=== PATIENT | male | born 1960 | race Caucasian/White ===

== ENCOUNTER 2019-07-25 09:55 | Emergency (ER) | payer MEDICAID, SELFPAY ==
--- NOTE | 2019-07-25 10:02 | ED_ITS ---
HPI - Abdominal Pain General: Chief Complaint: Abdominal Pain Stated Complaint: ABD PAIN Time Seen by Provider: 07/25/19 10:02 Source: patient Mode of arrival: ambulatory Limitations: no limitations History of Present Illness: HPI narrative: Patient comes in with epigastric discomfort for 1 week. Patient reports pain was worse this morning and nothing he does at home seems to help. Patient reports pain becomes worse when he lays down and tries to go to sleep at night. Patient appears well. Patient appears in moderate pain. Patient denies any previous episodes of similar problems. Patient takes lisinopril routinely for hypertension. Patient has a history of cardiomyopathy and atrial flutter also. Associated Symptoms: Reports nausea Review of Systems General: Reports: 10 or more systems reviewed and unremarkable except in HPI and below GI: Reports: abdominal pain and nausea PFSH ED PFSH: Social History Smoking and tobacco status: current every day smoker Physical Exam Const: COMMON NORMALS: no apparent distress and oriented x3 GENERAL APPEARANCE: cooperative HENMT: COMMON NORMALS: normocephalic, TM's normal bilaterally and external nose normal HEAD & SCALP: normal to inspection and normocephalic NOSE: external nose normal TYMPANIC MEMBRANE: TM's normal bilaterally MOUTH: oral and palatal mucosa normal THROAT: posterior oropharynx normal Eye: GENERAL EYE: normal appearance of both eyes Neck/C-Spine: COMMON NORMALS: full ROM Lymph: LYMPHATIC: no lymphadenopathy noted Chest: COMMONS NORMALS: inspection of chest normal Resp: COMMON NORMALS: normal respiratory effort EFFORT & INSPECTION: Yes able to speak in complete sentences Cardio: COMMON NORMALS: regular rate and regular rhythm RATE: regular rate RHYTHM: regular rhythm GI: PALPATION: Yes tender (epigastric) : COMMON NORMALS: Yes no CVA tenderness BLADDER/KIDNEY EXAM: Yes no CVA tenderness Back/Pelvis: COMMON NORMALS: no CVA tenderness and thoracic and lumbar spine normal to inspection Extremity: COMMON NORMALS: normal to inspection Neuro: COMMON NORMALS: oriented x3 and moves all extremities Psych: COMMON NORMALS: mental status grossly normal and cooperative Skin: COMMON NORMALS: no rashes or lesions noted GENERAL SKIN EXAM: no rashes or lesions noted Course ED course: 1130, patient reports improvement in symptoms after dosing with GI cocktail. Awaiting second troponin level for evaluation to rule out cardiac syndrome. wjw Vital Signs: Vital signs: Vital Signs Temperature 98.6 F 07/25/19 10:05 Pulse Rate 60 07/25/19 10:05 Respiratory Rate 20 H 07/25/19 10:05 Blood Pressure 193/87 07/25/19 10:05 Pulse Oximetry 98 07/25/19 10:05 MDM - Abdominal Pain MDM Narrative: Medical decision making narrative: Patient comes in today for complaints of epigastric pain for the last 1 to 2 weeks. Patient reports that the pain became unbearable this morning and he was unable to tolerate pain anymore. Patient did report one episode of vomiting. Vital signs are normal except for some mild elevation in blood pressure with a systolic of 190. Differential diagnosis includes gastroesophageal reflux disorder, gastritis, peptic ulcer disease, pancreatitis, ACS. Chest x-ray was normal. Laboratory values noted a mild elevation leukocytosis of 11, sodium potassium was 141 and 3 .9, lipase was normal. EKG was sinus bradycardia with some mild left ventricular hypertrophy. Troponin was slightly elevated at 60 at 1 hour but was declined at the 2-hour with a negative curve. Patient had improvement of pain after a GI cocktail. Patient was then dosed with Protonix and will be continued on medication for the next 2 to 4 weeks. Recommended patient follow-up with primary care for further evaluation and consideration of treatment/evaluation with endoscopy. Patient reports understanding agreed to plan. Lab Data: Labs: Lab Results 07/25/19 07/25/19 07/25/19 Range/Units 10:30 10:30 10:30 WBC 11.0 H (4.0-10.0) 10^3/ uL RBC 4.61 (4.1-5.3) 10^6/u L Hgb 13.9 (11.7-16.6) g/dL Hct 43.3 (42.0-52.0) % MCV 93.9 (80-94) fL MCH 30.2 (28.0-34.0) pg MCHC 32.1 (30.0-36.0) g/dL RDW 13.5 (12.1-15.1) % Plt Count 368 (130-400) 10^3/c mm MPV 9.7 (7.4-10.4) fL Neut % (Auto) 73.7 % Lymph % (Auto) 17.0 % [place] % (Auto) 8.0 % Eos % (Auto) 0.6 % Baso % (Auto) 0.3 % Neut # (Auto) 8.1 H (1.8-7.7) 10^3/u L Lymph # (Auto) 1.9 (0.8-4.8) 10^3/u L [place] # (Auto) 0.9 (0.2-0.9) 10^3/u L Eos # (Auto) 0.1 (0.0-0.8) 10^3/u L Baso # (Auto) 0.0 (0.0-0.1) 10^3/u L Nucleated RBC % (a uto) 0 % Nucleated RBCs # 0.0 /100WBC Sodium 141 (136-145) mmol/L Potassium 3.9 (3.5-5.1) mmol/L Chloride 100 (98-107) mmol/L Carbon Dioxide 28 (22-29) mmol/L Anion Gap 16.9 (5-19) BUN 9 (8-23) mg/dL Creatinine 1.1 (0.7-1.2) mg/dL GFR Calculation 68.3 L (90-130) mL/min Glucose 124 H (65-115) mg/dL Calculated Osmolal ity 289 (285-295) mOsm/k g Calcium 9.5 (8.5-10.5) mg/dL Total Bilirubin 0.3 (0.15-1.2) mg/dL AST 16 (0-40) U/L ALT 8 (0-41) U/L Alkaline Phosphata se 82 (40-130) IU/L Troponin T Baselin e 60 H (0-15) ng/mL Troponin T 120 Min [place] (0-15) ng/mL Delta Troponin T (0-10) ABS# Total Protein 8.0 (6.6-8.7) g/dL Albumin 4.2 (3.5-5.2) g/dL Globulin 3.8 (1.3-4.6) g/dL Lipase 39 (13-60) U/L /06/10 Range/Units 11:43 WBC (4.0-10.0) 10^3/ uL RBC (4.1-5.3) 10^6/u L Hgb (11.7-16.6) g/dL Hct (42.0-52.0) % MCV (80-94) fL MCH (28.0-34.0) pg MCHC (30.0-36.0) g/dL RDW (12.1-15.1) % Plt Count (130-400) 10^3/c mm MPV (7.4-10.4) fL Neut % (Auto) % Lymph % (Auto) % [place] % (Auto) % Eos % (Auto) % Baso % (Auto) % Neut # (Auto) (1.8-7.7) 10^3/u L Lymph # (Auto) (0.8-4.8) 10^3/u L [place] # (Auto) (0.2-0.9) 10^3/u L Eos # (Auto) (0.0-0.8) 10^3/u L Baso # (Auto) (0.0-0.1) 10^3/u L Nucleated RBC % (a uto) % Nucleated RBCs # /100WBC Sodium (136-145) mmol/L Potassium (3.5-5.1) mmol/L Chloride (98-107) mmol/L Carbon Dioxide (22-29) mmol/L Anion Gap (5-19) BUN (8-23) mg/dL Creatinine (0.7-1.2) mg/dL GFR Calculation (90-130) mL/min Glucose (65-115) mg/dL Calculated Osmolal ity (285-295) mOsm/k g Calcium (8.5-10.5) mg/dL Total Bilirubin (0.15-1.2) mg/dL AST (0-40) U/L ALT (0-41) U/L Alkaline Phosphata se (40-130) IU/L Troponin T Baselin e (0-15) ng/mL Troponin T 120 Min [place] 22.42 H (0-15) ng/mL Delta Troponin T -37.58 L (0-10) ABS# Total Protein (6.6-8.7) g/dL Albumin (3.5-5.2) g/dL Globulin (1.3-4.6) g/dL Lipase (13-60) U/L EKG Data ^: EKG 1: Attestation: I personally reviewed and interpreted this EKG as follows: (1117, sinus bridget, rate 43 bpm and regular, no ST elevation, no ectopy, LVH identified ) Discharge Plan Discharge Patient Disposition: Home, Self-Care Clinical Impression: Gastritis Qualifiers: Gastritis type: unspecified gastritis Chronicity: acute Gastritis bleeding: without bleeding Qualified Code(s): K29.00 - Acute gastritis without bleeding Condition: Stable Prescriptions: New pantoprazole 40 mg tablet,delayed release (DR/EC) 40 mg PO DAILY 28 Days Qty: 28 RF: 0 No Action lisinopril 20 mg tablet 20 mg PO DAILY 90 Days Qty: 90 RF: 3 Lasix 40 mg Tablet 40 mg PO DAILY RF: 0 aspirin 81 mg Tablet,Chewable 325 mg PO EVERY OTHER DAY RF: 0 potassium chloride 20 mEq Tablet Extended Release 20 meq PO DAILY RF: 0 Discharge Orders: Discharge Order (Routine); Ordered 07/25/19 Ordered By: Bin Paredes Referrals: Joss Shah MD [Family Provider] - Discharge Diet: Usual diet Discharge Activity: Increase activity as tolerated Patient Instructions: Gastroesophageal Reflux Disease (ED) Activity Restrictions/Additional Instructions: Eat a light diet. Drink plenty of water. Take pantoprazole 30 minutes before your first meal of the day. Follow-up with primary care in 1 week for recheck and consideration of further evaluation with endoscopy to evaluate the stomach and esophagus. Return to the emergency room for worsening symptoms, blood in vomit or stool. Coding Level of Care Code ED Director Of [employer] for [facility] Exam Comprehensive
[2019-07-25 10:03] VITALS: BMI 23.7
[2019-07-25 10:05] VITALS: BP 193/87; PULSE 60; RESP 20; TEMP 37; O2SAT 98
--- NOTE | 2019-07-25 10:08 | XRR_ITS ---
PROCEDURE INFORMATION: Exam: XR Chest, 1 View Exam date and time: 07/25/2019 10:40 AM Age: 59 years old Clinical indication: Other: Epigastric pain; Additional info: Abdominal pain TECHNIQUE: Imaging protocol: XR of the chest Views: Frontal portable upright view of the chest. COMPARISON: CR Chest 1 [place] [id number] 07/05/2014 7:23 PM FINDINGS: Lungs: The lungs are clear bilaterally. The pulmonary vasculature is normal. Pleural space: No pleural effusion. No pneumothorax. Heart/Mediastinum: The heart is normal in size and contour. Mediastinum: Stable. Bones/joints: Stable. XR/XR chest 1V portable [id number] IMPRESSION: No acute cardiopulmonary abnormality identified.
--- NOTE | 2019-07-25 10:08 | ECG_ITS ---
Measurements Intervals [place] Rate: 43 P: -21 IN: 161 QRS: -9 QRSD: 104 T: 259 QT: 546 QTc: 466 SINUS BRADYCARDIA LEFT VENTRICULAR HYPERTROPHY AND ST-T CHANGE [VOLTAGE CRITERIA PLUS ST/T AB ABNORMALITY] Compared to ECG 07/08/2014 08:37:30 Left ventricular hypertrophy now present ST (T wave) deviation now present Sinus tachycardia no longer present Atrial abnormality no longer present Left bundle-branch block no longer present Electronically Signed On 07-25-2019 17:06:22 CDT by Carlita Gomes M.D. [id number]
[2019-07-25 10:49] LABS: Basophils % 0.3 %; Eosinophils # 0.1 10^3/uL (0.0-0.8); Eosinophils % 0.6 %; Hematocrit 43.3 % (42.0-52.0); Hemoglobin 13.9 g/dL (11.7-16.6); Lymphocytes # 1.9 10^3/uL (0.8-4.8); Mean Corpuscular HGB Conc 32.1 g/dL (30.0-36.0); Mean Corpuscular Hemoglobin 30.2 pg (28.0-34.0); Mean Corpuscular Volume 93.9 fL (80-94); Mean Platelet Volume 9.7 fL (7.4-10.4); Monocytes # 0.9 10^3/uL (0.2-0.9); Neutrophils # 8.1 10^3/uL (1.8-7.7); Neutrophils % 73.7 %; Nucleated Red Blood Cells % 0 %; Platelet Count 368 10^3/cmm (130-400); Red Blood Count 4.61 10^6/uL (4.1-5.3); Red Cell Distribution Width 13.5 % (12.1-15.1)
[2019-07-25] MEDS: sodium chloride 0.9% 500 ML 999 ML IV (10:56)
[2019-07-25] MEDS: ondansetron 2 mg/ML SDV 2 mL 4 MG IVP (10:57)
[2019-07-25] MEDS: lidocaine 2% viscous 15 ML, aluminum-mag hydrox-simethicon 30 ML, sucralfate oral liq 1 GM PO (10:58)
[2019-07-25 11:04] LABS: Alanine Aminotransferase 8 U/L (0-41); Albumin Level 4.2 g/dL (3.5-5.2); Alkaline Phosphatase 82 IU/L (40-130); Anion Gap 16.9 (5-19); Aspartate Amino Transferase 16 U/L (0-40); Blood Urea Nitrogen 9 mg/dL (8-23); Calcium 9.5 mg/dL (8.5-10.5); Carbon Dioxide 28 mmol/L (22-29); Chloride 100 mmol/L (98-107); Globulin 3.8 g/dL (1.3-4.6); Glomerular Filtration Rate 68.3 mL/min (90-130); Glucose 124 mg/dL (65-115); Lipase 39 U/L (13-60); Osmolality Calculated 289 mOsm/kg (285-295); Potassium 3.9 mmol/L (3.5-5.1); Sodium 141 mmol/L (136-145); Total Bilirubin 0.3 mg/dL (0.15-1.2)
--- NOTE | 2019-07-25 11:06 | CTR_ITS ---
PROCEDURE INFORMATION: Exam: CT Abdomen And Pelvis With Contrast Exam date and time: 07/25/2019 11:08 AM Age: 59 years old Clinical indication: Abdominal pain; Epigastric; Additional info: Abdominal pain TECHNIQUE: Imaging protocol: Computed tomography of the abdomen and pelvis with intravenous contrast. Radiation optimization: All CT scans at this facility use at least one of these dose optimization techniques: automated exposure control; mA and/or kV adjustment per patient size (includes targeted exams where dose is matched to clinical indication); or iterative reconstruction. Contrast material: Omnipaque 300; Contrast volume: 95 ml; Contrast route: IV; COMPARISON: CT abdomen pelvis w con* [id number] 07/08/2014 1:02 PM RADIATION DOSE METRICS: Total DLP: 604.09 mGy-cm FINDINGS: Liver: The liver measures 20.3 cm in the midclavicular plane. Mild periportal hypoattenuation. Gallbladder and bile ducts: The gallbladder is partially contracted. Pancreas: Normal. No ductal dilation. Spleen: Normal. No splenomegaly. Adrenals: Normal. No mass. Kidneys and ureters: Mild bilateral renal cortical scarring, stable. Stomach and bowel: A sigmoid colonic diverticulum is present without evidence of diverticulitis. Appendix: The vermiform appendix is not identified on this examination. There is, however, no pericecal abnormality to suggest appendicitis. Intraperitoneal space: Unremarkable. No free air. No significant fluid collection. Vasculature: Moderate aortic atherosclerotic calcification without aneurysm. The iliac arteries show moderate bilateral atherosclerotic calcifications without evidence of aneurysm. Calcified phleboliths are present in the lower pelvis bilaterally. Lymph nodes: No enlarged lymph nodes. Bladder: Unremarkable as visualized. Reproductive: Unremarkable as visualized. Bones/joints: Bilateral mild lower lumbar facet primary osteoarthritis. Soft tissues: Unremarkable. CT/CT abdomen pelvis w con* [id number] IMPRESSION: 1. Mild hepatomegaly. 2. Mild periportal hypoattenuation. Differential diagnosis includes acute hepatitis, hypoproteinemia, elevated central venous pressure, bacteremia, recent crystalloid administration and other etiologies. Clinical correlation is recommended. 3. Mild bilateral renal cortical scarring, stable. 4. Diverticulosis. Radiation Dose CTDIVOL = (mGy): DLP = 604.09 (mGy-cm)
[2019-07-25 11:17] LABS: Troponin(5th) Baseline 60 ng/mL (0-15)
[2019-07-25] MEDS: iohexol 300 mg/mL 100 mL Btl IV (11:56)
[2019-07-25] MEDS: pantoprazole 40 mg SDV IVP (12:02)
[2019-07-25 12:15] LABS: Troponin 5 2HR 22.42 ng/mL (0-15)
[2019-07-25 13:05] VITALS: BP 189/87; PULSE 54; RESP 16; TEMP 36.9; O2SAT 98
--- NOTE | 2019-07-25 16:08 | ECG_ITS ---
Measurements Intervals [place] Rate: 48 P: 43 TX: 169 QRS: -22 QRSD: 103 T: 250 QT: 518 QTc: 466 SINUS BRADYCARDIA BORDERLINE LEFT AXIS DEVIATION [QRS AXIS < -20] LEFT VENTRICULAR HYPERTROPHY AND ST-T CHANGE [VOLTAGE CRITERIA PLUS ST/T ABNORMALITY] Compared to ECG 07/08/2014 08:37:30 Left ventricular hypertrophy now present ST (T wave) deviation now present Sinus tachycardia no longer present Atrial abnormality no longer present Left bundle-branch block no longer present Electronically Signed On 07-25-2019 17:07:13 CDT by Carlita Gomes M.D. [id number]
== END 2019-07-25 13:05 | disposition home or self-care (01) ==
PROVIDERS: Emergency Provider Nurse Practitioner Family; Family Provider Family Medicine
DX: K29.00 Acute gastritis without bleeding (principal); Z79.82 Long term (current) use of aspirin; F17.210 Nicotine dependence, cigarettes, uncomplicated
CPT/HCPCS: 12345; 36415; 71045; 74177; 80053; 83690; 84484; 85025; 93005; 96360; 96361; 96375; 99283; A9270; C9113; J2405; J7040; Q9967

== ENCOUNTER → 2020-07-25 16:08 | Outpatient (BNVA) | payer MEDICAID, SELFPAY | PROVIDERS: Family Provider Family Medicine; PCP Nurse Practitioner Family; Visit Provider Nurse Practitioner Family | DX: R30.0 Dysuria (principal); R82.90 Unspecified abnormal findings in urine; N39.0 Urinary tract infection, site not specified | CPT/HCPCS: 81003; 87077; 87086; 87184 ==

== ENCOUNTER 2020-07-26 15:07 | Emergency (ER) | payer MEDICAID, SELFPAY ==
[2020-07-26 15:29] VITALS: BP 164/82; PULSE 115; RESP 22; TEMP 37.6; O2SAT 98; BMI 21.7
--- NOTE | 2020-07-26 17:53 | CTR_ITS ---
PROCEDURE INFORMATION: Exam: CT Abdomen And Pelvis With Contrast Exam date and time: 07/26/2020 6:28 PM Age: 60 years old Clinical indication: Nausea and vomiting and other: Hematuria TECHNIQUE: Imaging protocol: Computed tomography of the abdomen and pelvis with contrast. Radiation optimization: All CT scans at this facility use at least one of these dose optimization techniques: automated exposure control; mA and/or kV adjustment per patient size (includes targeted exams where dose is matched to clinical indication); or iterative reconstruction. Contrast material: VISI 320; Contrast volume: 95 ml; Contrast route: INTRAVENOUS (IV); COMPARISON: CT abdomen pelvis w con* [id number] 07/25/2019 11:48 AM RADIATION DOSE METRICS: Total DLP (mGy-cm): 1204.18 FINDINGS: Liver: Normal. No mass. Gallbladder and bile ducts: Contracted gallbladder. The bile ducts are normal. Pancreas: Normal. No ductal dilation. Spleen: Normal. No splenomegaly. Adrenal glands: Normal. No mass. Kidneys and ureters: Inhomogenous enhancement of the right kidney with perinephric and periureteral stranding. Mild urothelial thickening of the right renal collecting system and ureter. Tiny hypodensities in the left kidney are too small to characterize but are most likely cysts. No follow-up imaging is recommended. No calculus or hydronephrosis. Stomach and bowel: Mild diverticulosis of the distal colon. The stomach and small bowel are unremarkable. Appendix: No evidence of appendicitis. Intraperitoneal space: Mild pelvic ascites. Vasculature: Atherosclerotic calcifications. No aneurysm. Lymph nodes: Numerous subcentimeter retroperitoneal lymph nodes are most likely reactive. Urinary bladder: Mild wall thickening in the urinary bladder measuring 7 mm. Reproductive: Mildly enlarged prostate gland. Bones/joints: Unremarkable. No acute fracture. Soft tissues: Unremarkable. CT/CT abdomen pelvis w con* [id number] IMPRESSION: 1. Inhomogenous right kidney with perinephric stranding, suspicious for pyelonephritis. Clinical correlation recommended. No visible calculus. 2. Mild right urothelial thickening and periureteral stranding. This is suspicious for infection of the right renal collecting system. 3. Mild wall thickening of the urinary bladder, suspicious for cystitis. 4. Prominent retroperitoneal lymph nodes are most likely reactive. COMMENTS: Consistent with the [employer]'s Incidental Findings Committee white paper (J Am Beny Radiol 2018): Any incidental renal lesion less than 1 cm or classified as too small to characterize, or any incidental cystic renal lesion characterized as simple-appearing, is likely benign. No follow-up imaging is recommended for these lesions per consensus recommendations based on imaging criteria. Radiation Dose CTDIVOL = (mGy): DLP = 1204.18 (mGy-cm)
[2020-07-26 18:13] LABS: Basophils # 0.1 10^3/uL (0.0-0.1); Basophils % 0.2 %; Hematocrit 39.5 % (42.0-52.0); Hemoglobin 13.2 g/dL (11.7-16.6); Lymphocytes # 2.5 10^3/uL (0.8-4.8); Lymphocytes % 9.7 %; Mean Corpuscular HGB Conc 33.4 g/dL (30.0-36.0); Mean Corpuscular Hemoglobin 30.4 pg (28.0-34.0); Mean Platelet Volume 9.8 fL (7.4-10.4); Monocytes # 2.3 10^3/uL (0.2-0.9); Monocytes % 8.8 %; Neutrophils # 20.82 10^3/uL (1.8-7.7); Neutrophils % 80.5 %; Nucleated Red Blood Cells % 0 %; Platelet Count 536 10^3/cmm (130-400); Red Blood Count 4.34 10^6/uL (4.1-5.3); Red Cell Distribution Width 12.8 % (12.1-15.1); White Blood Count 25.9 10^3/uL (4.0-10.0)
[2020-07-26] MEDS: sodium chloride 0.9% 1,000 ML 999 ML IV (18:14)
[2020-07-26 18:38] LABS: Alanine Aminotransferase 12 U/L (0-41); Albumin Level 3.5 g/dL (3.5-5.2); Alkaline Phosphatase 99 IU/L (40-130); Anion Gap 16.8 (5-19); Aspartate Amino Transferase 15 U/L (0-40); Blood Urea Nitrogen 20 mg/dL (8-23); Calcium 8.3 mg/dL (8.5-10.5); Carbon Dioxide 22 mmol/L (22-29); Chloride 97 mmol/L (98-107); Globulin 4.1 g/dL (1.3-4.6); Glomerular Filtration Rate 56.1 mL/min (90-130); Glucose 99 mg/dL (65-115); Osmolality Calculated 277 mOsm/kg (285-295); Potassium 3.8 mmol/L (3.5-5.1); Sodium 132 mmol/L (136-145); Total Bilirubin 0.4 mg/dL (0.15-1.2); Total Protein 7.6 g/dL (6.6-8.7)
[2020-07-26 18:39] LABS: Lactic Sepsis W/Reflex 0.7 mmol/L (0.5-2.2)
--- NOTE | 2020-07-26 18:41 | ED_ITS ---
HPI - Male Genitourinary General: Chief complaint: Urogenital-Male Stated complaint: DEHYDRATED,KIDNEY INF,S[facility] Time Seen by Provider: 07/26/20 17:45 Source: patient Mode of arrival: ambulatory Limitations: no limitations History of Present Illness: HPI Narrative: 60-year-old male states that over the last week he has been having fevers along with chills body aches. He states he is also had some dysuria and flank pain and some blood in his urine. He states he has been on Cipro for 2 days with no improvement. He states that Cipro has been causing him some stomach pains and feeling occasional vomit. He denies any worsening improving factors. Associated symptoms: Reports dysuria and hematuria; Deny nausea or vomiting Review of Systems Const: Reports: fever(s), chills and body aches; Denies: change in appetite Eyes: Denies: blurry vision or eye discomfort ENMT: Denies: throat pain or dental pain Card: Denies: chest pain Resp: Denies: dyspnea GI: Denies: abdominal pain, nausea, vomiting or diarrhea : Reports: flank pain, dysuria and hematuria Musc: Denies: neck pain or back pain Skin/Breast: Denies: rash Neuro: Denies: headache(s) Psych: Denies: depression Jerel/Lymph: Denies: easy bruising All/Imm: Denies: urticaria PFSH ED PFSH: Medical History Cardiomyopathy Cardiomyopathy Malignant hypertension Family History Other CAD (coronary artery disease) Social History Smoking and tobacco status: current every day smoker Second hand smoke exposure: Yes Smoking risk assessment/counseling performed?: No Alcohol intake: never Desire information about alcohol rehabilitation?: No Counseling given: No Desire information about substance/drug rehabilitation?: No Counseling given: No Adopted: No Caregiver/support person: No Lives independently: Yes Household members: spouse Housing: House Marital status: Number of children: 4 service: No Current occupational status: disabled Physical Exam Const: COMMON NORMALS: no acute distress, patient oriented x3 and healthy appearing HENMT: COMMON NORMALS: normocephalic and atraumatic HEAD & SCALP: normocephalic and atraumatic Eye: COMMON NORMALS: Equal, round and reactive pupils present and EOMs intact bilaterally PUPIL: Yes Equal, round and reactive pupils present Neck/C-Spine: COMMON NORMALS: full ROM and supple Chest: COMMONS NORMALS: normal inspection of the chest and normal palpation of entire chest wall Resp: COMMON NORMALS: normal respiratory effort, No retractions, No use of accessory muscles and clear to auscultation bilaterally AUSCULTATION: clear to auscultation bilaterally Cardio: COMMON NORMALS: regular rate, regular rhythm and No murmurs present (Cardio) RATE: regular rate RHYTHM: regular rhythm GI: COMMON NORMALS: Normal to inspection, nondistended, normoactive bowel sounds present, Soft to palpation, non-tender and no masses PALPATION: Yes Soft to palpation Extremity: COMMON NORMALS: normal to inspection and full ROM Neuro: COMMON NORMALS: patient oriented x3, moves all extremities and no focal motor deficits Psych: COMMON NORMALS: mental status grossly normal, Normal thought process present and cooperative THOUGHT PROCESS: Normal thought process present Skin: COMMON NORMALS: no rashes or lesions noted and no wounds GENERAL SKIN EXAM: no rashes or lesions noted Course Vital Signs: Vital signs: Vital Signs Temperature 99.6 F 07/26/20 15:29 Pulse Rate 91 07/26/20 20:35 Respiratory Rate 17 07/26/20 20:35 Blood Pressure 152/75 07/26/20 20:35 Pulse Oximetry 97 07/26/20 20:35 MDM - Male [facility] Narrative: Medical decision making narrative: Patient presents here with pyelonephritis. He does have a leukocytosis as well. He has been on his Cipro since yesterday. Informed him his CT did show pyelonephritis he had a very high white count I recommended admission for IV biotics. He states he had no vomiting he feels improved here and would like to go home. Will prescribe him Zofran to take with the Cipro as he states it hurts his stomach. He needs to follow-up his PCP in 5 to 7 days return if he has any worsening. He understands and agrees to this plan. He refused admission stating that he would like to trial the p.o. antibiotics little longer. His blood pressure and his heart rate here have been stable. Lab Data: Labs: Lab Results 07/26/20 07/26/20 07/26/20 Range/Units 18:05 18:05 18:05 WBC 25.9 H (4.0-10.0) 10^3/ uL RBC 4.34 (4.1-5.3) 10^6/u L Hgb 13.2 (11.7-16.6) g/dL Hct 39.5 L (42.0-52.0) % MCV 91.0 (80-94) fL MCH 30.4 (28.0-34.0) pg MCHC 33.4 (30.0-36.0) g/dL RDW 12.8 (12.1-15.1) % Plt Count 536 H (130-400) 10^3/c mm MPV 9.8 (7.4-10.4) fL Neut % (Auto) 80.5 % Lymph % (Auto) 9.7 % [place] % (Auto) 8.8 % Eos % (Auto) 0.0 % Baso % (Auto) 0.2 % Neut # (Auto) 20.82 H (1.8-7.7) 10^3/u L Lymph # (Auto) 2.5 (0.8-4.8) 10^3/u L [place] # (Auto) 2.3 H (0.2-0.9) 10^3/u L Eos # (Auto) 0.0 (0.0-0.8) 10^3/u L Baso # (Auto) 0.1 (0.0-0.1) 10^3/u L Nucleated RBC % (a uto) 0 % Nucleated RBCs # 0.0 /100WBC Sodium 132 L (136-145) mmol/L Potassium 3.8 (3.5-5.1) mmol/L Chloride 97 L (98-107) mmol/L Carbon Dioxide 22 (22-29) mmol/L Anion Gap 16.8 (5-19) BUN 20 (8-23) mg/dL Creatinine 1.3 H (0.7-1.2) mg/dL GFR Calculation 56.1 L (90-130) mL/min Glucose 99 (65-115) mg/dL Calculated Osmolal ity 277 L (285-295) mOsm/k g Lactic Acid 0.7 (0.5-2.2) mmol/L Calcium 8.3 L (8.5-10.5) mg/dL Total Bilirubin 0.4 (0.15-1.2) mg/dL AST 15 (0-40) U/L ALT 12 (0-41) U/L Alkaline Phosphata se 99 (40-130) IU/L Total Protein 7.6 (6.6-8.7) g/dL Albumin 3.5 (3.5-5.2) g/dL Globulin 4.1 (1.3-4.6) g/dL Urine Color (Yellow) Urine Appearance (CLEAR) Urine pH (5-7) Ur Specific Gravit y (1.005-1.030) Urine Protein (Negative) Urine Glucose (UA) (Normal) Urine Ketones (Negative) Urine Blood (Negative) Urine Nitrate (Negative) Urine Bilirubin (Negative) Urine Urobilinogen (Negative) mg/dL Ur Leukocyte Nannette ase (Negative) Urine RBC (0-2) /hpf Urine WBC (0-5) /hpf Ur Squamous Epith Cells (0-5) /hpf Amorphous Sediment Urine Bacteria (NONE) /hpf 07/26/20 Range/Units 19:36 WBC (4.0-10.0) 10^3/ uL RBC (4.1-5.3) 10^6/u L Hgb (11.7-16.6) g/dL Hct (42.0-52.0) % MCV (80-94) fL MCH (28.0-34.0) pg MCHC (30.0-36.0) g/dL RDW (12.1-15.1) % Plt Count (130-400) 10^3/c mm MPV (7.4-10.4) fL Neut % (Auto) % Lymph % (Auto) % [place] % (Auto) % Eos % (Auto) % Baso % (Auto) % Neut # (Auto) (1.8-7.7) 10^3/u L Lymph # (Auto) (0.8-4.8) 10^3/u L [place] # (Auto) (0.2-0.9) 10^3/u L Eos # (Auto) (0.0-0.8) 10^3/u L Baso # (Auto) (0.0-0.1) 10^3/u L Nucleated RBC % (a uto) % Nucleated RBCs # /100WBC Sodium (136-145) mmol/L Potassium (3.5-5.1) mmol/L Chloride (98-107) mmol/L Carbon Dioxide (22-29) mmol/L Anion Gap (5-19) BUN (8-23) mg/dL Creatinine (0.7-1.2) mg/dL GFR Calculation (90-130) mL/min Glucose (65-115) mg/dL Calculated Osmolal ity (285-295) mOsm/k g Lactic Acid (0.5-2.2) mmol/L Calcium (8.5-10.5) mg/dL Total Bilirubin (0.15-1.2) mg/dL AST (0-40) U/L ALT (0-41) U/L Alkaline Phosphata se (40-130) IU/L Total Protein (6.6-8.7) g/dL Albumin (3.5-5.2) g/dL Globulin (1.3-4.6) g/dL Urine Color Yellow (Yellow) Urine Appearance Clear (CLEAR) Urine pH 5 (5-7) Ur Specific Gravit y 1.010 (1.005-1.030) Urine Protein 1+ H (Negative) Urine Glucose (UA) Norm (Normal) Urine Ketones Negative (Negative) Urine Blood 3+ H (Negative) Urine Nitrate Negative (Negative) Urine Bilirubin Neg (Negative) Urine Urobilinogen 1 H (Negative) mg/dL Ur Leukocyte Nannette ase Negative (Negative) Urine RBC 80-100 H (0-2) /hpf Urine WBC 0-4 H (0-5) /hpf Ur Squamous Epith Cells 0-4 H (0-5) /hpf Amorphous Sediment Not Reportable Urine Bacteria 1+ H (NONE) /hpf Imaging Data: CT Abd/Pel: Attestation: I personally reviewed and interpreted this imaging study as follows: Radiologist's impression: [address] [address] [address] Scan Report Signed Patient: Parish Camp Unit #: [id number] : 1960 Age/Sex: 60 / M ADM Date: 07/26/20 Loc: ER Room/Bed: Attending Dr: Ordering Provider/Ordering MD: Lola Mcgowan MD Date of Service: 07/26/20 Procedure(s): CT abdomen pelvis w con* [id number] Accession Number(s): [id number] Report Number: [id number] PROCEDURE INFORMATION: Exam: CT Abdomen And Pelvis With Contrast Exam date and time: 07/26/2020 6:28 PM Age: 60 years old Clinical indication: Nausea and vomiting and other: Hematuria TECHNIQUE: Imaging protocol: Computed tomography of the abdomen and pelvis with contrast. Radiation optimization: All CT scans at this facility use at least one of these dose optimization techniques: automated exposure control; mA and/or kV adjustment per patient size (includes targeted exams where dose is matched to clinical indication); or iterative reconstruction. Contrast material: VISI 320; Contrast volume: 95 ml; Contrast route: INTRAVENOUS (IV); COMPARISON: CT abdomen pelvis w con* [id number] 07/25/2019 11:48 AM RADIATION DOSE METRICS: Total DLP (mGy-cm): 1204.18 FINDINGS: Liver: Normal. No mass. Gallbladder and bile ducts: Contracted gallbladder. The bile ducts are normal. Pancreas: Normal. No ductal dilation. Spleen: Normal. No splenomegaly. Adrenal glands: Normal. No mass. Kidneys and ureters: Inhomogenous enhancement of the right kidney with perinephric and periureteral stranding. Mild urothelial thickening of the right renal collecting system and ureter. Tiny hypodensities in the left kidney are too small to characterize but are most likely cysts. No follow-up imaging is recommended. No calculus or hydronephrosis. Stomach and bowel: Mild diverticulosis of the distal colon. The stomach and small bowel are unremarkable. Appendix: No evidence of appendicitis. Intraperitoneal space: Mild pelvic ascites. Vasculature: Atherosclerotic calcifications. No aneurysm. Lymph nodes: Numerous subcentimeter retroperitoneal lymph nodes are most likely reactive. Urinary bladder: Mild wall thickening in the urinary bladder measuring 7 mm. Reproductive: Mildly enlarged prostate gland. Bones/joints: Unremarkable. No acute fracture. Soft tissues: Unremarkable. CT/CT abdomen pelvis w con* [id number] IMPRESSION: 1. Inhomogenous right kidney with perinephric stranding, suspicious for pyelonephritis. Clinical correlation recommended. No visible calculus. 2. Mild right urothelial thickening and periureteral stranding. This is suspicious for infection of the right renal collecting system. 3. Mild wall thickening of the urinary bladder, suspicious for cystitis. 4. Prominent retroperitoneal lymph nodes are most likely reactive. Discharge Plan Discharge Patient Disposition: Home Clinical Impression: Acute pyelonephritis Condition: Stable Prescriptions: New ondansetron 4 mg tablet,disintegrating 4 mg PO Q6H PRN (Reason: nausea and vomiting) Qty: 14 RF: 0 No Action metoprolol tartrate 50 mg tablet 100 mg PO DAILY@0800 RF: 0 ciprofloxacin HCl [Cipro] 500 mg tablet 500 mg PO BID 10 Days Qty: 20 RF: 0 furosemide 40 mg tablet 40 mg PO DAILY@0800 RF: 0 Adult Low Dose Aspirin 81 mg tablet,delayed release (DR/EC) 81 mg PO DAILY@0800 RF: 0 potassium chloride 20 mEq tablet extended release 20 meq PO DAILY@0800 RF: 0 Mucus Relief 1 tab PO DAILY@0800 RF: 0 Discharge Orders: Discharge ED (Routine); Ordered 07/26/20 Ordered By: Loal Mcgowan Referrals: Raf Kirby, [facility] C[facility] SPECIALIST[facility] [Primary Care Provider] - 1-3 days Discharge Diet: Advance as tolerated Discharge Activity: Resume usual activity Patient Instructions: Acute Pyelonephritis (ED) Coding Level of Care Code ED Telephone Solicitor Supervisor for Vamsi Fwmadhu Exam Comprehensive
--- NOTE | 2020-07-26 18:42 | XRR_ITS ---
PROCEDURE INFORMATION: Exam: XR Chest Exam date and time: 07/26/2020 6:49 PM Age: 60 years old Clinical indication: Fever TECHNIQUE: Imaging protocol: XR of the chest. Views: 1 view. COMPARISON: CR XR chest 1V portable [id number] 07/25/2019 10:30 AM FINDINGS: Lungs: Minimal atelectasis or scar in the right lung base. The left lung is clear. Pleural spaces: Unremarkable. No pleural effusion. No pneumothorax. Heart/Mediastinum: Unremarkable. No cardiomegaly. Bones/joints: Old healed left clavicle fracture. XR/XR chest 1V portable [id number] IMPRESSION: No acute findings.
[2020-07-26] MEDS: iodixanol 320 mg/mL 100mL Btl IV (19:07)
[2020-07-26 19:51] LABS: Bilirubin Urine Neg (Negative); Blood Urine 3+ (Negative); Glucose Urine UA Norm (Normal); Ketones Urine Negative (Negative); Leukocyte Esterase Urine Negative (Negative); Nitrate Urine Negative (Negative); Protein Urine 1+ (Negative); Urine Appearance Clear (CLEAR); Urine Color Yellow (Yellow); Urobilinogen Urine 1 mg/dL (Negative); pH Urine 5 (5-7)
[2020-07-26 19:52] LABS: Add Urine Microscopic? YES
[2020-07-26] MEDS: cefTRIAXone 1,000 MG in sodium chloride 0.9% (plus) 50 ML 100 MG IV (20:05)
[2020-07-26 20:08] LABS: Add Urine Culture? Yes; Bacteria Urine 1+ /hpf; RBC Urine 80-100 /hpf (0-2); Squamous Epithelial Cell Urine 0-4 /hpf (0-5); WBC Urine 0-4 /hpf (0-5)
[2020-07-26 20:35] VITALS: BP 152/75; PULSE 91; RESP 17; O2SAT 97
== END 2020-07-26 20:36 | disposition home or self-care (01) ==
PROVIDERS: Physician Assistant; Emergency Provider Emergency Medicine; PCP Nurse Practitioner
DX: N10 Acute pyelonephritis (principal); Z79.82 Long term (current) use of aspirin; I10 Essential (primary) hypertension; F17.210 Nicotine dependence, cigarettes, uncomplicated
CPT/HCPCS: 71045; 74177; 80053; 81001; 83605; 85025; 87040; 87086; 96365; 99284; J0696; J7030; Q9967

== ENCOUNTER 2021-08-22 12:19 | Emergency (ER) | payer MEDICAID, SELFPAY ==
--- NOTE | 2021-08-22 12:25 | XRR_ITS ---
PROCEDURE INFORMATION: Exam: XR Chest Exam date and time: 08/22/2021 12:31 PM Age: 61 years old Clinical indication: Dyspnea; Additional info: Dyspnea, chest pain TECHNIQUE: Imaging protocol: XR of the chest. Views: 1 view. COMPARISON: CR XR chest 1V portable [id number] 07/26/2020 6:48 PM FINDINGS: Lungs: Focal infrahilar opacity on the right. Left lung is clear. Pleural spaces: There is no pleural effusion or pneumothorax. Heart/Mediastinum: There is moderate enlargement of the cardiac silhouette. Bones/joints: Healed left clavicle fracture. XR/XR chest 1V portable [id number] IMPRESSION: Focal infrahilar consolidation on the right. Possible pneumonia.
--- NOTE | 2021-08-22 12:25 | CTR_ITS ---
PROCEDURE INFORMATION: Exam: CT Abdomen And Pelvis With Contrast Exam date and time: 08/22/2021 1:51 PM Age: 61 years old Clinical indication: Abdominal pain; Localized; Right lower quadrant (rlq); Patient HX: Rlq pain radiating to center. SOB; Additional info: Abd pain TECHNIQUE: Imaging protocol: Computed tomography of the abdomen and pelvis with contrast. Radiation optimization: All CT scans at this facility use at least one of these dose optimization techniques: automated exposure control; mA and/or kV adjustment per patient size (includes targeted exams where dose is matched to clinical indication); or iterative reconstruction. Contrast material: ALHL100; Contrast volume: 75 ml; Contrast route: INTRAVENOUS (IV); COMPARISON: CT abdomen pelvis w con* [id number] 07/26/2020 7:20 PM RADIATION DOSE METRICS: Total DLP (mGy-cm): 1279.06 FINDINGS: Lungs: There is subsegmental atelectasis in the lung bases. Pleural spaces: Trace right pleural effusion. Heart: There is mild cardiac enlargement. Liver: Mild periportal edema. There is no focal liver abnormality. Gallbladder and bile ducts: The gallbladder is normal. There is no biliary dilation. Pancreas: The pancreas is unremarkable. Spleen: The spleen is unremarkable. Adrenal glands: The adrenal glands are unremarkable. Kidneys and ureters: The kidneys are unremarkable. No hydronephrosis or stones. No ureteral dilation. Stomach and bowel: The stomach is decompressed, preventing meaningful evaluation of wall thickness. The small bowel is nondilated. The colon is normal to the level of the sigmoid. There is diffuse mucosal hyperenhancement and mild wall thickening involving the sigmoid colon and rectum. There is a single uninflamed sigmoid diverticulum. Appendix: The appendix is not visible. Intraperitoneal space: There is no free air or significant intraperitoneal free fluid. Vasculature: There is moderate aortic atherosclerotic disease. The portal, splenic and superior mesenteric veins are patent. Lymph nodes: Numerous mildly prominent retroperitoneal lymph nodes are slightly decreased in size since 07/26/2020. A left periaortic node near the bifurcation on axial series 2, image 42 measures 12 x 10 mm currently (13 x 12 mm previously). No mesenteric, pelvic or inguinal lymphadenopathy. Urinary bladder: The urinary bladder is unremarkable. Reproductive: The prostate and seminal vesicles are unremarkable. Bones/joints: There is mild degenerative disease in the lumbar spine. The pelvis and hips are unremarkable. Soft tissues: The abdominal wall is intact. CT/CT abdomen pelvis w con* [id number] IMPRESSION: 1. Mild proctitis and sigmoid colitis. Possible infection or inflammatory bowel disease. Ischemia is less likely in this distribution. There is no sign of bowel necrosis. 2. Periportal edema. Differential diagnosis includes iatrogenic systemic hypervolemia, passive hepatic congestion, acute viral hepatitis and cholangitis. 3. Decreased retroperitoneal lymphadenopathy since 07/26/2020. 4. Incidental findings above.
--- NOTE | 2021-08-22 12:25 | ECG_ITS ---
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 Measurements Intervals [place] Rate: 86 P: 67 WY: 186 QRS: -42 QRSD: 121 T: 164 QT: 433 QTc: 518 Interpretive Statements SINUS RHYTHM LEFT ATRIAL ENLARGEMENT [-0.15mV P-WAVE IN V1/V2] LEFT AXIS DEVIATION [QRS AXIS < -30] POSSIBLE RIGHT VENTRICULAR CONDUCTION DELAY [RSR (QR) IN V1/V2] LEFT VENTRICULAR HYPERTROPHY AND ST-T CHANGE [VOLTAGE CRITERIA PLUS ST/T ABNORMALITY] Compared to ECG 07/25/2019 12:14:40 Atrial abnormality now present Sinus bradycardia no longer present ST (T wave) deviation still present Electronically Signed On 08-22-2021 19:43:43 CDT by Bismark Aragon M.D. [id number]
[2021-08-22 12:32] VITALS: BP 163/114; PULSE 82; RESP 18; O2SAT 96; BMI 23.0
--- NOTE | 2021-08-22 12:32 | W.ED.GENADLT ---
HPI - General Adult General: Chief complaint: Abdominal Pain Stated complaint: R SIDE LOWER ABD PAIN Time Seen by Provider: 08/22/21 12:19 History of Present Illness: Patient is a 61-year-old male with a history of hypertension, smoking, CHF presenting to the emergency room with fatigue and light-headedness around 8 AM this morning. Patient tells me that he was walking when he felt very lightheaded almost passed out around that time. Patient reports dull midepigastric abdominal pain without associated nausea/vomiting or diaphoresis or radiation at that time. For the last 3 weeks, patient has been having a dull midepigastric abdominal pain that radiates towards the chest with occasional emesis at rest. Pain is not worse with exertion. In addition, patient also complains of a cough for the last 6 weeks. Patient denies any hematemesis. Reports productive white phlegm. Patient denies any fever or chills. At the present time, patient denies any active chest pain, exertional chest pain, pleuritic chest pain, shortness of breath, loose stool (other than 1 episode of diarrhea today), melena/hematochezia. Onset:acutely since 8am of light-headedness/dyspnea, chronically x 3 weeks of abd pain, 6 weeks of cough Duration:ongoing Location:home Severity:moderate Associated symptoms: Reports dyspnea, nausea and vomiting; Deny chest pain, rash or palpitations Review of Systems Const: Denies: fever(s) or chills Eyes: Denies: change in vision ENMT: Denies: mouth pain Card: Denies: chest pain or palpitations Resp: Reports: dyspnea and productive cough (white phlegm) GI: Reports: abdominal pain, nausea and vomiting; Denies: diarrhea : Denies: dysuria Musc: Denies: extremity pain Skin/Breast: Denies: rash or new lesions Neuro: Denies: weakness in extremities Psych: Reports: other (Normal mood) Jerel/Lymph: Denies: easy bruising PFSH ED PFSH: Medical History Cardiomyopathy Cardiomyopathy Emphysema/COPD Malignant hypertension Family History Other CAD (coronary artery disease) Social History (Reviewed 06/03/22 @ 14:07 by FRANCIA Sandoval Smoking and tobacco status: current every day smoker Second hand smoke exposure: Yes Smoking risk assessment/counseling performed?: No Alcohol intake: never Desire information about alcohol rehabilitation?: No Counseling given: No Desire information about substance/drug rehabilitation?: No Counseling given: No Adopted: No Caregiver/support person: No Lives independently: Yes Household members: spouse Housing: House Marital status: Number of children: 4 service: No Current occupational status: disabled Physical Exam Const: COMMON NORMALS: alert HENMT: COMMON NORMALS: atraumatic HEAD & SCALP: atraumatic MOUTH: moist mucous membranes not abnormal Eye: COMMON NORMALS: EOMs intact bilaterally and conjunctivae normal CONJUNCTIVA: Yes conjunctivae normal Neck/C-Spine: COMMON NORMALS: full ROM and supple Resp: COMMON NORMALS: normal respiratory effort and clear to auscultation bilaterally AUSCULTATION: clear to auscultation bilaterally Cardio: COMMON NORMALS: regular rate RATE: regular rate GI: COMMON NORMALS: Soft to palpation and non-tender PALPATION: Yes Soft to palpation OTHER: +mild focal midepigastric TTP. NO guarding rebound, guarding, rigidity. No CVA tenderness to percussion. Neg Zheng/Neg McBurney's point tenderness, no suprabupic tenderness to palpation. Extremity: COMMON NORMALS: full ROM Neuro: SENSORIUM/ORIENTATION: Yes alert MOTOR EXAM: No Abnormal motor strength present and Other motor observations present (no focal motor deficits) Psych: COMMON NORMALS: speech normal SPEECH: Yes normal speech MOOD & AFFECT: Yes euthymic mood Course Vital Signs: Vital signs: Vital Signs Pulse Rate 82 08/22/21 12:32 Respiratory Rate 18 08/22/21 12:32 Blood Pressure 163/114 08/22/21 12:32 Pulse Oximetry 96 08/22/21 12:32 [facility] - General Adult Medical Decision Making Patient is 61-year-old male with history of CHF, hypertension, smoking presenting to the emergency room for evaluation of lightheadedness and dyspnea at 8:00 today lasting for a few minutes in the setting of ongoing abd pain and cough. On exam, patient is mild midepigastric tenderness to palpation. No guarding or rebound tenderness. White count 10.6. K of 3.2. CT abdomen pelvis showed mild colitis with proctitis. No signs of abscess. X-ray showed possible right lower lobe pneumonia. Patient has proctitis and pneumonia. Patient is able to tolerate p.o. without any difficulty. Will treat today with antibiotics. Troponin x2 with delta less than 5, troponin similar to baseline from prior. No complaints of chest pain. EKG is nonischemic. Do not suspect ACS at this time. Rx doxycycline for PNA, and augmentin for proctitis Disposition: Discharge. Patient counseled regarding diagnostic impression, treatment plan. Patient given ED strict return precautions to return for continuation, worsening, or development of new symptoms. Instructed to f/u w/ PCP regarding symptoms today. Patient verbalized understanding. Lab Data : 08/22/21 12:35 08/22/21 12:35 Radiology Impressions Abdomen/Pelvis CT 08/22/21 12:25 IMPRESSION: 1. Mild proctitis and sigmoid colitis. Possible infection or inflammatory bowel disease. Ischemia is less likely in this distribution. There is no sign of bowel necrosis. 2. Periportal edema. Differential diagnosis includes iatrogenic systemic hypervolemia, passive hepatic congestion, acute viral hepatitis and cholangitis. 3. Decreased retroperitoneal lymphadenopathy since 07/26/2020. 4. Incidental findings above. Chest X-Ray 08/22/21 12:25 IMPRESSION: Focal infrahilar consolidation on the right. Possible pneumonia. Laboratory Results WBC 10.6 10^3/uL (4.0-10.0) H 08/22/21 12:35 RBC 4.04 10^6/uL (4.1-5.3) L 08/22/21 12:35 Hgb 12.0 g/dL (11.7-16.6) 08/22/21 12:35 Hct 37.0 % (42.0-52.0) L 08/22/21 12:35 MCV 91.6 fl (80-94) 08/22/21 12:35 MCH 29.7 pg (28.0-34.0) 08/22/21 12:35 MCHC 32.4 g/dL (30.0-36.0) 08/22/21 12:35 RDW 15.2 % (12.1-15.1) H 08/22/21 12:35 Plt Count 338 10^3/cmm (130-400) 08/22/21 12:35 MPV 10.2 fL (7.4-10.4) 08/22/21 12:35 Neut % (Auto) 67.5 % 08/22/21 12:35 Lymph % (Auto) 23.6 % 08/22/21 12:35 [place] % (Auto) 6.9 % 08/22/21 12:35 Eos % (Auto) 1.0 % 08/22/21 12:35 Baso % (Auto) 0.6 % 08/22/21 12:35 Neut # (Auto) 7.17 10^3/uL (1.8-7.7) 08/22/21 12:35 Lymph # (Auto) 2.5 10^3/uL (0.8-4.8) 08/22/21 12:35 [place] # (Auto) 0.7 10^3/uL (0.2-0.9) 08/22/21 12:35 Eos # (Auto) 0.1 10^3/uL (0.0-0.8) 08/22/21 12:35 Baso # (Auto) 0.1 10^3/uL (0.0-0.1) 08/22/21 12:35 Nucleated RBC % (auto) 0 % 08/22/21 12:35 Nucleated RBCs # 0.0 /100WBC 08/22/21 12:35 Sodium 135 mmol/L (136-145) L 08/22/21 12:35 Potassium 3.2 mmol/L (3.5-5.1) L 08/22/21 12:35 Chloride 97 mmol/L (98-107) L 08/22/21 12:35 Carbon Dioxide 24 mmol/L (22-29) 08/22/21 12:35 Anion Gap 17.2 (5-19) 08/22/21 12:35 BUN 10 mg/dL (8-23) 08/22/21 12:35 Creatinine 1.1 mg/dL (0.7-1.2) 08/22/21 12:35 GFR Calculation 67.8 mL/min (90-130) L 08/22/21 12:35 Glucose 107 mg/dL (65-115) 08/22/21 12:35 Calculated Osmolality 280 mOsm/kg (285-295) L 08/22/21 12:35 Lactate 1.5 mmol/L (0.5-2.2) 08/22/21 14:34 Calcium 8.7 mg/dL (8.5-10.5) 08/22/21 12:35 Total Bilirubin 0.8 mg/dL (0.15-1.2) 08/22/21 12:35 AST 21 U/L (0-40) 08/22/21 12:35 ALT 18 U/L (0-41) 08/22/21 12:35 Alkaline Phosphatase 83 IU/L (40-130) 08/22/21 12:35 Troponin T Baseline 57 ng/L (0-15) H 08/22/21 12:35 Troponin T 120 Minute 50.33 ng/L (0-15) H 08/22/21 14:34 Delta Troponin T -6.67 ABS# (0-10) L 08/22/21 14:34 Total Protein 7.4 g/dL (6.6-8.7) 08/22/21 12:35 Albumin 4.0 g/dL (3.5-5.2) 08/22/21 12:35 Globulin 3.4 g/dL (1.3-4.6) 08/22/21 12:35 Lipase 44 U/L (13-60) 08/22/21 12:35 Urine Color Yellow (Yellow) 08/22/21 14:19 Urine Appearance Clear (CLEAR) 08/22/21 14:19 Urine pH 7 (5-7) 08/22/21 14:19 Ur Specific [place] 1.005 (1.005-1.030) 08/22/21 14:19 Urine Protein Neg (Negative) 08/22/21 14:19 Urine Glucose (UA) Norm (Normal) 08/22/21 14:19 Urine Ketones Negative (Negative) 08/22/21 14:19 Urine Blood Neg (Negative) 08/22/21 14:19 Urine Nitrate Negative (Negative) 08/22/21 14:19 Urine Bilirubin Neg (Negative) 08/22/21 14:19 Urine Urobilinogen Norm mg/dL (Negative) 08/22/21 14:19 Ur Leukocyte Esterase Negative (Negative) 08/22/21 14:19 Imaging Data Other Imaging: Radiologist's impression: [address] [address] XRay Report Signed Patient: Parish Camp Unit #: [id number] : 1960 Age/Sex: 61 / M ADM Date: 08/22/21 Loc: ER Room/Bed: Attending Dr: Ordering Provider/Ordering MD: Soledad Delarosa MD Date of Service: 08/22/21 Procedure(s): XR chest 1V portable [id number] Accession Number(s): [id number] Report Number: [id number] PROCEDURE INFORMATION: Exam: XR Chest Exam date and time: 08/22/2021 12:31 PM Age: 61 years old Clinical indication: Dyspnea; Additional info: Dyspnea, chest pain TECHNIQUE: Imaging protocol: XR of the chest. Views: 1 view. COMPARISON: CR XR chest 1V portable [id number] 07/26/2020 6:48 PM FINDINGS: Lungs: Focal infrahilar opacity on the right. Left lung is clear. Pleural spaces: There is no pleural effusion or pneumothorax. Heart/Mediastinum: There is moderate enlargement of the cardiac silhouette. Bones/joints: Healed left clavicle fracture. XR/XR chest 1V portable [id number] IMPRESSION: Focal infrahilar consolidation on the right. Possible pneumonia. ? Dictated By: Fran Godoy MD Signed By: Fran Godoy MD Signed Date/Time: 08/22/21 1305 DD/ [address] [address] [address] Scan Report Signed Patient: Parish Camp Unit #: [id number] : 1960 Age/Sex: 61 / M ADM Date: 08/22/21 Loc: ER Room/Bed: Attending Dr: Ordering Provider/Ordering MD: Soledad Delarosa MD Date of Service: 08/22/21 Procedure(s): CT abdomen pelvis w con* [id number] Accession Number(s): [id number] Report Number: [id number] PROCEDURE INFORMATION: Exam: CT Abdomen And Pelvis With Contrast Exam date and time: 08/22/2021 1:51 PM Age: 61 years old Clinical indication: Abdominal pain; Localized; Right lower quadrant (rlq); Patient HX: Rlq pain radiating to center. SOB; Additional info: Abd pain TECHNIQUE: Imaging protocol: Computed tomography of the abdomen and pelvis with contrast. Radiation optimization: All CT scans at this facility use at least one of these dose optimization techniques: automated exposure control; mA and/or kV adjustment per patient size (includes targeted exams where dose is matched to clinical indication); or iterative reconstruction. Contrast material: [id number]; Contrast volume: 75 ml; Contrast route: INTRAVENOUS (IV);? COMPARISON: CT abdomen pelvis w con* [id number] 07/26/2020 7:20 PM RADIATION DOSE METRICS: Total DLP (mGy-cm): 1279.06 FINDINGS: Lungs: There is subsegmental atelectasis in the lung bases. Pleural spaces: Trace right pleural effusion. Heart: There is mild cardiac enlargement. Liver: Mild periportal edema. There is no focal liver abnormality. Gallbladder and bile ducts: The gallbladder is normal. There is no biliary dilation. Pancreas: The pancreas is unremarkable. Spleen: The spleen is unremarkable. Adrenal glands: The adrenal glands are unremarkable. Kidneys and ureters: The kidneys are unremarkable. No hydronephrosis or stones. No ureteral dilation. Stomach and bowel: The stomach is decompressed, preventing meaningful evaluation of wall thickness. The small bowel is nondilated. The colon is normal to the level of the sigmoid. There is diffuse mucosal hyperenhancement and mild wall thickening involving the sigmoid colon and rectum. There is a single uninflamed sigmoid diverticulum. Appendix: The appendix is not visible. Intraperitoneal space: There is no free air or significant intraperitoneal free fluid. Vasculature: There is moderate aortic atherosclerotic disease. The portal, splenic and superior mesenteric veins are patent. Lymph nodes: Numerous mildly prominent retroperitoneal lymph nodes are slightly decreased in size since 07/26/2020. A left periaortic node near the bifurcation on axial series 2, image 42 measures 12 x 10 mm currently (13 x 12 mm previously). No mesenteric, pelvic or inguinal lymphadenopathy. Urinary bladder: The urinary bladder is unremarkable. Reproductive: The prostate and seminal vesicles are unremarkable. Bones/joints: There is mild degenerative disease in the lumbar spine. The pelvis and hips are unremarkable. Soft tissues: The abdominal wall is intact. CT/CT abdomen pelvis w con* [id number] IMPRESSION: 1. Mild proctitis and sigmoid colitis. Possible infection or inflammatory bowel disease. Ischemia is less likely in this distribution. There is no sign of bowel necrosis. 2. Periportal edema. Differential diagnosis includes iatrogenic systemic hypervolemia, passive hepatic congestion, acute viral hepatitis and cholangitis. 3. Decreased retroperitoneal lymphadenopathy since 07/26/2020. 4. Incidental findings above. ? Dictated By: Fran Godoy MD Signed By: Fran Godoy MD Signed Date/Time: 08/22/21 1413 DD/ 1351 Discharge Plan Discharge Patient Disposition: Home Clinical Impression: Proctitis, Pneumonia Condition: Stable Prescriptions: New Pepcid 20 mg tablet 20 mg PO BID PRN (Reason: abdominal pain) 10 Days Qty: 20 0RF amoxicillin-pot clavulanate 875-125 mg tablet 1 tab PO BID 10 Days Qty: 20 0RF Maalox Advanced 1,000-60 mg tablet,chewable 1 tab PO TID PRN (Reason: abdominal pain) 7 Days Qty: 21 0RF doxycycline hyclate 100 mg capsule 100 mg PO BID 10 Days Qty: 20 0RF No Action ciprofloxacin HCl [Cipro] 500 mg tablet 500 mg PO BID 10 Days Qty: 20 0RF furosemide 40 mg tablet 40 mg PO DAILY Qty: 30 5RF Rx Instructions: Must have follow-up for further refills potassium chloride [Klor-Con M20] 20 mEq tablet,ER particles/crystals 20 meq PO DAILY Qty: 30 5RF Rx Instructions: Must have follow-up for further refills budesonide-formoterol [Symbicort] 160-4.5 mcg/actuation HFA aerosol inhaler 2 puff inhalation BID Qty: 10.2 0RF albuterol sulfate [ProAir HFA] 90 mcg/actuation HFA aerosol inhaler 2 puff inhalation QID PRN (Reason: shortness of breath or wheezing) Qty: 6.7 0RF prednisone 50 mg tablet 50 mg PO DAILY Qty: 5 0RF Adult Low Dose Aspirin 81 mg tablet,delayed release (DR/EC) 81 mg PO DAILY@0800 0RF Mucus Relief 1 tab PO DAILY@0800 0RF ondansetron 4 mg tablet,disintegrating 4 mg PO Q6H PRN (Reason: nausea and vomiting) Qty: 14 0RF Discharge Orders: Discharge ED (Routine); Ordered 08/22/21 Ordered By: Soledad Delarosa Referrals: Raf Kirby, CALENDER TENDER-C [Nurse Practitioner] - Discharge Diet: Advance as tolerated Discharge Activity: Increase activity as tolerated Patient Instructions: Proctitis (ED), Pneumonia (ED) Activity Restrictions/Additional Instructions: Here are the other suggestions for cough: Take mucinex as needed Drink green tea Stay hydrated Use a cough drop Have some honey (every few hours) Use a humidifier Elevate your bed when you sleep Apply menthol scented balm to your nose to decongest Come back to the emergency room if your symptoms worsen, have any shortness of breath, fever/chills, dehydration, inability tolerate food or drinks, any difficulty breathing, or any new or concerning complaints. Please come back if you have any worsening abdominal pain, fever or chills, nausea or vomiting, diarrhea, blood in the stool, inability hold down liquid or solids, or any new concerning complaints. Coding Level of Care Code ED Diesel Engine Specialist for Chg Fwd Exam Comprehensive
[2021-08-22 12:52] LABS: Basophils # 0.1 10^3/uL (0.0-0.1); Basophils % 0.6 %; Eosinophils # 0.1 10^3/uL (0.0-0.8); Lymphocytes # 2.5 10^3/uL (0.8-4.8); Lymphocytes % 23.6 %; Mean Corpuscular HGB Conc 32.4 g/dL (30.0-36.0); Mean Corpuscular Hemoglobin 29.7 pg (28.0-34.0); Mean Corpuscular Volume 91.6 fl (80-94); Mean Platelet Volume 10.2 fL (7.4-10.4); Monocytes # 0.7 10^3/uL (0.2-0.9); Monocytes % 6.9 %; Neutrophils # 7.17 10^3/uL (1.8-7.7); Neutrophils % 67.5 %; Nucleated Red Blood Cells % 0 %; Platelet Count 338 10^3/cmm (130-400); Red Blood Count 4.04 10^6/uL (4.1-5.3); Red Cell Distribution Width 15.2 % (12.1-15.1); White Blood Count 10.6 10^3/uL (4.0-10.0)
[2021-08-22] MEDS: sodium chloride 0.9% 1,000 ML 999 ML IV (13:10)
[2021-08-22] MEDS: famotidine 20 mg/2 mL INJ IVP (13:10)
[2021-08-22 13:17] LABS: Troponin(5th) Baseline 57 ng/L (0-15)
[2021-08-22 13:19] LABS: Alanine Aminotransferase 18 U/L (0-41); Alkaline Phosphatase 83 IU/L (40-130); Anion Gap 17.2 (5-19); Aspartate Amino Transferase 21 U/L (0-40); Blood Urea Nitrogen 10 mg/dL (8-23); Calcium 8.7 mg/dL (8.5-10.5); Carbon Dioxide 24 mmol/L (22-29); Chloride 97 mmol/L (98-107); Globulin 3.4 g/dL (1.3-4.6); Glomerular Filtration Rate 67.8 mL/min (90-130); Glucose 107 mg/dL (65-115); Lipase 44 U/L (13-60); Osmolality Calculated 280 mOsm/kg (285-295); Potassium 3.2 mmol/L (3.5-5.1); Sodium 135 mmol/L (136-145); Total Bilirubin 0.8 mg/dL (0.15-1.2); Total Protein 7.4 g/dL (6.6-8.7)
[2021-08-22] MEDS: iohexol 300 mg/mL 100 mL Btl IV (13:52)
--- NOTE | 2021-08-22 14:25 | ECG_ITS ---
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 Measurements Intervals [place] Rate: 81 P: 65 DC: 200 QRS: -41 QRSD: 116 T: 178 QT: 461 QTc: 536 Interpretive Statements SINUS RHYTHM POSSIBLE LEFT ATRIAL ENLARGEMENT [-0.1mV P-WAVE IN V1/V2] LEFT AXIS DEVIATION [QRS AXIS < -30] INCOMPLETE RIGHT BUNDLE BRANCH BLOCK [90+ ms QRS DURATION, TERMINAL R IN V1/V2, 40+ ms S IN I/aVL/V4/V5/V6] LEFT VENTRICULAR HYPERTROPHY AND ST-T CHANGE [VOLTAGE CRITERIA PLUS ST/T ABNORMALITY] Compared to ECG 08/22/2021 12:41:36 Incomplete right bundle-branch block now present ST (T wave) deviation still present Electronically Signed On 08-22-2021 19:49:51 CDT by Bismark Aragon M.D. [id number]
[2021-08-22 14:51] LABS: Add Urine Microscopic? NO; Charge for UA Resulting for Rev
[2021-08-22 15:00] LABS: Troponin 5 2HR 50.33 ng/L (0-15)
[2021-08-22 15:01] LABS: Lactate (Lactic Acid level) 1.5 mmol/L (0.5-2.2)
[2021-08-22] MEDS: lidocaine 2% viscous 15 ML, aluminum-mag hydrox-simethicon 30 ML, sucralfate oral liq 1 GM PO (15:01)
[2021-08-22 15:02] LABS: Troponin 5 2HR Delta -6.67 ABS# (0-10)
[2021-08-22 15:08] LABS: Bilirubin Urine Neg (Negative); Blood Urine Neg (Negative); Glucose Urine UA Norm (Normal); Ketones Urine Negative (Negative); Leukocyte Esterase Urine Negative (Negative); Nitrate Urine Negative (Negative); Protein Urine Neg (Negative); Specific Gravity, Urine 1.005 (1.005-1.030); Urine Appearance Clear (CLEAR); Urine Color Yellow (Yellow); Urobilinogen Urine Norm (Negative); pH Urine 7 (5-7)
== END 2021-08-22 15:40 | disposition home or self-care (01) ==
PROVIDERS: Emergency Provider Emergency Medicine
DX: K62.89 Other specified diseases of anus and rectum (principal); J18.9 Pneumonia, unspecified organism; I11.0 Hypertensive heart disease with heart failure; I50.9 Heart failure, unspecified; J44.9 Chronic obstructive pulmonary disease, unspecified; F17.200 Nicotine dependence, unspecified, uncomplicated
CPT/HCPCS: 71045; 74177; 80053; 81003; 83605; 83690; 84484; 85025; 93005; 96361; 96374; 99285; J3490; J7030; Q9967

== ENCOUNTER 2021-08-26 17:04 | Emergency (ER) | payer MEDICAID, SELFPAY ==
[2021-08-26] VITALS (10 sets, daily range): BP systolic 146–177; BP diastolic 100–121; PULSE 74–85; RESP 12–24; TEMP 36.3–37.1; O2SAT 96–100; BMI 23.4
--- NOTE | 2021-08-26 17:15 | ECG_ITS ---
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 Measurements Intervals [place] Rate: 77 P: 38 [place]: 192 QRS: -43 QRSD: 129 T: 141 QT: 427 QTc: 485 Interpretive Statements SINUS RHYTHM LEFT ATRIAL ENLARGEMENT [-0.15mV P-WAVE IN V1/V2] LEFT AXIS DEVIATION [QRS AXIS < -30] LEFT VENTRICULAR HYPERTROPHY AND ST-T CHANGE [VOLTAGE CRITERIA PLUS ST/T ABNORMALITY] Compared to ECG 08/22/2021 14:18:06 Incomplete right bundle-branch block no longer present ST (T wave) deviation still present Electronically Signed On 08-27-2021 16:20:29 CDT by Baljit Cruz M.D. [id number]
--- NOTE | 2021-08-26 17:15 | XRR_ITS ---
PROCEDURE INFORMATION: Exam: XR Chest Exam date and time: 08/26/2021 5:23 PM Age: 61 years old Clinical indication: Shortness of breath; Additional info: SOB TECHNIQUE: Imaging protocol: XR of the chest. Views: 1 view. COMPARISON: CR XR chest 1V portable [id number] 08/22/2021 12:31 PM FINDINGS: Lungs: Lungs are clear bilaterally. Pleural spaces: No pleural effusion. No pneumothorax. Heart/Mediastinum: Mediastinal contours are unremarkable. Stable moderate enlargement of the cardiac silhouette. Bones/joints: Unremarkable for age. XR/XR chest 1V portable [id number] IMPRESSION: 1. No acute cardiopulmonary process. 2. Incidental/nonacute findings are listed in the report.
--- NOTE | 2021-08-26 17:22 | ED_ITS ---
Documented by User: JOSIE Montenegro 08/26/21 19:51 HPI - SOB/Dyspnea General: Chief Complaint: Shortness of Breath/Dyspnea Stated Complaint: WEAKNESS Time Seen by Provider: 08/26/21 17:22 History of Present Illness: HPI Narrative: 61-year-old male patient comes in today for complaints of shortness of breath and some abdominal discomfort. Patient was seen on 22 August and was diagnosed with pneumonia and treated with Augmentin and doxycycline. Patient comes in due to some abdominal discomfort and some mild swelling in the extremities. Patient had followed up in the clinic and was started back on a steroid inhaler and albuterol. Patient also was restarted on his diuretic and potassium. Patient appears in no acute distress at this time. Patient did report some mild chest discomfort prior to arrival to the ER. Associated symptoms: Reports chest pain; Deny fever(s) Review of Systems General: Reports: 10 or more systems reviewed and unremarkable except in HPI and below Const: Denies: fever(s) Card: Reports: chest pain Resp: Reports: dyspnea GI: Reports: bloating : Denies: difficulty urinating PFSH ED PFSH: Medical History Cardiomyopathy Cardiomyopathy Emphysema/COPD Malignant hypertension Family History Other CAD (coronary artery disease) Social History Smoking and tobacco status: current every day smoker Second hand smoke exposure: Yes Smoking risk assessment/counseling performed?: No Alcohol intake: never Desire information about alcohol rehabilitation?: No Counseling given: No Desire information about substance/drug rehabilitation?: No Counseling given: No Adopted: No Caregiver/support person: No Lives independently: Yes Household members: spouse Housing: House Marital status: Number of children: 4 service: No Current occupational status: disabled Physical Exam Const: COMMON NORMALS: alert HENMT: COMMON NORMALS: atraumatic HEAD & SCALP: atraumatic Neck/C-Spine: COMMON NORMALS: full ROM Resp: COMMON NORMALS: normal respiratory effort and clear to auscultation bilaterally AUSCULTATION: clear to auscultation bilaterally Cardio: COMMON NORMALS: regular rate and regular rhythm RATE: regular rate RHYTHM: regular rhythm GI: COMMON NORMALS: Soft to palpation (Mild distention) AUSCULTATION: Yes normoactive bowel sounds PALPATION: Yes Soft to palpation (Mild distention) and No Tenderness to palpation present (GI) : COMMON NORMALS: Yes no CVA tenderness BLADDER/KIDNEY EXAM: Yes no CVA tenderness Back/Pelvis: COMMON NORMALS: no CVA tenderness Extremity: COMMON NORMALS: negative for no pedal edema (+1 pedal edema) Neuro: SENSORIUM/ORIENTATION: Yes alert Skin: COMMON NORMALS: no rashes or lesions noted GENERAL SKIN EXAM: no rashes or lesions noted Course Vital Signs: Vital signs: Vital Signs Temperature 98.7 F 08/26/21 22:03 Pulse Rate 79 08/26/21 22:03 Respiratory Rate 18 08/26/21 22:03 Blood Pressure 177/108 08/26/21 22:03 Pulse Oximetry 99 08/26/21 22:03 MDM - SOB/Dyspnea Medical Decision Making Patient comes in today for some complaints of sinus nasal congestion, mild shortness of breath, chest discomfort, and abdominal discomfort. Patient was treated 5 days ago in the emergency room for pneumonia. Patient was started on Augmentin and doxycycline. Patient had been followed up with his primary care 2 to 3 days after that visit and was restarted on his inhalers for COPD and his diuretics for his CHF. On exam today patient has clear lung sounds. Abdomen slightly distended. Bowel sounds are active. Vital signs are remarkable for s ome elevation in blood pressure and respiratory rate. Oxygen saturation is in the upper 90s. On room air. Differential diagnosis includes worsening pneumonia, CHF, exacerbation of COPD. Laboratory values noted a white blood cell count of 11,000, sodium was 130, creatinine was 1.5, potassium 4.1, chest x-ray looked improved over previous exam on the first, EKG was unremarkable with no significant changes. Troponin was at baseline. CMP did note a bump in patient's liver enzymes, ALT and AST, without change in bilirubin or alkaline phosphatase. Reviewed exam with Dr. Beal he recommended that we treat patient's CHF with IV furosemide and some nitrate. Recommend patient follow-up with [facility] in 2 days for recheck on liver enzymes as it most likely is due to patient's recent illness or antibiotic usage. Patient was given some Afrin nasal spray to use to help with his nasal congestion. Lab Data : 08/26/21 17:17 08/26/21 17:17 Labs/Radiology: Radiology Impressions Chest X-Ray 08/26/21 17:15 IMPRESSION: 1. No acute cardiopulmonary process. 2. Incidental/nonacute findings are listed in the report. Laboratory Results WBC 11.6 10^3/uL (4.0-10.0) H 08/26/21 17:17 RBC 4.73 10^6/uL (4.1-5.3) 08/26/21 17:17 Hgb 13.8 g/dL (11.7-16.6) 08/26/21 17:17 Hct 43.1 % (42.0-52.0) 08/26/21 17:17 MCV 91.1 fl (80-94) 08/26/21 17:17 MCH 29.2 pg (28.0-34.0) 08/26/21 17:17 MCHC 32.0 g/dL (30.0-36.0) 08/26/21 17:17 RDW 16.0 % (12.1-15.1) H 08/26/21 17:17 Plt Count 219 10^3/cmm (130-400) 08/26/21 17:17 MPV 11.3 fL (7.4-10.4) H 08/26/21 17:17 Neut % (Auto) 61.2 % 08/26/21 17:17 Lymph % (Auto) 29.4 % 08/26/21 17:17 [place] % (Auto) 7.5 % 08/26/21 17:17 Eos % (Auto) 0.9 % 08/26/21 17:17 Baso % (Auto) 0.6 % 08/26/21 17:17 Neut # (Auto) 7.08 10^3/uL (1.8-7.7) 08/26/21 17:17 Lymph # (Auto) 3.4 10^3/uL (0.8-4.8) 08/26/21 17:17 [place] # (Auto) 0.9 10^3/uL (0.2-0.9) 08/26/21 17:17 Eos # (Auto) 0.1 10^3/uL (0.0-0.8) 08/26/21 17:17 Baso # (Auto) 0.1 10^3/uL (0.0-0.1) 08/26/21 17:17 Nucleated RBC % (auto) 0.2 % 08/26/21 17:17 Nucleated RBCs # 0.0 /100WBC 08/26/21 17:17 PT 17.30 SECONDS (12.1-14.9) H 08/26/21 17:17 INR 1.38 (0.8-1.2) H 08/26/21 17:17 Sodium 130 mmol/L (136-145) L 08/26/21 17:17 Potassium 4.1 mmol/L (3.5-5.1) 08/26/21 17:17 Chloride 97 mmol/L (98-107) L 08/26/21 17:17 Carbon Dioxide 15 mmol/L (22-29) L 08/26/21 17:17 Anion Gap 22.1 (5-19) H 08/26/21 17:17 BUN 22 mg/dL (8-23) 08/26/21 17:17 Creatinine 1.5 mg/dL (0.7-1.2) H 08/26/21 17:17 GFR Calculation 47.4 mL/min (90-130) L 08/26/21 17:17 Glucose 106 mg/dL (65-115) 08/26/21 17:17 Calculated Osmolality 274 mOsm/kg (285-295) L 08/26/21 17:17 Calcium 8.7 mg/dL (8.5-10.5) 08/26/21 17:17 Total Bilirubin 0.6 mg/dL (0.15-1.2) 08/26/21 17:17 AST 159 U/L (0-40) H 08/26/21 17:17 ALT 214 U/L (0-41) H 08/26/21 17:17 Alkaline Phosphatase 120 IU/L (40-130) 08/26/21 17:17 Troponin T Baseline 39 ng/L (0-15) H 08/26/21 17:17 Troponin T 120 Minute 39.04 ng/L (0-15) H 08/26/21 19:14 Delta Troponin T 0.04 ABS# (0-10) 08/26/21 19:14 NT-Pro-B Natriuret Pep 8900 pg/mL (0-125) H 08/26/21 17:17 Total Protein 7.0 g/dL (6.6-8.7) 08/26/21 17:17 Albumin 3.6 g/dL (3.5-5.2) 08/26/21 17:17 Globulin 3.4 g/dL (1.3-4.6) 08/26/21 17:17 EKG Data EKG 1: EKG Interpretation Date: 08/26/21 EKG interpretation time: 17:58 Prior EKG tracings: available for review Interpretation: EKG shows a sinus rhythm with a regular rate at 77 bpm. Computer interpretation notes some left atrial enlargement, left axis deviation with some ventricular hypertrophy. No significant changes are noted from prior exam. Discharge Plan Discharge Patient Disposition: Home Clinical Impression: Acute rhinosinusitis, Elevated liver enzymes Emphysema/COPD Qualifiers: Emphysema type: unspecified Qualified Code(s): J43.9 - Emphysema, unspecified Congestive heart failure Qualifiers: Heart failure type: combined systolic and diastolic Heart failure chronicity: acute on chronic Qualified Code(s): I50.43 - Acute on chronic combined systolic (congestive) and diastolic (congestive) heart failure Condition: Stable Prescriptions: New furosemide 40 mg tablet 40 mg PO BID Qty: 6 0RF No Action ciprofloxacin HCl [Cipro] 500 mg tablet 500 mg PO BID 10 Days Qty: 20 0RF furosemide 40 mg tablet 40 mg PO DAILY Qty: 30 5RF Rx Instructions: Must have follow-up for further refills potassium chloride [Klor-Con M20] 20 mEq tablet,ER particles/crystals 20 meq PO DAILY Qty: 30 5RF Rx Instructions: Must have follow-up for further refills budesonide-formoterol [Symbicort] 160-4.5 mcg/actuation HFA aerosol inhaler 2 puff inhalation BID Qty: 10.2 0RF albuterol sulfate [ProAir HFA] 90 mcg/actuation HFA aerosol inhaler 2 puff inhalation QID PRN (Reason: shortness of breath or wheezing) Qty: 6.7 0RF prednisone 50 mg tablet 50 mg PO DAILY Qty: 5 0RF Adult Low Dose Aspirin 81 mg tablet,delayed release (DR/EC) 81 mg PO DAILY@0800 0RF Mucus Relief 1 tab PO DAILY@0800 0RF ondansetron 4 mg tablet,disintegrating 4 mg PO Q6H PRN (Reason: nausea and vomiting) Qty: 14 0RF Pepcid 20 mg tablet 20 mg PO BID PRN (Reason: abdominal pain) 10 Days Qty: 20 0RF amoxicillin-pot clavulanate 875-125 mg tablet 1 tab PO BID 10 Days Qty: 20 0RF Maalox Advanced 1,000-60 mg tablet,chewable 1 tab PO TID PRN (Reason: abdominal pain) 7 Days Qty: 21 0RF doxycycline hyclate 100 mg capsule 100 mg PO BID 10 Days Qty: 20 0RF Discharge Orders: Discharge ED (Routine); Ordered 08/26/21 Ordered By: Bin Paredes Discharge Diet: Usual diet Discharge Activity: Increase activity as tolerated Patient Instructions: COPD (Chronic Obstructive Pulmonary Disease) (ED) Activity Restrictions/Additional Instructions: Home and rest. Be sure to take your furosemide 40 mg daily in the morning and evening for three days, then decrease to once daily in morning. Continue with your potassium as prescribed. Use nasal spray 2 sprays twice a day for 3 days. Follow-up with primary care in 2 to 3 days for recheck. Return to ER for new concerns. Coding Level of Care Code ED Art Studio Teacher for Chg Fwd Exam Comprehensive Documented by User: Perez Beal DO 08/27/21 03:37 HPI - SOB/Dyspnea General: Chief Complaint: Shortness of Breath/Dyspnea Stated Complaint: WEAKNESS Time Seen by Provider: 08/26/21 17:22 PFS ED PFSH: Medical History Cardiomyopathy Cardiomyopathy Emphysema/COPD Malignant hypertension Family History Other CAD (coronary artery disease) Social History Smoking and tobacco status: current every day smoker Second hand smoke exposure: Yes Smoking risk assessment/counseling performed?: No Alcohol intake: never Desire information about alcohol rehabilitation?: No Counseling given: No Desire information about substance/drug rehabilitation?: No Counseling given: No Adopted: No Caregiver/support person: No Lives independently: Yes Household members: spouse Housing: House Marital status: Number of children: 4 service: No Current occupational status: disabled Course Vital Signs: Vital signs: Vital Signs Temperature 98.7 F 08/26/21 22:03 Pulse Rate 79 08/26/21 22:03 Respiratory Rate 18 08/26/21 22:03 Blood Pressure 177/108 08/26/21 22:03 Pulse Oximetry 99 08/26/21 22:03 MDM - SOB/Dyspnea Medical Decision Making Patient comes in today for some complaints of sinus nasal congestion, mild shortness of breath, chest discomfort, and abdominal discomfort. Patient was treated 5 days ago in the emergency room for pneumonia. Patient was started on Augmentin and doxycycline. Patient had been followed up with his primary care 2 to 3 days after that visit and was restarted on his inhalers for COPD and his diuretics for his CHF. On exam today patient has clear lung sounds. Abdomen slightly distended. Bowel sounds are active. Vital signs are remarkable for some elevation in blood pressure and respiratory rate. Oxygen saturation is in the upper 90s. On room air. Differential diagnosis includes worsening pneumonia, CHF, exacerbation of COPD. Laboratory values noted a white blood cell count of 11,000, sodium was 130, creatinine was 1.5, potassium 4.1, chest x-ray looked improved over previous exam on the first, EKG was unremarkable with no significant changes. Troponin was at baseline. CMP did note a bump in patient's liver enzymes, ALT and AST, without change in bilirubin or alkaline ph osphatase. Reviewed exam with Dr. Beal he recommended that we treat patient's CHF with IV furosemide and some nitrate. Recommend patient follow-up with primary care in 2 days for recheck on liver enzymes as it most likely is due to patient's recent illness or antibiotic usage. Patient was given some Afrin nasal spray to use to help with his nasal congestion. This patient was originally seen by JOSIE Pal.? I agree with his history, evaluation, and treatment. Lab Data : 08/26/21 17:17 08/26/21 17:17 Labs/Radiology: Radiology Impressions Chest X-Ray 08/26/21 17:15 IMPRESSION: 1. No acute cardiopulmonary process. 2. Incidental/nonacute findings are listed in the report. Laboratory Results WBC 11.6 10^3/uL (4.0-10.0) H 08/26/21 17:17 RBC 4.73 10^6/uL (4.1-5.3) 08/26/21 17:17 Hgb 13.8 g/dL (11.7-16.6) 08/26/21 17:17 Hct 43.1 % (42.0-52.0) 08/26/21 17:17 MCV 91.1 fl (80-94) 08/26/21 17:17 MCH 29.2 pg (28.0-34.0) 08/26/21 17:17 MCHC 32.0 g/dL (30.0-36.0) 08/26/21 17:17 RDW 16.0 % (12.1-15.1) H 08/26/21 17:17 Plt Count 219 10^3/cmm (130-400) 08/26/21 17:17 MPV 11.3 fL (7.4-10.4) H 08/26/21 17:17 Neut % (Auto) 61.2 % 08/26/21 17:17 Lymph % (Auto) 29.4 % 08/26/21 17:17 [place] % (Auto) 7.5 % 08/26/21 17:17 Eos % (Auto) 0.9 % 08/26/21 17:17 Baso % (Auto) 0.6 % 08/26/21 17:17 Neut # (Auto) 7.08 10^3/uL (1.8-7.7) 08/26/21 17:17 Lymph # (Auto) 3.4 10^3/uL (0.8-4.8) 08/26/21 17:17 [place] # (Auto) 0.9 10^3/uL (0.2-0.9) 08/26/21 17:17 Eos # (Auto) 0.1 10^3/uL (0.0-0.8) 08/26/21 17:17 Baso # (Auto) 0.1 10^3/uL (0.0-0.1) 08/26/21 17:17 Nucleated RBC % (auto) 0.2 % 08/26/21 17:17 Nucleated RBCs # 0.0 /100WBC 08/26/21 17:17 PT 17.30 SECONDS (12.1-14.9) H 08/26/21 17:17 INR 1.38 (0.8-1.2) H 08/26/21 17:17 Sodium 130 mmol/L (136-145) L 08/26/21 17:17 Potassium 4.1 mmol/L (3.5-5.1) 08/26/21 17:17 Chloride 97 mmol/L (98-107) L 08/26/21 17:17 Carbon Dioxide 15 mmol/L (22-29) L 08/26/21 17:17 Anion Gap 22.1 (5-19) H 08/26/21 17:17 BUN 22 mg/dL (8-23) 08/26/21 17:17 Creatinine 1.5 mg/dL (0.7-1.2) H 08/26/21 17:17 GFR Calculation 47.4 mL/min (90-130) L 08/26/21 17:17 Glucose 106 mg/dL (65-115) 08/26/21 17:17 Calculated Osmolality 274 mOsm/kg (285-295) L 08/26/21 17:17 Calcium 8.7 mg/dL (8.5-10.5) 08/26/21 17:17 Total Bilirubin 0.6 mg/dL (0.15-1.2) 08/26/21 17:17 AST 159 U/L (0-40) H 08/26/21 17:17 ALT 214 U/L (0-41) H 08/26/21 17:17 Alkaline Phosphatase 120 IU/L (40-130) 08/26/21 17:17 Troponin T Baseline 39 ng/L (0-15) H 08/26/21 17:17 Troponin T 120 Minute 39.04 ng/L (0-15) H 08/26/21 19:14 Delta Troponin T 0.04 ABS# (0-10) 08/26/21 19:14 NT-Pro-B Natriuret Pep 8900 pg/mL (0-125) H 08/26/21 17:17 Total Protein 7.0 g/dL (6.6-8.7) 08/26/21 17:17 Albumin 3.6 g/dL (3.5-5.2) 08/26/21 17:17 Globulin 3.4 g/dL (1.3-4.6) 08/26/21 17:17 Discharge Plan Discharge Patient Disposition: Home Clinical Impression: Acute rhinosinusitis, Elevated liver enzymes Emphysema/COPD Qualifiers: Emphysema type: unspecified Qualified Code(s): J43.9 - Emphysema, unspecified Congestive heart failure Qualifiers: Heart failure type: combined systolic and diastolic Heart failure chronicity: acute on chronic Qualified Code(s): I50.43 - Acute on chronic combined systolic (congestive) and diastolic (congestive) heart failure Condition: Stable Prescriptions: New furosemide 40 mg tablet 40 mg PO BID Qty: 6 0RF No Action ciprofloxacin HCl [Cipro] 500 mg tablet 500 mg PO BID 10 Days Qty: 20 0RF furosemide 40 mg tablet 40 mg PO DAILY Qty: 30 5RF Rx Instructions: Must have follow-up for further refills potassium chloride [Klor-Con M20] 20 mEq tablet,ER particles/crystals 20 meq PO DAILY Qty: 30 5RF Rx Instructions: Must have follow-up for further refills budesonide-formoterol [Symbicort] 160-4.5 mcg/actuation HFA aerosol inhaler 2 puff inhalation BID Qty: 10.2 0RF albuterol sulfate [ProAir HFA] 90 mcg/actuation HFA aerosol inhaler 2 puff inhalation QID PRN (Reason: shortness of breath or wheezing) Qty: 6.7 0RF prednisone 50 mg tablet 50 mg PO DAILY Qty: 5 0RF Adult Low Dose Aspirin 81 mg tablet,delayed release (DR/EC) 81 mg PO DAILY@0800 0RF Mucus Relief 1 tab PO DAILY@0800 0RF ondansetron 4 mg tablet,disintegrating 4 mg PO Q6H PRN (Reason: nausea and vomiting) Qty: 14 0RF Pepcid 20 mg tablet 20 mg PO BID PRN (Reason: abdominal pain) 10 Days Qty: 20 0RF amoxicillin-pot clavulanate 875-125 mg tablet 1 tab PO BID 10 Days Qty: 20 0RF Maalox Advanced 1,000-60 mg tablet,chewable 1 tab PO TID PRN (Reason: abdominal pain) 7 Days Qty: 21 0RF doxycycline hyclate 100 mg capsule 100 mg PO BID 10 Days Qty: 20 0RF Discharge Orders: Discharge ED (Routine); Ordered 08/26/21 Ordered By: Bin Paredes Discharge Diet: Usual diet Discharge Activity: Increase activity as tolerated Patient Instructions: COPD (Chronic Obstructive Pulmonary Disease) (ED) Activity Restrictions/Additional Instructions: Home and rest. Be sure to take your furosemide 40 mg daily in the morning and evening for three days, then decrease to once daily in morning. Continue with your potassium as prescribed. Use nasal spray 2 sprays twice a day for 3 days. Follow-up with primary care in 2 to 3 days for recheck. Return to ER for new concerns. Coding Level of Care Code ED Art Studio Teacher for Vamsi Fwmadhu Exam Comprehensive
--- NOTE | 2021-08-26 17:24 | PC.NURSE ---
Patient placed on continuous SPO2, NIBP, and cardiac monitoring.
[2021-08-26 17:41] LABS: Basophils # 0.1 10^3/uL (0.0-0.1); Basophils % 0.6 %; Eosinophils # 0.1 10^3/uL (0.0-0.8); Eosinophils % 0.9 %; Hematocrit 43.1 % (42.0-52.0); Hemoglobin 13.8 g/dL (11.7-16.6); INR 1.38 (0.8-1.2); Lymphocytes # 3.4 10^3/uL (0.8-4.8); Lymphocytes % 29.4 %; Mean Corpuscular Hemoglobin 29.2 pg (28.0-34.0); Mean Corpuscular Volume 91.1 fl (80-94); Mean Platelet Volume 11.3 fL (7.4-10.4); Monocytes # 0.9 10^3/uL (0.2-0.9); Monocytes % 7.5 %; Neutrophils # 7.08 10^3/uL (1.8-7.7); Neutrophils % 61.2 %; Nucleated Red Blood Cells % 0.2 %; Platelet Count 219 10^3/cmm (130-400); Red Blood Count 4.73 10^6/uL (4.1-5.3); White Blood Count 11.6 10^3/uL (4.0-10.0)
[2021-08-26 17:51] LABS: Troponin(5th) Baseline 39 ng/L (0-15)
[2021-08-26 18:04] LABS: Slide Review Slide Review Perform
[2021-08-26] MEDS: dexamethasone 10 mg/mL INJ IVP (18:07)
[2021-08-26 18:19] LABS: Alanine Aminotransferase 214 U/L (0-41); Albumin Level 3.6 g/dL (3.5-5.2); Alkaline Phosphatase 120 IU/L (40-130); Anion Gap 22.1 (5-19); Aspartate Amino Transferase 159 U/L (0-40); Blood Urea Nitrogen 22 mg/dL (8-23); Calcium 8.7 mg/dL (8.5-10.5); Carbon Dioxide 15 mmol/L (22-29); Chloride 97 mmol/L (98-107); Globulin 3.4 g/dL (1.3-4.6); Glomerular Filtration Rate 47.4 mL/min (90-130); Glucose 106 mg/dL (65-115); NT Pro B Type Natriuretic Pept 8900 pg/mL (0-125); Osmolality Calculated 274 mOsm/kg (285-295); Potassium 4.1 mmol/L (3.5-5.1); Sodium 130 mmol/L (136-145); Total Bilirubin 0.6 mg/dL (0.15-1.2)
[2021-08-26] MEDS: oxymetazoline 0.05% Nasal Spray 15 mL 2 SPRAY NOSTRIL-B (19:14)
[2021-08-26] MEDS: FUROsemide 10 mg/mL SDV 4mL 40 MG IVP (19:14)
[2021-08-26] MEDS: nitroglycerin 1 gm/inch oint Pkt 1 INCH TOPICAL (19:14)
[2021-08-26 19:38] LABS: Troponin 5 2HR 39.04 ng/L (0-15)
[2021-08-26 19:41] LABS: Troponin 5 2HR Delta 0.04 ABS# (0-10)
[2021-08-26] MEDS: labetalol 5 mg/mL SDV 20mL 20 MG IVP (20:08)
[2021-08-26] MEDS: nitroglycerin 0.4 mg sublingual Tablet SUBLINGUAL (22:00)
[2021-08-26] MEDS: cloNIDine 0.1 mg Tablet PO (22:01)
== END 2021-08-26 22:09 | disposition home or self-care (01) ==
PROVIDERS: Emergency Medicine; Emergency Provider Nurse Practitioner Family
DX: J01.90 Acute sinusitis, unspecified (principal); R74.8 Abnormal levels of other serum enzymes; I50.43 Acute on chronic combined systolic (congestive) and diastolic (congestive) heart failure; J43.9 Emphysema, unspecified; I10 Essential (primary) hypertension; Z79.82 Long term (current) use of aspirin
CPT/HCPCS: 71045; 80053; 83880; 84484; 85025; 85610; 93005; 96374; 96375; 99285; J1100; J1940; J3490

== ENCOUNTER 2021-09-01 01:06 | Inpatient (IN) | payer MEDICAID, SELFPAY ==
[2021-09-01] VITALS (14 sets, daily range): BP systolic 153–198; BP diastolic 82–143; PULSE 65–88; RESP 12–20; TEMP 36.3–36.9; O2SAT 95–98; BMI 23.8
--- NOTE | 2021-09-01 01:10 | ECG_ITS ---
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1960 Requested By: Lola Mcgowan Order Number: [id number] Reading MD: Measurements Intervals [place] Rate: 101 P: 42 ID: [id number] QRS: 28 QRSD: 79 T: 54 QT: 331 QTc: 429 Interpretive Statements SINUS TACHYCARDIA ABNORMAL RHYTHM ECG Compared to ECG 09/01/2021 01:08:49 Sinus rhythm no longer present Atrial abnormality no longer present Left-axis deviation no longer present Left ventricular hypertrophy no longer present ST (T wave) deviation no longer present Myocardial infarct finding no longer present [email or web address]
--- NOTE | 2021-09-01 01:10 | CTR_ITS ---
PROCEDURE INFORMATION: Exam: CTA Chest With Contrast Exam date and time: 09/01/2021 1:28 AM Age: 61 years old Clinical indication: Other: Hypertension; Chest pressure; Abdominal pain; Patient HX: C/O chest and epigastric pain with BP of 240/140 at highest. 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 ; Additional info: Chest abd pain TECHNIQUE: Imaging protocol: Computed tomographic angiography of the chest with contrast. 3D rendering (Not supervised by radiologist): MIP and/or 3D reconstructed images were created by the technologist. Radiation optimization: All CT scans at this facility use at least one of these dose optimization techniques: automated exposure control; mA and/or kV adjustment per patient size (includes targeted exams where dose is matched to clinical indication); or iterative reconstruction. Contrast material: OMNI 350; Contrast volume: 75 ml; Contrast route: INTRAVENOUS (IV); COMPARISON: CR (CHEST, ) 08/26/2021 5:23 PM RADIATION DOSE METRICS: Total DLP (mGy-cm): 1283.29 FINDINGS: Pulmonary arteries: No pulmonary embolus or aortic dissection. Aorta: Calcification of the thoracic aorta and/or great vessels consistent with atherosclerotic vessel disease. Lungs: Mild right basilar atelectasis and/or pneumonia. Pleural spaces: Small right pleural fluid collection. Heart: Mild calcified coronary artery disease. Borderline to mild cardiomegaly. Lymph nodes: Unremarkable. No enlarged lymph nodes. Bones/joints: Mild thoracic spondylosis. Soft tissues: Unremarkable. PROCEDURE INFORMATION: Exam: CTA Abdomen and Pelvis With Contrast Exam date and time: 09/01/2021 1:28 AM Age: 61 years old Clinical indication: Other: Hypertension; Chest pressure; Abdominal pain; Patient HX: C/O chest and epigastric pain with BP of 240/140 at highest. 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 ; Additional info: Chest abd pain TECHNIQUE: Imaging protocol: Computed tomographic angiography of the abdomen and pelvis with contrast material. 3D rendering (Not supervised by radiologist): MIP and/or 3D reconstructed images were created by the technologist. Radiation optimization: All CT scans at this facility use at least one of these dose optimization techniques: automated exposure control; mA and/or kV adjustment per patient size (includes targeted exams where dose is matched to clinical indication); or iterative reconstruction. Contrast material: OMNI 350; Contrast volume: 75 ml; Contrast route: INTRAVENOUS (IV); COMPARISON: CT abdomen pelvis w con* [id number] 08/22/2021 1:51 PM RADIATION DOSE METRICS: Total DLP (mGy-cm): 1283.29 FINDINGS: Aorta: Calcification of the abdominal aorta and/or iliac arteries consistent with atherosclerotic vessel disease. 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 Renal arteries: No occlusion or significant stenosis. Right iliac arteries: No occlusion or significant stenosis. Left iliac arteries: No occlusion or significant stenosis. Veins: One or more calcified pelvic phleboliths. Liver: No mass. Gallbladder and bile ducts: Unremarkable. No calcified stones. No ductal dilation. Pancreas: Unremarkable. No mass. No ductal dilation. Spleen: Unremarkable. No splenomegaly. Adrenal glands: Unremarkable. No mass. Kidneys and ureters: Unremarkable. No solid mass. No hydronephrosis. Stomach and bowel: Mild colonic diverticulosis. Appendix: No evidence of appendicitis. Intraperitoneal space: Mild four-quadrant ascites. Lymph nodes: [place] periaortic adenopathy which is within normal limits by CT criteria. Urinary bladder: Unremarkable. No mass. Reproductive: Unremarkable as visualized. Bones/joints: Mild to moderate multilevel spine degenerative changes including degenerative disc disease, spondylosis and facet degenerative changes. Soft tissues: Unremarkable. CT/CT angio chest abdomen pelvis IMPRESSION: 1. Mild calcified coronary artery disease. 2. Small right pleural fluid collection. 3. Mild right basilar atelectasis and/or pneumonia. 4. Borderline to mild cardiomegaly. 5. No pulmonary embolus or aortic dissection. IMPRESSION: 1. 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 2. [place] periaortic adenopathy which is within normal limits by CT criteria. 3. Mild four-quadrant ascites. Contracted gallbladder.
--- NOTE | 2021-09-01 01:16 | W.ED.CHESTPA ---
HPI - Chest Pain General: Chief Complaint: Chest Pain Stated Complaint: CP, Elevated BP Time Seen by Provider: 09/01/21 01:09 Source: patient Mode of arrival: ambulatory Limitations: no limitations History of Present Illness: 61-year-old male history of hypertension along with congestive heart failure. He has been having chronic abdominal pain for months has been seen here previously for the same. He states he was seen earlier at [place] told that he had a thoracic aneurysm but it is only to be watched. He states that since going home he has had increasing abdominal pain along with chest pain he is quite hypertensive by EMS and his blood pressure here is 198/143. Patient is given nitro states his chest pain is improved he still having some abdominal pain denies any vomiting or diarrhea denies any worsening improving factors. Associated symptoms: Reports abdominal pain; Deny dyspnea or fever(s) Review of Systems Const: Denies: fever(s), chills, body aches or change in appetite Eyes: Denies: blurry vision or eye discomfort ENMT: Denies: throat pain or dental pain Card: Reports: chest pain Resp: Denies: dyspnea GI: Reports: abdominal pain : Denies: dysuria Musc: Denies: neck pain or back pain Skin/Breast: Denies: rash Neuro: Denies: headache(s) Psych: Denies: depression Jerel/Lymph: Denies: easy bruising All/Imm: Denies: urticaria PFSH ED PFSH: Medical History Cardiomyopathy Cardiomyopathy Emphysema/COPD Malignant hypertension Family History Other CAD (coronary artery disease) Social History Smoking and tobacco status: current every day smoker Second hand smoke exposure: Yes Smoking risk assessment/counseling performed?: No Alcohol intake: never Desire information about alcohol rehabilitation?: No Counseling given: No Desire information about substance/drug rehabilitation?: No Counseling given: No Adopted: No Caregiver/support person: No Lives independently: Yes Household members: spouse Housing: House Marital status: Number of children: 4 service: No Current occupational status: disabled Physical Exam Const: COMMON NORMALS: patient oriented x3 HENMT: COMMON NORMALS: normocephalic and atraumatic HEAD & SCALP: normocephalic and atraumatic Eye: COMMON NORMALS: Equal, round and reactive pupils present and EOMs intact bilaterally PUPIL: Yes Equal, round and reactive pupils present Neck/C-Spine: COMMON NORMALS: full ROM and supple Chest: COMMONS NORMALS: normal inspection of the chest and normal palpation of entire chest wall Resp: COMMON NORMALS: normal respiratory effort, No retractions, No use of accessory muscles and clear to auscultation bilaterally AUSCULTATION: clear to auscultation bilaterally Cardio: COMMON NORMALS: regular rate, regular rhythm and No murmurs present (Cardio) RATE: regular rate RHYTHM: regular rhythm GI: COMMON NORMALS: Normal to inspection, nondistended, normoactive bowel sounds present, Soft to palpation, non-tender and no masses PALPATION: Yes Soft to palpation Extremity: COMMON NORMALS: normal to inspection and full ROM Neuro: COMMON NORMALS: patient oriented x3, moves all extremities and no focal motor deficits Psych: COMMON NORMALS: mental status grossly normal, Normal thought process present and cooperative THOUGHT PROCESS: Normal thought process present Skin: COMMON NORMALS: no rashes or lesions noted and no wounds GENERAL SKIN EXAM: no rashes or lesions noted Course Vital Signs: Vital signs: Vital Signs Temperature 97.8 F 09/01/21 01:07 Pulse Rate 88 09/01/21 01:07 Respiratory Rate 20 H 09/01/21 01:07 Blood Pressure 198/143 09/01/21 01:07 Pulse Oximetry 95 09/01/21 01:07 MDM - Chest Pain Medical Decision Making Patient presents here with chest pain along with some abdominal pain CT scan here shows no signs of aneurysm or dissection does have a mildly elevated troponin chronically. Spoke to hospitalist will admit he is hypertension has improved here but he is still quite hypertensive we will start him on Lovenox as well. CT shows possible pneumonia and pleural effusion we will give antibiotics and check blood cultures. Lab Data : 09/01/21 01:12 09/01/21 01:12 Radiology Impressions Chest/Abdomen/Pelvis CTA 09/01/21 01:10 IMPRESSION: 1. Mild calcified coronary artery disease. 2. Small right pleural fluid collection. 3. Mild right basilar atelectasis and/or pneumonia. 4. Borderline to mild cardiomegaly. 5. No pulmonary embolus or aortic dissection. IMPRESSION: 1. 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 2. Shotty periaortic adenopathy which is within normal limits by CT criteria. 3. Mild four-quadrant ascites. Contracted gallbladder. Laboratory Results WBC 14.0 10^3/uL (4.0-10.0) H 09/01/21 01:12 RBC 4.40 10^6/uL (4.1-5.3) 09/01/21 01:12 Hgb 12.6 g/dL (11.7-16.6) 09/01/21 01:12 Hct 41.4 % (42.0-52.0) L 09/01/21 01:12 MCV 94.1 fl (80-94) H 09/01/21 01:12 MCH 28.6 pg (28.0-34.0) 09/01/21 01:12 MCHC 30.4 g/dL (30.0-36.0) 09/01/21 01:12 RDW 17.1 % (12.1-15.1) H 09/01/21 01:12 Plt Count 308 10^3/cmm (130-400) 09/01/21 01:12 MPV 10.1 fL (7.4-10.4) 09/01/21 01:12 Neut % (Auto) 66.4 % 09/01/21 01:12 Lymph % (Auto) 26.9 % 09/01/21 01:12 [place] % (Auto) 6.0 % 09/01/21 01:12 Eos % (Auto) 0.1 % 09/01/21 01:12 Baso % (Auto) 0.2 % 09/01/21 01:12 Neut # (Auto) 9.32 10^3/uL (1.8-7.7) H 09/01/21 01:12 Lymph # (Auto) 3.8 10^3/uL (0.8-4.8) 09/01/21 01:12 [place] # (Auto) 0.8 10^3/uL (0.2-0.9) 09/01/21 01:12 Eos # (Auto) 0.0 10^3/uL (0.0-0.8) 09/01/21 01:12 Baso # (Auto) 0.0 10^3/uL (0.0-0.1) 09/01/21 01:12 Nucleated RBC % (auto) 0 % 09/01/21 01:12 Nucleated RBCs # 0.0 /100WBC 09/01/21 01:12 PT 15.80 SECONDS (12.1-14.9) H 09/01/21 01:12 INR 1.23 (0.8-1.2) H 09/01/21 01:12 Sodium 139 mmol/L (136-145) 09/01/21 01:12 Potassium 4.3 mmol/L (3.5-5.1) 09/01/21 01:12 Chloride 99 mmol/L (98-107) 09/01/21 01:12 Carbon Dioxide 27 mmol/L (22-29) 09/01/21 01:12 Anion Gap 17.3 (5-19) 09/01/21 01:12 BUN 30 mg/dL (8-23) H 09/01/21 01:12 Creatinine 1.6 mg/dL (0.7-1.2) H 09/01/21 01:12 GFR Calculation 44.0 mL/min (90-130) L 09/01/21 01:12 Glucose 94 mg/dL (65-115) 09/01/21 01:12 Calculated Osmolality 294 mOsm/kg (285-295) 09/01/21 01:12 Calcium 8.7 mg/dL (8.5-10.5) 09/01/21 01:12 Total Bilirubin 0.7 mg/dL (0.15-1.2) 09/01/21 01:12 AST 29 U/L (0-40) 09/01/21 01:12 ALT 90 U/L (0-41) H 09/01/21 01:12 Alkaline Phosphatase 118 IU/L (40-130) 09/01/21 01:12 Troponin T Baseline 50 ng/L (0-15) H 09/01/21 01:12 NT-Pro-B Natriuret Pep 45576 pg/mL (0-125) H 09/01/21 01:12 Total Protein 6.9 g/dL (6.6-8.7) 09/01/21 01:12 Albumin 4.0 g/dL (3.5-5.2) 09/01/21 01:12 Globulin 2.9 g/dL (1.3-4.6) 09/01/21 01:12 Lipase 65 U/L (13-60) H 09/01/21 01:12 EKG Data EKG 1: I personally reviewed and interpreted this EKG as follows: EKG interpretation date: 09/01/21 EKG interpretation time: :08 Interpretation: nsr hr [address] and t wave depression in v4-v6 Critical Care Time Critical Care Time: Critical Care Time: Yes Total Critical Care Time: 40 Attestation: The high probability of a clinically significant, sudden or life threatening deterioration of the patient's CV system(s) required my full and direct attention, intervention and personal management. The critical care time is as shown. This time is in addition to time spent performing any reported procedures but includes the following: [x] Data and vital sign review and interpretation [x] Patient assessment, examination and intervention [x] Documentation [x] Medication orders and management Discharge Plan Discharge Patient Disposition: Admitted As Inpatient Admit Provider: Anoop Christian Clinical Impression: Chest pain, Hypertension, Pneumonia Condition: Stable Coding Level of Care Code ED Cuprous Chloride Operator for Chg Fwd Exam Comprehensive
[2021-09-01 01:17] LABS: Basophils % 0.2 %; Eosinophils % 0.1 %; Hematocrit 41.4 % (42.0-52.0); Hemoglobin 12.6 g/dL (11.7-16.6); Lymphocytes # 3.8 10^3/uL (0.8-4.8); Lymphocytes % 26.9 %; Mean Corpuscular HGB Conc 30.4 g/dL (30.0-36.0); Mean Corpuscular Hemoglobin 28.6 pg (28.0-34.0); Mean Corpuscular Volume 94.1 fl (80-94); Mean Platelet Volume 10.1 fL (7.4-10.4); Monocytes # 0.8 10^3/uL (0.2-0.9); Neutrophils # 9.32 10^3/uL (1.8-7.7); Neutrophils % 66.4 %; Nucleated Red Blood Cells % 0 %; Platelet Count 308 10^3/cmm (130-400); Red Cell Distribution Width 17.1 % (12.1-15.1)
[2021-09-01] MEDS: ondansetron 2 mg/ML SDV 2 mL 4 MG IVP (01:18)
[2021-09-01] MEDS: morphine 4 mg/mL SDV 1 mL IVP (01:18)
[2021-09-01] MEDS: labetalol 5 mg/mL SDV 20mL 10 MG IVP (01:18)
[2021-09-01 01:28] LABS: INR 1.23 (0.8-1.2)
[2021-09-01 01:37] LABS: Alanine Aminotransferase 90 U/L (0-41); Alkaline Phosphatase 118 IU/L (40-130); Anion Gap 17.3 (5-19); Aspartate Amino Transferase 29 U/L (0-40); Blood Urea Nitrogen 30 mg/dL (8-23); Calcium 8.7 mg/dL (8.5-10.5); Carbon Dioxide 27 mmol/L (22-29); Chloride 99 mmol/L (98-107); Globulin 2.9 g/dL (1.3-4.6); Glucose 94 mg/dL (65-115); Lipase 65 U/L (13-60); Osmolality Calculated 294 mOsm/kg (285-295); Potassium 4.3 mmol/L (3.5-5.1); Sodium 139 mmol/L (136-145); Total Bilirubin 0.7 mg/dL (0.15-1.2); Total Protein 6.9 g/dL (6.6-8.7)
[2021-09-01] MEDS: iohexol 350 mg/mL 100 mL Btl IV (01:37)
[2021-09-01 01:38] LABS: Troponin(5th) Baseline 50 ng/L (0-15)
[2021-09-01 01:49] LABS: NT Pro B Type Natriuretic Pept 12218 pg/mL (0-125)
[2021-09-01] MEDS: hyDRALAzine 20 mg/mL INJ 1 mL 10 MG IVP (02:12)
[2021-09-01] MEDS: cefTRIAXone 1,000 MG in sodium chloride 0.9% (plus) 50 ML 100 MG IV (02:12)
--- NOTE | 2021-09-01 02:41 | PM.HP ---
Providers/Chief Complaint Admitting Physician: Anoop Christian MD Chief Complaint: CP, Elevated BP History of Present Illness Parish Camp is a 61 year old male with past medical history of hypertension,NICM, CAG done in 2013: Which showed nonocclusive coronary artery disease, heart failure with reduced ejection fraction, Chronic smoker, COPD, came today with chief complaint of predominantly abdominal pain, patient is a very poor historian, history taking was also helped by his son, according to him he is also complaining of on and off chest pain at home for the last 7 days. He denies any shortness of breath, fever, nausea vomiting. He states he was seen earlier at [place] told that he had a thoracic aneurysm which needs monitoring. Patient was also found to be extremely hypertensive by EMS with blood pressure ranging in systolic of 200s and diastolic in 150s. When I examined the patient he was not complaining of chest pain, though he was still complaining of nonspecific mild abdominal pain. Upon arrival in the ER he was worked up for above-mentioned complaint: Pertinent imaging studies: CT angio chest abdomen pelvis: Small right pleural fluid collection.No pulmonary embolus or aortic dissection. Mild right basilar atelectasis and/or pneumonia. 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 Ekg : Has shown dynamic ST-T wave changes: With marked ST depression in V4 to V6 Pertinent labs: WBC:14 , H&H: 12.6/41 , PLT : 308 , serum sodium 139 serum potassium 4.3 BUN serum creatinine 30/1.6 Troponin: 50,46 proBNP: 27333 Review of Systems General: Reports: 10 or more systems reviewed and unremarkable except in HPI and below Const: Denies: fever(s), chills, body aches, change in appetite or diaphoresis Card: Denies: palpitations, edema, swelling of feet/ankles, dyspnea on exertion, orthopnea or leg pain with exertion Resp: Denies: dyspnea, productive cough, wheezing or pain on inspiration GI: Reports: abdominal pain; Denies: nausea, vomiting, diarrhea or constipation : Denies: flank pain or difficulty urinating Musc: Denies: back pain, extremity pain or extremity swelling Neuro: Denies: headache(s), difficulty walking or confusion Medications/Allergies Home Medications Medication Instructions Recorded Confirmed Last Taken Type ciprofloxacin HCl 500 mg tablet 500 mg PO BID 10 Days #20 tab 05/04/21 06/03/22 05/05/21 Rx (Cipro) Mucus Relief 1 tab PO DAILY@0800 07/26/20 08/24/21 07/26/20 History aspirin 81 mg tablet,delayed 81 mg PO DAILY@0800 07/26/20 08/24/21 07/26/20 History release (Adult Low Dose Aspirin) ondansetron 4 mg disintegrating 4 mg PO Q6H PRN #14 tab 07/26/20 08/24/21 Unknown Rx tablet albuterol sulfate 90 mcg/actuation 2 puff INHALATION QID PRN #6.7 g 08/24/21 08/24/21 Unknown Rx aerosol inhaler (ProAir HFA) budesonide-formoterol HFA 160 2 puff INHALATION BID #10.2 g 08/24/21 08/24/21 Unknown Rx mcg-4.5 mcg/actuation aerosol inhaler (Symbicort) potassium chloride 20 mEq 20 meq PO DAILY #30 tab 08/24/21 08/24/21 Unknown Rx tablet,extended release(part/cryst) (Klor-Con M) prednisone 50 mg tablet 50 mg PO DAILY #5 tab 08/24/21 08/24/21 Unknown Rx furosemide 40 mg tablet 40 mg PO DAILY #30 tab 08/29/21 Unknown Rx Allergies Allergy/AdvReac Type Severity Reaction Status Date / Time ibuprofen Allergy Mild Rash Verified 08/24/21 13:29 naproxen Allergy Mild Rash Verified 08/24/21 13:29 yellow dye Allergy Mild Rash Verified 08/24/21 13:29 losartan Allergy Unknown Unknown Verified 08/24/21 13:29 lisinopril AdvReac Mild Cough Verified 08/24/21 13:29 PFSH Acute PFSH: Medical History Cardiomyopathy Cardiomyopathy Emphysema/COPD Malignant hypertension Family History Other CAD (coronary artery disease) Social History Smoking and tobacco status: current every day smoker Second hand smoke exposure: Yes Smoking risk assessment/counseling performed?: No Alcohol intake: never Desire information about alcohol rehabilitation?: No Counseling given: No Desire information about substance/drug rehabilitation?: No Counseling given: No Adopted: No Caregiver/support person: No Lives independently: Yes Household members: spouse Housing: House Marital status: Number of children: 4 service: No Current occupational status: disabled Vitals/I&O/Wt Last Vital Signs Temp 97.8 F 09/01/21 01:07 Pulse 88 09/01/21 01:07 Resp 20 H 09/01/21 01:07 BP 198/143 09/01/21 01:07 Pulse Ox 95 09/01/21 01:07 08/31/21 08/31/21 09/01/21 14:59 22:59 06:59 Intake Total 50 / 50 Balance 50 / 50 Weight last 48 hrs Weight 79.832 kg Physical Exam Const: COMMON NORMALS: patient oriented x3 HENMT: COMMON NORMALS: normocephalic and atraumatic HEAD & SCALP: normocephalic and atraumatic EXTERNAL EAR: Yes external ears normal Resp: COMMON NORMALS: clear to auscultation bilaterally EFFORT & INSPECTION: Yes symmetric chest movement AUSCULTATION: clear to auscultation bilaterally Cardio: COMMON NORMALS: regular rate, regular rhythm, S1 normal heart sound present, S2 normal heart sound present, No gallops present (Cardio), No murmurs present (Cardio), No rub (Cardio) and Peripheral pulses 2+ throughout RATE: regular rate RHYTHM: regular rhythm HEART SOUNDS: S1 normal heart sound present and S2 normal heart sound present PERIPHERAL PULSES: Peripheral pulses 2+ throughout GI: COMMON NORMALS: Normal to inspection, nondistended, normoactive bowel sounds present, Soft to palpation, non-tender, No hepatosplenomegaly present and no masses AUSCULTATION: Yes normoactive bowel sounds PALPATION: Yes Soft to palpation and Yes No hepatosplenomegaly present RECTAL EXAM: Yes deferred Extremity: NARRATIVE EXTREMITY EXAM: Bilateral lower extremity pitting edema right greater than left. 2+ right, 1+ left Neuro: COMMON NORMALS: patient oriented x3 Data : 09/01/21 01:12 09/01/21 01:12 Micro: Microbiology 09/01/21 02:29 Blood Culture - Preliminary Blood SPECIMEN COLLECTED A&P Assessment and plan (1) Hypertension: Status: Acute (2) Emphysema/COPD: Status: Acute Qualifiers: Emphysema type: unspecified Qualified Code(s): J43.9 - Emphysema, unspecified (3) Congestive heart failure: Status: Acute Qualifiers: Heart failure chronicity: acute on chronic Heart failure type: combined systolic and diastolic Qualified Code(s): I50.43 - Acute on chronic combined systolic (congestive) and diastolic (congestive) heart failure (4) Chest pain: Status: Acute (5) Hypertensive urgency: Status: Acute Plan 61 year old male with past medical history of hypertension,NICM, CAG done in 2013: Which showed nonocclusive coronary artery disease, heart failure with reduced ejection fraction, Chronic smoker, COPD, came today with chief complaint of predominantly abdominal pain, patient is a very poor historian, history taking was also helped by his son, according to him he is also complaining of on and off chest pain at home for the last 7 days. Assessment: Chest pain: Possibly related to hypertensive urgency, cannot conclusively rule out underlying coronary artery disease, given his history of uncontrolled hypertension, smoking, and currently ongoing dynamic ST-T wave changes on EKG. 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 Cardiology has been consulted by ER. CODE STATUS: Full code DVT prophylaxis: On Lovenox Attestations Medical Necessity Statement*: Patient is in hospital for management of chest pain. Anticipated length of stay greater than 2 midnights. Time Spent in Patient Care: Greater than 35 minutes (>than 50% of time spent in counselling and/or direct pt care on unit). Coding Level of Care Code Acute Bulk Plant Operator for [facility] Fwd Exam Detailed Diagnoses Hypertension I10 Emphysema/COPD J43.9 Emphysema type: unspecified Congestive heart failure I50.43 Heart failure chronicity: acute on chronic Heart failure type: combined systolic and diastolic Chest pain R07.9 Hypertensive urgency I16.0
[2021-09-01] MEDS: azithromycin 500 MG in sodium chloride 0.9% 250 ML 250 MG IV (03:06)
[2021-09-01] MEDS: enoxaparin 80 mg/0.8 mL Syringe SUBCUT (03:07)
--- NOTE | 2021-09-01 03:10 | ECG_ITS ---
[facility] Test Date: 2021-09-01 Pat Name: Parish Camp Department: Room: 276 Gender: Male High Scaler: : 1960 Requested By: Lola Mcgowan Order Number: [id number] Isaura MD: Bismark Aragon M.D. Measurements Intervals [place] Rate: 62 P: 39 MD: 185 QRS: -38 QRSD: 124 T: 153 QT: 456 QTc: 463 Interpretive Statements SINUS RHYTHM LEFT ATRIAL ENLARGEMENT [-0.15mV P-WAVE IN V1/V2] LEFT AXIS DEVIATION [QRS AXIS < -30] LEFT VENTRICULAR HYPERTROPHY AND ST-T CHANGE [VOLTAGE CRITERIA PLUS ST/T ABNORMALITY] Compared to ECG 09/01/2021 01:08:49 Myocardial infarct finding no longer present ST (T wave) deviation still present Electronically Signed On 09-01-2021 19:06:00 CDT by Bismark Aragon M.D. [id number]
[2021-09-01 03:27] LABS: Troponin 5 2HR 46.13 ng/L (0-15)
[2021-09-01 03:31] LABS: Troponin 5 2HR Delta -3.87 ABS# (0-10)
--- NOTE | 2021-09-01 03:49 | USCV_ITS ---
Parish Camp Age: 61 Gender: M : 1960 Exam Date: 09/01/2021 07:14 Ordering Phys: Anoop Christian MD Technologist: JAYNE [place] [facility] [place] CHEST PAIN BP: 174 / 115 HR: 66 Rhythm: Sinus Technical Quality: Adequate MEASUREMENTS (Male / Female) Normal Values 2D ECHO LV Diastolic Diameter PLAX 6.0 cm 4.2 - 5.9 / 3.9 - 5.3 cm LV Systolic Diameter PLAX 5.2 cm IVS Diastolic Thickness 1.7 cm 0.6 - 1.0 / 0.6 - 0.9 cm IVS Systolic Thickness 2.0 cm LVPW Diastolic Thickness 1.7 cm 0.6 - 1.0 / 0.6 - 0.9 cm LVPW Systolic Thickness 1.8 cm LVOT Diameter 2.0 cm LV Ejection Fraction 2D Teich 27.8 % LV Ejection Fraction MOD 2C 30.3 % LV Ejection Fraction 2C AL 31.2 % LA Diameter 3.5 cm LA Width 4.5 cm LA Height 5.4 cm RA Width 4.9 cm RA Height 4.9 cm Aorta at Sinotubular Diameter 2.6 cm IVC Diameter 2.6 cm M-MODE Aortic Annulus Diameter 3.3 cm LA Ao Ratio MM 1.0 MV E Point Septal Separation 1.8 cm DOPPLER AV Peak Velocity 111.0 cm/s LVOT Peak Velocity 64.0 cm/s AV Area Cont Eq vti 1.6 cm squared AV Area Cont Eq pk 1.8 cm squared MV Peak Velocity 124.0 cm/s MV Area PHT 4.4 cm squared Mitral E to A Ratio 1.9 MV E' Velocity 57.0 cm/s Mitral E to MV E' Ratio 28.2 Mitral E to LV E' Lateral Ratio 31.4 Mitral E to LV E' Septal Ratio 25.6 TR Peak Velocity 264.2 cm/s TR Peak Gradient 27.9 mmHg TR Mean Velocity 182.2 cm/s TR Mean Gradient 15.1 mmHg TR Velocity Time Integral 95.7 cm TV Peak E Velocity 66.0 cm/s Right Atrial Pressure 15.0 mmHg Pulmonary Artery Systolic Pressu 42.9 mmHg PV Peak Velocity 73.0 cm/s RV Acceleration Time 0.1 s RV Ejection Time 0.3 s RV AcT/ET 0.2 FINDINGS Left Ventricle Severe diffuse hypokinesia left ventricle with ejection fraction of around 25 to 30%.. Mildly dilated LV cavity. Right Ventricle Normal right ventricular size and systolic function. Right Atrium Mildly increased right atrial size. Left Atrium Mildly increased left atrial size. Mitral Valve Thickened mitral valve. Moderate-severe mitral valve regurgitation. Aortic Valve No gross abnormalities noted Tricuspid Valve Moderate tricuspid valve regurgitation. Pulmonic Valve No gross abnormalities noted Pericardium Normal pericardium without effusion. Aorta Normal ascending aorta dimension. IVC Dilated inferior vena cava measuring 2.59 cm in diameter and partially collapsible. Estimated right atrial pressure of 15 mmHg CONCLUSIONS Severe diffuse hypokinesia left ventricle with ejection fraction of around 25 to 30%.. Mildly dilated LV cavity. Mild biatrial enlargement. Thickened mitral valve. Moderate-severe mitral valve regurgitation. Moderate tricuspid valve regurgitation. Right atrial pressure was coagulated to be aroun 15 mmHg. Estimated pulmonary artery peak systolic pressure was 43 mmHg. There are no intracardiac masses. There is no pericardial effusion. Compared to the previous study from 09/13/2015, there is some improvement in LV ejection fraction and slight worsening of the MR Dr Bismark Aragon MD FACC (Electronically Signed) Final Date: 01 September 2021 16:34 S
[2021-09-01] MEDS: sodium chloride 0.9% 1,000 ML 75 ML IV (04:46)
[2021-09-01 07:01] LABS: Basophils % 0.2 %; Eosinophils % 0.1 %; Hemoglobin 12.6 g/dL (11.7-16.6); Lymphocytes # 3.2 10^3/uL (0.8-4.8); Lymphocytes % 24.9 %; Mean Corpuscular HGB Conc 32.3 g/dL (30.0-36.0); Mean Corpuscular Volume 89.9 fl (80-94); Mean Platelet Volume 10.7 fL (7.4-10.4); Monocytes # 0.8 10^3/uL (0.2-0.9); Monocytes % 6.4 %; Neutrophils # 8.62 10^3/uL (1.8-7.7); Nucleated Red Blood Cells % 0.2 %; Platelet Count 292 10^3/cmm (130-400); Red Blood Count 4.34 10^6/uL (4.1-5.3); Red Cell Distribution Width 16.8 % (12.1-15.1); White Blood Count 12.7 10^3/uL (4.0-10.0)
--- NOTE | 2021-09-01 07:10 | ECG_ITS ---
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 Measurements Intervals [place] Rate: 90 P: 70 WA: 174 QRS: -32 QRSD: 122 T: 133 QT: 371 QTc: 455 Interpretive Statements SINUS RHYTHM LEFT ATRIAL ENLARGEMENT [-0.15mV P-WAVE IN V1/V2] LEFT AXIS DEVIATION [QRS AXIS < -30] LEFT VENTRICULAR HYPERTROPHY AND ST-T CHANGE [VOLTAGE CRITERIA PLUS ST/T ABNORMALITY] POSSIBLE SEPTAL MYOCARDIAL INFARCTION , PROBABLY OLD [30 ms Q WAVE IN V1/V2] Compared to ECG 08/26/2021 17:12:19 Myocardial infarct finding now present ST (T wave) deviation still present Electronically Signed On 09-01-2021 19:04:46 CDT by Bismark Aragon M.D. [id number]
[2021-09-01 07:19] LABS: Troponin 5 6HR 41.55 ng/L (0-15)
[2021-09-01 07:25] LABS: Alanine Aminotransferase 81 U/L (0-41); Albumin Level 3.8 g/dL (3.5-5.2); Alkaline Phosphatase 108 IU/L (40-130); Aspartate Amino Transferase 28 U/L (0-40); Blood Urea Nitrogen 27 mg/dL (8-23); Calcium 8.3 mg/dL (8.5-10.5); Carbon Dioxide 23 mmol/L (22-29); Chloride 98 mmol/L (98-107); Creatinine Clr Calc Pharmacy 60.7385; Globulin 2.8 g/dL (1.3-4.6); Glomerular Filtration Rate 51.4 mL/min (90-130); Glucose 91 mg/dL (65-115); Magnesium 2.5 mg/dL (1.7-2.3); Osmolality Calculated 287 mOsm/kg (285-295); Sodium 136 mmol/L (136-145); Total Bilirubin 0.6 mg/dL (0.15-1.2); Total Protein 6.6 g/dL (6.6-8.7)
[2021-09-01 08:06] LABS: Troponin 5 6HR Delta -8.45 ng/L (0-12)
[2021-09-01 08:28] LABS: Anion Gap 19.6 (5-19); Potassium 4.6 mmol/L (3.5-5.1)
--- NOTE | 2021-09-01 08:56 | PC.PHAR ---
pt states he takes care of his own medications states sometimes if he needs help he ask his sister,ex or whoever he can get to help him-ext med history shows metoprolol tart 50mg bid filled on 08/24/21 5d/s pt states he doesnt think he is taking-pt states he isnt sure if he has symbicort 160-4.5mcg 2p bid filled on 08/24/21 30d/s-pt states he didnt finish his prednisone 10mg 5 tabs daily filled on 08/24/21 5d/s pt states he may have taken 10 tabs-pt states he didnt finish his doxycycline hyclate 100mg bid filled on 08/22/21 10d/s-notes are made in the pharmacy comments
--- NOTE | 2021-09-01 09:04 | P.CONIM_ITS ---
Providers/Reason For Consult Consulting Physician/Specialty*: BRAYAN Aragon MD/cardiology Reason for Consult*: Chest pain/uncontrolled blood pressure Requesting Physician: Dr. Mcgowan Attending Physician: Carlita Hampton MD History of Present Illness History of Present Illness [place] Camp is a 61 year old male is admitted to the hospital through the emergency room very present with complaints of epigastric pain and some shortness of breath. This patient extremely poor historian and has very poor recollection of recent and past events. He is known to have nonischemic cardiomyopathy. His LV ejection fraction was as low as 10% few years ago. The ejection fraction improved to 52%, later on, based on the medical records. He has a history of uncontrolled blood pressure and noncompliance to medication. Patient was seen at the [facility] in [place] yesterday morning with complaints of epigastric pain. He had some extensive work-up, as per the patient. He was told to have an aneurysm in the thoracic aorta? And also features of heart failure. He was treated with IV diuretic and apparently was discharged home. On the way home, patient had a chicken sandwich from[employer]. By the time he reached home, he started having the epigastric pain again. According to him, the pain usually starts after the morning medications and breakfast. It may last for several minutes to couple of hours and then gradually subsides. This has been going on for the last to 3 years. Lately it is becoming more severe. Quite often these spells happen after meals. Denies a ny chest pain. Has been having episodes of shortness of breath. His blood pressure has been staying higher lately. He had some medication changes by the primary care provider. Details are not available. Patient denies any fever or chills. No cough. His latest elevation fraction is not available. He had a cardiac catheterization in 2012 by . He was found to have no significant alexander ry artery disease. Medications/Allergies Home Medications Medication Instructions Recorded Confirmed Last Taken Type albuterol sulfate 90 mcg/actuation 2 puff INHALATION QID PRN #6.7 g 08/24/21 09/01/21 Unknown Rx aerosol inhaler (ProAir HFA) budesonide-formoterol HFA 160 2 puff INHALATION BID #10.2 g 08/24/21 09/01/21 Unknown Rx mcg-4.5 mcg/actuation aerosol inhaler (Symbicort) potassium chloride 20 mEq 20 meq PO DAILY #30 tab 08/24/21 09/01/21 Unknown Rx tablet,extended release(part/cryst) (Klor-Con M) prednisone 50 mg tablet 50 mg PO DAILY #5 tab 08/24/21 09/01/21 Unknown Rx furosemide 40 mg tablet 40 mg PO DAILY #30 tab 08/29/21 09/01/21 Unknown Rx aspirin 325 mg tablet 325 mg PO QAM 09/01/21 09/01/21 Unknown History doxycycline hyclate 100 mg capsule 100 mg PO BID 09/01/21 09/01/21 Unknown History famotidine 20 mg tablet 20 mg PO BID PRN 09/01/21 09/01/21 Unknown History guaifenesin 600 mg tablet, 600 mg PO Q12H PRN 09/01/21 09/01/21 Unknown History extended release 12 hr (Mucinex) ondansetron 4 mg disintegrating 4 mg PO TID PRN 09/01/21 09/01/21 Unknown History tablet Allergies Allergy/AdvReac Type Severity Reaction Status Date / Time ibuprofen Allergy Mild Rash Verified 09/01/21 08:49 naproxen Allergy Mild Rash Verified 09/01/21 08:49 yellow dye Allergy Mild Rash Verified 09/01/21 08:49 losartan Allergy Unknown Unknown Verified 09/01/21 08:49 lisinopril AdvReac Mild Cough Verified 09/01/21 08:49 Current Medications Generic Name Dose Route Start Last Admin Trade Name Freq PRN Reason Stop Dose Admin Fluticasone/Salmeterol 1 puff 09/01/21 09:00 09/01/21 07:44 Fluticasone-Salmeterol 250-50 Diskus INHALATION 1 puff BID YONATAN Administration PFSH Acute PFSH: Medical History Cardiomyopathy Cardiomyopathy Emphysema/COPD Malignant hypertension Family History Other CAD (coronary artery disease) Social History Smoking and tobacco status: current every day smoker Second hand smoke exposure: Yes Smoking risk assessment/counseling performed?: No Alcohol intake: never Desire information about alcohol rehabilitation?: No Counseling given: No Desire information about substance/drug rehabilitation?: No Counseling given: No Adopted: No Caregiver/support person: No Lives independently: Yes Household members: spouse Housing: House Marital status: Number of children: 4 service: No Current occupational status: disabled Vitals/I&O/Wt Last Vital Signs Temp 97.6 F 09/01/21 07:24 Pulse 73 09/01/21 07:24 Resp 16 09/01/21 07:24 BP 178/119 09/01/21 07:24 Pulse Ox 98 09/01/21 07:24 08/31/21 09/01/21 09/01/21 22:59 06:59 14:59 Intake Total 300 / 300 Balance 300 / 300 Weight last 48 hrs Weight 176 lb Physical Exam Narrative: GENERAL: The patient is alert and oriented times three. Not in any acute distress. HEENT: No significant pallor, icterus or lymphadenopathy. The pupils are reactant to light. Oral cavity: There are no mucous membrane lesions. Funduscopic examination: The disk margins appear to be sharp with no exudates or hemorrhages. NECK: Trachea appears to be central. No masses noted. No JVD or thyromegaly appreciated. No carotid bruit. RESPIRATORY: Chest is symmetrical. No intercostals muscle retraction or any accessory muscle activation. There is no chest wall tenderness. Breath sounds are heard bilaterally. No rales or rhonchi heard. No evidence of any consolidation. BREASTS: Deferred. HEART: The PMI is in the 5th left intercostals space just inside the midclavicular line. No palpable precordial events. S1 and S2 are normal. No S3 or S4 heard. No pericardial rub or any click heard. Short systolic murmur in the left sternal border. No diastolic murmurs ABDOMEN: No vessel pulsations or distention. No tenderness. No organomegaly appreciated. No abdominal bruit. Bowel sounds are normally heard. : Deferred. RECTAL: Deferred. LYMPHATIC: No lymphadenopathy noted in the neck or groin. EXTREMITIES: 1+ edema both lower extremities. No cyanosis. Peripheral pulses are palpable but weak bilaterally. MUSCULOSKELETAL: No acute joint deformities or swelling SKIN: There are no significant scars or skin rash noted. NEUROPSYCHIATRIC: The patient is alert and oriented x3. Appears to be in a good mood. The higher functions are grossly within normal limits. No tremors or rigidity noted. Data : 09/01/21 06:36 09/01/21 06:36 Other Labs: Laboratory Last Values WBC 12.7 10^3/uL (4.0-10.0) H 09/01/21 06:36 RBC 4.34 10^6/uL (4.1-5.3) 09/01/21 06:36 Hgb 12.6 g/dL (11.7-16.6) 09/01/21 06:36 Hct 39.0 % (42.0-52.0) L 09/01/21 06:36 MCV 89.9 fl (80-94) 09/01/21 06:36 MCH 29.0 pg (28.0-34.0) 09/01/21 06:36 MCHC 32.3 g/dL (30.0-36.0) D 09/01/21 06:36 RDW 16.8 % (12.1-15.1) H 09/01/21 06:36 Plt Count 292 10^3/cmm (130-400) 09/01/21 06:36 MPV 10.7 fL (7.4-10.4) H 09/01/21 06:36 Neut % (Auto) 68.0 % 09/01/21 06:36 Lymph % (Auto) 24.9 % 09/01/21 06:36 Carson % (Auto) 6.4 % 09/01/21 06:36 Eos % (Auto) 0.1 % 09/01/21 06:36 Baso % (Auto) 0.2 % 09/01/21 06:36 Neut # (Auto) 8.62 10^3/uL (1.8-7.7) H 09/01/21 06:36 Lymph # (Auto) 3.2 10^3/uL (0.8-4.8) 09/01/21 06:36 Carson # (Auto) 0.8 10^3/uL (0.2-0.9) 09/01/21 06:36 Eos # (Auto) 0.0 10^3/uL (0.0-0.8) 09/01/21 06:36 Baso # (Auto) 0.0 10^3/uL (0.0-0.1) 09/01/21 06:36 Nucleated RBC % (auto) 0.2 % 09/01/21 06:36 Nucleated RBCs # 0.0 /100WBC 09/01/21 06:36 PT 15.80 SECONDS (12.1-14.9) H 09/01/21 01:12 INR 1.23 (0.8-1.2) H 09/01/21 01:12 Sodium 136 mmol/L (136-145) 09/01/21 06:36 Potassium 4.6 mmol/L (3.5-5.1) 09/01/21 06:36 Chloride 98 mmol/L (98-107) 09/01/21 06:36 Carbon Dioxide 23 mmol/L (22-29) 09/01/21 06:36 Anion Gap 19.6 (5-19) H 09/01/21 06:36 BUN 27 mg/dL (8-23) H 09/01/21 06:36 Creatinine 1.4 mg/dL (0.7-1.2) H 09/01/21 06:36 GFR Calculation 51.4 mL/min (90-130) L 09/01/21 06:36 Glucose 91 mg/dL (65-115) 09/01/21 06:36 Calculated Osmolality 287 mOsm/kg (285-295) 09/01/21 06:36 Calcium 8.3 mg/dL (8.5-10.5) L 09/01/21 06:36 Magnesium 2.5 mg/dL (1.7-2.3) H 09/01/21 06:36 Total Bilirubin 0.6 mg/dL (0.15-1.2) 09/01/21 06:36 AST 28 U/L (0-40) 09/01/21 06:36 ALT 81 U/L (0-41) H 09/01/21 06:36 Alkaline Phosphatase 108 IU/L (40-130) 09/01/21 06:36 Troponin T Baseline 50 ng/L (0-15) H 09/01/21 01:12 Troponin T 120 Minute 46.13 ng/L (0-15) H 09/01/21 03:03 Delta Troponin T -3.87 ABS# (0-10) L 09/01/21 03:03 Troponin T Hi Sens 6Hr 41.55 ng/L (0-15) H 09/01/21 06:36 Troponin T Hi Sens 6Hr Delta -8.45 ng/L (0-12) L 09/01/21 06:36 NT-Pro-B Natriuret Pep 00170 pg/mL (0-125) H 09/01/21 01:12 Total Protein 6.6 g/dL (6.6-8.7) 09/01/21 06:36 Albumin 3.8 g/dL (3.5-5.2) 09/01/21 06:36 Globulin 2.8 g/dL (1.3-4.6) 09/01/21 06:36 Lipase 65 U/L (13-60) H 09/01/21 01:12 Micro: Microbiology 09/01/21 03:07 Blood Culture - Preliminary Blood SPECIMEN COLLECTED 09/01/21 02:29 Blood Culture - Preliminary Blood SPECIMEN COLLECTED EKG 1: My Interpretation: Sinus rhythm with a possible left atrial enlargement. Features of LVH with a secondary ST-T changes. Left axis deviation. Possible old septal ME. EKG computer-generated impression: Chest/Abdomen/Pelvis CTA 09/01/21 01:10 IMPRESSION: 1. Mild calcified coronary artery disease. 2. Small right pleural fluid collection. 3. Mild right basilar atelectasis and/or pneumonia. 4. Borderline to mild cardiomegaly. 5. No pulmonary embolus or aortic dissection. IMPRESSION: 1. 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 2. Shotty periaortic adenopathy which is within normal limits by CT criteria. 3. Mild four-quadrant ascites. Contracted gallbladder. A&P Assessment and plan (1) Epigastric pain: The patient's episodes of pain in the morning after breakfast may suggest intestinal ischemia especially in view of the stenosis of the celiac artery based on the CTA. Possibility of underlying coronary ischemia cannot be completely excluded. However he was found to have no significant obstructive artery disease by angiogram in 2012. A repeat myocardial perfusion imaging to evaluate for any underlying coronary ischemia would be appropriate. Status: Acute (2) Accelerated hypertension: We will try to optimize his antihypertensive medications. Patient's complaints of the treatment is questionable. Status: Acute (3) Cardiomyopathy: The elevation fraction was around 10% few years ago. Patient has not had any recent echocardiogram. We will go ahead and do a an echocardiogram today to evaluate LV function and rule out any other pathology. He is known to have nonischemic cardiomyopathy. Status: Acute Qualifiers: Cardiomyopathy type: dilated Qualified Code(s): I42.0 - Dilated cardiomyopathy (4) Congestive heart failure: Patient may be carefully treated with IV diuretics and other symptomatic measures. After reviewing the echocardiogram, further recommendations will be made. Status: Acute Qualifiers: Heart failure chronicity: acute on chronic Heart failure type: combined systolic and diastolic Qualified Code(s): I50.43 - Acute on chronic combined systolic (congestive) and diastolic (congestive) heart failure (5) Pneumonia: Patient is remaining afebrile. The white cell count is slightly elevated. M anagement as per the primary. Status: Acute Plan Other problems are Stage III kidney disease ? History of COPD Mild anemia I may start the patient on hydralazine 50 mg p.o. every 8 hours. The dose of the isosorbide mononitrate may be increased to 60 mg p.o. daily. Continue on the daily Lasix and potassium. Echocardiogram as soon as possible. We may consider a myocardial perfusion imaging to evaluate for any underlying coronary ischemia. After reviewing the above and also based on the patient's clinical progress, further recommendations will be made. Thank you for the opportunity to evaluate this patient and make these recommendations. 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
[2021-09-01] MEDS: carvedilol 6.25 mg Tablet PO ×2 (09:32→17:54)
[2021-09-01] MEDS: isosorbide mononitrate ER 30 mg Tablet PO ×2 (09:32→11:52)
[2021-09-01] MEDS: pantoprazole DR 40 mg Tablet PO (09:32)
[2021-09-01] MEDS: aspirin 81 mg EC Tablet PO (09:32)
[2021-09-01] MEDS: amlodipine 10 mg Tablet PO (09:32)
--- NOTE | 2021-09-01 11:21 | P.PN_ITS ---
Subjective Subjective: H&P reviewed Patient is suffering from gastric ischemia Plan for stress test on Friday Will follow up with cardiology recommendations Added labetalol IV push for as needed use Hydralazine and Imdur added Vitals/I&O/Wt Last Vital Signs Temp 97.4 F L 09/01/21 11:18 Pulse 76 09/01/21 11:18 Resp 12 09/01/21 11:18 BP 157/101 09/01/21 11:18 Pulse Ox 97 09/01/21 11:18 08/31/21 09/01/21 09/01/21 22:59 06:59 14:59 Intake Total 300 / 300 240 / 240 Balance 300 / 300 240 / 240 Weight last 48 hrs Weight 79.832 kg Physical Exam Narrative: Patient is chest pain-free Pain is in epigastric region Nonfocal neuro exam S1, S2 Saturating well on room air Blood pressure is high Nonfocal neuro exam Endorsing headache No signs of meningitis Data : 09/01/21 06:36 09/01/21 06:36 Micro: Microbiology 09/01/21 03:07 Blood Culture - Preliminary Blood SPECIMEN COLLECTED 09/01/21 02:29 Blood Culture - Preliminary Blood SPECIMEN COLLECTED A&P Assessment and plan (1) Epigastric pain: Status: Acute (2) Accelerated hypertension: Status: Acute (3) Mesenteric angina: Status: Acute Plan Mesenteric angina Patient will need vascular follow-up outpatient in [place] Coronary ischemia work-up to be done on Friday Added Imdur and hydralazine for hypertensive urgency Will follow up with cardiology recommendations Check TSH, CASANDRA related to prerenal azotemia BNP 12,000 however clinically does not look fluid overloaded Hypertensive urgency Discontinue IV fluids Currently on Imdur, labetalol, Coreg, amlodipine, hydralazine Cardiac diet Full code DVT prophylaxis Lovenox Attestations Medical Necessity Statement*: He will stay until Friday Time Spent in Patient Care: 30 Coding Level of Care Code Acute 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
[2021-09-01] MEDS: hyDRALAzine 50 mg Tablet PO ×2 (14:40→19:22)
--- NOTE | 2021-09-01 19:24 | PC.NURSE ---
bedside report given to STARLA Felton
--- NOTE | 2021-09-01 22:24 | PC.NURSE ---
Patient given urinal and educated to use urinal for urine output measurement.
[2021-09-02] VITALS (11 sets, daily range): BP systolic 131–163; BP diastolic 57–84; PULSE 70–86; RESP 16–21; TEMP 36.7–36.9; O2SAT 94–98
[2021-09-02 06:10] LABS: Basophils % 0.2 %; Eosinophils # 0.2 10^3/uL (0.0-0.8); Eosinophils % 1.3 %; Hematocrit 37.4 % (42.0-52.0); Lymphocytes # 2.2 10^3/uL (0.8-4.8); Lymphocytes % 18.3 %; Mean Corpuscular HGB Conc 32.1 g/dL (30.0-36.0); Mean Corpuscular Hemoglobin 28.8 pg (28.0-34.0); Mean Corpuscular Volume 89.9 fl (80-94); Mean Platelet Volume 10.5 fL (7.4-10.4); Monocytes % 8.2 %; Neutrophils # 8.68 10^3/uL (1.8-7.7); Neutrophils % 71.7 %; Nucleated Red Blood Cells % 0 %; Platelet Count 316 10^3/cmm (130-400); Red Blood Count 4.16 10^6/uL (4.1-5.3); Red Cell Distribution Width 16.8 % (12.1-15.1); White Blood Count 12.1 10^3/uL (4.0-10.0)
[2021-09-02 06:32] LABS: Alanine Aminotransferase 62 U/L (0-41); Albumin Level 3.4 g/dL (3.5-5.2); Alkaline Phosphatase 94 IU/L (40-130); Anion Gap 13.2 (5-19); Aspartate Amino Transferase 22 U/L (0-40); Blood Urea Nitrogen 21 mg/dL (8-23); Calcium 8.3 mg/dL (8.5-10.5); Carbon Dioxide 25 mmol/L (22-29); Chloride 103 mmol/L (98-107); Globulin 3.1 g/dL (1.3-4.6); Glomerular Filtration Rate 67.8 mL/min (90-130); Glucose 85 mg/dL (65-115); Magnesium 2.2 mg/dL (1.7-2.3); Osmolality Calculated 286 mOsm/kg (285-295); Potassium 4.2 mmol/L (3.5-5.1); Sodium 137 mmol/L (136-145); Total Bilirubin 0.8 mg/dL (0.15-1.2); Total Protein 6.5 g/dL (6.6-8.7)
--- NOTE | 2021-09-02 07:00 | ECG_ITS ---
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 Measurements Intervals [place] Rate: 72 P: 49 IN: 169 QRS: -37 QRSD: 124 T: 143 QT: 426 QTc: 467 Interpretive Statements SINUS RHYTHM LEFT ATRIAL ENLARGEMENT [-0.15mV P-WAVE IN V1/V2] LEFT AXIS DEVIATION [QRS AXIS < -30] LEFT VENTRICULAR HYPERTROPHY AND ST-T CHANGE [VOLTAGE CRITERIA PLUS ST/T ABNORMALITY] Compared to ECG 09/01/2021 07:39:20 No significant changes Electronically Signed On 09-03-2021 19:42:31 CDT by Bismark Aragon M.D. [id number]
[2021-09-02] MEDS: amlodipine 10 mg Tablet PO (08:42)
[2021-09-02] MEDS: aspirin 81 mg EC Tablet PO (08:42)
[2021-09-02] MEDS: pantoprazole DR 40 mg Tablet PO (08:43)
[2021-09-02] MEDS: hyDRALAzine 50 mg Tablet PO ×2 (08:43→17:07)
[2021-09-02] MEDS: carvedilol 12.5 mg Tablet PO ×2 (08:43→17:46)
[2021-09-02] MEDS: enoxaparin 40 mg/0.4 mL Syringe SUBCUT (08:43)
[2021-09-02] MEDS: isosorbide mononitrate ER 60 mg Tablet PO (08:43)
--- NOTE | 2021-09-02 11:39 | PM.PN ---
Subjective Subjective: Abnormal TSH noted, free T4 requested Blood pressure 148/84 Improved No chest pain or shortness of breath Still endorsing mesenteric angina after eating meals Plan for stress test tomorrow Vitals/I&O/Wt Last Vital Signs Temp 98.5 F 09/02/21 08:00 Pulse 77 09/02/21 08:00 Resp 18 09/02/21 08:00 BP 148/84 09/02/21 08:00 Pulse Ox 96 09/02/21 08:00 09/01/21 09/02/21 09/02/21 22:59 06:59 14:59 Intake Total 0 / 480 360 / 360 Output Total 675 / 675 450 / 450 Balance 0 / 480 -675 / -195 -90 / -90 Weight last 48 hrs Weight 79.832 kg Physical Exam Narrative: Patient eating breakfast Looks better No active chest pain Abdomen soft Nonfocal neuro exam Saturating well on room air Brother at the bedside Pleasant and cooperative Data : 09/02/21 05:45 09/02/21 05:45 Micro: Microbiology 09/01/21 03:07 Blood Culture - Preliminary Blood NEGATIVE TO DATE 09/01/21 02:29 Blood Culture - Preliminary Blood NEGATIVE TO DATE A&P Assessment and plan (1) Mesenteric angina: Status: Acute (2) Epigastric pain: Status: Acute (3) Accelerated hypertension: Status: Acute Plan Hypertensive urgency: Improved with antihypertensive oral regimen TSH high, free T4 will be checked Mesenteric angina: He will need outpatient vascular/GI follow-up Reduced ejection fraction nonischemic cardiomyopathy EF 10% in 2013 and refused LifeVest Current EF 25% Clinically looks euvolemic 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 Aragon recommended cardiac stress test tomorrow Patient is symptom-free N.p.o. 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
[2021-09-02 12:09] LABS: Free T4 Free Thyroxine 1.17 ng/dL (0.82-1.77)
--- NOTE | 2021-09-02 20:01 | P.PN_ITS ---
Subjective Subjective: Patient is feeling better. Has significant improvement of the epigastric pain. Denies any chest pain. Medications: Medication Review Details: Current Medications Acetaminophen (Acetaminophen 325 Mg Tablet) 650 mg PO Q6H PRN PRN Reason: Mild/Mod Pain Or Temp >/= 101 Albuterol Sulfate (Albuterol 8 Gm Mdi) 2 puff INHALATION QID PRN PRN Reason: shortness of breath or wheezing Amlodipine Besylate (Amlodipine 10 Mg Tablet) 10 mg PO DAILY [facility] Last Admin: 09/02/21 08:42 Dose: 10 mg Documented by: Aspirin (Aspirin 81 Mg Ec Tablet) 81 mg PO DAILY@0800 [facility] Last Admin: 09/02/21 08:42 Dose: 81 mg Documented by: Bisacodyl (Bisacodyl 5 Mg Tablet) 10 mg PO DAILY PRN; Protocol PRN Reason: Constipation (see protocol) Carvedilol (Carvedilol 12.5 Mg Tablet) 12.5 mg PO BID [facility] Last Admin: 09/02/21 17:46 Dose: 12.5 mg Documented by: Enoxaparin Sodium (Enoxaparin 40 Mg/0.4 Ml Syringe) 40 mg SUBCUT Q24H [facility] Last Admin: 09/02/21 08:43 Dose: 40 mg Documented by: Hydralazine HCl (Hydralazine 50 Mg Tablet) 50 mg PO TID [facility] Last Admin: 09/02/21 17:07 Dose: 50 mg Documented by: Isosorbide Mononitrate (Isosorbide Mononitrate Er 60 Mg Tablet) 60 mg PO DAILY [facility] Last Admin: 09/02/21 08:43 Dose: 60 mg Documented by: Labetalol HCl (Labetalol 5 Mg/Ml Sdv 20ml) 10 mg IVP Q4H PRN PRN Reason: sbp>180dbp>100 Morphine Sulfate (Morphine 4 Mg/Ml Sdv 1 Ml) 2 mg IVP Q4H PRN PRN Reason: SEVERE PAIN Nitroglycerin (Nitroglycerin 0.4 Mg Sublingual Tablet) 0.4 mg SUBLINGUAL Q5M PRN PRN Reason: CHEST PAIN Ondansetron HCl (Ondansetron 2 Mg/Ml Sdv 2 Ml) 4 mg IVP Q8H PRN PRN Reason: vomiting, or N/V if npo Pantoprazole Sodium (Pantoprazole Dr 40 Mg Tablet) 40 mg PO DAILY [facility] Last Admin: 09/02/21 08:43 Dose: 40 mg Documented by: Fluticasone/Salmeterol (Fluticasone-Salmeterol 250-50 Diskus) 1 puff INHALATION BID [facility] Last Admin: 09/02/21 07:32 Dose: 1 puff Documented by: Vitals/I&O/Wt Last Vital Signs Temp 98.5 F 09/02/21 16:00 Pulse 78 09/02/21 16:00 Resp 16 09/02/21 16:00 BP 158/57 09/02/21 16:00 Pulse Ox 97 09/02/21 16:00 09/02/21 09/02/21 09/02/21 06:59 14:59 22:59 Intake Total 720 / 720 240 / 960 Output Total 675 / 675 875 / 875 450 / 1325 Balance -675 / -195 -155 / -155 -210 / -365 Weight last 48 hrs Weight 176 lb Physical Exam Narrative: GENERAL: The patient is alert and oriented times three. Not in any acute distress. HEENT: No significant pallor, icterus or lymphadenopathy. NECK: Trachea appears to be central. No masses noted. No JVD or thyromegaly appreciated. No carotid bruit. RESPIRATORY: Chest is symmetrical. No intercostals muscle retraction or any acce ssory muscle activation. There is no chest wall tenderness. Breath sounds are heard bilaterally. No rales or rhonchi heard. No evidence of any consolidation. BREASTS: Deferred. HEART: The heart sounds are normal. No S3 or S4 heard. No pericardial rub or any click heard. Short systolic murmur in the left sternal border. No diastolic murmurs ABDOMEN: No vessel pulsations or distention. No tenderness. No organomegaly appreciated. No abdominal bruit. Bowel sounds are normally heard. : Deferred. RECTAL: Deferred. LYMPHATIC: No lymphadenopathy noted in the neck or groin. EXTREMITIES: 1+ edema both lower extremities. No cyanosis. Peripheral pulses are palpable but weak bilaterally. MUSCULOSKELETAL: No acute joint deformities or swelling SKIN: There are no significant scars or skin rash noted. NEUROPSYCHIATRIC: The patient is alert and oriented x3. Appears to be in a good mood. The higher functions are grossly within normal limits. No tremors or rigidity noted. Data : 09/02/21 05:45 09/02/21 05:45 Micro: Microbiology 09/01/21 03:07 Blood Culture - Preliminary Blood NEGATIVE TO DATE 09/01/21 02:29 Blood Culture - Preliminary Blood NEGATIVE TO DATE Echo: My impression: Severe diffuse hypokinesia left ventricle with ejection fraction?of around 25 to 30%.. ? Mildly dilated LV cavity. ?Mild biatrial enlargement. ?Thickened mitral valve. ?Moderate-severe mitral valve regurgitation. ?Moderate tricuspid valve regurgitation. ?Right atrial pressure was calculated to be around 15 mmHg ?Estimated pulmonary artery peak systolic pressure was 43 mmHg. ?There are no intracardiac masses. ?There is no pericardial effusion. ?Compared to the previous study from 09/13/2015, there is some ?improvement in LV ejection fraction and slight worsening of the ?MR A&P Assessment and plan (1) Epigastric pain: The patient's episodes of pain in the morning after breakfast may suggest intestinal ischemia especially in view of the stenosis of the celiac artery based on the CTA. Possibility of underlying coronary ischemia cannot be completely excluded. However he was found to have no significant obstructive artery disease by angiogram in 2012. A repeat myocardial perfusion imaging to evaluate for any underlying coronary ischemia would be appropriate. Status: Acute (2) Accelerated hypertension: We will try to optimize his antihypertensive medications. Patient's complaints of the treatment is questionable. Status: Acute (3) Cardiomyopathy: The patient's LV ejection fraction appears to be around 25 to 30%. I may start him on spironolactone 25 mg p.o. daily. Patient also may benefit from a LifeVest Status: Acute Qualifiers: Cardiomyopathy type: dilated Qualified Code(s): I42.0 - Dilated cardiomyopathy (4) Congestive heart failure: We will continue careful IV diuresis Status: Acute Qualifiers: Heart failure chronicity: acute on chronic Heart failure type: combined systolic and diastolic Qualified Code(s): I50.43 - Acute on chronic combined systolic (congestive) and diastolic (congestive) heart failure (5) Pneumonia: Patient is remaining afebrile. The white cell count is slightly elevated. Management as per the primary. Status: Acute Plan Other problems are History of stage III kidney disease ? History of COPD Mild anemia We will continue on the current medications Spironolactone 25 mg p.o. 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
[2021-09-03] VITALS (9 sets, daily range): BP systolic 127–197; BP diastolic 53–91; PULSE 69–89; RESP 16–18; TEMP 36.4–37; O2SAT 95–96
[2021-09-03 03:19] LABS: Basophils % 0.2 %; Eosinophils # 0.1 10^3/uL (0.0-0.8); Eosinophils % 1.5 %; Hematocrit 33.6 % (42.0-52.0); Hemoglobin 11.2 g/dL (11.7-16.6); Mean Corpuscular HGB Conc 33.3 g/dL (30.0-36.0); Mean Corpuscular Hemoglobin 29.4 pg (28.0-34.0); Mean Corpuscular Volume 88.2 fl (80-94); Mean Platelet Volume 10.3 fL (7.4-10.4); Monocytes # 1.2 10^3/uL (0.2-0.9); Monocytes % 11.9 %; Neutrophils # 6.27 10^3/uL (1.8-7.7); Neutrophils % 65.1 %; Nucleated Red Blood Cells % 0 %; Platelet Count 282 10^3/cmm (130-400); Red Blood Count 3.81 10^6/uL (4.1-5.3); Red Cell Distribution Width 16.6 % (12.1-15.1); White Blood Count 9.6 10^3/uL (4.0-10.0)
[2021-09-03 03:47] LABS: Alanine Aminotransferase 40 U/L (0-41); Alkaline Phosphatase 78 IU/L (40-130); Aspartate Amino Transferase 16 U/L (0-40); Blood Urea Nitrogen 15 mg/dL (8-23); Calcium 8.3 mg/dL (8.5-10.5); Carbon Dioxide 24 mmol/L (22-29); Chloride 103 mmol/L (98-107); Globulin 2.7 g/dL (1.3-4.6); Glomerular Filtration Rate 75.7 mL/min (90-130); Glucose 97 mg/dL (65-115); Osmolality Calculated 287 mOsm/kg (285-295); Sodium 138 mmol/L (136-145); Total Bilirubin 0.6 mg/dL (0.15-1.2); Total Protein 5.7 g/dL (6.6-8.7)
--- NOTE | 2021-09-03 07:03 | ECG_ITS ---
[facility] Test Date: 2021-09-03 Pat Name: Parish Camp Department: Room: 278 Gender: Male Court Operations Clerk: Christine Back : 1960 Requested By: Carlita Hampton Order Number: [id number] Reading MD: Bismark Aragon M.D. Interpretive Statements NAME OF STUDY: LEXISCAN SESTAMIBI STRESS TEST INDICATION: Ua, PROCEDURE: At the baseline, the EKG revealed normal sinus rhythm with diffuse nonspecific ST-T changes. Nonspecific IVCD. Possible left atrial enlargement. Some features of LVH. The baseline blood pressure was 168/95 mm Hg with a heart rate of 81 beats/min. Lexiscan was infused over a period of 20 seconds. A total of 0.4 milligrams of Lexiscan was infused. The stress phase was continued for a total of 5 minutes. Heart rate at the end of the stress phase was 85 with a blood pressure 172/91. The EKG at the peak infusion revealed no significant changes. Sestamibi was injected 20 seconds after the Lexiscan infusion. Blood pressure at the end of the recovery phase was 164/91 with a heart rate of 84 per minute. CONCLUSION: 1. No significant EKG changes with the LexiScan infusion 2. No LexiScan induced chest pain or cardiac arrhythmia 3. Normal blood pressure and heart rate response 4. Sestamibi/sestamibi perfusion scan pending; see separate report. Electronically Signed On 09-07-2021 6:46:02 CDT by Bismark Aragon M.D. [id number]
[2021-09-03] MEDS: regadenoson 0.4 Mg/5 ml Syringe IVP (07:56)
[2021-09-03] MEDS: amlodipine 10 mg Tablet PO (09:06)
[2021-09-03] MEDS: isosorbide mononitrate ER 60 mg Tablet PO (09:06)
[2021-09-03] MEDS: carvedilol 12.5 mg Tablet PO ×2 (09:07→17:11)
[2021-09-03] MEDS: enoxaparin 40 mg/0.4 mL Syringe SUBCUT (09:07)
[2021-09-03] MEDS: aspirin 81 mg EC Tablet PO (09:07)
[2021-09-03] MEDS: spironolactone 25 mg Tablet PO (09:07)
[2021-09-03] MEDS: hyDRALAzine 50 mg Tablet PO ×2 (09:07→15:15)
[2021-09-03] MEDS: pantoprazole DR 40 mg Tablet PO (09:07)
--- NOTE | 2021-09-03 10:11 | PM.PN ---
Subjective Subjective: Patient is feeling okay. No chest pain or chest tightness. He had a Myocardial perfusion imaging today. Was found to have no evidence of ischemia. Medications: Medication Review Details: Current Medications Acetaminophen (Acetaminophen 325 Mg Tablet) 650 mg PO Q6H PRN PRN Reason: Mild/Mod Pain Or Temp >/= 101 Albuterol Sulfate (Albuterol 8 Gm Mdi) 2 puff INHALATION QID PRN PRN Reason: shortness of breath or wheezing Aminophylline (Aminophylline 25 Mg/Ml Sdv 10 Ml) 25 mg IVP Q2M PRN PRN Reason: see dose instructions Stop: 09/04/21 07:03 Amlodipine Besylate (Amlodipine 10 Mg Tablet) 10 mg PO DAILY [facility] Last Admin: 09/03/21 09:06 Dose: 10 mg Documented by: Aspirin (Aspirin 81 Mg Ec Tablet) 81 mg PO DAILY@0800 [facility] Last Admin: 09/03/21 09:07 Dose: 81 mg Documented by: Bisacodyl (Bisacodyl 5 Mg Tablet) 10 mg PO DAILY PRN; Protocol PRN Reason: Constipation (see protocol) Carvedilol (Carvedilol 12.5 Mg Tablet) 12.5 mg PO BID [facility] Last Admin: 09/03/21 17:11 Dose: 12.5 mg Documented by: Enoxaparin Sodium (Enoxaparin 40 Mg/0.4 Ml Syringe) 40 mg SUBCUT Q24H [facility] Last Admin: 09/03/21 09:07 Dose: 40 mg Documented by: Hydralazine HCl (Hydralazine 50 Mg Tablet) 50 mg PO TID [facility] Last Admin: 09/03/21 15:15 Dose: 50 mg Documented by: Isosorbide Mononitrate (Isosorbide Mononitrate Er 60 Mg Tablet) 60 mg PO DAILY [facility] Last Admin: 09/03/21 09:06 Dose: 60 mg Documented by: Labetalol HCl (Labetalol 5 Mg/Ml Sdv 20ml) 10 mg IVP Q4H PRN PRN Reason: sbp>180dbp>100 Morphine Sulfate (Morphine 4 Mg/Ml Sdv 1 Ml) 2 mg IVP Q4H PRN PRN Reason: SEVERE PAIN Nitroglycerin (Nitroglycerin 0.4 Mg Sublingual Tablet) 0.4 mg SUBLINGUAL Q5M PRN PRN Reason: CHEST PAIN Nitroglycerin (Nitroglycerin 0.4 Mg Sublingual Tablet) 0.4 mg SUBLINGUAL Q5M PRN PRN Reason: CHEST PAIN Stop: 09/04/21 07:03 Ondansetron HCl (Ondansetron 2 Mg/Ml Sdv 2 Ml) 4 mg IVP Q8H PRN PRN Reason: vomiting, or N/V if npo Ondansetron HCl (Ondansetron 2 Mg/Ml Sdv 2 Ml) 4 mg IVP Q2M PRN PRN Reason: NAUSEA Pantoprazole Sodium (Pantoprazole Dr 40 Mg Tablet) 40 mg PO DAILY [facility] Last Admin: 09/03/21 09:07 Dose: 40 mg Documented by: Fluticasone/Salmeterol (Fluticasone-Salmeterol 250-50 Diskus) 1 puff INHALATION BID.RESPIRATORY YONATAN Spironolactone (Spironolactone 25 Mg Tablet) 25 mg PO DAILY [facility] Last Admin: 09/03/21 09:07 Dose: 25 mg Documented by: Vitals/I&O/Wt Last Vital Signs Temp 98.4 F 09/03/21 08:00 Pulse 89 09/03/21 08:00 Resp 16 09/03/21 08:00 BP 197/87 09/03/21 08:00 Pulse Ox 96 09/03/21 08:00 09/02/21 09/03/21 09/03/21 22:59 06:59 14:59 Intake Total 240 / 960 Output Total 950 / 1825 1300 / 1300 Balance -710 / -865 -1300 / -1300 Physical Exam Narrative: GENERAL: The patient is alert and oriented times three. Not in any acute distress. HEENT: No significant pallor, icterus or lymphadenopathy. NECK: Trachea appears to be central. No masses noted. No JVD or thyromegaly appreciated. No carotid bruit. RESPIRATORY: Chest is symmetrical. No intercostals muscle retraction or any accessory muscle activation. There is no chest wall tenderness. Breath sounds are heard bilaterally. No rales or rhonchi heard. No evidence of any consolidation. BREASTS: Deferred. HEART: The heart sounds are normal. No S3 or S4 heard. No pericardial rub or any click heard. Short systolic murmur in the left sternal border. No diastolic murmurs ABDOMEN: No vessel pulsations or distention. No tenderness. No organomegaly appreciated. No abdominal bruit. Bowel sounds are normally heard. : Deferred. RECTAL: Deferred. LYMPHATIC: No lymphadenopathy noted in the neck or groin. EXTREMITIES: 1+ edema both lower extremities. No cyanosis. Peripheral pulses are palpable but weak bilaterally. MUSCULOSKELETAL: No acute joint deformities or swelling SKIN: There are no significant scars or skin rash noted. NEUROPSYCHIATRIC: The patient is alert and oriented x3. Appears to be in a good mood. The higher functions are grossly within normal limits. No tremors or rigidity noted. 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 Since he is currently asymptomatic, may hold off on any further investigations. Need to consider celiac artery angiogram at a later date, if he continues to have the symptoms. No evidence of ischemia, based on the perfusion scan. Status: Acute (2) Accelerated hypertension: We will try to optimize his antihypertensive medications. Status: Acute (3) Cardiomyopathy: The patient's LV ejection fraction appears to be around 25 to 30%. I may start him on spironolactone 25 mg p.o. daily. Patient also may benefit from a LifeVest Patient apparently refused LifeVest repeatedly. Status: Acute Qualifiers: Cardiomyopathy type: dilated Qualified Code(s): I42.0 - Dilated cardiomyopathy (4) Congestive heart failure: We will continue careful IV diuresis Status: Inactive Qualifiers: Heart failure chronicity: acute on chronic Heart failure type: combined systolic and diastolic Qualified Code(s): I50.43 - Acute on chronic combined systolic (congestive) and diastolic (congestive) heart failure (5) Pneumonia: Pneumonia is ruled out. Also likely the x-ray abnormality was related to heart failure. Status: Acute Plan Other problems are History of stage III kidney disease ? History of COPD Mild anemia May continue on the current medications. Will be seen by the nurse practitioner at [facility] in 2 weeks. I may see him in the office in a month. Attestations Medical Necessity Statement*: Discharge home today Coding Level of Care Code Acute Site Safety Manager for Chg Fwd History Expanded Problem Focused Exam Detailed Medical Decision Making Moderate Complexity Diagnoses Epigastric pain R10.13 Accelerated hypertension I10 Cardiomyopathy I42.0 Cardiomyopathy type: dilated Congestive heart failure I50.43 Heart failure chronicity: acute on chronic Heart failure type: combined systolic and diastolic Pneumonia J18.9
--- NOTE | 2021-09-03 11:40 | NMCV_ITS ---
NM cassius perf SPECT r/s* [id number] Parish Camp Age: 61 Gender: M : 1960 Exam Date: 09/03/2021 07:15 Ordering Phys: Carlita Hampton MD Technologist: RILEY Cates Exam Location: [facility] Indications: CHEST PAIN STRESS TEST Please [facility] IMAGE PROTOCOL Rest/Stress 1 Lexiscan Day Radiopharmaceutical Dose (mCi) Administration Site Administered by Rest: Tc-99m 10.9 IV RILEY Davis Sestamibi Stress:Tc-99m 32.8 IV RILEY Davis Sestamibi Rest: 03-Sep-2021 60 Discovery 630 Stress: 03-Sep-2021 30 Discovery 630 0.4mg Lexiscan. Images obtained in supine and prone position. SPECT RESULTS Technical Quality: Excellent Raw Data Analysis: Normal Image Corrections: No attenuation or motion correction applied Summed Stress Score: 6 Summed Rest Score: 7 Summed Difference Score: 0 PERFUSION FINDINGS Small to moderate area of moderately decreased tracer uptake was noted in the basal, mid and apical inferior, mid inferolateral lateral regions. No significant reversibility was noted in these regions. FUNCTIONAL RESULTS (calculated via Gated SPECT) Stress Image LV EF (%): 21 Stress EDV (mL):314 TID: 1.05 Stress ESV (mL):248 FUNCTIONAL FINDINGS: Segmental wall motion analysis revealed severe diffuse hypokinesia of the left ventricle. IMPRESSIONS 1. Myocardial perfusion imaging revealing an area of persistent decreased tracer uptake in the inferior and inferolateral regions, suggesting myocardial scarring versus attrition artifact. 2. Markedly diminished LV ejection fraction of 21%. 3. LV wall motion analysis revealing severe diffuse hypokinesia of the left ventricle. 4. Markedly dilated LV cavity with an end-systolic volume of 248 mL Low probability for coronary ischemia, based on the above findings No similar previous studies are available for comparison Dr Bismark Aragon MD [facility] (Electronically Signed) Final Date: 03 September 2021 12:52 S
--- NOTE | 2021-09-03 16:17 | P.DS_ITS ---
Discharge Providers Date of Admission: 09/01/21 02:17 Date of Discharge: September 03, 2021 Attending Provider at Admission: Anoop Christian MD Attending Provider at Discharge: Carlita Hampton MD Diagnoses at Discharge Discharge Diagnosis (1) Epigastric pain: Status: Acute (2) Accelerated hypertension: Status: Acute (3) Cardiomyopathy: Status: Acute Qualifiers: Cardiomyopathy type: dilated Qualified Code(s): I42.0 - Dilated cardiomyopathy (4) Congestive heart failure: Status: Inactive Qualifiers: Heart failure chronicity: acute on chronic Heart failure type: combined systolic and diastolic Qualified Code(s): I50.43 - Acute on chronic combined systolic (congestive) and diastolic (congestive) heart failure (5) Pneumonia: Status: Acute Reason for Visit Reason for Visit: CP, Elevated BP Hospital Course Hospital Course 61-year-old male who has history of nonischemic cardiomyopathy presented with chief complaint of worsening abdominal pain after eating. His pain could be in the epigastric region especially after eating meals. 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 His symptoms are consistent with mesenteric angiogram for which he needs to see GI/vascular surgeon in [place]. Cardiology was consulted who recommended stress test, stress test revealed persistent decrease tracer uptake without reversible ischemia. Low probability for coronary ischemia. Previous coronary angiogram was unremarkable. He never experienced any chest pain shortness of breath nausea or vomiting. Considering low EF I rediscussed LifeVest option. Patient has refused stating that he would not wear anything heavy on his chest and it is cumbersome considering his lifestyle. I did explain that he still is at risk of sudden cardiac arrest which she completely understands and stating that he has lived so far with low ejection fraction. No signs of PE Note that he was diagnosed with hypertensive urgency for which he required multiple antihypertensive medications, he has allergies to lisinopril and losartan hence spironolactone hydralazine Imdur Coreg added to his regimen. He was asked to continue taking his Lasix along potassium supplementation. He would be considered very high risk for any kind of vascular procedure. Patient does understand his risk of deterioration including perioperative mortality and morbidity, sudden cardiac arrest. Physical Exam Narrative: Clinically looks euvolemic S1, S2 Abdomen soft, Patient was standing by the window when I interviewed him this morning Nonfocal neuro exam Saturating well on room air No audible stridor or wheeze Discharge Data Studies Completed and Pending Completed Studies During Hospitalization Category Date Time Status CT angio chest abdomen pelvis Urgent Cat Scan 09/01/21 01:10 Completed Sestamibi Stress Test Request Routine Exams 09/03/21 07:03 Draft NM cassius perf SPECT r/s* [id number] Routine Nuc Med 09/03/21 11:40 Completed CV. echo complete* [id number] Routine Ultrasound 09/01/21 03:49 Completed Pending at discharge Category Date Time Status Sestamibi Stress Test Request Routine Exams 09/02/21 11:40 Stop Req Blood Culture Stat Lab 09/01/21 03:07 Results Complete Blood Count w/Auto AM LABS Lab 09/04/21 04:00 Ordered Comprehensive Metabolic Panel AM LABS Lab 09/04/21 04:00 Ordered Radiology Impressions Chest/Abdomen/Pelvis CTA 09/01/21 01:10 IMPRESSION: 1. Mild calcified coronary artery disease. 2. Small right pleural fluid collection. 3. Mild right basilar atelectasis and/or pneumonia. 4. Borderline to mild cardiomegaly. 5. No pulmonary embolus or aortic dissection. IMPRESSION: 1. 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 2. Shotty periaortic adenopathy which is within normal limits by CT criteria. 3. Mild four-quadrant ascites. Contracted gallbladder. Laboratory Results WBC 9.6 10^3/uL (4.0-10.0) 09/03/21 02:50 RBC 3.81 10^6/uL (4.1-5.3) L 09/03/21 02:50 Hgb 11.2 g/dL (11.7-16.6) L 09/03/21 02:50 Hct 33.6 % (42.0-52.0) L 09/03/21 02:50 MCV 88.2 fl (80-94) 09/03/21 02:50 MCH 29.4 pg (28.0-34.0) 09/03/21 02:50 MCHC 33.3 g/dL (30.0-36.0) 09/03/21 02:50 RDW 16.6 % (12.1-15.1) H 09/03/21 02:50 Plt Count 282 10^3/cmm (130-400) 09/03/21 02:50 MPV 10.3 fL (7.4-10.4) 09/03/21 02:50 Neut % (Auto) 65.1 % 09/03/21 02:50 Lymph % (Auto) 21.0 % 09/03/21 02:50 [place] % (Auto) 11.9 % 09/03/21 02:50 Eos % (Auto) 1.5 % 09/03/21 02:50 Baso % (Auto) 0.2 % 09/03/21 02:50 Neut # (Auto) 6.27 10^3/uL (1.8-7.7) 09/03/21 02:50 Lymph # (Auto) 2.0 10^3/uL (0.8-4.8) 09/03/21 02:50 [place] # (Auto) 1.2 10^3/uL (0.2-0.9) H 09/03/21 02:50 Eos # (Auto) 0.1 10^3/uL (0.0-0.8) 09/03/21 02:50 Baso # (Auto) 0.0 10^3/uL (0.0-0.1) 09/03/21 02:50 Nucleated RBC % (auto) 0 % 09/03/21 02:50 Nucleated RBCs # 0.0 /100WBC 09/03/21 02:50 PT 15.80 SECONDS (12.1-14.9) H 09/01/21 01:12 INR 1.23 (0.8-1.2) H 09/01/21 01:12 Sodium 138 mmol/L (136-145) 09/03/21 02:50 Potassium 4.0 mmol/L (3.5-5.1) 09/03/21 02:50 Chloride 103 mmol/L (98-107) 09/03/21 02:50 Carbon Dioxide 24 mmol/L (22-29) 09/03/21 02:50 Anion Gap 15.0 (5-19) 09/03/21 02:50 BUN 15 mg/dL (8-23) 09/03/21 02:50 Creatinine 1.0 mg/dL (0.7-1.2) 09/03/21 02:50 GFR Calculation 75.7 mL/min (90-130) L 09/03/21 02:50 Glucose 97 mg/dL (65-115) 09/03/21 02:50 Calculated Osmolality 287 mOsm/kg (285-295) 09/03/21 02:50 Calcium 8.3 mg/dL (8.5-10.5) L 09/03/21 02:50 Magnesium 2.2 mg/dL (1.7-2.3) 09/02/21 05:45 Total Bilirubin 0.6 mg/dL (0.15-1.2) 09/03/21 02:50 AST 16 U/L (0-40) 09/03/21 02:50 ALT 40 U/L (0-41) 09/03/21 02:50 Alkaline Phosphatase 78 IU/L (40-130) 09/03/21 02:50 Troponin T Baseline 50 ng/L (0-15) H 09/01/21 01:12 Troponin T 120 Minute 46.13 ng/L (0-15) H 09/01/21 03:03 Delta Troponin T -3.87 ABS# (0-10) L 09/01/21 03:03 Troponin T Hi Sens 6Hr 41.55 ng/L (0-15) H 09/01/21 06:36 Troponin T Hi Sens 6Hr Delta -8.45 ng/L (0-12) L 09/01/21 06:36 NT-Pro-B Natriuret Pep 97761 pg/mL (0-125) H 09/01/21 01:12 Total Protein 5.7 g/dL (6.6-8.7) L 09/03/21 02:50 Albumin 3.0 g/dL (3.5-5.2) L 09/03/21 02:50 Globulin 2.7 g/dL (1.3-4.6) 09/03/21 02:50 Lipase 65 U/L (13-60) H 09/01/21 01:12 TSH 7.20 uIU/mL (0.27-4.20) H 09/01/21 06:36 Free T4 1.17 ng/dL (0.82-1.77) 09/02/21 05:45 Vitals Last Vital Signs Temp 98.5 F 09/03/21 15:05 Pulse 80 06/13/22 15:05 Resp 18 09/03/21 15:05 BP 150/75 09/03/21 15:05 Pulse Ox 96 09/03/21 15:05 Discharge Plan Discharge Patient Disposition: Home Condition: Stable Prescriptions: New amlodipine 10 mg Tablet 10 mg PO DAILY Qty: 60 3RF carvedilol 12.5 mg Tablet 12.5 mg PO BID Qty: 60 4RF spironolactone 25 mg Tablet 25 mg PO DAILY Qty: 60 3RF nitroglycerin 0.4 mg Tablet, Sublingual 0.4 mg sublingual Q5M PRN (Reason: Chest Pain) Qty: 10 0RF hydralazine 50 mg Tablet 50 mg PO TID Qty: 90 4RF isosorbide mononitrate 60 mg Tablet Extended Release 24 Hr 60 mg PO DAILY Qty: 90 4RF Continued potassium chloride [Klor-Con M20] 20 mEq tablet,ER particles/crystals 20 meq PO DAILY Qty: 30 5RF Rx Instructions: Must have follow-up for further refills budesonide-formoterol [Symbicort] 160-4.5 mcg/actuation HFA aerosol inhaler 2 puff inhalation BID Qty: 10.2 0RF albuterol sulfate [ProAir HFA] 90 mcg/actuation HFA aerosol inhaler 2 puff inhalation QID PRN (Reason: shortness of breath or wheezing) Qty: 6.7 0RF furosemide 40 mg tablet 40 mg PO DAILY Qty: 30 0RF Rx Instructions: Must have follow-up for further refills doxycycline hyclate 100 mg capsule 100 mg PO BID 0RF Rx Instructions: rx filled 08/22/21 10d/s aspirin 325 mg Tablet 325 mg PO QAM 0RF famotidine 20 mg tablet 20 mg PO BID PRN (Reason: Abdominal Pain) 0RF ondansetron 4 mg tablet,disintegrating 4 mg PO TID PRN (Reason: Nausea And Vomiting) 0RF Mucinex 600 mg Tablet Extended Release 12hr 600 mg PO Q12H PRN (Reason: Congestion) 0RF Discontinued prednisone 50 mg tablet 50 mg PO DAILY Qty: 5 0RF Discharge Orders: Discharge Order (Routine); Ordered 09/03/21 Ordered By: Carlita Hampton Referrals: Gordon Santos [Referring] - 09/10/21 1:20 pm Dyllan Christianson MD [Referring] - 1 week Kenyetta Rueda FNP [Nurse Practitioner] - 4-7 days Discharge Diet: Cardiac Discharge Activity: Increase activity as tolerated Patient Instructions: Angina, Nitroglycerin (By mouth), Spironolactone (By mouth), Hydralazine (By mouth), Amlodipine (By mouth), Isosorbide Mononitrate (By mouth), Carvedilol (By mouth), Chronic Hypertension (GEN), Opioid Safety, Pneumonia Stoplight, Pneumonia - Viral Discharge Attestations Time Spent in Discharge Care*: less than 30 min Quality Metrics Clinical Quality Measures [ No reported AMI, CVA or VTE this stay] Coding Level of Care Code Acute Chg [facility] note Diagnoses Epigastric pain R10.13 Accelerated hypertension I10 Cardiomyopathy I42.0 Cardiomyopathy type: dilated Congestive heart failure I50.43 Heart failure chronicity: acute on chronic Heart failure type: combined systolic and diastolic Pneumonia J18.9
== END 2021-09-03 17:15 | disposition home or self-care (01) | DRG 304 ==
LOC: ER 02:16 → MEDSURG 02:43
PROVIDERS: Admitting Provider Internal Medicine; Emergency Provider Emergency Medicine; Visit Provider Internal Medicine
DX: I16.0 Hypertensive urgency (principal); I50.43 Acute on chronic combined systolic (congestive) and diastolic (congestive) heart failure; I42.0 Dilated cardiomyopathy; N17.9 Acute kidney failure, unspecified; K55.1 Chronic vascular disorders of intestine; I13.0 Hypertensive heart and chronic kidney disease with heart failure and stage 1 through stage 4 chronic kidney disease, or unspecified chronic kidney disease; N18.30 Chronic kidney disease, stage 3 unspecified; J43.9 Emphysema, unspecified; F17.200 Nicotine dependence, unspecified, uncomplicated; D63.1 Anemia in chronic kidney disease; I77.1 Stricture of artery; Z79.51 Long term (current) use of inhaled steroids
CPT/HCPCS: 36415; 71275; 74174; 78452; 80053; 83690; 83735; 83880; 84439; 84443; 84484; 85025; 85610; 87040; 93005; 93017; 93306; 94640; 96365; 96367; 96372; 96375; 99285; A9500; J0360; J0456; J0696; J1650; J2270; J2405; J2785; J3490; J7030; J7050; Q9967

== ENCOUNTER 2021-12-19 04:34 | Observation (INO) | payer MEDICAID, SELFPAY ==
[2021-12-19] VITALS (15 sets, daily range): BP systolic 112–171; BP diastolic 62–123; PULSE 63–107; RESP 16–28; TEMP 36.4–36.9; O2SAT 94–99; BMI 23.7; BMI 22.6
--- NOTE | 2021-12-19 04:39 | CTR_ITS ---
PROCEDURE INFORMATION: Exam: CT Abdomen And Pelvis Without Contrast Exam date and time: 12/19/2021 4:50 AM Age: 61 years old Clinical indication: Acute; Patient HX: Abdominal pain, distention; Additional info: Abd pain TECHNIQUE: Imaging protocol: Computed tomography of the abdomen and pelvis without contrast. Radiation optimization: All CT scans at this facility use at least one of these dose optimization techniques: automated exposure control; mA and/or kV adjustment per patient size (includes targeted exams where dose is matched to clinical indication); or iterative reconstruction. COMPARISON: CT abdomen pelvis w con* [id number] 08/22/2021 1:51 PM RADIATION DOSE METRICS: Total DLP (mGy-cm): 434.8 FINDINGS: Lungs: There is interlobular septal thickening as seen in interstitial pulmonary edema. In the right lower lobe, there are nonspecific alveolar opacities. In the left lower lobe, there are mild dependent atelectatic changes. Diaphragm: There is a small sliding hiatal hernia. Liver: The liver is enlarged measuring 18.8 cm in length at the mid axillary line. There is mild perihepatic, perisplenic and pelvic ascites. Gallbladder and bile ducts: There is mild thickening of the gallbladder wall; however, no calcified gallstones identified. Pancreas: Normal size and homogeneous density. No ductal dilation. Spleen: There is no splenomegaly. Adrenal glands: Normal. No mass. Kidneys and ureters: No evidence of hydronephrosis. No renal or ureteral calculi. Stomach and bowel: There are multiple, diffuse small bowel loops with thickened garner consistent with enteritis (series 3, image 28; series 5, images 23 -28) Appendix: The appendix is not identified. Intraperitoneal space: Mild ascites. Vasculature: There is moderate atherosclerotic calcification of the abdominal aorta and its branches without aneurysm. Lymph nodes: No enlarged retroperitoneal or mesenteric lymph nodes. Urinary bladder: There is concentric thickening of the bladder wall and mild pericystic inflammatory stranding that may be secondary to cystitis/infection. Reproductive: The prostate measures 5 cm in transverse dimension. Bones/joints: No acute fracture. No evidence of bone destruction. Soft tissues: Unremarkable. CT/CT abdomen pelvis wo con [id number] IMPRESSION: 1. Interstitial edema at the lung bases and confluent opacities in the right lower lobe that may be secondary to atelectasis, edema or in the appropriate clinical setting, pneumonia. 2. Mild intra-abdominopelvic ascites. 3. Hepatomegaly without splenomegaly. 4. Enteritis. Hypoalbuminemia of chronic liver disease may be a contributing factor. Bowel underdistension may present a similar picture. 5. Thickening of the gallbladder wall without evidence of calcified gallstones. This may be secondary to passive congestion or hypoalbuminemia of chronic liver disease. However, if acute cholecystitis is suspected, consider correlation with right upper quadrant ultrasound. 6. Thickening of the urinary bladder wall that may be secondary to infection/cystitis, underdistension or increased trabeculation due to an enlarged prostate.
--- NOTE | 2021-12-19 04:39 | XRR_ITS ---
PROCEDURE INFORMATION: Exam: XR Chest Exam date and time: 12/19/2021 4:53 AM Age: 61 years old Clinical indication: Chest pressure; Patient HX: Chest pain, shob, copd; Additional info: Cp TECHNIQUE: Imaging protocol: Radiologic exam of the chest. Views: 1 view. COMPARISON: CR XR chest 1V portable [id number] 08/26/2021 5:23 PM FINDINGS: Tubes, catheters and devices: EKG monitoring leads overlie the thoracic wall. Lungs: There is mild pulmonary hyperinflation. Right lower lobe consolidation may be secondary to alveolar edema or pneumonia. Pleural spaces: No pleural effusion or pneumothorax. Heart/Mediastinum: There is stable, borderline cardiomegaly. There is mild perihilar interstitial coarsening with cephalization of the vascular markings as seen in cardiopulmonary congestion. Bones/joints: No acute fracture is identified. XR/XR chest 1V portable [id number] IMPRESSION: 1. Stable well and cardiomegaly. 2. Findings suggestive of cardiopulmonary congestion or congestive heart failure. 3. Developing right basilar consolidation that may represent alveolar edema or in the appropriate clinical setting, pneumonia.
--- NOTE | 2021-12-19 04:40 | ECG_ITS ---
[facility] Test Date: 2021-12-19 Pat Name: Parish Camp Department: Room: 259 Gender: Male [employer] Server: : 1960 Requested By: Lola Mcgowan Order Number: [id number] Isaura MD: Reddy Lopez M.D. Measurements Intervals [place] Rate: 106 P: -19 SD: 162 QRS: -62 QRSD: 177 T: 115 QT: 437 QTc: 582 Interpretive Statements SINUS TACHYCARDIA POSSIBLE LEFT ATRIAL ENLARGEMENT [-0.1mV P-WAVE IN V1/V2] LEFT AXIS DEVIATION [QRS AXIS < -30] LEFT BUNDLE BRANCH BLOCK [120+ ms QRS DURATION, 80+ ms Q/S IN V1/V2, 85+ ms R IN I/aVL/V5/V6] Compared to ECG 09/02/2021 07:19:32 Left bundle-branch block now present Sinus rhythm no longer present Left ventricular hypertrophy no longer present ST (T wave) deviation no longer present Electronically Signed On 12-19-2021 14:11:17 CDT by Reddy Lopez M.D. [id number]
[2021-12-19 04:46] LABS: Basophils # 0.1 10^3/uL (0.0-0.1); Basophils % 0.8 %; Eosinophils # 0.1 10^3/uL (0.0-0.8); Eosinophils % 1.3 %; Hematocrit 40.3 % (42.0-52.0); Hemoglobin 12.9 g/dL (11.7-16.6); Lymphocytes # 3.5 10^3/uL (0.8-4.8); Lymphocytes % 35.7 %; Mean Corpuscular Hemoglobin 28.9 pg (28.0-34.0); Mean Corpuscular Volume 90.2 fl (80-94); Mean Platelet Volume 10.6 fL (7.4-10.4); Monocytes # 0.7 10^3/uL (0.2-0.9); Monocytes % 6.7 %; Neutrophils # 5.38 10^3/uL (1.8-7.7); Neutrophils % 55.3 %; Nucleated Red Blood Cells % 0 %; Platelet Count 252 10^3/cmm (130-400); Red Blood Count 4.47 10^6/uL (4.1-5.3); Red Cell Distribution Width 17.2 % (12.1-15.1); White Blood Count 9.7 10^3/uL (4.0-10.0)
[2021-12-19] MEDS: labetalol 5 mg/mL SDV 20mL 10 MG IVP (04:47)
--- NOTE | 2021-12-19 04:53 | ED_ITS ---
HPI - Chest Pain General: Chief Complaint: Chest Pain Stated Complaint: SOB/CP Time Seen by Provider: 12/19/21 04:35 Source: patient and EMS Mode of arrival: EMS Limitations: no limitations History of Present Illness: 61-year-old male who states over the last 3 days been having intermittent chest pain he has been had some shortness of breath along with abdominal pain as well. He states that tonight he is having much worse chest pain he called EMS when EMS arrived he is having pain in the center of his chest along with some dyspnea. Patient was given nitro and aspirin in route he is currently pain-free he is resting comfortably pulse ox is 96% on room air. Associated symptoms: Reports abdominal pain and dyspnea; Deny fever(s) Review of Systems Const: Denies: fever(s), chills, body aches or change in appetite Eyes: Denies: blurry vision or eye discomfort ENMT: Denies: throat pain or dental pain Card: Reports: chest pain Resp: Reports: dyspnea GI: Reports: abdominal pain : Denies: dysuria Musc: Denies: neck pain or back pain Skin/Breast: Denies: rash Neuro: Denies: headache(s) Psych: Denies: depression Jerel/Lymph: Denies: easy bruising All/Imm: Denies: urticaria PFSH ED PFSH: Medical History (Updated 12/19/21 @ 18:09 by Lola Mcgowan MD) Accelerated hypertension Cardiomyopathy Cardiomyopathy Chest pain Congestive heart failure COPD (chronic obstructive pulmonary disease) Emphysema/COPD Epigastric pain Hypertension Hypertensive urgency Hypothyroidism Malignant hypertension Mesenteric angina Pneumonia Surgical History History of surgery of head Family History Other CAD (coronary artery disease) Social History Smoking and tobacco status: current every day smoker Second hand smoke exposure: Yes Smoking risk assessment/counseling performed?: No Alcohol intake: never Desire information about alcohol rehabilitation?: No Counseling given: No Desire information about substance/drug rehabilitation?: No Counseling given: No Adopted: No Caregiver/support person: No Lives independently: Yes Household members: spouse Housing: House Marital status: Number of children: 4 service: No Current occupational status: disabled Physical Exam Const: COMMON NORMALS: patient oriented x3 HENMT: COMMON NORMALS: normocephalic and atraumatic HEAD & SCALP: normocephalic and atraumatic Eye: COMMON NORMALS: Equal, round and reactive pupils present and EOMs intact bilaterally PUPIL: Yes Equal, round and reactive pupils present Neck/C-Spine: COMMON NORMALS: full ROM and supple Chest: COMMONS NORMALS: normal inspection of the chest and normal palpation of entire chest wall Resp: COMMON NORMALS: normal respiratory effort, No retractions, No use of accessory muscles and clear to auscultation bilaterally AUSCULTATION: clear to auscultation bilaterally Cardio: COMMON NORMALS: regular rate, regular rhythm and No murmurs present (Cardio) RATE: regular rate RHYTHM: regular rhythm GI: COMMON NORMALS: Normal to inspection, nondistended, normoactive bowel sounds present, Soft to palpation, non-tender and no masses PALPATION: Yes Soft to palpation Extremity: COMMON NORMALS: normal to inspection and full ROM Neuro: COMMON NORMALS: patient oriented x3, moves all extremities and no focal motor deficits Psych: COMMON NORMALS: mental status grossly normal, Normal thought process present and cooperative THOUGHT PROCESS: Normal thought process present Skin: COMMON NORMALS: no rashes or lesions noted and no wounds GENERAL SKIN EXAM: no rashes or lesions noted Course Reevaluation(s): Reevaluation #1: Patient presented here with EMS with chest pain he is given 2 nitro he is co mpletely pain-free currently he does have a new onset left bundle branch block I have reviewed the EKG with cardiology with Dr. 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 Time: 04:44 Vital Signs: Vital signs: Vital Signs Temperature 97.5 F L 12/19/21 15:28 Pulse Rate 69 12/19/21 15:28 Respiratory Rate 18 12/19/21 15:28 Blood Pressure 112/62 12/19/21 15:28 Pulse Oximetry 96 12/19/21 15:28 Oxygen Delivery Me thod 12/19/21 15:28 Oxygen Flow Rate 1.5 12/19/21 05:00 MDM - Chest Pain Medical Decision Making Patient presents with chest pain along with shortness of breath patient does have congestive heart failure his BNP is elevated likely causing this patient given Lasix here spoke to hospitalist along with assistant professor of chemistry will admit at this time. Lab Data : 12/19/21 04:37 12/19/21 04:37 Radiology Impressions Abdomen/Pelvis CT 12/19/21 04:39 IMPRESSION: 1. Interstitial edema at the lung bases and confluent opacities in the right lower lobe that may be secondary to atelectasis, edema or in the appropriate clinical setting, pneumonia. 2. Mild intra-abdominopelvic ascites. 3. Hepatomegaly without splenomegaly. 4. Enteritis. Hypoalbuminemia of chronic liver disease may be a contributing factor. Bowel underdistension may present a similar picture. 5. Thickening of the gallbladder wall without evidence of calcified gallstones. This may be secondary to passive congestion or hypoalbuminemia of chronic liver disease. However, if acute cholecystitis is suspected, consider correlation with right upper quadrant ultrasound. 6. Thickening of the urinary bladder wall that may be secondary to infection/cystitis, underdistension or increased trabeculation due to an enlarged prostate. Chest X-Ray 12/19/21 04:39 IMPRESSION: 1. Stable well and cardiomegaly. 2. Findings suggestive of cardiopulmonary congestion or congestive heart failure. 3. Developing right basilar consolidation that may represent alveolar edema or in the appropriate clinical setting, pneumonia. Chest CTA 12/19/21 05:02 IMPRESSION: 1. The above pulmonary artery findings are likely secondary to segmental and subsegmental pulmonary emboli to the right lower lobe. However, as due to congestive heart failure, there is increased transit time through the pulmonary arteries and the pulmonary veins are not opacified, less likely these findings may represent admixture of opacified and unopacified blood in the pulmonary arteries. Consider correlation with a 2nd modality such as V/Q scan to confirm these findings. Alternatively, a repeat CTA may be obtained after successful treatment of the patient's CHF. 2. Ectasia (mild dilatation) of the ascending thoracic aorta. 3. Congestive heart failure with interstitial pulmonary edema. 4. A 5 mm nodule at the right lung base. Follow-up imaging for nodule of this size is not routinely recommended; however, for patients at high risk, consider follow-up CT scan of the chest in 12 months. THIS REPORT CONTAINS FINDINGS THAT MAY BE CRITICAL TO PATIENT CARE. The findings were verbally communicated via telephone conference with Dr. Alvarado at 6:33 AM CDT on 12/19/2021. The findings were acknowledged and understood. Laboratory Results WBC 9.7 10^3/uL (4.0-10.0) 12/19/21 04:37 RBC 4.47 10^6/uL (4.1-5.3) 12/19/21 04:37 Hgb 12.9 g/dL (11.7-16.6) 12/19/21 04:37 Hct 40.3 % (42.0-52.0) L 12/19/21 04:37 MCV 90.2 fl (80-94) 12/19/21 04:37 MCH 28.9 pg (28.0-34.0) 12/19/21 04:37 MCHC 32.0 g/dL (30.0-36.0) 12/19/21 04:37 RDW 17.2 % (12.1-15.1) H 12/19/21 04:37 Plt Count 252 10^3/cmm (130-400) 12/19/21 04:37 MPV 10.6 fL (7.4-10.4) H 12/19/21 04:37 Neut % (Auto) 55.3 % 12/19/21 04:37 Lymph % (Auto) 35.7 % 12/19/21 04:37 [place] % (Auto) 6.7 % 12/19/21 04:37 Eos % (Auto) 1.3 % 12/19/21 04:37 Baso % (Auto) 0.8 % 12/19/21 04:37 Neut # (Auto) 5.38 10^3/uL (1.8-7.7) 12/19/21 04:37 Lymph # (Auto) 3.5 10^3/uL (0.8-4.8) 12/19/21 04:37 [place] # (Auto) 0.7 10^3/uL (0.2-0.9) 12/19/21 04:37 Eos # (Auto) 0.1 10^3/uL (0.0-0.8) 12/19/21 04:37 Baso # (Auto) 0.1 10^3/uL (0.0-0.1) 12/19/21 04:37 Nucleated RBC % (auto) 0 % 12/19/21 04:37 Nucleated RBCs # 0.0 /100WBC 12/19/21 04:37 PT 16.50 SECONDS (12.1-14.9) H 12/19/21 04:37 INR 1.30 (0.8-1.2) H 12/19/21 04:37 Sodium 138 mmol/L (136-145) 12/19/21 04:37 Potassium 3.2 mmol/L (3.5-5.1) L 12/19/21 04:37 Chloride 100 mmol/L (98-107) 12/19/21 04:37 Carbon Dioxide 22 mmol/L (22-29) 12/19/21 04:37 Anion Gap 19.2 (5-19) H 12/19/21 04:37 BUN 22 mg/dL (8-23) 12/19/21 04:37 Creatinine 1.3 mg/dL (0.7-1.2) H 12/19/21 04:37 GFR Calculation 55.9 mL/min (90-130) L 12/19/21 04:37 Glucose 91 mg/dL (65-115) 12/19/21 04:37 Calculated Osmolality 289 mOsm/kg (285-295) 12/19/21 04:37 Calcium 9.1 mg/dL (8.5-10.5) 12/19/21 04:37 Total Bilirubin 1.5 mg/dL (0.15-1.2) H 12/19/21 04:37 AST 33 U/L (0-40) 12/19/21 04:37 ALT 31 U/L (0-41) 12/19/21 04:37 Alkaline Phosphatase 73 U/L (40-130) 12/19/21 04:37 Troponin T Baseline 57 ng/L (0-15) H 12/19/21 04:37 NT-Pro-B Natriuret Pep 30799 pg/mL (0-125) H 12/19/21 04:37 Total Protein 6.9 g/dL (6.6-8.7) 12/19/21 04:37 Albumin 3.9 g/dL (3.5-5.2) 12/19/21 04:37 Globulin 3.0 g/dL (1.3-4.6) 12/19/21 04:37 Lipase 26 U/L (13-60) 12/19/21 04:37 EKG Data EKG 1: I personally reviewed and interpreted this EKG as follows: EKG interpretation date: 12/19/21 EKG interpretation time: 04:40 Interpretation: sinus tach hr 106 new lbbb qrs 177 qtc 499 Discharge Plan Discharge Patient Disposition: Admitted As Inpatient Admit Provider: Anoop Christian Clinical Impression: Chest pain, CHF exacerbation Condition: Stable Coding Level of Care Code ED 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
--- NOTE | 2021-12-19 05:02 | CTR_ITS ---
PROCEDURE INFORMATION: Exam: CTA Chest With Contrast Exam date and time: 12/19/2021 5:05 AM Age: 61 years old Clinical indication: Shortness of breath and tachypnea; Chest pressure; Patient HX: Chest pain with SOB. Tachycardic with tachypnea. Elevated pt/inr. History of chf and copd. ; Additional info: Cp/sob TECHNIQUE: Imaging protocol: Computed tomographic angiography of the chest with contrast. 3D rendering (Not supervised by radiologist): MIP and/or 3D reconstructed images were created by the technologist. Radiation optimization: All CT scans at this facility use at least one of these dose optimization techniques: automated exposure control; mA and/or kV adjustment per patient size (includes targeted exams where dose is matched to clinical indication); or iterative reconstruction. Contrast material: OMNI 350; Contrast volume: 95 ml; Contrast route: INTRAVENOUS (IV); COMPARISON: CT angio chest abdomen pelvis 09/01/2021 1:28 AM RADIATION DOSE METRICS: Total DLP (mGy-cm): 384.5 FINDINGS: Pulmonary arteries: There are filling defects to segmental and subsegmental pulmonary artery branches of the right lower lobe consistent with pulmonary emboli (series 6, images 366- 388; series 10, images 89 - 101). Aorta: There is ectasia of the ascending thoracic aorta measuring 4 cm in transaxial diameter at the level of the pulmonary artery. The proximal descending thoracic aorta measures 3 cm Lungs: There is mild diffuse interstitial coarsening with interlobular septal thickening as seen in interstitial edema. The visualized lung villalobos show mild bibasilar atelectasis. At the right lung base, there is a 5 mm pleural based nodule (series 4, image 45). Pleural spaces: No pleural effusion or pneumothorax . Heart: Moderate stable cardiomegaly. There is reflux of radiographic contrast from the right atrium into dilated hepatic veins as seen in right-sided heart failure. The left atrium, left ventricle and thoracic aorta are not opacified with contrast at the time of the examination. This is likely related to increased transit time of contrast through the pulmonary arteries due to congestive heart failure. There RV/LV ratio is not obtained at the left ventricle is not opacified. Lymph nodes: No enlarged mediastinal or hilar lymph nodes are seen. Bones/joints: No acute fracture is seen. Soft tissues: Unremarkable. CT/CT angio chest PE protcl [id number] IMPRESSION: 1. The above pulmonary artery findings are likely secondary to segmental and subsegmental pulmonary emboli to the right lower lobe. However, as due to congestive heart failure, there is increased transit time through the pulmonary arteries and the pulmonary veins are not opacified, less likely these findings may represent admixture of opacified and unopacified blood in the pulmonary arteries. Consider correlation with a 2nd modality such as V/Q scan to confirm these findings. Alternatively, a repeat CTA may be obtained after successful treatment of the patient's CHF. 2. Ectasia (mild dilatation) of the ascending thoracic aorta. 3. Congestive heart failure with interstitial pulmonary edema. 4. A 5 mm nodule at the right lung base. Follow-up imaging for nodule of this size is not routinely recommended; however, for patients at high risk, consider follow-up CT scan of the chest in 12 months. THIS REPORT CONTAINS FINDINGS THAT MAY BE CRITICAL TO PATIENT CARE. The findings were verbally communicated via telephone conference with Dr. Alvarado at 6:33 AM CDT on 12/19/2021. The findings were acknowledged and understood.
[2021-12-19 05:14] LABS: Alanine Aminotransferase 31 U/L (0-41); Albumin Level 3.9 g/dL (3.5-5.2); Alkaline Phosphatase 73 U/L (40-130); Anion Gap 19.2 (5-19); Aspartate Amino Transferase 33 U/L (0-40); Blood Urea Nitrogen 22 mg/dL (8-23); Calcium 9.1 mg/dL (8.5-10.5); Carbon Dioxide 22 mmol/L (22-29); Chloride 100 mmol/L (98-107); Glomerular Filtration Rate 55.9 mL/min (90-130); Glucose 91 mg/dL (65-115); Lipase 26 U/L (13-60); Osmolality Calculated 289 mOsm/kg (285-295); Potassium 3.2 mmol/L (3.5-5.1); Sodium 138 mmol/L (136-145); Total Bilirubin 1.5 mg/dL (0.15-1.2); Total Protein 6.9 g/dL (6.6-8.7)
[2021-12-19 05:15] LABS: Troponin(5th) Baseline 57 ng/L (0-15)
[2021-12-19 05:31] LABS: NT Pro B Type Natriuretic Pept 11458 pg/mL (0-125)
--- NOTE | 2021-12-19 05:43 | ECG_ITS ---
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 Measurements Intervals [place] Rate: 79 P: 49 KS: 184 QRS: -60 QRSD: 197 T: 116 QT: 510 QTc: 586 Interpretive Statements SINUS RHYTHM LEFT ATRIAL ENLARGEMENT [-0.15mV P-WAVE IN V1/V2] LEFT AXIS DEVIATION [QRS AXIS < -30] LEFT BUNDLE BRANCH BLOCK [120+ ms QRS DURATION, 80+ ms Q/S IN V1/V2, 85+ ms R IN I/aVL/V5/V6] Compared to ECG 12/19/2021 04:40:49 Sinus tachycardia no longer present Electronically Signed On 12-19-2021 14:12:41 CDT by Reddy Lopez M.D. [id number] f
--- NOTE | 2021-12-19 05:56 | P.HP_ITS ---
Providers/Chief Complaint Chief Complaint: SOB/CP History of Present Illness 61 year old male with past medical history of hypertension,NICM, CAG done in? 2012: Which showed nonocclusive coronary artery disease, heart failure with reduced ejection fraction, Chronic smoker, COPD, recent nuclear stress test: Suggestive of myocardial scarring, came today with chief complaint of intermittent substernal chest pain going on for the last 3 days, mild in intensity, accompanied with shortness of breath. Upon arrival in the ER he was worked up for above-mentioned complaint: Pertinent imaging studies: X-ray chest: Suggestive of pulmonary vascular congestion, Developing right basilar consolidation that may represent alveolar edema. CTA chest: Possible segmental and subsegmental pulmonary emboli to the right lower lobe. EKG: New onset left bundle branch block Pertinent labs and vitals have been reviewed. Review of Systems General: Reports: 10 or more systems reviewed and unremarkable except in HPI and below Const: Denies: fever(s), chills, body aches, change in appetite or diaphoresis Card: Reports: dyspnea on exertion; Denies: palpitations, edema, swelling of feet/ankles or leg pain with exertion Resp: Reports: dyspnea; Denies: productive cough, wheezing or pain on inspiration GI: Denies: abdominal pain, nausea, vomiting, diarrhea or constipation : Denies: flank pain or difficulty urinating Musc: Denies: back pain, extremity pain or extremity swelling Neuro: Denies: headache(s), difficulty walking or confusion Medications/Allergies Home Medications Medication Instructions Recorded Confirmed Last Taken Type albuterol sulfate 90 mcg/actuation 2 puff inhalation QID PRN 08/24/21 09/01/21 Unknown Rx aerosol inhaler (ProAir HFA) shortness of breath or wheezing #6.7 grams budesonide-formoterol HFA 160 2 puff inhalation BID #10.2 grams 08/24/21 09/01/21 Unknown Rx mcg-4.5 mcg/actuation aerosol inhaler (Symbicort) potassium chloride 20 mEq 20 meq PO DAILY #30 tabs 08/24/21 09/01/21 Unknown Rx tablet,extended release(part/cryst) (Klor-Con M) furosemide 40 mg tablet 40 mg PO DAILY #30 tabs 08/29/21 09/01/21 Unknown Rx aspirin 325 mg tablet 325 mg PO QAM 09/01/21 09/01/21 Unknown History doxycycline hyclate 100 mg capsule 100 mg PO BID 09/01/21 09/01/21 Unknown History famotidine 20 mg tablet 20 mg PO BID PRN Abdominal Pain 09/01/21 09/01/21 Unknown History guaifenesin 600 mg tablet, 600 mg PO Q12H PRN Congestion 09/01/21 09/01/21 Unknown History extended release 12 hr (Mucinex) ondansetron 4 mg disintegrating 4 mg PO TID PRN Nausea And Vomiting 09/01/21 09/01/21 Unknown History tablet amlodipine 10 mg tablet 10 mg PO DAILY #60 tabs 09/03/21 Unknown Rx carvedilol 12.5 mg tablet 12.5 mg PO BID #60 tabs 09/03/21 Unknown Rx hydralazine 50 mg tablet 50 mg PO TID #90 tabs 09/03/21 Unknown Rx isosorbide mononitrate 60 mg 60 mg PO DAILY #90 tabs 09/03/21 Unknown Rx tablet,extended release 24 hr nitroglycerin 0.4 mg sublingual 0.4 mg sublingual Q5M PRN Chest 09/03/21 Unknown Rx tablet Pain #10 tabs spironolactone 25 mg tablet 25 mg PO DAILY #60 tabs 09/03/21 Unknown Rx Allergies Allergy/AdvReac Type Severity Reaction Status Date / Time ibuprofen Allergy Mild Rash Verified 12/19/21 04:36 naproxen Allergy Mild Rash Verified 12/19/21 04:36 yellow dye Allergy Mild Rash Verified 12/19/21 04:36 losartan Allergy Unknown Unknown Verified 12/19/21 04:36 lisinopril AdvReac Mild Cough Verified 12/19/21 04:36 PFSH Acute PFSH: Medical History (Updated 12/19/21 @ 06:05 by Anoop Christian MD) Accelerated hypertension Cardiomyopathy Cardiomyopathy Chest pain Congestive heart failure COPD (chronic obstructive pulmonary disease) Emphysema/COPD Epigastric pain Hypertension Hypertensive urgency Hypothyroidism Malignant hypertension Mesenteric angina Pneumonia Surgical History History of surgery of head Family History Other CAD (coronary artery disease) Social History Smoking and tobacco status: current every day smoker Second hand smoke exposure: Yes Smoking risk assessment/counseling performed?: No Alcohol intake: never Desire information about alcohol rehabilitation?: No Counseling given: No Desire information about substance/drug rehabilitation?: No Counseling given: No Adopted: No Caregiver/support person: No Lives independently: Yes Household members: spouse Housing: House Marital status: Number of children: 4 service: No Current occupational status: disabled Vitals/I&O/Wt Last Vital Signs Temp 97.6 F 12/19/21 04:36 Pulse 105 H 12/19/21 04:42 Resp 27 H 12/19/21 04:42 BP 171/123 12/19/21 04:36 Pulse Ox 94 12/19/21 04:42 O2 Del Method 12/19/21 04:42 Weight last 48 hrs Weight 79.379 kg Physical Exam Const: COMMON NORMALS: patient oriented x3 HENMT: COMMON NORMALS: normocephalic, atraumatic, hearing grossly normal bilaterally and external ears normal HEAD & SCALP: normocephalic and atraumatic EXTERNAL EAR: Yes external ears normal Eye: COMMON NORMALS: no scleral icterus GENERAL EYE: appearance normal, both eyes and all related structures Resp: COMMON NORMALS: normal respiratory effort, No retractions, No use of accessory muscles and clear to auscultation bilaterally EFFORT & INSPECTION: Yes symmetric chest movement AUSCULTATION: clear to auscultation bilaterally Cardio: COMMON NORMALS: regular rate, regular rhythm, S1 normal heart sound present, S2 normal heart sound present, No gallops present (Cardio), No murmurs present (Cardio), No rub (Cardio) and Peripheral pulses 2+ throughout RATE: regular rate RHYTHM: regular rhythm HEART SOUNDS: S1 normal heart sound present and S2 normal heart sound present PERIPHERAL PULSES: Peripheral pulses 2+ throughout GI: COMMON NORMALS: Normal to inspection, nondistended, normoactive bowel sounds present, Soft to palpation, non-tender, No hepatosplenomegaly present and no masses AUSCULTATION: Yes normoactive bowel sounds PALPATION: Yes Soft to palpation and Yes No hepatosplenomegaly present RECTAL EXAM: Yes deferred Extremity: COMMON NORMALS: no clubbing, cyanosis or edema and no pedal edema Neuro: COMMON NORMALS: patient oriented x3 Data : 12/19/21 04:37 12/19/21 04:37 A&P Assessment and plan (1) Chest pain: (2) COPD (chronic obstructive pulmonary disease): (3) Hypertension: (4) Pneumonia: Plan 61 year old male with past medical history of hypertension,NICM, CAG done in? 2013: Which showed nonocclusive coronary artery disease, heart failure with reduced ejection fraction, Chronic smoker, COPD, recent nuclear stress test: Suggestive of myocardial scarring, came today with chief complaint of intermittent substernal chest pain going on for the last 3 days, mild in intensity, accompanied with shortness of breath. Assessment: Chest pain Possible segmental and subsegmental pulmonary emboli to the right lower lobe hypertension NICM Decompenstaed heart failure with reduced ejection fraction, COPD Pneumonia 5 mm nodule at the right lung base repaet low dose C.T Chest in a year. Plan Case was discussed with cardiology on-call, given the finding of new onset left bundle branch block, Patient has been given therapeutic Lovenox in the ER, continue therapeutic Ac. Follow troponin trend, serial EKG, telemetry monitoring Continue aspirin, nitro paste, beta-john paul, statin. Possible Repeat V/Q Scan, v/s repeat CTA after clinical stabilization. Continue Lasix 40 IV daily Started on ceftriaxone Continue duo nebs Continue home antihypertensive medications Cardiology on board Currently n.p.o. CODE STATUS: Full code DVT prophylaxis; on Lovenox Attestations Medical Necessity Statement*: Patient needs to be in hospital for management of chest pain. Time Spent in Patient Care: Greater than 35 minutes (>than 50% of time spent in counselling and/or direct pt care on unit) . 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
[2021-12-19] MEDS: FUROsemide 10 mg/mL SDV 4mL 40 MG IVP ×2 (05:57→09:55)
[2021-12-19] MEDS: enoxaparin 80 mg/0.8 mL Syringe SUBCUT (05:57)
[2021-12-19] MEDS: nitroglycerin 1 gm/inch oint Pkt 1 INCH TOPICAL ×3 (06:49→18:11)
[2021-12-19 07:18] LABS: Troponin 5 2HR 45.28 ng/L (0-15)
[2021-12-19 07:19] LABS: Troponin 5 2HR Delta -11.72 ABS# (0-10)
--- NOTE | 2021-12-19 07:38 | PM.CONSULT ---
Providers/Reason For Consult Consulting Physician/Specialty*: Reddy Lopez MD/ Cardiology Reason for Consult*: Chest pain/ new onset left bundle branch block Requesting Physician: Dr Mcgowan Attending Physician: Anoop Christian MD History of Present Illness History of Present Illness [place] Camp is a 61 year old male with past medical history of hypertension, nonischemic cardiomyopathy and heart failure with reduced ejection fraction with last known EF from august 2021 of 25-30%, poor historian who presented to the hospital with atypical symptoms including substernal chest pain. He says that for the last 3 days he has been noticing on and off chest discomfort episodes. EKG showed left bundle branch block. Compared to prior EKG (advised block was not new. CTA was done that shows possible of pulmonary embolism however could not be confirmed. Patient had recent stress test that showed myocardial scarring with no significant area of ischemia. Review of Systems General: Reports: 10 or more systems reviewed and unremarkable except in HPI and below Const: Denies: fever(s), chills, body aches, change in appetite or diaphoresis Card: Reports: dyspnea on exertion; Denies: palpitations, edema, swelling of feet/ankles or leg pain with exertion Resp: Reports: dyspnea; Denies: productive cough, wheezing or pain on inspiration GI: Denies: abdominal pain, nausea, vomiting, diarrhea or constipation : Denies: flank pain or difficulty urinating Musc: Denies: back pain, extremity pain or extremity swelling Neuro: Denies: headache(s), difficulty walking or confusion Medications/Allergies Home Medications Medication Instructions Recorded Confirmed Last Taken Type albuterol sulfate 90 mcg/actuation 2 puff inhalation QID PRN 08/24/21 12/19/21 Unknown Rx aerosol inhaler (ProAir HFA) shortness of breath or wheezing #6.7 grams potassium chloride 20 mEq 20 meq PO DAILY #30 tabs 08/24/21 12/19/21 Unknown Rx tablet,extended release(part/cryst) (Klor-Con M) furosemide 40 mg tablet 40 mg PO DAILY #30 tabs 08/29/21 12/19/21 Unknown Rx aspirin 325 mg tablet 325 mg PO QAM 09/01/21 12/19/21 12/17/21 History ondansetron 4 mg disintegrating 4 mg PO TID PRN Nausea And Vomiting 09/01/21 12/19/21 Unknown History tablet amlodipine 10 mg tablet 10 mg PO DAILY #60 tabs 09/03/21 12/19/21 Unknown Rx carvedilol 12.5 mg tablet 12.5 mg PO BID #60 tabs 09/03/21 12/19/21 Unknown Rx isosorbide mononitrate 60 mg 60 mg PO DAILY #90 tabs 09/03/21 12/19/21 Unknown Rx tablet,extended release 24 hr nitroglycerin 0.4 mg sublingual 0.4 mg sublingual Q5M PRN Chest 09/03/21 12/19/21 Unknown Rx tablet Pain #10 tabs spironolactone 25 mg tablet 25 mg PO DAILY #60 tabs 09/03/21 12/19/21 Unknown Rx simethicone 166 mg capsule 166 - 332 mg PO DAILY PRN unknown 12/19/21 12/19/21 Unknown History Allergies Allergy/AdvReac Type Severity Reaction Status Date / Time ibuprofen Allergy Mild Rash Verified 12/19/21 04:36 naproxen Allergy Mild Rash Verified 12/19/21 04:36 yellow dye Allergy Mild Rash Verified 12/19/21 04:36 losartan Allergy Unknown Unknown Verified 12/19/21 04:36 lisinopril AdvReac Mild Cough Verified 12/19/21 04:36 Current Medications Generic Name Dose Route Start Last Admin Trade Name Freq PRN Reason Stop Dose Admin Nitroglycerin 1 inch 12/19/21 06:30 12/19/21 06:49 Nitroglycerin 1 Gm/Inch Oint Pkt TOPICAL 1 inch Q6H YONATAN Administration PFSH Acute PFSH: Medical History (Updated 12/20/21 @ 08:47 by Reddy Lopez M.D) Accelerated hypertension Cardiomyopathy Cardiomyopathy Chest pain Congestive heart failure COPD (chronic obstructive pulmonary disease) Emphysema/COPD Epigastric pain Hypertension Hypertensive urgency Hypothyroidism Malignant hypertension Mesenteric angina Pneumonia Surgical History History of surgery of head Family History Other CAD (coronary artery disease) Social History Smoking and tobacco status: current every day smoker Second hand smoke exposure: Yes Smoking risk assessment/counseling performed?: No Alcohol intake: never Desire information about alcohol rehabilitation?: No Counseling given: No Desire information about substance/drug rehabilitation?: No Counseling given: No Adopted: No Caregiver/support person: No Lives independently: Yes Household members: spouse Housing: House Marital status: Number of children: 4 service: No Current occupational status: disabled Vitals/I&O/Wt Last Vital Signs Temp 97.6 F 12/19/21 04:36 Pulse 74 12/19/21 06:00 Resp 22 H 12/19/21 06:00 BP 138/97 12/19/21 06:00 Pulse Ox 96 12/19/21 06:00 O2 Del Method 12/19/21 05:00 O2 Flow Rate 1.5 12/19/21 05:00 Weight last 48 hrs Weight 175 lb Physical Exam Narrative: GENERAL: Patient is alert, awake and oriented x3. [] NECK: No jugular vein distension. [] HEENT: No cyanosis. No icterus. No pallor. [] HEART: Regular S1 and S2. No murmur, rub or gallop. [] LUNGS: Clear to auscultate bilaterally. [] ABDOMEN: Soft, nontender and nondistended. Positive bowel sounds. No guarding, rebound or tenderness. [] CENTRAL NERVOUS SYSTEM: Grossly nonfocal. [] EXTREMITIES: Lower extremities with 1+ edema bilaterally. Pulses palpable in the lower extremities, both dorsalis pedis and posterior tibial. [] Data : 12/20/21 04:32 12/20/21 04:32 A&P Assessment and plan (1) Chest pain: (2) Hypertension: (3) Congestive heart failure: Plan Patient has new onset left bundle branch block. Chest pain symptoms are atypical. Has other complaints also. He complains of abdominal pain as well. At this time will recommend performing a stress test. Continue anticoagulation as has possibility of pulmonary embolism on CTA. Continue aspirin Thank you for involving us with care of this patient. We will continue to follow. Please call with questions. Consult Attestations Medical Necessity Statement: Care expected to cross 2 midnights. Coding Level of Care Code Acute Production Clerks Supervisor for Vamsi Alcantara Diagnoses Chest pain R07.9 Hypertension I10 Congestive heart failure I50.9
[2021-12-19] MEDS: ipratropium-albuterol 3 mL Neb INHALATION ×3 (09:05→21:14)
[2021-12-19] MEDS: isosorbide mononitrate ER 60 mg Tablet PO (09:55)
[2021-12-19] MEDS: ondansetron 2 mg/ML SDV 2 mL 4 MG IVP (09:55)
[2021-12-19] MEDS: amlodipine 10 mg Tablet PO (09:55)
[2021-12-19] MEDS: aspirin 81 mg EC Tablet PO (09:55)
[2021-12-19] MEDS: hyDRALAzine 50 mg Tablet PO ×3 (09:55→21:16)
[2021-12-19] MEDS: cefTRIAXone 1,000 MG in sodium chloride 0.9% (plus) 50 ML 100 MG IV (09:56)
[2021-12-19] MEDS: carvedilol 12.5 mg Tablet PO ×2 (10:04→21:16)
--- NOTE | 2021-12-19 10:16 | PC.PHAR ---
pt states he takes care of his own medications-pt states he no longer taking hydralazine 50mg tid filled 09/03/21 30d/s pt states he doesnt use the symbicort inhaler filled 08/24/21 30d/s-pt states a dr from [facility] put his aspirin 325mg daily on hold friday-pt states he has only been taking his lasix and kcl-pt states he has imdur er 60mg daily filled 12/11/21 30d/s-spironolactone 25mg daily filled 11/27/21 30d/s-carvedilol 12.5mg bid filled 12/11/21 30d/s-amlodipine 10mg daily filled 11/27/21 30d/s but states he is not taking any of them-notes are made in the pharmacy comments
--- NOTE | 2021-12-19 10:31 | ECG_ITS ---
[facility] Test Date: 2021-12-19 Pat Name: Parish Camp Department: Room: 259 Gender: Male Administrative Medical Director: : 1960 Requested By: Lola Mcgowan Order Number: [id number] Isaura MD: Reddy Lopez M.D. Measurements Intervals [place] Rate: 69 P: 26 WY: 184 QRS: -41 QRSD: 133 T: 156 QT: 478 QTc: 513 Interpretive Statements SINUS RHYTHM LEFT ATRIAL ENLARGEMENT [-0.15mV P-WAVE IN V1/V2] LEFT AXIS DEVIATION [QRS AXIS < -30] INTRAVENTRICULAR CONDUCTION DELAY [130+ ms QRS DURATION] LEFT VENTRICULAR HYPERTROPHY AND ST-T CHANGE [VOLTAGE CRITERIA PLUS ST/T ABNORMALITY] Compared to ECG 12/19/2021 05:43:15 Intraventricular conduction delay now present Left ventricular hypertrophy now present ST (T wave) deviation now present Myocardial infarct finding now present Left bundle-branch block no longer present Electronically Signed On 12-19-2021 14:12:17 CDT by Reddy Lopez M.D. [id number]
[2021-12-19 11:05] LABS: Troponin 5 6HR 43.39 ng/L (0-15)
--- NOTE | 2021-12-19 14:01 | PM.PN ---
Subjective Subjective: Seen this AM. He has some abdominal pain on right lower quadrant area. Denies chest pain, shortness of breath at this time. Vitals/I&O/Wt Last Vital Signs Temp 98.0 F 12/19/21 11:25 Pulse 63 12/19/21 11:25 Resp 16 12/19/21 11:25 BP 123/67 12/19/21 11:25 Pulse Ox 99 12/19/21 11:25 O2 Del Method 12/19/21 11:25 O2 Flow Rate 1.5 12/19/21 05:00 12/18/21 12/19/21 12/19/21 22:59 06:59 14:59 Intake Total 50 / 50 Balance 50 / 50 Weight last 48 hrs Weight 75.75 kg Weight 79.379 kg Physical Exam Narrative: Clinically looks euvolemic S1, S2 Abdomen soft, Patient was standing by the window when I interviewed him this morning Nonfocal neuro exam Saturating well on room air No audible stridor or wheeze GI: RECTAL EXAM: Yes deferred Data : 12/19/21 04:37 12/19/21 04:37 A&P Assessment and plan (1) Chest pain: (2) COPD (chronic obstructive pulmonary disease): (3) Hypertension: (4) Pneumonia: Plan 61 year old male with past medical history of hypertension,NICM, CAG done in? 2012: Which showed nonocclusive coronary artery disease, heart failure with reduced ejection fraction, Chronic smoker, COPD, recent nuclear stress test: Suggestive of myocardial scarring, came today with chief complaint of intermittent substernal chest pain going on for the last 3 days, mild in intensity, accompanied with shortness of breath. Assessment: Chest pain Possible segmental and subsegmental pulmonary emboli to the right lower lobe hypertension NICM Decompenstaed heart failure with reduced ejection fraction, COPD Pneumonia 5 mm nodule at the right lung base repaet low dose C.T Chest in a year. Plan Case was discussed with cardiology on-call, given the finding of new onset left bundle branch block, Patient has been given therapeutic Lovenox in the ER, continue therapeutic Ac. Follow troponin trend, serial EKG, telemetry monitoring Continue aspirin, nitro paste, beta-john paul, statin. Possible Repeat V/Q Scan, v/s repeat CTA after clinical stabilization. Continue Lasix 40 IV daily Started on ceftriaxone Continue duo nebs Continue home antihypertensive medications Cardiology on board Started on a cardiac diet we will do a stress test on patient in the morning as per their recommendations Watch for chest pain. If patient has chest pain today they might consider angiogram. With history of COPD I do not believe V/Q would be fruitful at this point. CODE STATUS: Full code DVT prophylaxis; on Lovenox Attestations Medical Necessity Statement*: Patient needs to be in hospital for management of chest pain. Time Spent in Patient Care: Greater than 35 minutes (>than 50% of time spent in counselling and/or direct pt care on unit). Coding Level of Care Code Acute Construction Millwright for Chg Fwd Diagnoses Chest pain R07.9 COPD (chronic obstructive pulmonary disease) J44.9 Hypertension I10 Pneumonia J18.9
[2021-12-19] MEDS: enoxaparin 80 mg/0.8 mL Syringe 75 MG SUBCUT (17:07)
[2021-12-20] MEDS: nitroglycerin 1 gm/inch oint Pkt 1 INCH TOPICAL ×3 (00:53→11:48)
[2021-12-20 04:00] VITALS: BP 120/68; PULSE 66; RESP 17; TEMP 36.9; O2SAT 95
[2021-12-20 05:00] LABS: Basophils # 0.1 10^3/uL (0.0-0.1); Basophils % 0.9 %; Eosinophils # 0.2 10^3/uL (0.0-0.8); Eosinophils % 1.7 %; Hematocrit 36.7 % (42.0-52.0); Hemoglobin 11.7 g/dL (11.7-16.6); Lymphocytes # 2.4 10^3/uL (0.8-4.8); Lymphocytes % 25.9 %; Mean Corpuscular HGB Conc 31.9 g/dL (30.0-36.0); Mean Corpuscular Volume 91.1 fl (80-94); Mean Platelet Volume 10.5 fL (7.4-10.4); Monocytes # 0.8 10^3/uL (0.2-0.9); Monocytes % 8.3 %; Neutrophils # 5.78 10^3/uL (1.8-7.7); Neutrophils % 62.7 %; Nucleated Red Blood Cells % 0 %; Platelet Count 221 10^3/cmm (130-400); Red Blood Count 4.03 10^6/uL (4.1-5.3); Red Cell Distribution Width 17.7 % (12.1-15.1); White Blood Count 9.2 10^3/uL (4.0-10.0)
[2021-12-20 05:30] LABS: Anion Gap 17.4 (5-19); Blood Urea Nitrogen 22 mg/dL (8-23); Calcium 8.4 mg/dL (8.5-10.5); Carbon Dioxide 25 mmol/L (22-29); Chloride 100 mmol/L (98-107); Glomerular Filtration Rate 55.9 mL/min (90-130); Glucose 88 mg/dL (65-115); Magnesium 1.9 mg/dL (1.7-2.3); Osmolality Calculated 291 mOsm/kg (285-295); Potassium 3.4 mmol/L (3.5-5.1); Sodium 139 mmol/L (136-145)
[2021-12-20] MEDS: enoxaparin 80 mg/0.8 mL Syringe 75 MG SUBCUT (06:03)
--- NOTE | 2021-12-20 06:51 | ECG_ITS ---
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 Interpretive Statements NAME OF STUDY: LEXISCAN SESTAMIBI STRESS TEST INDICATION: [Chest Pain] Procedure: At the baseline, the blood pressure was 138/89 and mmHg with a heart rate of 62 bpm. The electrocardiogram showed normal sinus rhythm, left ventricular hypertrophy. The Lexiscan was infused over a period of 20 seconds. A total of 0.4 mg of Lexiscan was infused. The stress phase was continued for a total of 5 minutes. Heart rate was at the end of stress phase was 60 bpm and a blood pressure of 136/82 mmHg. The EKG at the peak infusion revealed normal sinus rhythm with transient development of left bundle branch block. Sestamibi was injected 20 seconds after the Lexiscan infusion. Blood pressure at the end of recovery phase was 137/85 mmHg with a heart rate of 61 bpm. Conclusion: 1. Normal EKG response to Lexiscan infusion 2. No Lexiscan induced chest pain or cardiac arrhythmia. 3. Normal blood pressure and heart rate response. 4. Sestamibi/sestamibi perfusion scan pending; see separate report. Electronically Signed On 12-29-2021 21:06:33 CDT by Reddy Lopez M.D. [id number]
--- NOTE | 2021-12-20 07:15 | NMCV_ITS ---
NM cassius perf SPECT r/s* [id number] [place] Camp Age: 61 Gender: M : 1960 Exam Date: 12/20/2021 07:49 Ordering Phys: Patricia Mccormick MD Technologist: RILEY Cates Exam Location: [facility] Indications: CHEST PAIN STRESS TEST Please [facility] for [facility] IMAGE PROTOCOL Rest/Stress 1 Lexiscan Day Radiopharmaceutical Dose (mCi) Administration Site Administered by Rest: Tc-99m 10.9 IV RILEY Davis Sestamibi Stress:Tc-99m 32.8 IV RILEY Davis Sestamibi Rest: 20-Dec-2021 60 Discovery 630 Stress: 20-Dec-2021 30 Discovery 630 0.4mg Lexiscan. Images obtained in supine and prone position. SPECT RESULTS Technical Quality: Excellent Raw Data Analysis: Normal Image Corrections: No attenuation or motion correction applied Summed Stress Score: 3 Summed Rest Score: 7 Summed Difference Score: 0 PERFUSION FINDINGS There is a medium sized fixed perfusion defect in apical inferior and inferolateral garner. There is consistent with medium sized prior infarct in RCA and left circumflex artery territory. No significant ischemia seen FUNCTIONAL RESULTS (calculated via Gated SPECT) Stress Image LV EF (%): 18 Stress EDV (mL):373 TID: 1.06 Stress ESV (mL):304 FUNCTIONAL FINDINGS: LV systolic function is severely reduced. Severe global hypokinesis seen with IMPRESSIONS 1. Medium sized area of prior infarct in the RCA and left circumflex artery territory 2. LV systolic function is severely reduced Reddy Lopez MD (Electronically Signed) Final Date: 20 December 2021 11:37 S
--- NOTE | 2021-12-20 07:49 | PC.NURSE ---
*LIVE* [facility] Zakia Love Female : 09/20/1990 Emr# [id number] 12/20/21 07:43 - Nurse Note by Sofia Wlash LPN Acct Num: [id number] : 09/20/1990 Patient Age: 31 @0600 pt reported missing $1800, pt stated I had it on me yesterday morning and those girls couldn't get my shirt off fast enough , pt stated he had $1000 in one clip and $800 in another clip, patient stated last time he saw it was yesterday morning when he came here. call placed to to ask if she might know anything about it and stated I wouldn't know if he had money on him or not , nurse asked pt to ask pt sister who was here yesterday about pt money, charge nurse notified, during bedside report pt stated that he talked with his brother and sister and beither has his money. Initialized on 12/20/21 07:43 - END OF NOTE
[2021-12-20 08:00] VITALS: BP 133/72; PULSE 60; RESP 16; TEMP 36.6; O2SAT 97
[2021-12-20] MEDS: ipratropium-albuterol 3 mL Neb INHALATION (08:07)
--- NOTE | 2021-12-20 08:08 | PC.NURSE ---
Patient stating this am he is missing 1800 dollars. This nurse admitted pt to the floor. Patient had two bottles of pills upon admission which were placed in the patients bin by the night nurse. with one one hundred dollar bill, one hundred in 20s and nine ones. Patient made no mention of other monies. Patient rested through the day yesterday on 12/19/21. No mention was made of other money in patient's possession.
[2021-12-20 08:09] VITALS: PULSE 68; RESP 16; O2SAT 97
--- NOTE | 2021-12-20 08:49 | P.PN_ITS ---
Subjective Subjective: Patient is stable. Denies chest pain this morning. Was found to have PE. Stress test not showing significant ischemia. Prior scar tissue is seen. Vitals/I&O/Wt Last Vital Signs Temp 97.9 F 12/20/21 08:00 Pulse 68 12/20/21 08:09 Resp 16 12/20/21 08:09 BP 133/72 12/20/21 08:00 Pulse Ox 97 12/20/21 08:09 O2 Del Method 12/20/21 08:09 O2 Flow Rate 1.5 12/19/21 05:00 12/19/21 12/20/21 12/20/21 22:59 06:59 14:59 Intake Total 480 / 530 Balance 480 / 530 Weight last 48 hrs Weight 167 lb Weight 175 lb Physical Exam Narrative: GENERAL: Patient is alert, awake and oriented x3. [] NECK: No jugular vein distension. [] HEENT: No cyanosis. No icterus. No pallor. [] HEART: Regular S1 and S2. No murmur, rub or gallop. [] LUNGS: Clear to auscultate bilaterally. [] ABDOMEN: Soft, nontender and nondistended. Positive bowel sounds. No guarding, rebound or tenderness. [] CENTRAL NERVOUS SYSTEM: Grossly nonfocal. [] EXTREMITIES: Lower extremities with 1+ edema bilaterally. Pulses palpable in the lower extremities, both dorsalis pedis and posterior tibial. [] Data : 12/20/21 04:32 12/20/21 04:32 A&P Assessment and plan (1) Chest pain: (2) Hypertension: (3) Congestive heart failure: Plan Stress test not showing significant ischemia. Medical therapy at this time. Anticoagulation as has been noted to have PE. Thank you for involving us with care of this patient. Please call with questions. Attestations Medical Necessity Statement*: Care expected to cross 2 midnights Coding Level of Care Code Acute Room Cooler Installer for Vamsi Alcantara Diagnoses Chest pain R07.9 Hypertension I10 Congestive heart failure I50.9
[2021-12-20] MEDS: ondansetron 2 mg/ML SDV 2 mL 4 MG IVP (08:52)
[2021-12-20 09:13] VITALS: BP 137/85; PULSE 62
[2021-12-20] MEDS: cefTRIAXone 1,000 MG in sodium chloride 0.9% (plus) 50 ML 100 MG IV (10:31)
[2021-12-20] MEDS: isosorbide mononitrate ER 60 mg Tablet PO (10:32)
[2021-12-20] MEDS: FUROsemide 10 mg/mL SDV 4mL 40 MG IVP (10:32)
[2021-12-20] MEDS: hyDRALAzine 50 mg Tablet PO (10:33)
[2021-12-20] MEDS: potassium chloride ER 20 mEq Tablet 40 MEQ PO (10:33)
[2021-12-20] MEDS: carvedilol 12.5 mg Tablet PO (10:34)
[2021-12-20] MEDS: aspirin 81 mg EC Tablet PO (10:34)
[2021-12-20] MEDS: amlodipine 10 mg Tablet PO (10:34)
--- NOTE | 2021-12-20 10:35 | PC.CHAP ---
Pastoral Care Encounter/Spiritual Assessment Type of Contact [] Declined boston cutter visit [] Patient/Family/Request visit [] Outpatient visit [] Follow-up visit [] Physician referral [] Code/Alert [x] Routine visit [] Staff referral [] Actively dying [] Patient sleeping [] Family support [] [] Out of room [] Palliative care [] [x] Receiving care in room [] Pre-surgical visit [] Trauma [] Long length of stay [] ICU visit [] Other: Relational/Emotional Strength [] Patient feels connected with others/family/visitors/staff [] Distress [] Loneliness/isolation [] Abandonment Spirituality of Patient [] Person of Chrissy [] Attends Uatsdin of their Chrissy [] Believes in Prayer [] Reads Bible or Latter Day materials [] There are Spiritual issues to be addressed Forestry Faculty Member Interventions [] Prayer [] Active listening [] Non-anxious presence [] Spiritual/emotional support [] Crisis/trauma care [] Spiritual counseling [] Bereavement support [] Provided bereavement packet [] Provided Bible/devotional materials [] Provided toy/stuffed animal, coloring book to patient or family member [] Provided Communion [] Anointing/[place] [] Salvation [] Completed spiritual assessment [] Other: Impact on Illness or Injury [] Angry [] Fearful [] Anxious [] Often cries [] Exhaustion [] Unable to work [] Unable to attend baptist [] Unable to walk/stand [] Unable to read [] Unable to drive [] Unable to eat/drink [] Unable to sleep [] Unable to be with family [] Patient intubated [] Other: Summary has a stress test waiting doctors report will go home Time spent with patient 10 mins
[2021-12-20 12:00] VITALS: BP 108/65; PULSE 60; RESP 17; TEMP 36.4
--- NOTE | 2021-12-20 12:26 | PM.DCS ---
Discharge Providers Date of Admission: 12/19/21 05:45 Date of Discharge: December 20, 2021 Attending Provider at Admission: Anoop Christian MD Attending Provider at Discharge: Patricia Mccormick MD Diagnoses at Discharge Discharge Diagnosis (1) Chest pain: Status: Acute (2) Hypertension: Status: Acute (3) Congestive heart failure: Status: Acute Reason for Visit Reason for Visit: SOB/CP Brief History: 61 year old male with past medical history of hypertension,NICM, CAG done in? 2012: Which showed nonocclusive coronary artery disease, heart failure with reduced ejection fraction, Chronic smoker, COPD, recent nuclear stress test: Suggestive of myocardial scarring, came today with chief complaint of intermittent substernal chest pain going on for the last 3 days, mild in intensity, accompanied with shortness of breath. Upon arrival in the ER he was worked up for above-mentioned complaint: Pertinent imaging studies: X-ray chest: Suggestive of pulmonary vascular congestion,?Developing right basilar consolidation that may represent alveolar edema. CTA chest: Possible segmental and subsegmental pulmonary emboli to the right lower lobe. EKG: New onset left bundle branch block Pertinent labs and vitals have been reviewed. Hospital Course Hospital Course Patient was admitted for chest pain. Stress test was done which showed no new findings. Cardiology was consulted. They recommended patient follow-up as an outpatient with her forms designer. No intervention to be done during hospital stay. Patient was also diagnosed by segmental subsegmental pulmonary embolism to right lower lobe. He was covered with therapeutic Lovenox during hospital stay and transition to Eliquis at discharge. Meds to beds were set up for him. He was placed on ceftriaxone for pneumonia and discharged home on levofloxacin x7 days. Patient chest pain-free throughout hospital stay and had no other concerns or complaints at this time and is at baseline. Physical Exam Narrative: Clinically looks euvolemic S1, S2 Abdomen soft, Chest pain-free. Not reproducible at this time. Nonfocal neuro exam Saturating well on room air No audible stridor or wheeze GI: RECTAL EXAM: Yes deferred Discharge Data Studies Completed and Pending Completed Studies During Hospitalization Category Date Time Status CT abdomen pelvis wo con [id number] Stat Cat Scan 12/19/21 04:[address] angio chest PE protcl [id number] Stat Cat Scan 12/19/21 05:02 Completed Sestamibi Stress Test Request Routine Exams 12/20/21 06:51 Draft XR chest 1V portable [id number] Stat Exams 12/19/21 04:39 Completed NM cassius perf SPECT r/s* [id number] Routine Nuc Med 12/20/21 07:15 Completed Pending at discharge Category Date Time Status Sestamibi Stress Test Request Routine Exams 12/19/21 14:51 Stop Req Basic Metabolic Panel AM LABS Lab 12/21/21 04:00 Ordered Basic Metabolic Panel AM LABS Lab 12/22/21 04:00 Ordered Complete Blood Count w/Auto AM LABS Lab 12/21/21 04:00 Ordered Complete Blood Count w/Auto AM LABS Lab 12/22/21 04:00 Ordered NM pulmonary ventilation and perfusion [NM pul vent and Nuc Med 12/20/21 12:08 Ordered perfus* [id number]] Routine Radiology Impressions Abdomen/Pelvis CT 12/19/21 04:39 IMPRESSION: 1. Interstitial edema at the lung bases and confluent opacities in the right lower lobe that may be secondary to atelectasis, edema or in the appropriate clinical setting, pneumonia. 2. Mild intra-abdominopelvic ascites. 3. Hepatomegaly without splenomegaly. 4. Enteritis. Hypoalbuminemia of chronic liver disease may be a contributing factor. Bowel underdistension may present a similar picture. 5. Thickening of the gallbladder wall without evidence of calcified gallstones. This may be secondary to passive congestion or hypoalbuminemia of chronic liver disease. However, if acute cholecystitis is suspected, consider correlation with right upper quadrant ultrasound. 6. Thickening of the urinary bladder wall that may be secondary to infection/cystitis, underdistension or increased trabeculation due to an enlarged prostate. Chest X-Ray 12/19/21 04:39 IMPRESSION: 1. Stable well and cardiomegaly. 2. Findings suggestive of cardiopulmonary congestion or congestive heart failure. 3. Developing right basilar consolidation that may represent alveolar edema or in the appropriate clinical setting, pneumonia. Chest CTA 12/19/21 05:02 IMPRESSION: 1. The above pulmonary artery findings are likely secondary to segmental and subsegmental pulmonary emboli to the right lower lobe. However, as due to congestive heart failure, there is increased transit time through the pulmonary arteries and the pulmonary veins are not opacified, less likely these findings may represent admixture of opacified and unopacified blood in the pulmonary arteries. Consider correlation with a 2nd modality such as V/Q scan to confirm these findings. Alternatively, a repeat CTA may be obtained after successful treatment of the patient's CHF. 2. Ectasia (mild dilatation) of the ascending thoracic aorta. 3. Congestive heart failure with interstitial pulmonary edema. 4. A 5 mm nodule at the right lung base. Follow-up imaging for nodule of this size is not routinely recommended; however, for patients at high risk, consider follow-up CT scan of the chest in 12 months. THIS REPORT CONTAINS FINDINGS THAT MAY BE CRITICAL TO PATIENT CARE. The findings were verbally communicated via telephone conference with Dr. Alvarado at 6:33 AM CDT on 12/19/2021. The findings were acknowledged and understood. Laboratory Results WBC 9.2 10^3/uL (4.0-10.0) 12/20/21 04:32 RBC 4.03 10^6/uL (4.1-5.3) L 12/20/21 04:32 Hgb 11.7 g/dL (11.7-16.6) 12/20/21 04:32 Hct 36.7 % (42.0-52.0) L 12/20/21 04:32 MCV 91.1 fl (80-94) 12/20/21 04:32 MCH 29.0 pg (28.0-34.0) 12/20/21 04:32 MCHC 31.9 g/dL (30.0-36.0) 12/20/21 04:32 RDW 17.7 % (12.1-15.1) H 12/20/21 04:32 Plt Count 221 10^3/cmm (130-400) 12/20/21 04:32 MPV 10.5 fL (7.4-10.4) H 12/20/21 04:32 Neut % (Auto) 62.7 % 12/20/21 04:32 Lymph % (Auto) 25.9 % 12/20/21 04:32 [place] % (Auto) 8.3 % 12/20/21 04:32 Eos % (Auto) 1.7 % 12/20/21 04:32 Baso % (Auto) 0.9 % 12/20/21 04:32 Neut # (Auto) 5.78 10^3/uL (1.8-7.7) 12/20/21 04:32 Lymph # (Auto) 2.4 10^3/uL (0.8-4.8) 12/20/21 04:32 [place] # (Auto) 0.8 10^3/uL (0.2-0.9) 12/20/21 04:32 Eos # (Auto) 0.2 10^3/uL (0.0-0.8) 12/20/21 04:32 Baso # (Auto) 0.1 10^3/uL (0.0-0.1) 12/20/21 04:32 Nucleated RBC % (auto) 0 % 12/20/21 04:32 Nucleated RBCs # 0.0 /100WBC 12/20/21 04:32 PT 16.50 SECONDS (12.1-14.9) H 12/19/21 04:37 INR 1.30 (0.8-1.2) H 12/19/21 04:37 Sodium 139 mmol/L (136-145) 12/20/21 04:32 Potassium 3.4 mmol/L (3.5-5.1) L 12/20/21 04:32 Chloride 100 mmol/L (98-107) 12/20/21 04:32 Carbon Dioxide 25 mmol/L (22-29) 12/20/21 04:32 Anion Gap 17.4 (5-19) 12/20/21 04:32 BUN 22 mg/dL (8-23) 12/20/21 04:32 Creatinine 1.3 mg/dL (0.7-1.2) H 12/20/21 04:32 GFR Calculation 55.9 mL/min (90-130) L 12/20/21 04:32 Glucose 88 mg/dL (65-115) 12/20/21 04:32 Calculated Osmolality 291 mOsm/kg (285-295) 12/20/21 04:32 Calcium 8.4 mg/dL (8.5-10.5) L 12/20/21 04:32 Magnesium 1.9 mg/dL (1.7-2.3) 12/20/21 04:32 Total Bilirubin 1.5 mg/dL (0.15-1.2) H 12/19/21 04:37 AST 33 U/L (0-40) 12/19/21 04:37 ALT 31 U/L (0-41) 12/19/21 04:37 Alkaline Phosphatase 73 U/L (40-130) 12/19/21 04:37 Troponin T Baseline 57 ng/L (0-15) H 12/19/21 04:37 Troponin T 120 Minute 45.28 ng/L (0-15) H 12/19/21 06:50 Delta Troponin T -11.72 ABS# (0-10) L 12/19/21 06:50 Troponin T Hi Sens 6Hr 43.39 ng/L (0-15) H 12/19/21 10:18 Troponin T Hi Sens 6Hr Delta -13.61 ng/L (0-12) L 12/19/21 10:18 NT-Pro-B Natriuret Pep 02206 pg/mL (0-125) H 12/19/21 04:37 Total Protein 6.9 g/dL (6.6-8.7) 12/19/21 04:37 Albumin 3.9 g/dL (3.5-5.2) 12/19/21 04:37 Globulin 3.0 g/dL (1.3-4.6) 12/19/21 04:37 Lipase 26 U/L (13-60) 12/19/21 04:37 Vitals Last Vital Signs Temp 97.6 F 12/20/21 12:00 Pulse 60 12/20/21 12:00 Resp 17 12/20/21 12:00 BP 108/65 12/20/21 12:00 Pulse Ox 97 12/20/21 08:09 O2 Del Method 12/20/21 12:00 O2 Flow Rate 1.5 12/19/21 05:00 Discharge Plan Discharge Patient Disposition: Home Condition: Stable Prescriptions: New Advair Diskus 250-50 mcg/dose Blister With Device 1 puff inhalation BID.RESPIRATORY 30 Days Qty: 1 0RF aspirin 81 mg Tablet,Delayed Release (Dr/Ec) 81 mg PO DAILY 30 Days Qty: 30 0RF hydralazine 50 mg Tablet 50 mg PO TID 30 Days Qty: 90 0RF Eliquis DVT-PE Treat 30D Start 5 mg (74 tabs) tablets,dose pack See Rx Instructions .ROUTE .COMPLEX Qty: 74 0RF Rx Instructions: orally per package directions levofloxacin 750 mg tablet 750 mg PO DAILY 7 Days Qty: 7 0RF Continued potassium chloride [Klor-Con M20] 20 mEq tablet,ER particles/crystals 20 meq PO DAILY Qty: 30 5RF Rx Instructions: Must have follow-up for further refills albuterol sulfate [ProAir HFA] 90 mcg/actuation HFA aerosol inhaler 2 puff inhalation QID PRN (Reason: shortness of breath or wheezing) Qty: 6.7 0RF furosemide 40 mg tablet 40 mg PO DAILY Qty: 30 0RF Rx Instructions: Must have follow-up for further refills ondansetron 4 mg tablet,disintegrating 4 mg PO TID PRN (Reason: Nausea And Vomiting) carvedilol 12.5 mg Tablet 12.5 mg PO BID Qty: 60 4RF spironolactone 25 mg Tablet 25 mg PO DAILY Qty: 60 3RF isosorbide mononitrate 60 mg Tablet Extended Release 24 Hr 60 mg PO DAILY Qty: 90 4RF amlodipine 10 mg Tablet 10 mg PO DAILY Qty: 60 3RF nitroglycerin 0.4 mg Tablet, Sublingual 0.4 mg sublingual Q5M PRN (Reason: Chest Pain) Qty: 10 0RF simethicone 166 mg Capsule 166 - 332 mg PO DAILY PRN (Reason: unknown) Discontinued aspirin 325 mg Tablet 325 mg PO QAM Rx Instructions: on hold Discharge Orders: Discharge Order (Routine); Ordered 12/20/21 Ordered By: Patricia Mccormick Referrals: Reddy Lopez M.D [Physician] - 1 month (Your follow up with Dr. Lopez will be set up following your appointment with Kenyetta Rueda. If you have any questions or concerns please call the [facility] at [phone].) Kenyetta Rueda FNP [Nurse Practitioner] - 12/27/21 10:00 am Discharge Diet: Cardiac and Low Salt Discharge Activity: Resume usual activity Patient Instructions: Aspirin (By mouth), Hydralazine (By mouth), Levofloxacin (By mouth), Fluticasone (Into the nose), Apixaban (By mouth), Heart Failure (ED), CHF Stoplight, Opioid Safety, Pneumonia Stoplight, Pneumonia - Viral Discharge Attestations Time Spent in Discharge Care*: less than 30 min Quality Metrics Clinical Quality Measures [ No reported AMI, CVA or VTE this stay] Coding Level of Care Code Acute Chg FW DC note Diagnoses Chest pain R07.9 Hypertension I10 Congestive heart failure I50.9
[2021-12-20 12:44] VITALS: BP 108/65; PULSE 60; RESP 17; TEMP 36.4; O2SAT 97
== END 2021-12-20 13:18 | disposition home or self-care (01) ==
LOC: ER 05:04 → MEDSURG 06:13
PROVIDERS: Admitting Provider Internal Medicine; Emergency Provider Emergency Medicine; Visit Provider Internal Medicine
DX: R07.9 Chest pain, unspecified (principal); J18.9 Pneumonia, unspecified organism; I11.0 Hypertensive heart disease with heart failure; I50.9 Heart failure, unspecified; Z79.82 Long term (current) use of aspirin; J43.9 Emphysema, unspecified; E03.9 Hypothyroidism, unspecified; F17.210 Nicotine dependence, cigarettes, uncomplicated
CPT/HCPCS: 36415; 51702; 51798; 71045; 71275; 74176; 78452; 80048; 80053; 83690; 83735; 83880; 84484; 85025; 85610; 93005; 93017; 94640; 96365; 96372; 96375; 99285; A9500; G0378; J0696; J1650; J1940; J2405; J3490; Q9967

== ENCOUNTER 2022-01-03 00:27 | Emergency (ER) | payer MEDICAID, SELFPAY ==
--- NOTE | 2022-01-03 00:34 | ECG_ITS ---
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 Measurements Intervals [place] Rate: 101 P: -39 TX: 208 QRS: -62 QRSD: 170 T: 105 QT: 412 QTc: 536 Interpretive Statements SINUS TACHYCARDIA LEFT ATRIAL ENLARGEMENT [-0.15mV P-WAVE IN V1/V2] LEFT AXIS DEVIATION [QRS AXIS < -30] LEFT BUNDLE BRANCH BLOCK Compared to ECG 12/19/2021 10:31:01 Left bundle-branch block now present Sinus rhythm no longer present Intraventricular conduction delay no longer present Left ventricular hypertrophy no longer present ST (T wave) deviation no longer present Electronically Signed On 01-03-2022 12:51:18 CDT by Fanny Hyde M.D. [id number]
--- NOTE | 2022-01-03 00:35 | XRR_ITS ---
PROCEDURE INFORMATION: Exam: XR Chest Exam date and time: 01/03/2022 12:55 AM Age: 61 years old Clinical indication: Shortness of breath; Patient HX: C/O SOB with fluid retention. History of chf. TECHNIQUE: Imaging protocol: Radiologic exam of the chest. Views: 1 view. COMPARISON: CR (CHEST, ) 12/19/2021 4:53 AM FINDINGS: Lungs: There are normal lung volumes without confluent interstitial or airspace opacities. The previously noted right basilar nodule seen on CT is not well seen on the chest radiograph. Age-related interstitial prominence is seen in the lungs. Pleural spaces: There are no pleural effusions or pneumothorax. Heart/Mediastinum: Unchanged mild cardiomegaly. The mediastinal contour is normal. The trachea is in the midline. Bones/joints: No acute abnormalities. XR/XR chest 1V portable [id number] IMPRESSION: 1. No confluent infiltrates in the lungs. 2. Unchanged mild cardiomegaly.
--- NOTE | 2022-01-03 00:40 | ED_ITS ---
HPI - Chest Pain General: Chief Complaint: Abdominal Pain Stated Complaint: Fluid on Heart Time Seen by Provider: 01/03/22 00:40 History of Present Illness: Mr. Camp is a 61-year-old gentleman with complex past medical history including congestive heart failure, COPD, hypertension presenting to the emergency department due to concern over volume overload. He reports symptoms have progressively worsened since previous visit to the hospital however over the past week has been significantly worse. He endorses shortness of breath and fullness in his abdomen. He is unable to sleep lying down and has marked dyspnea on exertion in addition to lower extremity edema. Intensity symptoms is moderate to severe. Denies infectious symptoms. Course is worsened. No other specific changes in health, exacerbating, or alleviating factors identified. Onset (ago): day(s) Timing of current episode: increasing Onset: during rest Severity: moderate Exacerbating factors: exertion and supine Review of Systems General: Reports: 10 or more systems reviewed and unremarkable except in HPI and below PFSH ED PFSH: Medical History Accelerated hypertension Cardiomyopathy Cardiomyopathy Chest pain Congestive heart failure COPD (chronic obstructive pulmonary disease) Emphysema/COPD Epigastric pain Hypertension Hypertensive urgency Hypothyroidism Malignant hypertension Mesenteric angina Pneumonia Surgical History History of surgery of head Family History Other CAD (coronary artery disease) Social History Smoking and tobacco status: current every day smoker Second hand smoke exposure: Yes Smoking risk assessment/counseling performed?: No Alcohol intake: never Desire information about alcohol rehabilitation?: No Counseling given: No Desire information about substance/drug rehabilitation?: No Counseling given: No Adopted: No Caregiver/support person: No Lives independently: Yes Household members: spouse Housing: House Marital status: Number of children: 4 service: No Current occupational status: disabled Physical Exam Const: COMMON NORMALS: alert GENERAL APPEARANCE: cooperative and well developed HENMT: COMMON NORMALS: normocephalic and atraumatic HEAD & SCALP: normoce phalic and atraumatic THROAT: posterior oropharynx normal Eye: COMMON NORMALS: conjunctivae normal CONJUNCTIVA: Yes conjunctivae normal SCLERA: sclerae normal Neck/C-Spine: COMMON NORMALS: supple GENERAL: Yes trachea midline Resp: COMMON NORMALS: clear to auscultation bilaterally EFFORT & INSPECTION: Yes able to speak in complete sentences and Yes tachypneic AUSCULTATION: clear to auscultation bilaterally Cardio: COMMON NORMALS: regular rate and regular rhythm RATE: regular rate RHYTHM: regular rhythm GI: COMMON NORMALS: Soft to palpation PALPATION: Yes Soft to palpation, Yes Tenderness to palpation present (GI), No Guarding due to palpation present (GI) and No Rigid due to palpation Extremity: GENERAL: Yes normal exam except as noted and Yes edema Neuro: COMMON NORMALS: moves all extremities SENSORIUM/ORIENTATION: Yes alert and No Orientation impaired Psych: COMMON NORMALS: mental status grossly normal and Normal thought process present THOUGHT PROCESS: Normal thought process present Course Vital Signs: Vital signs: Vital Signs Temperature 98 F 01/03/22 00:47 Pulse Rate 104 H 01/03/22 04:00 Respiratory Rate 26 H 01/03/22 04:00 Blood Pressure 155/112 01/03/22 04:00 Pulse Oximetry 93 01/03/22 04:00 Oxygen Delivery Me thod 01/03/22 04:00 MDM - Chest Pain Medical Decision Making 61-year-old male presenting for concern over volume overload. Does have a history of heart failure with reduced ejection fraction. Mostly dyspnea on exertion, right upper quadrant abdominal discomfort, and orthopnea reported. Clinically not grossly fluid overloaded and satting adequately on room air. EKG shows sinus rhythm with bundle branch block and first-degree AV block. No STEMI. Metabolic panel without evidence of infection, hemoglobin is normal. Renal function is preserved and electrolytes are satisfactory. Troponin negative. BNP is elevated but improved from prior. Chest x-ray with mild cardiomegaly though no obvious effusions or pulmonary edema, no lobar consolidation or pneumothorax. CT abdomen pelvis without acute cause of patient's pain identified. Lung nodule discussed with need for follow-up. Stress test from 12/20 and CTA from 12/19 reviewed. ultimately patient has significant room for increase of diuretic at home. We will plan to increase this and have patient follow closely with cardiology. Strict return precautions given. Patient agreeable with plan. Medical Records I reviewed the patient's medical records. Lab Data I reviewed the patient's lab results. : 01/03/22 01:18 01/03/22 01:18 Radiology Impressions Chest X-Ray 01/03/22 00:35 IMPRESSION: 1. No confluent infiltrates in the lungs. 2. Unchanged mild cardiomegaly. Abdomen/Pelvis CT 01/03/22 02:04 IMPRESSION: 1. Mild bladder wall prominence seen. Recommend correlation with urinalysis findings of cystitis. No renal, ureteral or bladder calculi. No hydronephrosis. Minimal nonspecific bilateral perinephric fat stranding. This can be associated with pyelonephritis. Recommend correlation with clinical findings. 2. Nonspecific minimal perihepatic and mild pelvic ascites. 3. Unchanged right lower lobe subpleural 4 x 5 mm nodule (series 3, image 1). Recommend follow-up per Fleischner society recommendations with CT in 1 year. Laboratory Results WBC 7.5 10^3/uL (4.0-10.0) 01/03/22 01:18 RBC 4.41 10^6/uL (4.1-5.3) 01/03/22 01:18 Hgb 13.2 g/dL (11.7-16.6) 01/03/22 01:18 Hct 40.7 % (42.0-52.0) L 01/03/22 01:18 MCV 92.3 fl (80-94) 01/03/22 01:18 MCH 29.9 pg (28.0-34.0) 01/03/22 01:18 MCHC 32.4 g/dL (30.0-36.0) 01/03/22 01:18 RDW 16.7 % (12.1-15.1) H 01/03/22 01:18 Plt Count 263 10^3/cmm (130-400) 01/03/22 01:18 MPV 9.5 fL (7.4-10.4) 01/03/22 01:18 Neut % (Auto) 54.1 % 01/03/22 01:18 Lymph % (Auto) 33.0 % 01/03/22 01:18 [place] % (Auto) 8.6 % 01/03/22 01:18 Eos % (Auto) 2.8 % 01/03/22 01:18 Baso % (Auto) 1.1 % 01/03/22 01:18 Neut # (Auto) 4.04 10^3/uL (1.8-7.7) 01/03/22 01:18 Lymph # (Auto) 2.5 10^3/uL (0.8-4.8) 01/03/22 01:18 [place] # (Auto) 0.6 10^3/uL (0.2-0.9) 01/03/22 01:18 Eos # (Auto) 0.2 10^3/uL (0.0-0.8) 01/03/22 01:18 Baso # (Auto) 0.1 10^3/uL (0.0-0.1) 01/03/22 01:18 Nucleated RBC % (auto) 0 % 01/03/22 01:18 Nucleated RBCs # 0.0 /100WBC 01/03/22 01:18 Sodium 136 mmol/L (136-145) 01/03/22 01:18 Potassium 4.2 mmol/L (3.5-5.1) 01/03/22 01:18 Chloride 101 mmol/L (98-107) 01/03/22 01:18 Carbon Dioxide 25 mmol/L (22-29) 01/03/22 01:18 Anion Gap 14.2 (5-19) 01/03/22 01:18 BUN 12 mg/dL (8-23) 01/03/22 01:18 Creatinine 1.1 mg/dL (0.7-1.2) 01/03/22 01:18 GFR Calculation 67.8 mL/min (90-130) L 01/03/22 01:18 Glucose 103 mg/dL (65-115) 01/03/22 01:18 Calculated Osmolality 282 mOsm/kg (285-295) L 01/03/22 01:18 Calcium 9.3 mg/dL (8.5-10.5) 01/03/22 01:18 Total Bilirubin 0.7 mg/dL (0.15-1.2) 01/03/22 01:18 AST 36 U/L (0-40) 01/03/22 01:18 ALT 34 U/L (0-41) 01/03/22 01:18 Alkaline Phosphatase 79 U/L (40-130) 01/03/22 01:18 Troponin T Baseline 41 ng/L (0-15) H 01/03/22 01:18 Troponin T 120 Minute 36.62 ng/L (0-15) H 01/03/22 04:05 Delta Troponin T -4.38 ABS# (0-10) L 01/03/22 04:05 NT-Pro-B Natriuret Pep 6540 pg/mL (0-125) H 01/03/22 01:18 Total Protein 7.1 g/dL (6.6-8.7) 01/03/22 01:18 Albumin 3.8 g/dL (3.5-5.2) 01/03/22 01:18 Globulin 3.3 g/dL (1.3-4.6) 01/03/22 01:18 Lipase 42 U/L (13-60) 01/03/22 01:18 Discharge Plan Discharge Patient Disposition: Home Clinical Impression: Acute on chronic congestive heart failure Condition: Stable Prescriptions: New ondansetron 4 mg tablet,disintegrating 4 mg PO Q8H PRN (Reason: nausea and vomiting) Qty: 15 0RF oxycodone 5 mg tablet 5 mg PO Q4H PRN (Reason: pain) Qty: 10 0RF Discontinued potassium chloride [Klor-Con M20] 20 mEq tablet,ER particles/crystals 20 meq PO DAILY Qty: 30 5RF Rx Instructions: Must have follow-up for further refills furosemide 40 mg tablet 40 mg PO DAILY Qty: 30 0RF Rx Instructions: Must have follow-up for further refills No Action polyethylene glycol 3350 [Miralax] 17 gram powder in packet 17 g PO DAILY PRN (Reason: Constipation) potassium chloride 20 mEq tablet extended release 60 meq PO DIRECTED Qty: 90 3RF Rx Instructions: 2 tabs (40meq) in AM and 1 tab (20meq) in PM furosemide 40 mg tablet 120 mg PO DIRECTED Qty: 90 3RF Rx Instructions: 2 tabs (80mg) AM and 1 tab (40mg) PM metolazone 5 mg tablet 5 mg PO DAILY Qty: 30 3RF Rx Instructions: Take 30 minutes prior to morning Furosemide albuterol sulfate [ProAir HFA] 90 mcg/actuation HFA aerosol inhaler 2 puff inhalation QID PRN (Reason: shortness of breath or wheezing) Qty: 6.7 0RF nitroglycerin 0.4 mg Tablet, Sublingual 0.4 mg sublingual Q5M PRN (Reason: Chest Pain) Qty: 10 0RF simethicone 166 mg Capsule 166 - 332 mg PO DAILY PRN (Reason: unknown) fluticasone propion-salmeterol [Advair Diskus] 250-50 mcg/dose Blister With Device 1 puff inhalation BID.RESPIRATORY 30 Days Qty: 1 0RF aspirin 81 mg Tablet,Delayed Release (Dr/Ec) 81 mg PO DAILY 30 Days Qty: 30 0RF hydralazine 50 mg Tablet 50 mg PO TID 30 Days Qty: 90 0RF Eliquis DVT-PE Treat 30D Start 5 mg (74 tabs) tablets,dose pack See Rx Instructions .ROUTE .COMPLEX Qty: 74 0RF Rx Instructions: orally per package directions Discharge Orders: Discharge ED (Routine); Ordered 01/03/22 Ordered By: Alan Amanda Discharge Diet: Usual diet Discharge Activity: Increase activity as tolerated Activity Restrictions/Additional Instructions: Thank you for visiting the emergency department. You were seen evaluated for concern for fluid overload. In reviewing laboratory studies and discussion with medicine service it is reasonable to attempt increased diuresis in the outpatient setting. I will also message case management for follow-up with cardiology. Please increase your Lasix to 40 mg twice daily and increase your potassium supplementation as well as prescribed. I recommend repeat laboratory studies within the next 3 to 5 days and follow-up with cardiology in 1 week. Return to the emergency department for worsening symptoms, increased shortness of breath, chest pain, decreased urine output, lightheadedness, dizziness, or anything else that you are concerned about a feel needs emergency department evaluation. Coding Level of Care Code ED Public Relations Writer for Vamsi Alcantara
[2022-01-03 00:47] VITALS: BP 151/104; PULSE 101; RESP 18; TEMP 36.6; O2SAT 98; BMI 24.7
[2022-01-03 01:23] LABS: Basophils # 0.1 10^3/uL (0.0-0.1); Basophils % 1.1 %; Eosinophils # 0.2 10^3/uL (0.0-0.8); Eosinophils % 2.8 %; Hematocrit 40.7 % (42.0-52.0); Hemoglobin 13.2 g/dL (11.7-16.6); Lymphocytes # 2.5 10^3/uL (0.8-4.8); Mean Corpuscular HGB Conc 32.4 g/dL (30.0-36.0); Mean Corpuscular Hemoglobin 29.9 pg (28.0-34.0); Mean Corpuscular Volume 92.3 fl (80-94); Mean Platelet Volume 9.5 fL (7.4-10.4); Monocytes # 0.6 10^3/uL (0.2-0.9); Monocytes % 8.6 %; Neutrophils # 4.04 10^3/uL (1.8-7.7); Neutrophils % 54.1 %; Nucleated Red Blood Cells % 0 %; Platelet Count 263 10^3/cmm (130-400); Red Blood Count 4.41 10^6/uL (4.1-5.3); Red Cell Distribution Width 16.7 % (12.1-15.1); White Blood Count 7.5 10^3/uL (4.0-10.0)
[2022-01-03 01:50] LABS: Troponin(5th) Baseline 41 ng/L (0-15)
[2022-01-03 01:59] LABS: Alanine Aminotransferase 34 U/L (0-41); Albumin Level 3.8 g/dL (3.5-5.2); Alkaline Phosphatase 79 U/L (40-130); Anion Gap 14.2 (5-19); Aspartate Amino Transferase 36 U/L (0-40); Blood Urea Nitrogen 12 mg/dL (8-23); Calcium 9.3 mg/dL (8.5-10.5); Carbon Dioxide 25 mmol/L (22-29); Chloride 101 mmol/L (98-107); Globulin 3.3 g/dL (1.3-4.6); Glomerular Filtration Rate 67.8 mL/min (90-130); Glucose 103 mg/dL (65-115); Lipase 42 U/L (13-60); NT Pro B Type Natriuretic Pept 6540 pg/mL (0-125); Osmolality Calculated 282 mOsm/kg (285-295); Potassium 4.2 mmol/L (3.5-5.1); Sodium 136 mmol/L (136-145); Total Bilirubin 0.7 mg/dL (0.15-1.2); Total Protein 7.1 g/dL (6.6-8.7)
--- NOTE | 2022-01-03 02:04 | CTR_ITS ---
PROCEDURE INFORMATION: Exam: CT Abdomen And Pelvis Without Contrast Exam date and time: 01/03/2022 3:26 AM Age: 61 years old Clinical indication: Abdominal pain; Patient HX: C/O epigastric pain TECHNIQUE: Imaging protocol: Computed tomography of the abdomen and pelvis without contrast. Radiation optimization: All CT scans at this facility use at least one of these dose optimization techniques: automated exposure control; mA and/or kV adjustment per patient size (includes targeted exams where dose is matched to clinical indication); or iterative reconstruction. COMPARISON: CT abdomen pelvis wo con [id number] 12/19/2021 4:50 AM RADIATION DOSE METRICS: Total DLP (mGy-cm): 464.93 FINDINGS: Lungs: The visualized portions of the lung bases show an unchanged right lower lobe subpleural 4 x 5 mm nodule (series 3, image 1). Recommend follow-up per Fleischner society recommendations. There is unchanged moderate cardiomegaly. Liver: The non-contrast enhanced liver appears unremarkable. Gallbladder and bile ducts: No calcified stones. No ductal dilation. Pancreas: Appears unremarkable on the non-contrast CT. No ductal dilation. Spleen: Appears unremarkable on the non-contrast CT. No splenomegaly. Adrenal glands: Normal. No mass. Kidneys and ureters: Appear unremarkable on the non-contrast CT. No hydronephrosis. Minimal nonspecific bilateral perinephric fat stranding is seen. This can be associated with pyelonephritis. Recommend correlation with clinical findings. Stomach and bowel: The non-contrast opacified stomach is not well distended with relative gastric fold prominence. Assessment is limited. The noncontrast opacified small bowel loops appear unremarkable. The noncontrast opacified loops of colon show mild constipation. A few sigmoid colonic diverticula are seen, without CT evidence of diverticulitis. The lack of orally administered contrast material limits assessment. Appendix: No CT evidence of appendicitis. Intraperitoneal space: Nonspecific minimal perihepatic and mild pelvic ascites is seen. No free air. Some benign phleboliths seen in the pelvis. Vasculature: No abdominal aortic aneurysm. Mild atherosclerotic vascular calcifications are seen. Lymph nodes: No enlarged lymph nodes. Urinary bladder: Mild bladder wall prominence is seen. Recommend correlation with urinalysis findings of cystitis. Reproductive: Unremarkable as visualized. Bones/joints: No acute osseous abnormality seen. Soft tissues: Tiny umbilical hernia, containing peritoneal fat. CT/CT abdomen pelvis wo con [id number] IMPRESSION: 1. Mild bladder wall prominence seen. Recommend correlation with urinalysis findings of cystitis. No renal, ureteral or bladder calculi. No hydronephrosis. Minimal nonspecific bilateral perinephric fat stranding. This can be associated with pyelonephritis. Recommend correlation with clinical findings. 2. Nonspecific minimal perihepatic and mild pelvic ascites. 3. Unchanged right lower lobe subpleural 4 x 5 mm nodule (series 3, image 1). Recommend follow-up per Fleischner society recommendations with CT in 1 year.
[2022-01-03 02:37] VITALS: RESP 24; O2SAT 98
[2022-01-03] MEDS: morphine 4 mg/mL SDV 1 mL IVP (02:37)
[2022-01-03 02:45] VITALS: BP 143/97; PULSE 95; RESP 23; O2SAT 98
[2022-01-03 04:00] VITALS: BP 155/112; PULSE 104; RESP 26; O2SAT 93
[2022-01-03 04:32] LABS: Troponin 5 2HR 36.62 ng/L (0-15)
[2022-01-03 04:37] LABS: Troponin 5 2HR Delta -4.38 ABS# (0-10)
[2022-01-03] MEDS: FUROsemide 10 mg/mL SDV 4mL 40 MG IVP (05:10)
--- NOTE | 2022-01-03 13:26 | DCPLANNER ---
Addendum entered by Radha Vargas 03/22/22 14:34: Patient had a follow up appointment scheduled with heart care - patient did attend appointment. Addendum entered by Radha Vargas 01/10/22 12:15: Patient has a follow up appointment scheduled for , January 10, 2022 at 2:[address] Hyde at [facility]. Clinic will call patient with appointment information. Original Note: senior category manager had message to schedule a follow up appointment for patient with cardiology. senior category manager sent patients information to the front office staff at [facility]. Patients information will be printed and reviewed. Clinic will call patient with appointment information.
== END 2022-01-03 05:39 | disposition home or self-care (01) ==
PROVIDERS: Nurse Practitioner Family; Emergency Provider Emergency Medicine
DX: I11.0 Hypertensive heart disease with heart failure (principal); I50.23 Acute on chronic systolic (congestive) heart failure; Z79.82 Long term (current) use of aspirin; Z79.01 Long term (current) use of anticoagulants; F17.210 Nicotine dependence, cigarettes, uncomplicated; J44.9 Chronic obstructive pulmonary disease, unspecified
CPT/HCPCS: 36415; 71045; 74176; 80053; 83690; 83880; 84484; 85025; 93005; 96374; 96375; 99285; J1940; J2270

== ENCOUNTER → 2022-01-10 14:02 | Outpatient (BNVA) | payer MEDICAID, SELFPAY | PROVIDERS: Visit Provider Internal Medicine Cardiovascular Disease | DX: I42.0 Dilated cardiomyopathy (principal); I11.0 Hypertensive heart disease with heart failure; I50.9 Heart failure, unspecified; F17.200 Nicotine dependence, unspecified, uncomplicated | CPT/HCPCS: 99214 ==

== ENCOUNTER 2022-01-12 17:52 | Inpatient (IN) | payer MEDICAID, SELFPAY ==
[2022-01-12] VITALS (7 sets, daily range): BP systolic 155–180; BP diastolic 108–123; PULSE 101–104; RESP 15–21; TEMP 36.8; O2SAT 96–97; BMI 21.8
--- NOTE | 2022-01-12 18:03 | ECG_ITS ---
[facility] Test Date: 2022-01-12 Pat Name: Parish Camp Department: Room: Gender: Male Dynamicist: : 1960 Requested By: Alan Amanda Order Number: [id number] Isaura MD: aFnny Hyde M.D. Measurements Intervals [place] Rate: 85 P: 73 [place]: 192 QRS: -85 QRSD: 170 T: 94 QT: 420 QTc: 501 Interpretive Statements SINUS RHYTHM LEFT ATRIAL ENLARGEMENT [-0.15mV P-WAVE IN V1/V2] LEFT AXIS DEVIATION [QRS AXIS < -30] INTRAVENTRICULAR CONDUCTION DELAY [130+ ms QRS DURATION] Compared to ECG 01/03/2022 02:09:14 Intraventricular conduction delay now present Sinus tachycardia no longer present Left bundle-branch block no longer present Electronically Signed On 01-14-2022 23:00:38 CDT by Fanny Hyde M.D. [email or web address]/[id number]
--- NOTE | 2022-01-12 18:05 | W.ED.CHESTPA ---
HPI - Chest Pain General: Chief Complaint: Chest Pain Stated Complaint: Chest pains Time Seen by Provider: 01/12/22 17:56 History of Present Illness: Mr. Camp is a 61-year-old gentle man with complex p ast medical histor y including conges tive heart failure with reduced ejec tion fraction, [employer] D, hypertension pr esenting to the em ergency department due to concern ov er chest pain and volume overload.? He previously pres ented on 01/03 and medications were adjusted at that t stefan. Additionally he followed with cardiology for fur ther increased his diuretic. Despit e this he has cont inued to worsen an d has had chest pa in mostly in the r ight lower chest.? He endorses short ness of breath and fullness in his a bdomen.? He is daniele ble to sleep lying down and has meg ed dyspnea on exer tion in addition t o lower extremity edema.? Intensity symptoms is modera te to severe.? Den ies infectious sym ptoms.? Course has worsened.? He not es cough and chill s. No other speci fic changes in hea lth, exacerbating, or alleviating fa ctors identified. Onset (ago): week(s) Timing of current episode: constant Prior episodes: Yes Pain location: right chest Severity: moderate Relieving factors: nothing Exacerbating factors: exertion and supine Review of Systems General: Reports: 10 or more systems reviewed and unremarkable except in HPI and below PFSH ED PFSH: Medical History (Updated 01/14/22 @ 16:15 by Buck Avalos MD) Accelerated hypertension Cardiomyopathy Cardiomyopathy Chest pain Congestive heart failure COPD (chronic obstructive pulmonary disease) Emphysema/COPD Epigastric pain Hypertension Hypertensive urgency Hypothyroidism Malignant hypertension Mesenteric angina Pneumonia Surgical History History of surgery of head Family History Other CAD (coronary artery disease) Social History Smoking and tobacco status: current every day smoker Second hand smoke exposure: Yes Smoking risk assessment/counseling performed?: No Alcohol intake: never Desire information about alcohol rehabilitation?: No Counseling given: No Desire information about substance/drug rehabilitation?: No Counseling given: No Adopted: No Caregiver/support person: No Lives independently: Yes Household members: spouse Housing: House Marital status: Number of children: 4 service: No Current occupational status: disabled Physical Exam Const: COMMON NORMALS: alert GENERAL APPEARANCE: cooperative, well developed, in distress (Uncomfortable appearing due to pain) and ill appearing (Mildly) HENMT: COMMON NORMALS: normocephalic and atraumatic HEAD & SCALP: normocephalic and atraumatic Eye: COMMON NORMALS: conjunctivae normal CONJUNCTIVA: Yes conjunctivae normal SCLERA: sclerae normal Neck/C-Spine: COMMON NORMALS: supple GENERAL: Yes trachea midline Resp: EFFORT & INSPECTION: Yes able to speak in complete sentences and Yes tachypneic Cardio: COMMON NORMALS: regular rate and regular rhythm RATE: regular rate RHYTHM: regular rhythm GI: COMMON NORMALS: Soft to palpation PALPATION: Yes Soft to palpation and No Tenderness to palpation present (GI) Extremity: GENERAL: Yes normal exam except as noted and Yes edema Neuro: COMMON NORMALS: moves all extremities SENSORIUM/ORIENTATION: Yes alert and No Orientation impaired Psych: COMMON NORMALS: mental status grossly normal and Normal thought process present THOUGHT PROCESS: Normal thought process present Course Vital Signs: Vital signs: Vital Signs Temperature 97.9 F 01/15/22 16:00 Pulse Rate 80 01/15/22 16:00 Respiratory Rate 18 01/15/22 16:00 Blood Pressure 144/91 01/15/22 16:00 Pulse Oximetry 96 01/15/22 16:00 Oxygen Delivery Me thod 01/15/22 16:00 Oxygen Flow Rate 1.5 01/13/22 07:50 MDM - Chest Pain Medical Decision Making 61-year-old gentleman presenting due to chest pain and heart failure symptoms. Patient has been seen recently and symptoms have worsened despite outpatient management. EKG abnormal showing sinus rhythm with axis deviation and interval ventricular conduction delay which is somewhat new that was appreciated on last ED visit. No STEMI. Clinical exam with some evidence of volume overload, patient becomes markedly tachypneic with exertion. Unremarkable hematologic panel. Metabolic panel with hyponatremia and hypochloremia with mildly elevated creatinine. Delta troponin negative. BNP elevated. D-dimer elevated. Negative viral studies. Chest x-ray with cardiomegaly and pulmonary vascular congestion. CT imaging negative for pulmonary embolism. Homogeneous appearance of the liver with mild ascites without other acute pathology identified. Patient given aspirin and morphine during ED course. Additionally given Lasix. On reassessment he is requiring 2 L of oxygen via nasal cannula. Most likely cause of symptoms is acute on chronic digestive heart failure with evidence of volume overload. The results of ED evaluation were discussed with the patient including plan for admission due to requirement for level of care not available if discharged to prevent significant worsening/deterioration. Patient agreeable with plan. Discussed with hospitalist service agreed to admit the patient. Medical Records I reviewed the patient's medical records. Lab Data I reviewed the patient's lab results. : 01/14/22 05:00 01/15/22 03:57 Radiology Impressions Chest/Abdomen/Pelvis CT 01/12/22 18:50 IMPRESSION: 1. No evidence for pulmonary embolus. Study is nondiagnostic in the smaller branches of the lower lobes due to lack of contrast opacification, related to contrast bolus timing. 2. No acute pulmonary finding. 3. Prominent mediastinal and hilar lymph nodes are most likely reactive or inflammatory. IMPRESSION: 1. No acute finding in the abdomen or pelvis. 2. Inhomogenous liver could represent parenchymal disease or cirrhosis. 3. Mild ascites. Chest X-Ray 01/13/22 12:20 IMPRESSION: No acute findings. Laboratory Results WBC 7.2 10^3/uL (4.0-10.0) 01/12/22 18:20 RBC 4.79 10^6/uL (4.1-5.3) 01/12/22 18:20 Hgb 14.1 g/dL (11.7-16.6) 01/12/22 18:20 Hct 44.5 % (42.0-52.0) 01/12/22 18:20 MCV 92.9 fl (80-94) 01/12/22 18:20 MCH 29.4 pg (28.0-34.0) 01/12/22 18:20 MCHC 31.7 g/dL (30.0-36.0) 01/12/22 18:20 RDW 16.3 % (12.1-15.1) H 01/12/22 18:20 Plt Count 362 10^3/cmm (130-400) 01/12/22 18:20 MPV 9.9 fL (7.4-10.4) 01/12/22 18:20 Neut % (Auto) 51.1 % 01/12/22 18:20 Lymph % (Auto) 39.2 % 01/12/22 18:20 [place] % (Auto) 7.0 % 01/12/22 18:20 Eos % (Auto) 1.8 % 01/12/22 18:20 Baso % (Auto) 0.8 % 01/12/22 18:20 Neut # (Auto) 3.65 10^3/uL (1.8-7.7) 01/12/22 18:20 Lymph # (Auto) 2.8 10^3/uL (0.8-4.8) 01/12/22 18:20 [place] # (Auto) 0.5 10^3/uL (0.2-0.9) 01/12/22 18:20 Eos # (Auto) 0.1 10^3/uL (0.0-0.8) 01/12/22 18:20 Baso # (Auto) 0.1 10^3/uL (0.0-0.1) 01/12/22 18:20 Nucleated RBC % (auto) 0 % 01/12/22 18:20 Nucleated RBCs # 0.0 /100WBC 01/12/22 18:20 D-Dimer 2.88 ug/mIFEU (0-0.59) H 01/12/22 18:20 Sodium 130 mmol/L (136-145) L 01/12/22 18:20 Potassium 4.3 mmol/L (3.5-5.1) 01/12/22 18:20 Chloride 92 mmol/L (98-107) L 01/12/22 18:20 Carbon Dioxide 27 mmol/L (22-29) 01/12/22 18:20 Anion Gap 15.3 (5-19) 01/12/22 18:20 BUN 19 mg/dL (8-23) 01/12/22 18:20 Creatinine 1.3 mg/dL (0.7-1.2) H 01/12/22 18:20 GFR Calculation 55.9 mL/min (90-130) L 01/12/22 18:20 Glucose 77 mg/dL (65-115) 01/12/22 18:20 Calculated Osmolality 271 mOsm/kg (285-295) L 01/12/22 18:20 Calcium 9.8 mg/dL (8.5-10.5) 01/12/22 18:20 Total Bilirubin 1.2 mg/dL (0.15-1.2) 01/12/22 18:20 AST 27 U/L (0-40) 01/12/22 18:20 ALT 21 U/L (0-41) 01/12/22 18:20 Alkaline Phosphatase 90 U/L (40-130) 01/12/22 18:20 Troponin T Baseline 44 ng/L (0-15) H 01/12/22 18:20 Troponin T 120 Minute 41.49 ng/L (0-15) H 01/12/22 19:48 Delta Troponin T -2.51 ABS# (0-10) L 01/12/22 19:48 NT-Pro-B Natriuret Pep 8706 pg/mL (0-125) H 01/12/22 18:20 Total Protein 7.7 g/dL (6.6-8.7) 01/12/22 18:20 Albumin 4.3 g/dL (3.5-5.2) 01/12/22 18:20 Globulin 3.4 g/dL (1.3-4.6) 01/12/22 18:20 Lipase 40 U/L (13-60) 01/12/22 18:20 Coronavirus 229E (PCR) Not detected (NOT DETECT) 01/12/22 19:10 SARS-CoV-2 (PCR) Not detected (NOT DETECT) 01/12/22 19:10 Discharge Plan Discharge Patient Disposition: Admitted As Inpatient Admit Provider: Ngozi Moreno Clinical Impression: Chest pain, Acute on chronic congestive heart failure, Dyspnea on exertion Condition: Stable Coding Level of Care Code ED Women'S Studies Lecturer for Chg Fwd Exam Comprehensive
--- NOTE | 2022-01-12 18:14 | XRR_ITS ---
PROCEDURE INFORMATION: Exam: XR Chest Exam date and time: 01/12/2022 6:20 PM Age: 61 years old Clinical indication: Pain; Shortness of breath; Chest pressure; Additional info: Cp, cough, SOB TECHNIQUE: Imaging protocol: Radiologic exam of the chest. Views: 1 view. COMPARISON: CR (CHEST, ) 01/03/2022 12:55 AM FINDINGS: Lungs: Stable mild interstitial opacities in the lung bases. No consolidation. Pleural spaces: Unremarkable. No pleural effusion. No pneumothorax. Heart/Mediastinum: Slightly increased cardiomegaly. Bones/joints: Unremarkable. XR/XR chest 1V portable [id number] IMPRESSION: 1. Base slightly increased cardiomegaly with mild interstitial pulmonary edema.
[2022-01-12 18:28] LABS: Basophils # 0.1 10^3/uL (0.0-0.1); Basophils % 0.8 %; Eosinophils # 0.1 10^3/uL (0.0-0.8); Eosinophils % 1.8 %; Hematocrit 44.5 % (42.0-52.0); Hemoglobin 14.1 g/dL (11.7-16.6); Lymphocytes # 2.8 10^3/uL (0.8-4.8); Lymphocytes % 39.2 %; Mean Corpuscular HGB Conc 31.7 g/dL (30.0-36.0); Mean Corpuscular Hemoglobin 29.4 pg (28.0-34.0); Mean Corpuscular Volume 92.9 fl (80-94); Mean Platelet Volume 9.9 fL (7.4-10.4); Monocytes # 0.5 10^3/uL (0.2-0.9); Neutrophils # 3.65 10^3/uL (1.8-7.7); Neutrophils % 51.1 %; Nucleated Red Blood Cells % 0 %; Platelet Count 362 10^3/cmm (130-400); Red Blood Count 4.79 10^6/uL (4.1-5.3); Red Cell Distribution Width 16.3 % (12.1-15.1); White Blood Count 7.2 10^3/uL (4.0-10.0)
[2022-01-12] MEDS: morphine 4 mg/mL SDV 1 mL IVP (18:36)
[2022-01-12] MEDS: aspirin 81 mg Chew Tablet 324 MG PO (18:36)
[2022-01-12 18:48] LABS: D Dimer 2.88 ug/mIFEU (0-0.59)
--- NOTE | 2022-01-12 18:50 | CTR_ITS ---
PROCEDURE INFORMATION: Exam: CTA Chest With Contrast Exam date and time: 01/12/2022 7:05 PM Age: 61 years old Clinical indication: Abdominal tenderness; Shortness of breath; Additional info: SOB, elevated ddimer, ruq pain TECHNIQUE: Imaging protocol: Computed tomographic angiography of the chest with contrast. 3D rendering (Not supervised by radiologist): MIP and/or 3D reconstructed images were created by the technologist. Radiation optimization: All CT scans at this facility use at least one of these dose optimization techniques: automated exposure control; mA and/or kV adjustment per patient size (includes targeted exams where dose is matched to clinical indication); or iterative reconstruction. Contrast material: OMNIPAQUE 350; Contrast volume: 100 ml; Contrast route: INTRAVENOUS (IV); COMPARISON: CT angio chest PE protcl [id number] 12/19/2021 5:05 AM RADIATION DOSE METRICS: Total DLP (mGy-cm): 646.05 FINDINGS: Pulmonary arteries: There is noncontrast opacification of small pulmonary artery branches in the lower lobes due to contrast bolus timing. No definite filling defect identified in the pulmonary arteries. Aorta: Unremarkable. No aortic aneurysm. No aortic dissection. Veins: The pulmonary veins are not opacified with contrast, reflective of bolus timing. Lungs: Emphysema. Mild atelectasis in both lungs. Mild mosaic attenuation in the lower lobes, consistent with mild air trapping due to small airways disease. No consolidation. Pleural spaces: Unremarkable. No pneumothorax. No pleural effusion. Heart: Cardiomegaly. Lymph nodes: Prominent mediastinal and hilar lymph nodes, similar to the prior study. Bones/joints: Unremarkable. No acute fracture. Soft tissues: Unremarkable. PROCEDURE INFORMATION: Exam: CT Abdomen And Pelvis With Contrast Exam date and time: 01/12/2022 7:05 PM Age: 61 years old Clinical indication: Abdominal tenderness; Shortness of breath; Additional info: SOB, elevated ddimer, ruq pain TECHNIQUE: Imaging protocol: Computed tomography of the abdomen and pelvis with contrast. Radiation optimization: All CT scans at this facility use at least one of these dose optimization techniques: automated exposure control; mA and/or kV adjustment per patient size (includes targeted exams where dose is matched to clinical indication); or iterative reconstruction. Contrast material: OMNIPAQUE 350; Contrast volume: 100 ml; Contrast route: INTRAVENOUS (IV); COMPARISON: CT abdomen pelvis wo con [id number] 01/03/2022 3:26 AM RADIATION DOSE METRICS: Total DLP (mGy-cm): 646.05 FINDINGS: Liver: Inhomogenous liver, fatty infiltration versus possible cirrhosis. Gallbladder and bile ducts: Normal. No calcified stones. No ductal dilation. Pancreas: Normal. No ductal dilation. Spleen: Normal. No splenomegaly. Adrenal glands: Normal. No mass. Kidneys and ureters: Normal. No hydronephrosis. Stomach and bowel: Oval hyperdensity in the lumen of the splenic flexure portion of the colon is most likely an undissolved medication capsule. Moderate stool scattered throughout the colon. No wall thickening. The stomach and small bowel are unremarkable. No obstruction. Appendix: The appendix is not visualized. No secondary signs of appendicitis. Intraperitoneal space: Mild ascites in all 4 quadrants of the abdomen and pelvis. No free peritoneal gas. Vasculature: Arterial calcifications. No aneurysm. Lymph nodes: Unremarkable. No enlarged lymph nodes. Urinary bladder: Unremarkable as visualized. Reproductive: Mildly enlarged inhomogenous prostate. Bones/joints: Mild degenerative changes of the spine. No fracture. Soft tissues: Tiny fat containing umbilical hernia. CT/CT angio chest w abd pel w con IMPRESSION: 1. No evidence for pulmonary embolus. Study is nondiagnostic in the smaller branches of the lower lobes due to lack of contrast opacification, related to contrast bolus timing. 2. No acute pulmonary finding. 3. Prominent mediastinal and hilar lymph nodes are most likely reactive or inflammatory. IMPRESSION: 1. No acute finding in the abdomen or pelvis. 2. Inhomogenous liver could represent parenchymal disease or cirrhosis. 3. Mild ascites.
[2022-01-12 18:55] LABS: Troponin(5th) Baseline 44 ng/L (0-15)
[2022-01-12 19:04] LABS: Alanine Aminotransferase 21 U/L (0-41); Albumin Level 4.3 g/dL (3.5-5.2); Alkaline Phosphatase 90 U/L (40-130); Aspartate Amino Transferase 27 U/L (0-40); Blood Urea Nitrogen 19 mg/dL (8-23); Calcium 9.8 mg/dL (8.5-10.5); Carbon Dioxide 27 mmol/L (22-29); Chloride 92 mmol/L (98-107); Globulin 3.4 g/dL (1.3-4.6); Glomerular Filtration Rate 55.9 mL/min (90-130); Glucose 77 mg/dL (65-115); Lipase 40 U/L (13-60); NT Pro B Type Natriuretic Pept 8706 pg/mL (0-125); Osmolality Calculated 271 mOsm/kg (285-295); Sodium 130 mmol/L (136-145); Total Bilirubin 1.2 mg/dL (0.15-1.2); Total Protein 7.7 g/dL (6.6-8.7)
[2022-01-12] MEDS: iohexol 350 mg/mL 100 mL Btl IV (19:07)
[2022-01-12 19:08] LABS: Anion Gap 15.3 (5-19); Potassium 4.3 mmol/L (3.5-5.1)
[2022-01-12 20:14] LABS: Troponin 5 2HR 41.49 ng/L (0-15); Troponin 5 2HR Delta -2.51 ABS# (0-10)
--- NOTE | 2022-01-12 20:14 | ECG_ITS ---
[facility] Test Date: 2022-01-12 Pat Name: Parish Camp Department: Room: Gender: Male Data Collection Associate: : 1960 Requested By: Alan Amanda Order Number: [id number] Isaura MD: Fanny Hyde M.D. Measurements Intervals [place] Rate: 92 P: 73 [place]: 185 QRS: 259 QRSD: 184 T: 81 QT: 431 QTc: 535 Interpretive Statements SINUS RHYTHM LEFT ATRIAL ENLARGEMENT [-0.15mV P-WAVE IN V1/V2] RIGHT AXIS DEVIATION [QRS AXIS > 100] INTRAVENTRICULAR CONDUCTION DELAY [130+ ms QRS DURATION] Compared to ECG 01/12/2022 18:00:51 Right-axis deviation now present Left-axis deviation no longer present Electronically Signed On 01-14-2022 23:13:43 CDT by Fanny Hyde M.D. [id number]
[2022-01-12 21:06] LABS: Adenovirus Not Detected (NOT DETECT); Chlamydia Pneumoniae Not Detected (NOT DETECT); Coronavirus 229E,HKU1,NL63,OC4 Not Detected (NOT DETECT); Human Metapneumovirus Not Detected (NOT DETECT); Human Rhinovirus/Enterovirus Not Detected (NOT DETECT); Influenza A Not Detected (NOT DETECT); Influenza A H1 Not Detected (NOT DETECT); Influenza A H1-2009 Not Detected (NOT DETECT); Influenza A H3 Not Detected (NOT DETECT); Influenza B Not Detected (NOT DETECT); Mycoplasma Pneumoniae Not Detected (NOT DETECT); Parainfluenza Virus Type 1 Not Detected (NOT DETECT); Parainfluenza Virus Type 2 Not Detected (NOT DETECT); Parainfluenza Virus Type 3 Not Detected (NOT DETECT); Parainfluenza Virus Type 4 Not Detected (NOT DETECT); Respiratory Syncytial Virus A Not Detected (NOT DETECT); Respiratory Syncytial Virus B Not Detected (NOT DETECT); SARS-COV-2 Not Detected (NOT DETECT)
[2022-01-12] MEDS: FUROsemide 10 mg/mL SDV 10mL 80 MG IVP (21:43)
--- NOTE | 2022-01-12 23:40 | PM.HP ---
Providers/Chief Complaint Admitting Physician: Ngozi Moreno MD Chief Complaint: Chest pains History of Present Illness Parish Camp is a 61 year old male who with known nonischemic cardiomyopathy, accelerated hypertension, multiple episodes of hypertensive urgency, very noncompliant with medications and dietary instructions. He is presenting today with complaints of shortness of breath. States that his exercise tolerance is much lower than usual, he is unable to ambulate a few steps within the house without getting short of breath. Also reports orthopnea and PND. He does not exactly know his medications. He was seen by cardiology in their office on January 10, 2022 at which time dose of his Lasix was increased to 80 mg p.o. twice daily however this does not have a significant improvement therefore he presented to the emergency room today. He denies any current chest pain palpitations or syncope. He is needing 2 L/min supplemental oxygen today. His systolic blood pressure has been ranging between 1 50-1 70 and states that this is his usual range at home as well. He was recently admitted to the hospital on December 19, 2021 and diagnosed with a segmental to subsegmental PE on the right lower lobe. He is currently on Eliquis for this reason. Appears that he was also diagnosed with community-acquired pneumonia for which she received treatment with ceftriaxone and levofloxacin for 7 days. He had additionally described right upper quadrant pain upon arrival at the ER, resolved now, the liver did show some inhomogeneous enhancement suspicious for cirrhosis and mild ascites. Review of Systems General: Reports: 10 or more systems reviewed and unremarkable except in HPI and below Const: Denies: fever(s), chills or body aches Eyes: Denies: change in vision, blurry vision or photophobia ENMT: Reports: hoarseness; Denies: throat pain, enlarged tonsils, odynophagia or nasal congestion Card: Denies: chest pain, palpitations, irregular heart rhythm, edema, swelling of feet/ankles, lightheadedness, pre-syncope, dyspnea on exertion or orthopnea Resp: Denies: dyspnea, productive cough, non-productive cough, wheezing, stridor, pain on inspiration, change in phlegm color, hemoptysis or chest congestion GI: Denies: abdominal pain, nausea, vomiting, hematemesis, coffee ground emesis, dysphagia, heartburn, diarrhea, constipation, GI cramping, change in stool character, hematochezia or melena : Denies: flank pain, dysuria, urinary frequency, urinary urgency, urinary hesitancy or hematuria Musc: Denies: neck pain, back pain, extremity pain, joint swelling, joint warmth or deformity Neuro: Denies: headache(s), numbness in extremities, weakness in extremities, sensory changes, difficulty walking, frequent falls, dizziness, vertigo, behavioral changes, Slurred speech present or seizure-like activity Psych: Denies: anxiety, depression, suicidal ideation or homicidal ideation Endo: Denies: polyuria, polydipsia, tired all the time, cold intolerance or hot flashes Jerel/Lymph: Denies: easy bruising or easy bleeding Medications/Allergies Home Medications Medication Instructions Recorded Confirmed Last Taken Type albuterol sulfate 90 mcg/actuation 2 puff inhalation QID PRN 08/24/21 01/10/22 Unknown Rx aerosol inhaler (ProAir HFA) shortness of breath or wheezing #6.7 grams nitroglycerin 0.4 mg sublingual 0.4 mg sublingual Q5M PRN Chest 09/03/21 01/10/22 Unknown Rx tablet Pain #10 tabs simethicone 166 mg capsule 166 - 332 mg PO DAILY PRN unknown 12/19/21 01/10/22 Unknown History apixaban 5 mg (74 tabs) tablets in See Rx Instructions PO .COMPLEX 12/20/21 01/10/22 Unknown Rx a dose pack (ScyronquNanoInk DVT-PE Treat #74 ea 30D Start) aspirin 81 mg tablet,delayed 81 mg PO DAILY 30 days #30 tabs 12/20/21 01/10/22 Unknown Rx release fluticasone 250 mcg-salmeterol 50 1 puff inhalation BID.RESPIRATORY 12/20/21 01/10/22 Unknown Rx mcg/dose blistr powdr for 30 days #1 ea inhalation (Advair Diskus) hydralazine 50 mg tablet 50 mg PO TID 30 days #90 tabs 12/20/21 01/10/22 Unknown Rx ondansetron 4 mg disintegrating 4 mg PO Q8H PRN nausea and 01/03/22 01/10/22 Unknown Rx tablet vomiting #15 tabs oxycodone 5 mg tablet 5 mg PO Q4H PRN pain #10 tabs 01/03/22 01/10/22 Unknown Rx furosemide 40 mg tablet 120 mg PO DIRECTED #90 tabs 01/10/22 01/10/22 Unknown Rx metolazone 5 mg tablet 5 mg PO DAILY #30 tabs 01/10/22 01/10/22 Unknown Rx polyethylene glycol 3350 17 gram 17 g PO DAILY PRN 01/10/22 01/10/22 Unknown History oral powder packet (Miralax) potassium chloride 20 mEq 60 meq PO DIRECTED #90 tabs 01/10/22 01/10/22 Unknown Rx tablet,extended release Allergies Allergy/AdvReac Type Severity Reaction Status Date / Time ibuprofen Allergy Mild Rash Verified 12/19/21 04:36 naproxen Allergy Mild Rash Verified 12/19/21 04:36 yellow dye Allergy Mild Rash Verified 12/19/21 04:36 losartan Allergy Unknown Unknown Verified 12/19/21 04:36 lisinopril AdvReac Mild Cough Verified 12/19/21 04:36 PFSH Acute PFSH: Medical History Accelerated hypertension Cardiomyopathy Cardiomyopathy Chest pain Congestive heart failure COPD (chronic obstructive pulmonary disease) Emphysema/COPD Epigastric pain Hypertension Hypertensive urgency Hypothyroidism Malignant hypertension Mesenteric angina Pneumonia Surgical History History of surgery of head Family History Other CAD (coronary artery disease) Social History Smoking and tobacco status: current every day smoker Second hand smoke exposure: Yes Smoking risk assessment/counseling performed?: No Alcohol intake: never Desire information about alcohol rehabilitation?: No Counseling given: No Desire information about substance/drug rehabilitation?: No Counseling given: No Adopted: No Caregiver/support person: No Lives independently: Yes Household members: spouse Housing: House Marital status: Number of children: 4 service: No Current occupational status: disabled Vitals/I&O/Wt Last Vital Signs Temp 98.3 F 01/12/22 17:53 Pulse 104 H 01/12/22 22:00 Resp 21 H 01/12/22 18:36 BP 155/108 01/12/22 17:53 Pulse Ox 97 01/12/22 17:53 O2 Del Method 01/12/22 22:00 01/12/22 01/12/22 01/13/22 14:59 22:59 06:59 Intake Total 0 / 0 Balance 0 / 0 Weight last 48 hrs Weight 72.575 kg Weight 73.028 kg Physical Exam Narrative: General: No acute distress, AO x3 HEENT: PERRLA, pupils bilaterally equal and reactive, pallors not present Chest: Normal vesicular breath sounds, no added sounds, equal good air entry bilaterally CVS: S1-S2 regular, no murmurs, no tachycardia, no gallops, no rubs Abdomen: Soft, nontender, no organomegaly, bowel sounds present Neuro: No focal deficits, no facial deformity, AO x3, power 5/5 in all limbs Extremities: B/L pitting edema Data : 01/12/22 18:20 01/13/22 01:20 Other Labs: Radiology Impressions Chest X-Ray 01/12/22 18:14 IMPRESSION: 1. Base slightly increased cardiomegaly with mild interstitial pulmonary edema. Chest/Abdomen/Pelvis CT 01/12/22 18:50 IMPRESSION: 1. No evidence for pulmonary embolus. Study is nondiagnostic in the smaller branches of the lower lobes due to lack of contrast opacification, related to contrast bolus timing. 2. No acute pulmonary finding. 3. Prominent mediastinal and hilar lymph nodes are most likely reactive or inflammatory. IMPRESSION: 1. No acute finding in the abdomen or pelvis. 2. Inhomogenous liver could represent parenchymal disease or cirrhosis. 3. Mild ascites. Laboratory Results WBC 7.2 10^3/uL (4.0-10.0) 01/12/22 18:20 RBC 4.79 10^6/uL (4.1-5.3) 01/12/22 18:20 Hgb 14.1 g/dL (11.7-16.6) 01/12/22 18:20 Hct 44.5 % (42.0-52.0) 01/12/22 18:20 MCV 92.9 fl (80-94) 01/12/22 18:20 MCH 29.4 pg (28.0-34.0) 01/12/22 18:20 MCHC 31.7 g/dL (30.0-36.0) 01/12/22 18:20 RDW 16.3 % (12.1-15.1) H 01/12/22 18:20 Plt Count 362 10^3/cmm (130-400) 01/12/22 18:20 MPV 9.9 fL (7.4-10.4) 01/12/22 18:20 Neut % (Auto) 51.1 % 01/12/22 18:20 Lymph % (Auto) 39.2 % 01/12/22 18:20 [place] % (Auto) 7.0 % 01/12/22 18:20 Eos % (Auto) 1.8 % 01/12/22 18:20 Baso % (Auto) 0.8 % 01/12/22 18:20 Neut # (Auto) 3.65 10^3/uL (1.8-7.7) 01/12/22 18:20 Lymph # (Auto) 2.8 10^3/uL (0.8-4.8) 01/12/22 18:20 [place] # (Auto) 0.5 10^3/uL (0.2-0.9) 01/12/22 18:20 Eos # (Auto) 0.1 10^3/uL (0.0-0.8) 01/12/22 18:20 Baso # (Auto) 0.1 10^3/uL (0.0-0.1) 01/12/22 18:20 Nucleated RBC % (auto) 0 % 01/12/22 18:20 Nucleated RBCs # 0.0 /100WBC 01/12/22 18:20 D-Dimer 2.88 ug/mIFEU (0-0.59) H 01/12/22 18:20 Sodium 136 mmol/L (136-145) 01/13/22 01:20 Potassium 3.6 mmol/L (3.5-5.1) 01/13/22 01:20 Chloride 96 mmol/L (98-107) L 01/13/22 01:20 Carbon Dioxide 27 mmol/L (22-29) 01/13/22 01:20 Anion Gap 16.6 (5-19) 01/13/22 01:20 BUN 18 mg/dL (8-23) 01/13/22 01:20 Creatinine 1.3 mg/dL (0.7-1.2) H 01/13/22 01:20 GFR Calculation 55.9 mL/min (90-130) L 01/13/22 01:20 Glucose 101 mg/dL (65-115) 01/13/22 01:20 Calculated Osmolality 284 mOsm/kg (285-295) L 01/13/22 01:20 Calcium 9.5 mg/dL (8.5-10.5) 01/13/22 01:20 Magnesium 2.1 mg/dL (1.7-2.3) 01/13/22 01:20 Total Bilirubin 1.3 mg/dL (0.15-1.2) H 01/13/22 01:20 AST 22 U/L (0-40) 01/13/22 01:20 ALT 19 U/L (0-41) 01/13/22 01:20 Alkaline Phosphatase 79 U/L (40-130) 01/13/22 01:20 Troponin T Baseline 44 ng/L (0-15) H 01/12/22 18:20 Troponin T 120 Minute 41.49 ng/L (0-15) H 01/12/22 19:48 Delta Troponin T -2.51 ABS# (0-10) L 01/12/22 19:48 Troponin T Hi Sens 6Hr 45.26 ng/L (0-15) H 01/13/22 01:20 Troponin T Hi Sens 6Hr Delta 1.26 ng/L (0-12) 01/13/22 01:20 NT-Pro-B Natriuret Pep 8706 pg/mL (0-125) H 01/12/22 18:20 Total Protein 7.5 g/dL (6.6-8.7) 01/13/22 01:20 Albumin 4.1 g/dL (3.5-5.2) 01/13/22 01:20 Globulin 3.4 g/dL (1.3-4.6) 01/13/22 01:20 Lipase 40 U/L (13-60) 01/12/22 18:20 Coronavirus 229E (PCR) Not detected (NOT DETECT) 01/12/22 19:10 SARS-CoV-2 (PCR) Not detected (NOT DETECT) 01/12/22 19:10 A&P Assessment and plan (1) Acute on chronic congestive heart failure: Patient presenting today with worsening dyspnea on exertion, orthopnea, increased swelling, no significant response to increasing his oral diuretics recently. Chest x-ray shows bilateral pulmonary infiltrates, elevated BNP, and clinical findings suggestive of acute on chronic CHF exacerbation. His last known EF was known to be at 52% from a past history of having been at 10% 2 years ago. I do not see a formal echocardiogram recently. He had a stress test recently on December 20, 2021 at which time note is made of severely reduced LV systolic function, ejection fraction not specified. We will obtain complete echocardiogram today as worsening EF may be the cause of acute worsening of his CHF. His recent stress test was negative for reversible ischemia. Baseline troponin today is at 44, trending down at 2 and 6 hours. Patient will be admitted to the cardiac stepdown. Lasix 60 mg IV every 12 hours. He has received 80 mg of IV Lasix in the emergency room Continue metolazone 5 mg p.o. daily Monitor urine output closely. Continue home doses of aspirin 81 mg p.o. daily. Continue hydralazine for high blood pressure. It appears he is allergic to lisinopril. It appears patient was taken off carvedilol in the past as it made him feel very fatigued. His heart rate is ranging between 90-1 10 today. We will start metoprolol today. Attestations Medical Necessity Statement*: Greater than 2 midnight admission is anticipated for acute on chronic CHF exacerbation, likely systolic, needs IV diuresis. Coding Level of Care Code Acute Farrowing Manager for Vamsi Alcantara Diagnoses Acute on chronic congestive heart failure I50.9
[2022-01-12] MEDS: hyDRALAzine 50 mg Tablet PO (23:43)
[2022-01-13] VITALS (47 sets, daily range): BP systolic 127–170; BP diastolic 79–124; PULSE 52–105; RESP 10–26; TEMP 36.3–37.1; O2SAT 93–100
--- NOTE | 2022-01-13 00:01 | ECG_ITS ---
[facility] Test Date: 2022-01-13 Pat Name: Parish Camp Department: Room: 275 Gender: Male Relay Record Clerk: : 1960 Requested By: Alan Amanda Order Number: [id number] Isaura MD: Fanny Hyde M.D. Measurements Intervals [place] Rate: 99 P: 48 CT: 182 QRS: -58 QRSD: 181 T: 111 QT: 420 QTc: 541 Interpretive Statements SINUS RHYTHM LEFT ATRIAL ENLARGEMENT [-0.15mV P-WAVE IN V1/V2] LEFT AXIS DEVIATION [QRS AXIS < -30] LEFT BUNDLE BRANCH BLOCK Compared to ECG 01/12/2022 19:53:18 Left-axis deviation now present Left bundle-branch block now present Right-axis deviation no longer present Intraventricular conduction delay no longer present Electronically Signed On 01-14-2022 23:11:44 CDT by Fanny Hyde M.D. [id number]
[2022-01-13 01:52] LABS: Alanine Aminotransferase 19 U/L (0-41); Albumin Level 4.1 g/dL (3.5-5.2); Alkaline Phosphatase 79 U/L (40-130); Aspartate Amino Transferase 22 U/L (0-40); Blood Urea Nitrogen 18 mg/dL (8-23); Calcium 9.5 mg/dL (8.5-10.5); Carbon Dioxide 27 mmol/L (22-29); Chloride 96 mmol/L (98-107); Globulin 3.4 g/dL (1.3-4.6); Glomerular Filtration Rate 55.9 mL/min (90-130); Glucose 101 mg/dL (65-115); Magnesium 2.1 mg/dL (1.7-2.3); Osmolality Calculated 284 mOsm/kg (285-295); Sodium 136 mmol/L (136-145); Total Bilirubin 1.3 mg/dL (0.15-1.2); Total Protein 7.5 g/dL (6.6-8.7); Troponin 5 6HR 45.26 ng/L (0-15)
[2022-01-13 01:53] LABS: Anion Gap 16.6 (5-19); Potassium 3.6 mmol/L (3.5-5.1)
[2022-01-13 01:57] LABS: Troponin 5 6HR Delta 1.26 ng/L (0-12)
[2022-01-13] MEDS: ipratropium-albuterol 3 mL Neb INHALATION ×3 (02:59→19:43)
--- NOTE | 2022-01-13 05:47 | USCV_ITS ---
Parish Camp Age: 61 Gender: M : 1960 Exam Date: 01/13/2022 06:57 Ordering Phys: Ngozi Moreno MD Technologist: Exam [place] [facility] [place]: CHF BP: 153 / 97 HR: 95 Rhythm: Sinus Technical Quality: Adequate MEASUREMENTS (Male / Female) Normal Values 2D ECHO LV Diastolic Diameter PLAX 6.5 cm 4.2 - 5.9 / 3.9 - 5.3 cm LV Systolic Diameter PLAX 5.5 cm IVS Diastolic Thickness 1.1 cm 0.6 - 1.0 / 0.6 - 0.9 cm IVS Systolic Thickness 1.4 cm LVPW Diastolic Thickness 1.3 cm 0.6 - 1.0 / 0.6 - 0.9 cm LVPW Systolic Thickness 1.2 cm LVOT Diameter 2.0 cm LV Ejection Fraction 2D Teich 25.2 % LV Ejection Fraction MOD 2C 17.5 % LV Ejection Fraction 2C AL 17.7 % LA Diameter 4.2 cm IVC Diameter 1.9 cm M-MODE Aortic Annulus Diameter 3.5 cm LA Ao Ratio MM 1.2 MV E Point Septal Separation 3.3 cm FINDINGS Left Ventricle Dilated left ventricle. Severely decreased left ventricular systolic function. Left ventricular ejection fraction is estimated at 20-25 %. Severe global hypokinesis. Abnormal septal motion consistent with conduction abnormality. Right Ventricle Normal right ventricular size and systolic function. Right Atrium Normal right atrial size. Right atrial pressure estimated at 15 mmHg. Left Atrium Moderately increased left atrial size. Mitral Valve Moderately thickened mitral valve. Aortic Valve Aortic valve not well visualized. Mildly thickened trileaflet aortic valve. Tricuspid Valve Structurally normal tricuspid valve. Pulmonic Valve Pulmonic valve not well visualized. Pericardium No pericardial effusion. Aorta Normal-sized aortic root. IVC Dilated IVC with decreased respiratory variation. CONCLUSIONS 1. This is a limited echocardiogram. 2. Dilated left ventricle. Severely decreased left ventricular systolic function. Left ventricular ejection fraction is estimated at 20-25 %. Severe global hypokinesis. 3. There has been no significant change when compared to study dated 09/01/2021. Fanny Hyde MD (Electronically Signed) Final Date: 14 January 2022 11:34 S
--- NOTE | 2022-01-13 07:45 | P.CONIM_ITS ---
Providers/Reason For Consult Consulting Physician/Specialty*: Dr. Hyde , Cardiology Reason for Consult*: CHF, SOB Attending Physician: Ngozi Moreno MD History of Present Illness History of Present Illness Parish Camp is a 61 year old male with PMHx of nonischemic cardiomyopathy and has declined ICD in past, accelerated hypertension, h/o noncompliance with medications and dietary instructions was hospitalized with complaints of shortness of breath.? He gets SOB while walking within the house, orthopnea and PND.?He was seen by in my office on January 10, 2022 and Lasix was increased to 80 mg p.o. twice daily and metolazone was added. There was no improvement therefore he presented to the emergency room today.? He denies any current chest pain palpitations or syncope.? He also complaints of RLQ pain more so on bending over. CT abdomen showed liver with some inhomogeneous enhancement suspicious for cirrhosis and mild ascites. He was recently admitted to the hospital on December 19, 2021 with a segmental to subsegmental PE on the right lower lobe and is on Eliquis.? He was also diagnosed with community-acquired pneumonia.He has been started on IV lasix and at the [facility] pf exam feels better. Review of Systems Const: Denies: fever(s) or chills Eyes: Denies: change in vision Card: Reports: swelling of feet/ankles, dyspnea on exertion and orthopnea; Denies: chest pain, palpitations or lightheadedness Resp: Reports: dyspnea, productive cough and non-productive cough GI: Reports: other (RLQ Pain); Denies: abdominal pain, nausea or vomiting Musc: Reports: neck pain, back pain and joint pain Neuro: Denies: headache(s) or dizziness Psych: Denies: anxiety or depression Jerel/Lymph: Reports: easy bleeding; Denies: easy bruising Medications/Allergies Home Medications Medication Instructions Recorded Confirmed Last Taken Type albuterol sulfate 90 mcg/actuation 2 puff inhalation QID PRN 08/24/21 01/10/22 Unknown Rx aerosol inhaler (ProAir HFA) shortness of breath or wheezing #6.7 grams nitroglycerin 0.4 mg sublingual 0.4 mg sublingual Q5M PRN Chest 09/03/21 01/10/22 Unknown Rx tablet Pain #10 tabs simethicone 166 mg capsule 166 - 332 mg PO DAILY PRN unknown 12/19/21 01/10/22 Unknown History apixaban 5 mg (74 tabs) tablets in See Rx Instructions PO .COMPLEX 12/20/21 01/10/22 Unknown Rx a dose pack (Eliquis DVT-PE Treat #74 ea 30D Start) aspirin 81 mg tablet,delayed 81 mg PO DAILY 30 days #30 tabs 12/20/21 01/10/22 Unknown Rx release fluticasone 250 mcg-salmeterol 50 1 puff inhalation BID.RESPIRATORY 12/20/21 01/10/22 Unknown Rx mcg/dose blistr powdr for 30 days #1 ea inhalation (Advair Diskus) hydralazine 50 mg tablet 50 mg PO TID 30 days #90 tabs 12/20/21 01/10/22 Unknown Rx ondansetron 4 mg disintegrating 4 mg PO Q8H PRN nausea and 01/03/22 01/10/22 Unknown Rx tablet vomiting #15 tabs oxycodone 5 mg tablet 5 mg PO Q4H PRN pain #10 tabs 01/03/22 01/10/22 Unknown Rx furosemide 40 mg tablet 120 mg PO DIRECTED #90 tabs 01/10/22 01/10/22 Unknown Rx metolazone 5 mg tablet 5 mg PO DAILY #30 tabs 01/10/22 01/10/22 Unknown Rx polyethylene glycol 3350 17 gram 17 g PO DAILY PRN 01/10/22 01/10/22 Unknown History oral powder packet (Miralax) potassium chloride 20 mEq 60 meq PO DIRECTED #90 tabs 01/10/22 01/10/22 Unknown Rx tablet,extended release Allergies Allergy/AdvReac Type Severity Reaction Status Date / Time ibuprofen Allergy Mild Rash Verified 12/19/21 04:36 naproxen Allergy Mild Rash Verified 12/19/21 04:36 yellow dye Allergy Mild Rash Verified 12/19/21 04:36 losartan Allergy Unknown Unknown Verified 12/19/21 04:36 lisinopril AdvReac Mild Cough Verified 12/19/21 04:36 Current Medications Generic Name Dose Route Start Last Admin Trade Name Freq PRN Reason Stop Dose Admin Albuterol/Ipratropium 3 ml 01/13/22 02:00 01/13/22 02:59 Ipratropium-Albuterol 3 Ml Neb INHALATION 3 ml Q6H.RESP YONATAN Administration Hydralazine HCl 50 mg 01/12/22 23:30 01/12/22 23:43 Hydralazine 50 Mg Tablet PO 50 mg TID YONATAN Administration PFSH Acute PFSH: Medical History Accelerated hypertension Cardiomyopathy Cardiomyopathy Chest pain Congestive heart failure COPD (chronic obstructive pulmonary disease) Emphysema/COPD Epigastric pain Hypertension Hypertensive urgency Hypothyroidism Malignant hypertension Mesenteric angina Pneumonia Surgical History History of surgery of head Family History Other CAD (coronary artery disease) Social History Smoking and tobacco status: current every day smoker Second hand smoke exposure: Yes Smoking risk assessment/counseling performed?: No Alcohol intake: never Desire information about alcohol rehabilitation?: No Counseling given: No Desire information about substance/drug rehabilitation?: No Counseling given: No Adopted: No Caregiver/support person: No Lives independently: Yes Household members: spouse Housing: House Marital status: Number of children: 4 service: No Current occupational status: disabled Vitals/I&O/Wt Last Vital Signs Temp 98.6 F 01/13/22 07:35 Pulse 91 01/13/22 07:35 Resp 18 01/13/22 07:35 BP 127/97 01/13/22 07:35 Pulse Ox 94 01/13/22 07:35 O2 Del Method 01/13/22 07:35 O2 Flow Rate 2 01/13/22 07:35 01/12/22 01/13/22 01/13/22 22:59 06:59 14:59 Intake Total 0 / 0 360 / 360 Output Total 3465 / 3465 Balance 0 / 0 -3105 / -3105 Weight last 48 hrs Weight 160 lb Weight 161 lb Physical Exam Narrative: Gen: NAD, sitting comfortably in bed Neck/HEENT: No JVD, No pallor or icterus RS: CTAB/L, No wheezes, Mild bibasilar rales CVS: S1, S2 regular, No murmur, rub or gallop Ext: 1+ edema, cyanosis or clubbing PA: Soft, ND, mild abdominal tenderness; BS2+ DRAWER IN STITCH BONDING MACHINE: AAOx3, No FND Data : 01/14/22 05:00 01/14/22 05:00 Other data: Chest X-Ray? 01/12/22 18:14 IMPRESSION: 1. Base slightly increased cardiomegaly with mild interstitial pulmonary edema.? ? Chest/Abdomen/Pelvis CT? 01/12/22 18:50 IMPRESSION: 1. No evidence for pulmonary embolus.? Study is nondiagnostic in the smaller branches of the lower lobes due to lack of contrast opacification, related to contrast bolus timing. 2. No acute pulmonary finding. 3. Prominent mediastinal and hilar lymph nodes are most likely reactive or inflammatory.? ? IMPRESSION: 1. No acute finding in the abdomen or pelvis. 2. Inhomogenous liver could represent parenchymal disease or cirrhosis. 3. Mild ascites. A&P Assessment and plan (1) Acute on chronic congestive heart failure: Continue with IV diuresis -monitor I/O and daily weight (2) Hypertension: (3) COPD (chronic obstructive pulmonary disease): Plan CASANDRA elevated troponin 2/2 decompensated CHF LBBB Recent PE Abdominal pain h/o non compliance Thank you for allowing me to participate in patient's care. Please feel free to call with questions or concerns. Coding Level of Care Code Acute Commission Sales Associate for Vamsi Alcantara Diagnoses Acute on chronic congestive heart failure I50.9 Hypertension I10 COPD (chronic obstructive pulmonary disease) J44.9
[2022-01-13] MEDS: aspirin 81 mg EC Tablet PO (09:22)
[2022-01-13] MEDS: metoprolol tartrate 25 mg Tablet PO ×2 (09:23→21:21)
[2022-01-13] MEDS: pantoprazole DR 40 mg Tablet PO (09:23)
[2022-01-13] MEDS: hyDRALAzine 50 mg Tablet PO (09:23)
[2022-01-13] MEDS: metOLazone 5 MG Tablet PO (09:23)
[2022-01-13] MEDS: apixaban 5 mg Tablet PO ×2 (09:23→18:56)
[2022-01-13] MEDS: FUROsemide 10 mg/mL SDV 10mL 60 MG IVP ×2 (09:24→21:21)
--- NOTE | 2022-01-13 11:12 | PM.PN ---
Subjective Subjective: Patient was seen this morning, he is on 2 L, he tells me he feels a lot better, his edema has improved his shortness of breath has improved, no chest pain reported Vitals/I&O/Wt Last Vital Signs Temp 98.6 F 01/13/22 07:35 Pulse 85 01/13/22 07:50 Resp 16 01/13/22 07:50 BP 127/97 01/13/22 07:35 Pulse Ox 100 01/13/22 07:50 O2 Del Method 01/13/22 07:50 O2 Flow Rate 1.5 01/13/22 07:50 01/12/22 01/13/22 01/13/22 22:59 06:59 14:59 Intake Total 0 / 0 360 / 360 Output Total 3465 / 3465 Balance 0 / 0 -3105 / -3105 Weight last 48 hrs Weight 72.575 kg Weight 73.028 kg Physical Exam Const: COMMON NORMALS: no acute distress and patient oriented x3 Resp: COMMON NORMALS: normal respiratory effort, No retractions and No use of accessory muscles OTHER: Crackles on examination Cardio: COMMON NORMALS: regular rate, regular rhythm, S1 normal heart sound present and S2 normal heart sound present RATE: regular rate RHYTHM: regular rhythm HEART SOUNDS: S1 normal heart sound present and S2 normal heart sound present GI: COMMON NORMALS: Normal to inspection, nondistended, normoactive bowel sounds present, Soft to palpation and non-tender PALPATION: Yes Soft to palpation Extremity: COMMON NORMALS: no pedal edema Neuro: COMMON NORMALS: patient oriented x3 Psych: COMMON NORMALS: mental status grossly normal Data : 01/12/22 18:20 01/13/22 01:20 A&P Assessment and plan (1) Acute on chronic congestive heart failure: Patient presenting today with worsening dyspnea on exertion, orthopnea, increased swelling, no significant response to increasing his oral diuretics recently. Chest x-ray shows bilateral pulmonary infiltrates, elevated BNP, and clinical findings suggestive of acute on chronic CHF exacerbation. His last known EF was known to be at 52% from a past history of having been at 10% 2 years ago. I do not see a formal echocardiogram recently. He had a stress test recently on December 20, 2021 at which time note is made of severely reduced LV systolic function, ejection fraction not specified. We will obtain complete echocardiogram today as worsening EF may be the cause of acute worsening of his CHF. His recent stress test was negative for reversible ischemia. Baseline troponin today is at 44, trending down at 2 and 6 hours, no significant delta troponin Patient will be admitted to the cardiac stepdown. Lasix 60 mg IV every 12 hours. He has received 80 mg of IV Lasix in the emergency room Continue metolazone 5 mg p.o. daily Monitor urine output closely. Monitor potassium, monitor magnesium Continue home doses of aspirin 81 mg p.o. daily. Continue hydralazine for high blood pressure. It appears he is allergic to lisinopril. It appears patient was taken off carvedilol in the past as it made him feel very fatigued. His heart rate is ranging between 90-110 today. Metroprolol 25 twice daily, monitor heart rate Cardiac echocardiogram ordered. Cardiology consulted Recent history of pulmonary embolism, continue Eliquis Prominent mediastinal hilar lymph nodes, monitor CT scan showing inhomogenous liver represent parenchymal disease or cirrhosis, with ascites, monitor no abdominal pain complaints Attestations Medical Necessity Statement*: Patient requires hospitalization for CHF exacerbation Coding Level of Care Code Acute Tomb Maker Helper for Abdoulayeg Fwd Diagnoses Acute on chronic congestive heart failure I50.9
--- NOTE | 2022-01-13 12:20 | XRR_ITS ---
PROCEDURE INFORMATION: Exam: XR Chest Exam date and time: 01/13/2022 1:06 PM Age: 61 years old Clinical indication: Shortness of breath; Additional info: Short of breath TECHNIQUE: Imaging protocol: Radiologic exam of the chest. Views: 1 view. COMPARISON: CR (CHEST, ) 01/12/2022 6:20 PM FINDINGS: Lungs: Unremarkable. No consolidation. Pleural spaces: Unremarkable. No pleural effusion. No pneumothorax. Heart/Mediastinum: Unremarkable. No cardiomegaly. Bones/joints: Unremarkable. there has been no interval change comparing to prior examination XR/XR chest 1V portable [id number] IMPRESSION: No acute findings.
--- NOTE | 2022-01-13 12:51 | ECG_ITS ---
[facility] Test Date: 2022-01-13 Pat Name: [place] Department: Room: 275 Gender: Male Gate Operator: : 1960 Requested By: Preston Dc Order Number: [id number] Isaura MD: Fanny Hyde M.D. Measurements Intervals Goodman Rate: 59 P: 15 [place]: 184 QRS: -59 QRSD: 192 T: 134 QT: 511 QTc: 509 Interpretive Statements SINUS BRADYCARDIA LEFT ATRIAL ENLARGEMENT [-0.15mV P-WAVE IN V1/V2] LEFT AXIS DEVIATION [QRS AXIS < -30] LEFT BUNDLE BRANCH BLOCK [120+ ms QRS DURATION, 80+ ms Q/S IN V1/V2, 85+ ms R IN I/aVL/V5/V6] Compared to ECG 01/13/2022 00:01:30 Sinus rhythm no longer present Electronically Signed On 01-13-2022 21:58:47 CDT by Fanny Hyde M.D. [id number]
[2022-01-13] MEDS: saline nasal spray 44mL Btl 1 SPRAY NASAL (15:36)
--- NOTE | 2022-01-13 21:33 | PC.NURSE ---
Patient refused hydralazine. he states it makes his eyes water
[2022-01-13] MEDS: oxyCODONE 5 mg IR Tab/Cap PO (22:09)
[2022-01-13] MEDS: morphine 4 mg/mL SDV 1 mL 2 MG IVP (23:36)
[2022-01-14] VITALS (33 sets, daily range): BP systolic 103–159; BP diastolic 55–86; PULSE 48–99; RESP 14–20; TEMP 36.6–36.8; O2SAT 96–98
[2022-01-14] MEDS: ipratropium-albuterol 3 mL Neb INHALATION ×3 (02:56→20:45)
[2022-01-14 05:16] LABS: Basophils # 0.1 10^3/uL (0.0-0.1); Eosinophils # 0.5 10^3/uL (0.0-0.8); Eosinophils % 5.8 %; Hematocrit 45.4 % (42.0-52.0); Hemoglobin 15.2 g/dL (11.7-16.6); Lymphocytes % 22.7 %; Mean Corpuscular HGB Conc 33.5 g/dL (30.0-36.0); Mean Corpuscular Hemoglobin 30.1 pg (28.0-34.0); Mean Corpuscular Volume 89.9 fl (80-94); Mean Platelet Volume 10.4 fL (7.4-10.4); Monocytes # 0.9 10^3/uL (0.2-0.9); Monocytes % 10.2 %; Neutrophils # 5.18 10^3/uL (1.8-7.7); Neutrophils % 59.8 %; Nucleated Red Blood Cells % 0 %; Platelet Count 392 10^3/cmm (130-400); Red Blood Count 5.05 10^6/uL (4.1-5.3); White Blood Count 8.7 10^3/uL (4.0-10.0)
[2022-01-14 05:39] LABS: Anion Gap 16.1 (5-19); Blood Urea Nitrogen 30 mg/dL (8-23); Calcium 10.3 mg/dL (8.5-10.5); Carbon Dioxide 32 mmol/L (22-29); Chloride 87 mmol/L (98-107); Glomerular Filtration Rate 61.3 mL/min (90-130); Glucose 89 mg/dL (65-115); Magnesium 2.3 mg/dL (1.7-2.3); Osmolality Calculated 280 mOsm/kg (285-295); Potassium 3.1 mmol/L (3.5-5.1); Sodium 132 mmol/L (136-145)
[2022-01-14] MEDS: potassium chloride ER 20 mEq Tablet 40 MEQ PO (08:22)
[2022-01-14] MEDS: metOLazone 5 MG Tablet PO (08:25)
[2022-01-14] MEDS: aspirin 81 mg EC Tablet PO (08:25)
[2022-01-14] MEDS: apixaban 5 mg Tablet PO ×2 (08:25→17:00)
[2022-01-14] MEDS: pantoprazole DR 40 mg Tablet PO (08:25)
[2022-01-14] MEDS: metoprolol tartrate 25 mg Tablet PO ×2 (08:28→22:13)
[2022-01-14] MEDS: FUROsemide 10 mg/mL SDV 10mL 60 MG IVP (09:58)
--- NOTE | 2022-01-14 11:25 | P.PN_ITS ---
Subjective Subjective: UO ~9L, LOS -7 L He feels better. Medications: Reviewed: Yes Vitals/I&O/Wt Last Vital Signs Temp 98.2 F 01/14/22 08:00 Pulse 71 01/14/22 08:00 Resp 18 01/14/22 08:00 BP 141/76 01/14/22 08:00 Pulse Ox 96 01/14/22 08:00 O2 Del Method 01/14/22 08:00 O2 Flow Rate 1.5 01/13/22 07:50 01/13/22 01/14/22 01/14/22 22:59 06:59 14:59 Intake Total 240 / 716 480 / 1196 250 / 250 Output Total 1680 / 3080 1300 / 4380 850 / 850 Balance -1440 / -2364 -820 / -3184 -600 / -600 Weight last 48 hrs Weight 160 lb Weight 161 lb Physical Exam Narrative: Gen: NAD, sitting comfortably in bed Neck/HEENT: No JVD, No pallor or icterus RS: CTAB/L, No wheezes, Mild bibasilar rales CVS: S1, S2 regular, No murmur, rub or gallop Ext: 1+ edema, cyanosis or clubbing PA: Soft, ND, mild abdominal tenderness; BS2+ CNA INSTRUCTOR: AAOx3, No FND Data : 01/14/22 05:00 01/14/22 05:00 Other data: Procedure(s): Sestamibi Stress Test Request Conclusion: 1. ? Normal EKG response to Lexiscan infusion 2.? No Lexiscan induced chest pain or cardiac arrhythmia. 3.? Normal blood pressure and heart rate response. 4.? Sestamibi/sestamibi perfusion scan pending; see separate report. Electronically Signed On 12-29-2021 21:06:33 CDT by Reddy Lopez M.D. Date of Service: 12/20/21 Procedure(s): NM cassius perf SPECT r/s* [id number] ?IMPRESSIONS ?1. 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 LV systolic function is severely reduced ?Reddy Lopez MD? ?(Electronically Signed) Date of Service: 12/19/21 Procedure(s): CT angio chest PE protcl [id number] IMPRESSION: 1. The above pulmonary artery findings are likely secondary to segmental and subsegmental pulmonary emboli to the right lower lobe. However, as due to congestive heart failure, there is increased transit time through the pulmonary arteries and the pulmonary veins are not opacified, less likely these findings may represent admixture of opacified and unopacified blood in the pulmonary arteries. Consider correlation with a 2nd modality such as V/Q scan to confirm these findings. Alternatively, a repeat CTA may be obtained after successful treatment of the patient's CHF. 2. Ectasia (mild dilatation) of the ascending thoracic aorta. 3. Congestive heart failure with interstitial pulmonary edema. 4. A 5 mm nodule at the right lung base. Follow-up imaging for nodule of this size is not routinely recommended; however, for patients at high risk, consider follow-up CT scan of the chest in 12 months. Date of Service: 09/01/21 Procedure(s): CV. echo complete* [id number] ?CONCLUSIONS ?Severe diffuse hypokinesia left ventricle with ejection fraction?of around 25 to 30%.. ? Mildly dilated LV cavity. ?Mild biatrial enlargement. ?Thickened mitral valve. ?Moderate-severe mitral valve regurgitation. ?Moderate tricuspid valve regurgitation. ?Right atrial pressure was coagulated to be aroun 15 mmHg. ?Estimated pulmonary artery peak systolic pressure was 43 mmHg. ?There are no intracardiac masses. ?There is no pericardial effusion. ?Compared to the previous study from 09/13/2015, there is some ?improvement in LV ejection fraction and slight worsening of the?MR ?Dr Bismark Aragon MD [facility]? ?(Electronically Signed) A&P Assessment and plan (1) Acute on chronic congestive heart failure: Continue with IV diuresis -monitor I/O and daily weight -will add isodril to the regimen -transition to PO lasix 80 mg daily in morning -possible discharge tomorrow (2) Hypertension: (3) COPD (chronic obstructive pulmonary disease): Plan CASANDRA : creatinine improved on labs elevated troponin 2/2 decompensated CHF LBBB Recent PE Abdominal pain h/o non compliance Hypokalemia: replaced Thank you for allowing me to participate in patient's care. Please feel free to call with questions or concerns. Attestations Medical Necessity Statement*: needs hospital stay for CHF Coding Level of Care Code Acute Manager Non Profit for Chg Fwd Diagnoses Acute on chronic congestive heart failure I50.9 Hypertension I10 COPD (chronic obstructive pulmonary disease) J44.9
[2022-01-14] MEDS: isosorbide dinitrate 20 mg Tablet 10 MG PO ×2 (15:15→22:12)
[2022-01-14] MEDS: hyDRALAzine 50 mg Tablet PO ×2 (15:15→22:13)
--- NOTE | 2022-01-14 16:09 | PM.PN ---
Subjective Subjective: Patient reports improvement in shortness of breath and lower extremity edema. Endorses generalized fatigue and malaise. Denies nausea, emesis, chest pain or headaches. He reports that he continues to smoke cigarettes. Smoking cessation discussed. He is currently trying to quit smoking. He was weaned himself down to 2-3 cigarettes and even stopping some days. Reports it has been challenging. States with his morning coffee sometimes he will hold the cigarette but not light it. Discussed harmful effects on his health in particular his cardiac health. Strongly advised cessation. Support and suggestions on successful cessation discussed. Medications: Reviewed: Yes Vitals/I&O/Wt Last Vital Signs Temp 97.9 F 01/14/22 11:46 Pulse 70 01/14/22 14:44 Resp 18 01/14/22 14:39 BP 132/74 01/14/22 11:46 Pulse Ox 96 01/14/22 14:39 O2 Del Method 01/14/22 14:39 O2 Flow Rate 1.5 01/13/22 07:50 01/14/22 01/14/22 01/14/22 06:59 14:59 22:59 Intake Total 480 / 1196 250 / 250 Output Total 1300 / 4380 850 / 850 Balance -820 / -3184 -600 / -600 Weight last 48 hrs Weight 72.575 kg Weight 73.028 kg Physical Exam Narrative: General: Patient is awake and alert. Head: Normocephalic. Atraumatic. EOM intact. Neck: No JVD. Cardiovascular: No gallops. No murmurs. 1+ lower extremity edema. Lungs: Breath sounds diminished bilateral bases, no use of accessory muscles, no crackles or wheezes. Skin: No jaundice. No rashes. Abdomen: Normal bowel sounds, abdomen soft and nontender. Genito Urinary: Genital exam not performed since complaints not related. Rectal: Rectal exam not performed since no symptoms indicated blood loss. Extremeties: No cyanosis or clubbing. Musculoskeletal: 5/5 strength, normal range of motion, no swollen or erythematous joints. Neurological: Moves all 4 extremities. No myoclonus. Data : 01/14/22 05:00 01/14/22 05:00 A&P Assessment and plan (1) Acute on chronic congestive heart failure: Acute decompensated systolic and diastolic heart failure with reduced ejection fraction exacerbation Transthoracic echo reviewed, no significant change from prior Cardiology following, appreciate recommendations Monitor electrolytes Telemetry Continue metoprolol Continue Imdur Continue Lasix 60 mg IV every 12 Continue metolazone (2) Hypertension: Continue hydralazine (3) Pulmonary embolism: Continue apixaban (4) Tobacco use disorder: Patient counseled on smoking cessation for greater than 10 minutes (5) Hypokalemia: Replace potassium Recheck renal panel in AM Attestations Medical Necessity Statement*: Patient remains in decompensated heart failure requiring ongoing hospitalization for IV diuresis, electrolyte monitoring, and supportive care. Coding Level of Care Code Acute Boilermaker Helper for Chg Fwd Diagnoses Acute on chronic congestive heart failure I50.9 Hypertension I10 Pulmonary embolism I26.99 Tobacco use disorder F17.200 Hypokalemia E87.6
[2022-01-14] MEDS: cyclobenzaprine 10 mg Tablet 5 MG PO (18:35)
[2022-01-14] MEDS: potassium chloride ER 20 mEq Tablet PO (18:36)
--- NOTE | 2022-01-14 22:31 | PC.NURSE ---
Spoke with regarding patient with complaints of muscle spasms, feeling like hes dried out, dry mouth, dry skin. On IV lasix 60mg BID and is due for a dose tonight. Concerned that the patient may be getting overdiuressed. said hold IV lasix for tonight.
[2022-01-15] VITALS (35 sets, daily range): BP systolic 68–161; BP diastolic 52–100; PULSE 71–108; RESP 16–30; TEMP 36.5–36.7; O2SAT 93–97
[2022-01-15 04:36] LABS: Magnesium 2.2 mg/dL (1.7-2.3)
[2022-01-15 05:03] LABS: Anion Gap 18.9 (5-19); Blood Urea Nitrogen 35 mg/dL (8-23); Calcium 9.8 mg/dL (8.5-10.5); Carbon Dioxide 27 mmol/L (22-29); Glomerular Filtration Rate 51.4 mL/min (90-130); Glucose 100 mg/dL (65-115)
[2022-01-15 05:13] LABS: Chloride 90 mmol/L (98-107); Osmolality Calculated 284 mOsm/kg (285-295); Sodium 133 mmol/L (136-145)
[2022-01-15 05:15] LABS: Potassium 2.9 mmol/L (3.5-5.1)
[2022-01-15] MEDS: potassium chloride ER 20 mEq Tablet 40 MEQ PO ×3 (06:03→11:25)
[2022-01-15] MEDS: ipratropium-albuterol 3 mL Neb INHALATION ×3 (08:17→21:39)
--- NOTE | 2022-01-15 08:44 | PC.NURSE ---
Addendum entered by Wanda Bauer RN 01/15/22 09:23: pt instructed to call staff for assistance if must get up to restroom.call light within reach.pt verb understanding of instructions Original Note: pt c/o dizziness when got up to go to the bathroom.orthostatic vs checked...positive.dr vides notified.instructed to hold lasix and bp meds.
[2022-01-15] MEDS: apixaban 5 mg Tablet PO ×2 (09:28→17:29)
[2022-01-15] MEDS: aspirin 81 mg EC Tablet PO (09:28)
[2022-01-15] MEDS: simethicone 80 mg Chew 160 MG PO (09:28)
[2022-01-15] MEDS: pantoprazole DR 40 mg Tablet PO (09:28)
--- NOTE | 2022-01-15 10:37 | PC.NURSE ---
pt found ambulating in [place].assisted back to bed and instructed again to please not get up without assistance due to potential for dizziness and falling.bp checked sitting...126/73
--- NOTE | 2022-01-15 10:57 | P.PN_ITS ---
Subjective Subjective: Patient reports he feels dehydrated. He was found to have orthostatic hypotension this morning. He states that this is happened before. He complains that he was started on Isordil. He states that this medication causes him to have profuse tears to the point that he is unable to drive. He denies chest pain, shortness of breath, or peripheral edema. Endorses generalized malaise and fatigue. Medications: Reviewed: Yes Vitals/I&O/Wt Last Vital Signs Temp 98.0 F 01/15/22 04:00 Pulse 71 01/15/22 08:39 Resp 18 01/15/22 08:17 BP 107/63 01/15/22 08:39 Pulse Ox 97 01/15/22 08:17 O2 Del Method 01/15/22 08:17 O2 Flow Rate 1.5 01/13/22 07:50 01/14/22 01/15/22 01/15/22 22:59 06:59 14:59 Intake Total 240 / 490 480 / 480 Output Total 1000 / 1850 725 / 2575 Balance -1000 / -1600 -485 / -2085 480 / 480 Weight last 48 hrs Weight 69.541 kg Physical Exam Narrative: General: Patient is awake. Frail appearing. Head: Normocephalic. Atraumatic. EOM intact. Neck: No JVD. Cardiovascular: No gallops. No murmurs. Trace lower extremity edema. Lungs: Breath sounds diminished bilateral bases, no use of accessory muscles, no crackles or wheezes. Skin: No jaundice. No rashes. Abdomen: Normal bowel sounds, abdomen soft and nontender. Genito Urinary: Genital exam not performed since complaints not related. Rectal: Rectal exam not performed since no symptoms indicated blood loss. Extremeties: No cyanosis or clubbing. Musculoskeletal: No swollen or erythematous joints. Neurological: Moves all 4 extremities. No myoclonus. Data : 01/14/22 05:00 01/15/22 03:57 A&P Assessment and plan (1) Acute on chronic congestive heart failure: Acute decompensated systolic and diastolic heart failure with reduced ejection fraction exacerbation TTE (01/13) w/ no significant change from prior, LVEF 20-25%, severe global hypokinesis Cardiology following Monitor electrolytes Telemetry Continue metoprolol Now with symptomatic orthostatic hypotension this morning, not responding to treatment as expected Hold Isordil, Lasix, metolazone, and hydralazine until cardiology can evaluate Fall precautions (2) Hypertension: Holding hydralazine due to orthostasis (3) Pulmonary embolism: Continue apixaban (4) Tobacco use disorder: Would benefit from tobacco cessation (5) Hypokalemia: Replace potassium Recheck renal panel in AM Plan DVT prophylaxis: Apixaban CODE STATUS: Full code Attestations Medical Necessity Statement*: Patient requires ongoing hospitalization for titration of his congestive heart failure regiment with complications of orthostasis this morning requiring close adjustment and monitoring of vitals, as well as electrolyte monitoring and replacement, and supportive care. Coding Level of Care Code Acute Oven Unloader for Vamsi Alcantara Diagnoses Acute on chronic congestive heart failure I50.9 Hypertension I10 Pulmonary embolism I26.99 Tobacco use disorder F17.200 Hypokalemia E87.6
--- NOTE | 2022-01-15 12:45 | PM.PN ---
Subjective Subjective: He became hypotensive this morning. Diuretics and antihypeetensives held. He denies any dizzines, CP or SOB. Few PVC's on telemetry Medications: Reviewed: Yes Vitals/I&O/Wt Last Vital Signs Temp 98.0 F 01/15/22 04:00 Pulse 71 01/15/22 08:39 Resp 18 01/15/22 08:17 BP 107/63 01/15/22 08:39 Pulse Ox 97 01/15/22 08:17 O2 Del Method 01/15/22 08:17 O2 Flow Rate 1.5 01/13/22 07:50 01/14/22 01/15/22 01/15/22 22:59 06:59 14:59 Intake Total 240 / 490 480 / 480 Output Total 1000 / 1850 725 / 2575 Balance -1000 / -1600 -485 / -2085 480 / 480 Weight last 48 hrs Weight 153 lb 5 oz Physical Exam Narrative: Gen: NAD, sitting comfortably in bed Neck/HEENT: No JVD, No pallor or icterus RS: CTAB/L except at bases, No wheezes or rales CVS: S1, S2 regular, No murmur, rub or gallop Ext: No edema, cyanosis or clubbing PA: Soft, ND, mild abdominal tenderness; BS2+ ACCOUNTING PRACTICE MANAGER: AAOx3, No FND Data : 01/14/22 05:00 01/15/22 03:57 A&P Assessment and plan (1) Acute on chronic congestive heart failure: agree with holding diuresis -monitor I/O and daily weight -will D/C isodril to the regimen -will restart lasix in am based on BP -May start hydralazine 25 TID later this evening/tomorrow based on BP -possible discharge tomorrow (2) Hypertension: BP soft (3) COPD (chronic obstructive pulmonary disease): Plan CASANDRA : creatinine increased; f/u on BMP elevated troponin 2/2 decompensated CHF LBBB Recent PE : On Eliquis Abdominal pain h/o non compliance Hypokalemia: being replaced Thank you for allowing me to participate in patient's care. Please feel free to call with questions or concerns. Attestations Medical Necessity Statement*: As per primary team Time Spent in Patient Care: 16 - 35 minutes Coding Level of Care Code Acute Recovery Engineer for Chg Fwd Diagnoses Acute on chronic congestive heart failure I50.9 Hypertension I10 COPD (chronic obstructive pulmonary disease) J44.9
[2022-01-15] MEDS: metoprolol tartrate 25 mg Tablet PO (20:55)
[2022-01-16] VITALS: BP 133/92; PULSE 104; RESP 22; TEMP 36.3; O2SAT 94
[2022-01-16 02:00] VITALS: PULSE 92; RESP 18; O2SAT 97
[2022-01-16 04:00] VITALS: BP 106/85; PULSE 88; RESP 18; TEMP 36.4; O2SAT 96
[2022-01-16 06:54] LABS: Anion Gap 16.3 (5-19); Blood Urea Nitrogen 36 mg/dL (8-23); Calcium 9.8 mg/dL (8.5-10.5); Carbon Dioxide 27 mmol/L (22-29); Chloride 98 mmol/L (98-107); Glomerular Filtration Rate 55.9 mL/min (90-130); Glucose 98 mg/dL (65-115); Magnesium 2.3 mg/dL (1.7-2.3); Osmolality Calculated 292 mOsm/kg (285-295); Potassium 4.3 mmol/L (3.5-5.1); Sodium 137 mmol/L (136-145)
[2022-01-16 08:00] VITALS: BP 91/53; PULSE 71; RESP 16; RESP 21; O2SAT 95
[2022-01-16] MEDS: pantoprazole DR 40 mg Tablet PO (08:27)
[2022-01-16] MEDS: metoprolol tartrate 25 mg Tablet PO (08:27)
[2022-01-16] MEDS: aspirin 81 mg EC Tablet PO (08:27)
[2022-01-16] MEDS: apixaban 5 mg Tablet PO (08:28)
[2022-01-16 08:31] VITALS: BP 94/65
[2022-01-16] MEDS: ipratropium-albuterol 3 mL Neb INHALATION (08:47)
--- NOTE | 2022-01-16 08:47 | P.PN_ITS ---
Subjective Subjective: Feels well and wants to go home Medications: Reviewed: Yes Vitals/I&O/Wt Last Vital Signs Temp 97.5 F L 01/16/22 04:00 Pulse 71 01/16/22 08:00 Resp 21 H 01/16/22 08:00 BP 94/65 01/16/22 08:31 Pulse Ox 95 01/16/22 08:00 O2 Del Method 01/16/22 04:00 O2 Flow Rate 1.5 01/13/22 07:50 01/15/22 01/16/22 01/16/22 22:59 06:59 14:59 Intake Total 480 / 960 500 / 1460 Output Total 900 / 900 Balance -420 / 60 500 / 560 Weight last 48 hrs Weight 153 lb 5 oz Physical Exam Narrative: Gen: NAD, sitting comfortably in bed Neck/HEENT: No JVD, No pallor or icterus RS: CTAB/L except at bases, No wheezes or rales CVS: S1, S2 regular, No murmur, rub or gallop Ext: No edema, cyanosis or clubbing PA: Soft, ND, mild abdominal tenderness; BS2+ STRATEGIC ALLIANCES MANAGER: AAOx3, No FND Data : 01/14/22 05:00 01/16/22 05:18 A&P Assessment and plan (1) Acute on chronic congestive heart failure: -monitor I/O and daily weight -will D/C isodril to the regimen -will restart lasix 40 mg BID on discharge -will start hydralazine 25 TID casi discharge -stable to be discharged (2) Hypertension: BP improved -no dizziness (3) COPD (chronic obstructive pulmonary disease): Plan CASANDRA : creatinine improved; f/u on BMP elevated troponin 2/2 decompensated CHF LBBB Recent PE : On Eliquis Abdominal pain h/o non compliance Hypokalemia: resolved Thank you for allowing me to participate in patient's care. Please feel free to call with questions or concerns. Attestations Medical Necessity Statement*: stable to be discharged Time Spent in Patient Care: 16 - 35 minutes Coding Level of Care Code Acute Learning Support Services Director for Abdoulayeg Fwd Diagnoses Acute on chronic congestive heart failure I50.9 Hypertension I10 COPD (chronic obstructive pulmonary disease) J44.9
--- NOTE | 2022-01-16 11:57 | PM.DCS ---
Discharge Providers Date of Admission: 01/12/22 21:08 Date of Discharge: January 16, 2022 Attending Provider at Admission: Ngozi Moreno MD Attending Provider at Discharge: Anoop Christian MD Diagnoses at Discharge Discharge Diagnosis (1) Acute on chronic congestive heart failure: Status: Acute (2) Hypertension: Status: Acute (3) COPD (chronic obstructive pulmonary disease): Status: Acute Reason for Visit Reason for Visit: Chest pains Hospital Course Hospital Course 61 year old male with PMHx of nonischemic cardiomyopathy and has declined ICD in past, accelerated hypertension,? h/o noncompliance with medications and dietary instructions was hospitalized with complaints of shortness of breath. He was admitted for the management of acute on chronic decompensated heart failure with reduced ejection fraction, he was kept on IV diuresis intake output charting was monitored, daily weight was monitored, electrolytes were monitored and accordingly corrected, he was continued on telemetry monitoring, to which she responded pretty well. Limited 2D echo done during the hospital stay:Dilated left ventricle.? Severely decreased left ventricular systolic function. Left ventricular ejection fraction is ?estimated at 20-25 %.? Severe global hypokinesis. At the time of discharge ,his blood pressure was slightly soft, during the hospital stay his orthostatic hypotension's were also positive Because of this hydralazine dose has been decreased to 25 mg p.o. 3 times daily from 50mg 3 times daily, He has been continued on Lasix 40 mg p.o. twice daily. Overall patient responded well to above medical management and is being discharged home in hemodynamically stable condition.He will continue to follow Cardiology as outpatient. Physical Exam Const: COMMON NORMALS: patient oriented x3 Resp: COMMON NORMALS: clear to auscultation bilaterally EFFORT & INSPECTION: Yes symmetric chest movement AUSCULTATION: clear to auscultation bilaterally Cardio: COMMON NORMALS: regular rate, regular rhythm, S1 normal heart sound present, S2 normal heart sound present, No gallops present (Cardio), No murmurs present (Cardio), No rub (Cardio) and Peripheral pulses 2+ throughout RATE: regular rate RHYTHM: regular rhythm HEART SOUNDS: S1 normal heart sound present and S2 normal heart sound present PERIPHERAL PULSES: Peripheral pulses 2+ throughout GI: COMMON NORMALS: Normal to inspection, nondistended, normoactive bowel sounds present, Soft to palpation, non-tender, No hepatosplenomegaly present and no masses AUSCULTATION: Yes normoactive bowel sounds PALPATION: Yes Soft to palpation and Yes No hepatosplenomegaly present RECTAL EXAM: Yes deferred Extremity: COMMON NORMALS: no clubbing, cyanosis or edema and no pedal edema Neuro: COMMON NORMALS: patient oriented x3 Discharge Data Studies Completed and Pending Completed Studies During Hospitalization Category Date Time Status CTA chest CT abdomen pelvis [CT angio chest w abd pel w Cat Scan 01/12/22 18:50 Completed con] Stat XR chest 1V portable [id number] Routine Exams 01/13/22 12:20 Completed XR chest 1V portable [id number] Stat Exams 01/12/22 18:14 Completed CV. echo limited [id number] Routine Ultrasound 01/13/22 05:47 Completed Radiology Impressions Chest/Abdomen/Pelvis CT 01/12/22 18:50 IMPRESSION: 1. No evidence for pulmonary embolus. Study is nondiagnostic in the smaller branches of the lower lobes due to lack of contrast opacification, related to contrast bolus timing. 2. No acute pulmonary finding. 3. Prominent mediastinal and hilar lymph nodes are most likely reactive or inflammatory. IMPRESSION: 1. No acute finding in the abdomen or pelvis. 2. Inhomogenous liver could represent parenchymal disease or cirrhosis. 3. Mild ascites. Chest X-Ray 01/13/22 12:20 IMPRESSION: No acute findings. Laboratory Results WBC 8.7 10^3/uL (4.0-10.0) 01/14/22 05:00 RBC 5.05 10^6/uL (4.1-5.3) 01/14/22 05:00 Hgb 15.2 g/dL (11.7-16.6) 01/14/22 05:00 Hct 45.4 % (42.0-52.0) 01/14/22 05:00 MCV 89.9 fl (80-94) 01/14/22 05:00 MCH 30.1 pg (28.0-34.0) 01/14/22 05:00 MCHC 33.5 g/dL (30.0-36.0) 01/14/22 05:00 RDW 16.0 % (12.1-15.1) H 01/14/22 05:00 Plt Count 392 10^3/cmm (130-400) 01/14/22 05:00 MPV 10.4 fL (7.4-10.4) 01/14/22 05:00 Neut % (Auto) 59.8 % 01/14/22 05:00 Lymph % (Auto) 22.7 % 01/14/22 05:00 [place] % (Auto) 10.2 % 01/14/22 05:00 Eos % (Auto) 5.8 % 01/14/22 05:00 Baso % (Auto) 1.0 % 01/14/22 05:00 Neut # (Auto) 5.18 10^3/uL (1.8-7.7) 01/14/22 05:00 Lymph # (Auto) 2.0 10^3/uL (0.8-4.8) 01/14/22 05:00 [place] # (Auto) 0.9 10^3/uL (0.2-0.9) 01/14/22 05:00 Eos # (Auto) 0.5 10^3/uL (0.0-0.8) 01/14/22 05:00 Baso # (Auto) 0.1 10^3/uL (0.0-0.1) 01/14/22 05:00 Nucleated RBC % (auto) 0 % 01/14/22 05:00 Nucleated RBCs # 0.0 /100WBC 01/14/22 05:00 D-Dimer 2.88 ug/mIFEU (0-0.59) H 01/12/22 18:20 Sodium 137 mmol/L (136-145) 01/16/22 05:18 Potassium 4.3 mmol/L (3.5-5.1) 01/16/22 05:18 Chloride 98 mmol/L (98-107) 01/16/22 05:18 Carbon Dioxide 27 mmol/L (22-29) 01/16/22 05:18 Anion Gap 16.3 (5-19) 01/16/22 05:18 BUN 36 mg/dL (8-23) H 01/16/22 05:18 Creatinine 1.3 mg/dL (0.7-1.2) H 01/16/22 05:18 GFR Calculation 55.9 mL/min (90-130) L 01/16/22 05:18 Glucose 98 mg/dL (65-115) 01/16/22 05:18 Calculated Osmolality 292 mOsm/kg (285-295) 01/16/22 05:18 Calcium 9.8 mg/dL (8.5-10.5) 01/16/22 05:18 Magnesium 2.3 mg/dL (1.7-2.3) 01/16/22 05:18 Total Bilirubin 1.3 mg/dL (0.15-1.2) H 01/13/22 01:20 AST 22 U/L (0-40) 01/13/22 01:20 ALT 19 U/L (0-41) 01/13/22 01:20 Alkaline Phosphatase 79 U/L (40-130) 01/13/22 01:20 Troponin T Baseline 44 ng/L (0-15) H 01/12/22 18:20 Troponin T 120 Minute 41.49 ng/L (0-15) H 01/12/22 19:48 Delta Troponin T -2.51 ABS# (0-10) L 01/12/22 19:48 Troponin T Hi Sens 6Hr 45.26 ng/L (0-15) H 01/13/22 01:20 Troponin T Hi Sens 6Hr Delta 1.26 ng/L (0-12) 01/13/22 01:20 NT-Pro-B Natriuret Pep 8706 pg/mL (0-125) H 01/12/22 18:20 Total Protein 7.5 g/dL (6.6-8.7) 01/13/22 01:20 Albumin 4.1 g/dL (3.5-5.2) 01/13/22 01:20 Globulin 3.4 g/dL (1.3-4.6) 01/13/22 01:20 Lipase 40 U/L (13-60) 01/12/22 18:20 Coronavirus 229E (PCR) Not detected (NOT DETECT) 01/12/22 19:10 SARS-CoV-2 (PCR) Not detected (NOT DETECT) 01/12/22 19:10 Vitals Last Vital Signs Temp 97.5 F L 01/16/22 04:00 Pulse 71 01/16/22 08:00 Resp 16 01/16/22 08:00 BP 94/65 01/16/22 08:31 Pulse Ox 95 01/16/22 08:00 O2 Del Method 01/16/22 08:00 O2 Flow Rate 1.5 01/13/22 07:50 Discharge Plan Discharge Patient Disposition: Home Condition: Stable Prescriptions: Continued polyethylene glycol 3350 [Miralax] 17 gram powder in packet 17 g PO DAILY PRN (Reason: Constipation) albuterol sulfate [ProAir HFA] 90 mcg/actuation HFA aerosol inhaler 2 puff inhalation QID PRN (Reason: shortness of breath or wheezing) Qty: 6.7 0RF nitroglycerin 0.4 mg Tablet, Sublingual 0.4 mg sublingual Q5M PRN (Reason: Chest Pain) Qty: 10 0RF ondansetron 4 mg tablet,disintegrating 4 mg PO Q8H PRN (Reason: nausea and vomiting) Qty: 15 0RF oxycodone 5 mg tablet 5 mg PO Q4H PRN (Reason: pain) Qty: 10 0RF simethicone 166 mg Capsule 166 - 332 mg PO DAILY PRN (Reason: unknown) fluticasone propion-salmeterol [Advair Diskus] 250-50 mcg/dose Blister With Device 1 puff inhalation BID.RESPIRATORY 30 Days Qty: 1 0RF aspirin 81 mg Tablet,Delayed Release (Dr/Ec) 81 mg PO DAILY 30 Days Qty: 30 0RF Eliquis DVT-PE Treat 30D Start 5 mg (74 tabs) tablets,dose pack See Rx Instructions .ROUTE .COMPLEX Qty: 74 0RF Rx Instructions: orally per package directions Changed furosemide 40 mg tablet 40 mg PO 0800,1600 Qty: 60 1RF hydralazine 50 mg Tablet 25 mg PO TID Qty: 45 1RF potassium chloride 20 mEq tablet extended release 20 meq PO 0800,1600 Qty: 60 1RF Discontinued metolazone 5 mg tablet 5 mg PO DAILY Qty: 30 3RF Rx Instructions: Take 30 minutes prior to morning Furosemide Discharge Orders: Discharge Order (Routine); Ordered 01/16/22 Ordered By: Anoop Christian Referrals: Tootie Laura FNP-C [Nurse Practitioner] - 01/23/22 10:00 am (you have an appointment on january 23 at 10:00 am at the [facility] with tootie laura np.call [phone] if you have any questions) Kenyetta Rueda FNP [Nurse Practitioner] - 01/24/22 2:00 pm (you have an appointment in heartcare services at [facility] jan 24,at 2:00 pm.call [phone] if you have any questions.) Discharge Diet: Low Salt Patient Instructions: COPD, Heart Failure (DC), Chronic Hypertension (DC), CHF Stoplight, COPD Stoplight, Opioid Safety Discharge Attestations Time Spent in Discharge Care*: less than 30 min Quality Metrics Clinical Quality Measures [ No reported AMI, CVA or VTE this stay] Coding Level of Care Code Acute Chg FW DC note Exam Detailed Diagnoses Acute on chronic congestive heart failure I50.9 Hypertension I10 COPD (chronic obstructive pulmonary disease) J44.9
[2022-01-16 12:35] VITALS: BP 94/65
--- NOTE | 2022-01-16 13:04 | PC.NURSE ---
discharge instructions discussed.pt and daughter verb understanding of instructions.discharged via w/c at this time.daughter to drive pt home
== END 2022-01-16 13:05 | disposition home or self-care (01) | DRG 291 ==
LOC: ER 20:21 → MEDSURG 21:13
PROVIDERS: Family Medicine; Admitting Provider Student in an Organized Health Care Education/Training Program; Emergency Provider Emergency Medicine; Visit Provider Internal Medicine
DX: I11.0 Hypertensive heart disease with heart failure (principal); I50.23 Acute on chronic systolic (congestive) heart failure; N17.9 Acute kidney failure, unspecified; I42.8 Other cardiomyopathies; I16.0 Hypertensive urgency; Z91.14 Patient's other noncompliance with medication regimen; Z86.711 Personal history of pulmonary embolism; Z87.01 Personal history of pneumonia (recurrent); J43.9 Emphysema, unspecified; E03.9 Hypothyroidism, unspecified; F17.210 Nicotine dependence, cigarettes, uncomplicated; E87.6 Hypokalemia; I95.1 Orthostatic hypotension; Z79.01 Long term (current) use of anticoagulants; Z79.82 Long term (current) use of aspirin; Z79.891 Long term (current) use of opiate analgesic; Z79.51 Long term (current) use of inhaled steroids
CPT/HCPCS: 36415; 71045; 71275; 74177; 80048; 80053; 83690; 83735; 83880; 84484; 85025; 85378; 87635; 93005; 93308; 94640; 96374; 99285; J1940; J2270; Q9967

== ENCOUNTER → 2022-04-09 10:51 | Outpatient (BNVA) | payer MEDICAID, SELFPAY | PROVIDERS: Visit Provider Nurse Practitioner | DX: I10 Essential (primary) hypertension (principal); I50.9 Heart failure, unspecified; J43.9 Emphysema, unspecified; E03.9 Hypothyroidism, unspecified | CPT/HCPCS: 80048; 80061; 82306; 83880; 84443 ==

== ENCOUNTER 2022-04-14 10:31 | Emergency (ER) | payer MEDICAID, SELFPAY ==
[2022-04-14] VITALS (19 sets, daily range): BP systolic 105–174; BP diastolic 81–125; PULSE 75–114; RESP 14–22; TEMP 36.4; O2SAT 85–100
--- NOTE | 2022-04-14 11:44 | XRR_ITS ---
PROCEDURE INFORMATION: Exam: XR Chest Exam date and time: 04/14/2022 12:41 PM Age: 61 years old Clinical indication: Shortness of breath; Additional info: SOB TECHNIQUE: Imaging protocol: Radiologic exam of the chest. Views: 1 view. COMPARISON: CR XR chest 1V portable [id number] 01/13/2022 1:06 PM FINDINGS: Lungs: There are hazy opacities at the right lung base. Pleural spaces: Right costophrenic angle is obscured and a small pleural effusion cannot be excluded. Heart/Mediastinum: Cardiomegaly. Bones/joints: Unremarkable. XR/XR chest 1V portable [id number] IMPRESSION: 1. Cardiomegaly. 2. Hazy opacities at the right lung base are nonspecific and may represent pneumonia and/or pulmonary edema.
[2022-04-14 13:29] LABS: Basophils # 0.1 10^3/uL (0.0-0.1); Basophils % 0.5 %; Eosinophils % 0.3 %; Hemoglobin 13.7 g/dL (11.7-16.6); Lymphocytes # 2.6 10^3/uL (0.8-4.8); Lymphocytes % 25.9 %; Mean Corpuscular HGB Conc 31.1 g/dL (30.0-36.0); Mean Corpuscular Hemoglobin 28.2 pg (28.0-34.0); Mean Corpuscular Volume 90.5 fl (80-94); Mean Platelet Volume 10.3 fL (7.4-10.4); Monocytes # 0.8 10^3/uL (0.2-0.9); Monocytes % 7.7 %; Neutrophils # 6.67 10^3/uL (1.8-7.7); Neutrophils % 65.4 %; Nucleated Red Blood Cells % 0 %; Platelet Count 363 10^3/cmm (130-400); Red Blood Count 4.86 10^6/uL (4.1-5.3); Red Cell Distribution Width 15.9 % (12.1-15.1); White Blood Count 10.2 10^3/uL (4.0-10.0)
[2022-04-14 13:54] LABS: Alanine Aminotransferase 45 U/L (0-41); Albumin Level 3.7 g/dL (3.5-5.2); Alkaline Phosphatase 92 U/L (40-130); Anion Gap 16.5 (5-19); Aspartate Amino Transferase 39 U/L (0-40); Blood Urea Nitrogen 14 mg/dL (8-23); Calcium 8.6 mg/dL (8.5-10.5); Carbon Dioxide 20 mmol/L (22-29); Chloride 100 mmol/L (98-107); Globulin 3.3 g/dL (1.3-4.6); Glomerular Filtration Rate 75.7 mL/min (90-130); Glucose 130 mg/dL (65-115); NT Pro B Type Natriuretic Pept 12696 pg/mL (0-125); Osmolality Calculated 276 mOsm/kg (285-295); Potassium 4.5 mmol/L (3.5-5.1); Sodium 132 mmol/L (136-145); Total Bilirubin 0.9 mg/dL (0.15-1.2)
--- NOTE | 2022-04-14 14:29 | ECG_ITS ---
[facility] Test Date: 2022-04-14 Pat Name: [place] Department: Room: Gender: Male Rn Recovery: : 1960 Requested By: Jill Romo Order Number: [id number] Isaura MD: Reddy Lopez M.D. Measurements Intervals [place] Rate: 103 P: 23 SD: 196 QRS: -67 QRSD: 181 T: 93 QT: 410 QTc: 537 Interpretive Statements SINUS TACHYCARDIA LEFT ATRIAL ENLARGEMENT [-0.15mV P-WAVE IN V1/V2] LEFT AXIS DEVIATION [QRS AXIS < -30] LEFT BUNDLE BRANCH BLOCK [120+ ms QRS DURATION, 80+ ms Q/S IN V1/V2, 85+ ms R IN I/aVL/V5/V6] Compared to ECG 01/13/2022 12:51:15 Sinus bradycardia no longer present Electronically Signed On 04-16-2022 7:45:54 POST ACUTE CARE REGISTERED NURSE by Reddy Lopez M.D. [email or web address]
--- NOTE | 2022-04-14 14:31 | W.ED.SOB ---
Documented by User: Jill Romo MD 04/14/22 18:23 HPI - SOB/Dyspnea General: Chief Complaint: Shortness of Breath/Dyspnea Stated Complaint: possible fluid in chest, heart failure pt Time Seen by Provider: 04/14/22 13:45 History of Present Illness: HPI Narrative: 61-year-old male with a history of congestive heart failure, coronary artery disease, chronic renal insufficiency, chronic liver disease who presents with a 10 pound weight gain over the past week with associated increased shortness of breath. Patient reports that his legs have been more swollen. He is having orthopnea as well as dyspnea on exertion. He states he has some mild chest fullness but denies distinct chest pain. He denies cough or fever. Denies ill contacts. 4 days ago, his dose of Lasix was lowered from 40 to 20 mg Associated symptoms: Reports orthopnea; Deny abdominal pain, chest pain, fever(s), nausea, polydipsia, polyuria or vomiting Review of Systems Const: Denies: fever(s), chills or body aches Eyes: Denies: change in vision ENMT: Denies: throat pain Card: Reports: edema, swelling of feet/ankles, dyspnea on exertion and orthopnea; Denies: chest pain Resp: Reports: dyspnea; Denies: productive cough, non-productive cough or wheezing GI: Denies: abdominal pain, nausea or vomiting : Denies: difficulty urinating Musc: Reports: extremity swelling Skin/Breast: Denies: rash Neuro: Denies: headache(s), numbness in extremities or weakness in extremities Endo: Denies: polyuria or polydipsia PFSH ED PFSH: Medical History Acute on chronic congestive heart failure Cardiomyopathy Congestive heart failure COPD (chronic obstructive pulmonary disease) Dyspnea on exertion Emphysema/COPD Epigastric pain Hypertension Hypokalemia Hypothyroidism Malignant hypertension Mesenteric angina Pneumonia Pulmonary embolism Tobacco use disorder Surgical History History of surgery of head Family History Other CAD (coronary artery disease) Hypertension Stroke Denies family history of Dementia Social History Smoking and tobacco status: current every day smoker Second hand smoke exposure: Yes Smoking risk assessment/counseling performed?: No Alcohol intake: never Desire information about alcohol rehabilitation?: No Counseling given: No Desire information about substance/drug rehabilitation?: No Counseling given: No Adopted: No Caregiver/support person: No Lives independently: Yes Household members: spouse Housing: House Marital status: Number of children: 4 service: No Current occupational status: disabled Physical Exam Narrative: EXAM NARRATIVE: Patient appears mildly short of breath. He is orthopneic, unable to lie flat. He is able to speak in full sentences. Const: COMMON NORMALS: patient oriented x3 and alert HENMT: COMMON NORMALS: normocephalic, atraumatic and moist oral mucous membranes HEAD & SCALP: normocephalic and atraumatic Eye: COMMON NORMALS: conjunctivae normal CONJUNCTIVA: Yes conjunctivae normal Neck/C-Spine: OTHER: Neck supple, trachea midline Resp: COMMON NORMALS: negative for normal respiratory effort EFFORT & INSPECTION: Yes able to speak in complete sentences, Yes tachypneic, Yes respiratory distress, No pursed lip breathing, Yes uses accessory muscles and No tracheal deviation AUSCULTATION: crackles (Lung bases bilaterally) Cardio: OTHER: Tachycardic GI: OTHER: Abdomen distended, nontender Extremity: OTHER: 1+ edema bilaterally, no calf tenderness. Neuro: COMMON NORMALS: patient oriented x3 SENSORIUM/ORIENTATION: Yes alert Course ED course: Patient's had an IV placed and labs obtained. He has been given 40 mg of Lasix IV. He was given 20 mg of labetalol IV. He took aspirin at home so that was held. After the labetalol, his blood pressure has improved. He did have Nitropaste applied to his chest. No chest pain here at this time. He has on EKG a left bundle branch block, sinus tachycardia. He does have elevation of his troponins with an initial troponin of 38 and a repeat 2-hour troponin of 46.9, with a delta of 8.97. His BNP is 12,696. White blood cell count is minimally elevated at 10.2. Sodium 132, potassium 4.5, chloride 100, CO2 is 20. BUN 14, creatinine 1.0, GFR 75. Glucose 130. Patient's chest x-ray shows cardiomegaly and possible infiltrate versus CHF in the lung bases. Concern with the patient's significant shortness of breath without significant vascular congestion on chest x-ray and mildly elevated troponin that he could have a pulmonary embolism. D-dimer is pending. Reevaluation(s): Reevaluation #1: Patient is feeling a little bit better. He states he still feels a little short of breath. Blood pressure is much improved. Reevaluation #2: With an elevated D-dimer of 2.60. Will obtain CT angiogram to rule out pulmonary embolism. Reevaluation #3: CTA negative for pulmonary embolism. It does show right lower lobe pneumonia. We will obtain blood cultures we will give the patient Rocephin and Zithromax. We will plan for admission. Vital Signs: Vital signs: Vital Signs Temperature 97.5 F L 04/14/22 10:34 Pulse Rate 114 H 04/14/22 17:45 Respiratory Rate 14 04/14/22 15:48 Blood Pressure 142/103 04/14/22 17:45 Pulse Oximetry 97 04/14/22 17:30 Oxygen Delivery Me thod 04/14/22 15:48 MDM - SOB/Dyspnea Medical Decision Making 61-year-old male with a history of congestive heart failure, hypertension, emphysema, renal insufficiency, liver disease who presents with increased shortness of breath as well as orthopnea. Patient has trace edema with a distended abdomen. He does report a 10 pound weight gain over the past week. He is hypertensive. He has crackles in the lung bases. I am going to have him start an IV, give him IV labetalol. We will place Nitropaste 1 inch to his chest. We will give him 40 mg of Lasix IV. We will obtain a chest x-ray, EKG and serial cardiac enzymes. Lab Data Review of the old labs does show that the patient's troponins typically trend in the range of 40. The troponin values today are stable and consistent with previous. 04/14/22 13:14 04/14/22 13:14 Labs/Radiology: Radiology Impressions Chest X-Ray 04/14/22 11:44 IMPRESSION: 1. Cardiomegaly. 2. Hazy opacities at the right lung base are nonspecific and may represent pneumonia and/or pulmonary edema. Chest CTA 04/14/22 17:05 IMPRESSION: 1. Right lower lobe pneumonia. 2. Cardiomegaly with right heart strain. 3. There is ascites in the upper abdomen. 4. Emphysematous changes are present in the lungs. COMMENTS: In the absence of a history or active diagnosis of lung cancer, it is recommended that this patient with emphysema be evaluated for enrollment in a low dose CT lung cancer screening program. Laboratory Results WBC 10.2 10^3/uL (4.0-10.0) H 04/14/22 13:14 RBC 4.86 10^6/uL (4.1-5.3) 04/14/22 13:14 Hgb 13.7 g/dL (11.7-16.6) 04/14/22 13:14 Hct 44.0 % (42.0-52.0) 04/14/22 13:14 MCV 90.5 fl (80-94) 04/14/22 13:14 MCH 28.2 pg (28.0-34.0) 04/14/22 13:14 MCHC 31.1 g/dL (30.0-36.0) 04/14/22 13:14 RDW 15.9 % (12.1-15.1) H 04/14/22 13:14 Plt Count 363 10^3/cmm (130-400) 04/14/22 13:14 MPV 10.3 fL (7.4-10.4) 04/14/22 13:14 Neut % (Auto) 65.4 % 04/14/22 13:14 Lymph % (Auto) 25.9 % 04/14/22 13:14 Bledsoe % (Auto) 7.7 % 04/14/22 13:14 Eos % (Auto) 0.3 % 04/14/22 13:14 Baso % (Auto) 0.5 % 04/14/22 13:14 Neut # (Auto) 6.67 10^3/uL (1.8-7.7) 04/14/22 13:14 Lymph # (Auto) 2.6 10^3/uL (0.8-4.8) 04/14/22 13:14 Bledsoe # (Auto) 0.8 10^3/uL (0.2-0.9) 04/14/22 13:14 Eos # (Auto) 0.0 10^3/uL (0.0-0.8) 04/14/22 13:14 Baso # (Auto) 0.1 10^3/uL (0.0-0.1) 04/14/22 13:14 Nucleated RBC % (auto) 0 % 04/14/22 13:14 Nucleated RBCs # 0.0 /100WBC 04/14/22 13:14 D-Dimer 2.60 ug/mIFEU (0-0.59) H 04/14/22 14:59 Sodium 132 mmol/L (136-145) L 04/14/22 13:14 Potassium 4.5 mmol/L (3.5-5.1) 04/14/22 13:14 Chloride 100 mmol/L (98-107) 04/14/22 13:14 Carbon Dioxide 20 mmol/L (22-29) L 04/14/22 13:14 Anion Gap 16.5 (5-19) 04/14/22 13:14 BUN 14 mg/dL (8-23) 04/14/22 13:14 Creatinine 1.0 mg/dL (0.7-1.2) 04/14/22 13:14 GFR Calculation 75.7 mL/min (90-130) L 04/14/22 13:14 Glucose 130 mg/dL (65-115) H 04/14/22 13:14 Calculated Osmolality 276 mOsm/kg (285-295) L 04/14/22 13:14 Calcium 8.6 mg/dL (8.5-10.5) 04/14/22 13:14 Total Bilirubin 0.9 mg/dL (0.15-1.2) 04/14/22 13:14 AST 39 U/L (0-40) 04/14/22 13:14 ALT 45 U/L (0-41) H 04/14/22 13:14 Alkaline Phosphatase 92 U/L (40-130) 04/14/22 13:14 Troponin T Baseline 38 ng/L (0-15) H 04/14/22 13:14 Troponin T 120 Minute 46.97 ng/L (0-15) H 04/14/22 14:59 Delta Troponin T 8.97 ABS# (0-10) 04/14/22 14:59 NT-Pro-B Natriuret Pep 00961 pg/mL (0-125) H 04/14/22 13:14 Total Protein 7.0 g/dL (6.6-8.7) 04/14/22 13:14 Albumin 3.7 g/dL (3.5-5.2) 04/14/22 13:14 Globulin 3.3 g/dL (1.3-4.6) 04/14/22 13:14 EKG Data EKG 1: I personally reviewed and interpreted this EKG as follows: EKG Interpretation Date: 04/14/22 EKG interpretation time: 16:50 Prior EKG tracings: available for review Interpretation: Sinus tachycardia, intraventricular conduction delay, left bundle branch block, unchanged from previous EKG Discharge Plan Discharge Patient Disposition: Home Clinical Impression: Hypertension, Congestive heart failure, Pneumonia Condition: Stable Prescriptions: New furosemide 40 mg tablet 40 mg PO BID Qty: 10 0RF levofloxacin 750 mg tablet 750 mg PO DAILY 10 Days Qty: 10 0RF No Action polyethylene glycol 3350 [Miralax] 17 gram powder in packet 17 g PO DAILY PRN (Reason: Constipation) albuterol sulfate [ProAir HFA] 90 mcg/actuation HFA aerosol inhaler 2 puff inhalation QID PRN (Reason: shortness of breath or wheezing) Qty: 6.7 5RF Entresto 24-26 mg tablet 1 tab PO BID Qty: 60 2RF levothyroxine [Synthroid] 50 mcg tablet 50 mcg PO DAILY Qty: 30 2RF nystatin 100,000 unit/mL suspension 5 ml PO .2 times day Qty: 200 0RF furosemide 20 mg tablet 20 mg PO DAILY Qty: 30 2RF Dulera 200-5 mcg/actuation HFA aerosol inhaler 2 puff inhalation Q12H Qty: 13 2RF nitroglycerin 0.4 mg Tablet, Sublingual 0.4 mg sublingual Q5M PRN (Reason: Chest Pain) Qty: 10 0RF potassium chloride 20 mEq tablet extended release See Rx Instructions .ROUTE .COMPLEX Rx Instructions: 40 mEq orally in the morning / 20 meq in the evening Discharge Orders: Discharge ED (Routine); Ordered 04/14/22 Ordered By: Perez Beal Referrals: Raf Kirby, [employer] [Primary Care Provider] - Patient Instructions: Opioid Safety, Pain Management Activity Restrictions/Additional Instructions: Increase your Lasix dosage to 40 mg twice daily for the next 3-days, then down to 40 daily for 2 days before returning to 20 mg. Antibiotics as directed. Use your albuterol every 4 hours while awake for the next 48 hours, then as needed. Return for continued fever despite 3 doses of antibiotics, worsening shortness of breath despite treatment, chest pain, any other concerning symptoms. Coding Level of Care Code ED [employer] Exam Expanded Problem Focused Documented by User: Perez Beal, 04/14/22 19:58 HPI - SOB/Dyspnea General: Chief Complaint: Shortness of Breath/Dyspnea Stated Complaint: possible fluid in chest, heart failure pt Time Seen by Provider: 04/14/22 13:45 PFSH ED PFSH: Medical History Acute on chronic congestive heart failure Cardiomyopathy Congestive heart failure COPD (chronic obstructive pulmonary disease) Dyspnea on exertion Emphysema/COPD Epigastric pain Hypertension Hypokalemia Hypothyroidism Malignant hypertension Mesenteric angina Pneumonia Pulmonary embolism Tobacco use disorder Surgical History History of surgery of head Family History Other CAD (coronary artery disease) Hypertension Stroke Denies family history of Dementia Social History Smoking and tobacco status: current every day smoker Second hand smoke exposure: Yes Smoking risk assessment/counseling performed?: No Alcohol intake: never Desire information about alcohol rehabilitation?: No Counseling given: No Desire information about substance/drug rehabilitation?: No Counseling given: No Adopted: No Caregiver/support person: No Lives independently: Yes Household members: spouse Housing: House Marital status: Number of children: 4 service: No Current occupational status: disabled Course Vital Signs: Vital signs: Vital Signs Temperature 97.5 F L 04/14/22 10:34 Pulse Rate 114 H 04/14/22 17:45 Respiratory Rate 14 04/14/22 15:48 Blood Pressure 142/103 04/14/22 17:45 Pulse Oximetry 97 04/14/22 17:30 Oxygen Delivery Me thod 04/14/22 15:48 MDM - SOB/Dyspnea Medical Decision Making 61-year-old male with a history of congestive heart failure, hypertension, emphysema, renal insufficiency, liver disease who presents with increased shortness of breath as well as orthopnea. Patient has trace edema with a distended abdomen. He does report a 10 pound weight gain over the past week. He is hypertensive. He has crackles in the lung bases. I am going to have him start an IV, give him IV labetalol. We will place Nitropaste 1 inch to his chest. We will give him 40 mg of Lasix IV. We will obtain a chest x-ray, EKG and serial cardiac enzymes. 59-year-old male as above checkout me at shift change by the previous physician. CTA was pending at that point. It shows hazy opacities right lung base consistent with pneumonia on CTA. There is no pulmonary embolus. The patient has some ascites in his belly. He was given 40 mg of Lasix more through the IV for a total of 80 with oral Levaquin here. I counseled the patient on admission for the pneumonia/heart failure and had even called the hospitalist, but the patient wishes to go home. He is breathing room air at this point, saturations are 94 to 97%. We will let them give him a trial at home on increased Lasix and Levaquin to return for any worsening symptoms. Lab Data 04/14/22 13:14 04/14/22 13:14 Labs/Radiology: Radiology Impressions Chest X-Ray 04/14/22 11:44 IMPRESSION: 1. Cardiomegaly. 2. Hazy opacities at the right lung base are nonspecific and may represent pneumonia and/or pulmonary edema. Chest CTA 04/14/22 17:05 IMPRESSION: 1. Right lower lobe pneumonia. 2. Cardiomegaly with right heart strain. 3. There is ascites in the upper abdomen. 4. Emphysematous changes are present in the lungs. COMMENTS: In the absence of a history or active diagnosis of lung cancer, it is recommended that this patient with emphysema be evaluated for enrollment in a low dose CT lung cancer screening program. Laboratory Results WBC 10.2 10^3/uL (4.0-10.0) H 04/14/22 13:14 RBC 4.86 10^6/uL (4.1-5.3) 04/14/22 13:14 Hgb 13.7 g/dL (11.7-16.6) 04/14/22 13:14 Hct 44.0 % (42.0-52.0) 04/14/22 13:14 MCV 90.5 fl (80-94) 04/14/22 13:14 MCH 28.2 pg (28.0-34.0) 04/14/22 13:14 MCHC 31.1 g/dL (30.0-36.0) 04/14/22 13:14 RDW 15.9 % (12.1-15.1) H 04/14/22 13:14 Plt Count 363 10^3/cmm (130-400) 04/14/22 13:14 MPV 10.3 fL (7.4-10.4) 04/14/22 13:14 Neut % (Auto) 65.4 % 04/14/22 13:14 Lymph % (Auto) 25.9 % 04/14/22 13:14 Bledsoe % (Auto) 7.7 % 04/14/22 13:14 Eos % (Auto) 0.3 % 04/14/22 13:14 Baso % (Auto) 0.5 % 04/14/22 13:14 Neut # (Auto) 6.67 10^3/uL (1.8-7.7) 04/14/22 13:14 Lymph # (Auto) 2.6 10^3/uL (0.8-4.8) 04/14/22 13:14 Bledsoe # (Auto) 0.8 10^3/uL (0.2-0.9) 04/14/22 13:14 Eos # (Auto) 0.0 10^3/uL (0.0-0.8) 04/14/22 13:14 Baso # (Auto) 0.1 10^3/uL (0.0-0.1) 04/14/22 13:14 Nucleated RBC % (auto) 0 % 04/14/22 13:14 Nucleated RBCs # 0.0 /100WBC 04/14/22 13:14 D-Dimer 2.60 ug/mIFEU (0-0.59) H 04/14/22 14:59 Sodium 132 mmol/L (136-145) L 04/14/22 13:14 Potassium 4.5 mmol/L (3.5-5.1) 04/14/22 13:14 Chloride 100 mmol/L (98-107) 04/14/22 13:14 Carbon Dioxide 20 mmol/L (22-29) L 04/14/22 13:14 Anion Gap 16.5 (5-19) 04/14/22 13:14 BUN 14 mg/dL (8-23) 04/14/22 13:14 Creatinine 1.0 mg/dL (0.7-1.2) 04/14/22 13:14 GFR Calculation 75.7 mL/min (90-130) L 04/14/22 13:14 Glucose 130 mg/dL (65-115) H 04/14/22 13:14 Calculated Osmolality 276 mOsm/kg (285-295) L 04/14/22 13:14 Calcium 8.6 mg/dL (8.5-10.5) 04/14/22 13:14 Total Bilirubin 0.9 mg/dL (0.15-1.2) 04/14/22 13:14 AST 39 U/L (0-40) 04/14/22 13:14 ALT 45 U/L (0-41) H 04/14/22 13:14 Alkaline Phosphatase 92 U/L (40-130) 04/14/22 13:14 Troponin T Baseline 38 ng/L (0-15) H 04/14/22 13:14 Troponin T 120 Minute 46.97 ng/L (0-15) H 04/14/22 14:59 Delta Troponin T 8.97 ABS# (0-10) 04/14/22 14:59 NT-Pro-B Natriuret Pep 04617 pg/mL (0-125) H 04/14/22 13:14 Total Protein 7.0 g/dL (6.6-8.7) 01/22/23 13:14 Albumin 3.7 g/dL (3.5-5.2) 04/14/22 13:14 Globulin 3.3 g/dL (1.3-4.6) 04/14/22 13:14 Discharge Plan Discharge Patient Disposition: Home Clinical Impression: Hypertension, Congestive heart failure, Pneumonia Condition: Stable Prescriptions: New furosemide 40 mg tablet 40 mg PO BID Qty: 10 0RF levofloxacin 750 mg tablet 750 mg PO DAILY 10 Days Qty: 10 0RF No Action polyethylene glycol 3350 [Miralax] 17 gram powder in packet 17 g PO DAILY PRN (Reason: Constipation) albuterol sulfate [ProAir HFA] 90 mcg/actuation HFA aerosol inhaler 2 puff inhalation QID PRN (Reason: shortness of breath or wheezing) Qty: 6.7 5RF Entresto 24-26 mg tablet 1 tab PO BID Qty: 60 2RF levothyroxine [Synthroid] 50 mcg tablet 50 mcg PO DAILY Qty: 30 2RF nystatin 100,000 unit/mL suspension 5 ml PO .2 times day Qty: 200 0RF furosemide 20 mg tablet 20 mg PO DAILY Qty: 30 2RF Dulera 200-5 mcg/actuation HFA aerosol inhaler 2 puff inhalation Q12H Qty: 13 2RF nitroglycerin 0.4 mg Tablet, Sublingual 0.4 mg sublingual Q5M PRN (Reason: Chest Pain) Qty: 10 0RF potassium chloride 20 mEq tablet extended release See Rx Instructions .ROUTE .COMPLEX Rx Instructions: 40 mEq orally in the morning / 20 meq in the evening Discharge Orders: Discharge ED (Routine); Ordered 04/14/22 Ordered By: Perez Beal Referrals: Raf Kirby, [employer] [Primary Care Provider] - Patient Instructions: Opioid Safety, Pain Management Activity Restrictions/Additional Instructions: Increase your Lasix dosage to 40 mg twice daily for the next 3-days, then down to 40 daily for 2 days before returning to 20 mg. Antibiotics as directed. Use your albuterol every 4 hours while awake for the next 48 hours, then as needed. Return for continued fever despite 3 doses of antibiotics, worsening shortness of breath despite treatment, chest pain, any other concerning symptoms. Coding Level of Care Code ED [employer] Exam Expanded Problem Focused
[2022-04-14 14:57] LABS: Troponin(5th) Baseline 38 ng/L (0-15)
[2022-04-14] MEDS: labetalol 5 mg/mL SDV 20mL 20 MG IVP (15:21)
[2022-04-14] MEDS: FUROsemide 10 mg/mL SDV 4mL 40 MG IVP ×2 (15:23→20:08)
[2022-04-14] MEDS: nitroglycerin 1 gm/inch oint Pkt 1 INCH TOPICAL (15:25)
[2022-04-14 15:48] LABS: Troponin 5 2HR 46.97 ng/L (0-15)
[2022-04-14 16:05] LABS: Troponin 5 2HR Delta 8.97 ABS# (0-10)
--- NOTE | 2022-04-14 17:05 | CTR_ITS ---
PROCEDURE INFORMATION: Exam: CTA Chest With Contrast Exam date and time: 04/14/2022 5:36 PM Age: 61 years old Clinical indication: Shortness of breath; Additional info: Elevated d dimer short of breath TECHNIQUE: Imaging protocol: Computed tomographic angiography of the chest with contrast. 3D rendering (Not supervised by radiologist): MIP and/or 3D reconstructed images were created by the technologist. Radiation optimization: All CT scans at this facility use at least one of these dose optimization techniques: automated exposure control; mA and/or kV adjustment per patient size (includes targeted exams where dose is matched to clinical indication); or iterative reconstruction. Contrast material: OMNI 350; Contrast volume: 100 ml; Contrast route: INTRAVENOUS (IV); COMPARISON: CT angio chest w abd pel w con 01/12/2022 7:05 PM RADIATION DOSE METRICS: Total DLP (mGy-cm): 427.43 FINDINGS: Pulmonary arteries: Normal. No pulmonary emboli. Aorta: Unremarkable. No aortic aneurysm. No aortic dissection. Lungs: Right lower lobe pneumonia. There are emphysematous changes in the lungs. Pleural spaces: Unremarkable. No pneumothorax. No pleural effusion. Heart: Cardiomegaly. There is reflux of contrast into the hepatic veins consistent with right heart strain. Lymph nodes: There are multiple mediastinal and perihilar lymph nodes some of which have a rounded appearance. Intraperitoneal space: There is ascites in the upper abdomen. Bones/joints: Unremarkable. No acute fracture. Soft tissues: Unremarkable. CT/CT angio chest PE protcl [id number] IMPRESSION: 1. Right lower lobe pneumonia. 2. Cardiomegaly with right heart strain. 3. There is ascites in the upper abdomen. 4. Emphysematous changes are present in the lungs. COMMENTS: In the absence of a history or active diagnosis of lung cancer, it is recommended that this patient with emphysema be evaluated for enrollment in a low dose CT lung cancer screening program.
[2022-04-14] MEDS: iohexol 350 mg/mL 500 mL Btl (per mL) IV (17:46)
[2022-04-14] MEDS: levoFLOXacin 750 mg Tablet PO (20:08)
--- NOTE | 2022-04-14 20:29 | ECG_ITS ---
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 Measurements Intervals Leighton Rate: 85 P: 70 SD: 199 QRS: -83 QRSD: 173 T: 104 QT: 457 QTc: 546 Interpretive Statements SINUS RHYTHM LEFT ATRIAL ENLARGEMENT [-0.15mV P-WAVE IN V1/V2] LEFT AXIS DEVIATION [QRS AXIS < -30] INTRAVENTRICULAR CONDUCTION DELAY [130+ ms QRS DURATION] Compared to ECG 04/14/2022 14:48:41 Intraventricular conduction delay now present Sinus tachycardia no longer present Left bundle-branch block no longer present Electronically Signed On 04-16-2022 7:50:40 BRIM BUSTER by Fanny Hyde M.D. [id number]
[2022-04-14 20:47] LABS: Thyroid Stimulating Hormone 3.04 uIU/mL (0.27-4.20)
== END 2022-04-14 20:56 | disposition home or self-care (01) ==
PROVIDERS: Emergency Medicine; Physician Assistant; Emergency Provider Emergency Medicine; PCP Nurse Practitioner
DX: I11.0 Hypertensive heart disease with heart failure (principal); I50.9 Heart failure, unspecified; J44.0 Chronic obstructive pulmonary disease with (acute) lower respiratory infection; J18.9 Pneumonia, unspecified organism; F17.210 Nicotine dependence, cigarettes, uncomplicated
CPT/HCPCS: 36415; 71045; 71275; 80053; 83880; 84443; 84484; 85025; 85378; 93005; 96374; 96375; 96376; 99285; J1940; J3490; Q9967

== ENCOUNTER 2022-04-17 21:33 | Inpatient (IN) | payer MEDICAID, SELFPAY ==
[2022-04-17] VITALS (7 sets, daily range): BP systolic 139–169; BP diastolic 100–125; PULSE 83–117; RESP 14–24; TEMP 36.5; O2SAT 94–98; BMI 23.6
--- NOTE | 2022-04-17 21:38 | ECG_ITS ---
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 Measurements Intervals Alfred Rate: 117 P: -58 NC: 152 QRS: -55 QRSD: 170 T: 102 QT: 385 QTc: 539 Interpretive Statements ECTOPIC ATRIAL TACHYCARDIA LEFT ATRIAL ENLARGEMENT [-0.15mV P-WAVE IN V1/V2] LEFT AXIS DEVIATION [QRS AXIS < -30] LEFT BUNDLE BRANCH BLOCK [120+ ms QRS DURATION, 80+ ms Q/S IN V1/V2, 85+ ms R IN I/aVL/V5/V6] Compared to ECG 04/14/2022 16:48:48 Left bundle-branch block now present Sinus rhythm no longer present Intraventricular conduction delay no longer present Electronically Signed On 04-18-2022 6:55:32 PLUSH BRUSHER by Fanny Hyde M.D. [id number] f
--- NOTE | 2022-04-17 21:40 | XRR_ITS ---
PROCEDURE INFORMATION: Exam: XR Chest Exam date and time: 04/17/2022 9:34 PM Age: 61 years old Clinical indication: Shortness of breath; Chest wall pain; Patient HX: Stemi alert. Chest pain with SOB. History of chf. ; Additional info: Cp TECHNIQUE: Imaging protocol: Radiologic exam of the chest. Views: 1 view. COMPARISON: 1. CR (CHEST, ) 04/14/2022 12:[address] angio chest PE protcl [id number] 04/14/2022 5:36 PM FINDINGS: Lungs: There is subtle focal opacity in the lateral right lung base corresponding to the findings on CT of 04/14/2022. There is mild central lower lung predominant ground-glass opacity bilaterally. Pleural spaces: There is no pleural effusion or pneumothorax. Heart/Mediastinum: There is moderate enlargement of the cardiac silhouette. Bones/joints: Bones are unremarkable. XR/XR chest 1V portable [id number] IMPRESSION: 1. Focal opacity at the right lung base corresponding to the abnormality on chest CT 04/14/2022. Possible infection. 2. Subtle central and lower lung predominant ground-glass opacity suggest pulmonary edema. 3. Cardiac enlargement.
--- NOTE | 2022-04-17 21:41 | ED_ITS ---
HPI - Chest Pain General: Chief Complaint: Chest Pain Stated Complaint: CHEST PAIN STEMI ALERT Time Seen by Provider: 04/17/22 21:37 Source: patient and EMS Mode of arrival: EMS Limitations: no limitations History of Present Illness: 61-year-old male is brought in by EMS he has a history congestive heart failure he states he been having some increasing shortness of breath he states he is having chest pain tonight states it was a sharp pain in the center of his chest he may states he had some diaphoresis as well patient was given nitro in route he is currently chest pain-free he is not wear oxygen at baseline he is requiring 2 L here. Denies any worsening improving factors. Associated symptoms: Reports dyspnea; Deny abdominal pain, fever(s), nausea or vomiting Review of Systems Const: Denies: fever(s), chills, body aches or change in appetite Eyes: Denies: blurry vision or eye discomfort ENMT: Denies: throat pain or dental pain Card: Reports: chest pain Resp: Reports: dyspnea GI: Denies: abdominal pain, nausea, vomiting or diarrhea : Denies: dysuria Musc: Denies: neck pain or back pain Skin/Breast: Denies: rash Neuro: Denies: headache(s) Psych: Denies: depression Jerel/Lymph: Denies: easy bruising All/Imm: Denies: urticaria PFSH ED PFSH: Medical History Acute on chronic congestive heart failure Cardiomyopathy Congestive heart failure COPD (chronic obstructive pulmonary disease) Dyspnea on exertion Emphysema/COPD Epigastric pain Hypertension Hypokalemia Hypothyroidism Malignant hypertension Mesenteric angina Pneumonia Pulmonary embolism Tobacco use disorder Surgical History History of surgery of head Family History Other CAD (coronary artery disease) Hypertension Stroke Denies family history of Dementia Social History Smoking and tobacco status: current every day smoker Second hand smoke exposure: Yes Smoking risk assessment/counseling performed?: No Alcohol intake: never Desire information about alcohol rehabilitation?: No Counseling given: No Desire information about substance/drug rehabilitation?: No Counseling given: No Adopted: No Caregiver/support person: No Lives independently: Yes Household members: spouse Housing: House Marital status: Number of children: 4 service: No Current occupational status: disabled Physical Exam Const: COMMON NORMALS: patient oriented x3 HENMT: COMMON NORMALS: normocephalic and atraumatic HEAD & SCALP: normocephalic and atraumatic Eye: COMMON NORMALS: Equal, round and reactive pupils present and EOMs intact bilaterally PUPIL: Yes Equal, round and reactive pupils present Neck/C-Spine: COMMON NORMALS: full ROM and supple Chest: COMMONS NORMALS: normal inspection of the chest and normal palpation of entire chest wall Resp: COMMON NORMALS: normal respiratory effort, No retractions and No use of accessory muscles Cardio: COMMON NORMALS: regular rate, regular rhythm and No murmurs present (Cardio) RATE: regular rate RHYTHM: regular rhythm GI: COMMON NORMALS: Normal to inspection, nondistended, normoactive bowel sounds present, Soft to palpation, non-tender and no masses PALPATION: Yes Soft to palpation Extremity: COMMON NORMALS: full ROM NARRATIVE EXTREMITY EXAM: 2+ edema Neuro: COMMON NORMALS: patient oriented x3, moves all extremities and no focal motor deficits Psych: COMMON NORMALS: mental status grossly normal, Normal thought process present and cooperative THOUGHT PROCESS: Normal thought process present Skin: COMMON NORMALS: no rashes or lesions noted and no wounds GENERAL SKIN EXAM: no rashes or lesions noted Course Vital Signs: Vital signs: Vital Signs Temperature 97.7 F 04/17/22 21:37 Pulse Rate 84 04/17/22 22:50 Respiratory Rate 24 H 04/17/22 23:42 Blood Pressure 147/107 04/17/22 23:42 Pulse Oximetry 97 04/17/22 23:42 Oxygen Delivery Me thod 04/17/22 23:42 MDM - Chest Pain Medical Decision Making Patient presents here with shortness of breath along with chest pain he does have CHF likely CHF exacerbation STEMI alert was called in the field EKG here shows a left bundle branch that is unchanged from old Dr. Chandler is at bedside called off the STEMI patient's initial troponin here is normal has been pain- free here will admit for ACS rule out and for his CHF Lab Data 04/17/22 21:43 04/17/22 21:43 Radiology Impressions Chest X-Ray 04/17/22 21:40 IMPRESSION: 1. Focal opacity at the right lung base corresponding to the abnormality on chest CT 04/14/2022. Possible infection. 2. Subtle central and lower lung predominant ground-glass opacity suggest pulmonary edema. 3. Cardiac enlargement. Laboratory Results WBC 9.7 10^3/uL (4.0-10.0) 04/17/22 21:43 RBC 4.93 10^6/uL (4.1-5.3) 04/17/22 21:43 Hgb 14.0 g/dL (11.7-16.6) 04/17/22 21:43 Hct 44.2 % (42.0-52.0) 04/17/22 21:43 MCV 89.7 fl (80-94) 04/17/22 21:43 MCH 28.4 pg (28.0-34.0) 04/17/22 21:43 MCHC 31.7 g/dL (30.0-36.0) 04/17/22 21:43 RDW 16.2 % (12.1-15.1) H 04/17/22 21:43 Plt Count 428 10^3/cmm (130-400) H 04/17/22 21:43 MPV 9.8 fL (7.4-10.4) 04/17/22 21:43 Neut % (Auto) 61.8 % 04/17/22 21:43 Lymph % (Auto) 28.9 % 04/17/22 21:43 Waldo % (Auto) 7.4 % 04/17/22 21:43 Eos % (Auto) 0.8 % 04/17/22 21:43 Baso % (Auto) 0.8 % 04/17/22 21:43 Neut # (Auto) 6.01 10^3/uL (1.8-7.7) 04/17/22 21:43 Lymph # (Auto) 2.8 10^3/uL (0.8-4.8) 04/17/22 21:43 Waldo # (Auto) 0.7 10^3/uL (0.2-0.9) 04/17/22 21:43 Eos # (Auto) 0.1 10^3/uL (0.0-0.8) 04/17/22 21:43 Baso # (Auto) 0.1 10^3/uL (0.0-0.1) 04/17/22 21:43 Nucleated RBC % (auto) 0 % 04/17/22 21:43 Nucleated RBCs # 0.0 /100WBC 04/17/22 21:43 PT 16.70 SECONDS (12.1-14.9) H 04/17/22 21:43 INR 1.32 (0.8-1.2) H 04/17/22 21:43 Sodium 136 mmol/L (136-145) 04/17/22 21:43 Potassium 4.6 mmol/L (3.5-5.1) 04/17/22 21:43 Chloride 98 mmol/L (98-107) 04/17/22 21:43 Carbon Dioxide 23 mmol/L (22-29) 04/17/22 21:43 Anion Gap 19.6 (5-19) H 04/17/22 21:43 BUN 18 mg/dL (8-23) 04/17/22 21:43 Creatinine 1.6 mg/dL (0.7-1.2) H 04/17/22 21:43 GFR Calculation 44.0 mL/min (90-130) L 04/17/22 21:43 Glucose 101 mg/dL (65-115) 04/17/22 21:43 Calculated Osmolality 284 mOsm/kg (285-295) L 04/17/22 21:43 Calcium 9.2 mg/dL (8.5-10.5) 04/17/22 21:43 Total Bilirubin 1.0 mg/dL (0.15-1.2) 04/17/22 21:43 AST 76 U/L (0-40) H 04/17/22 21:43 ALT 107 U/L (0-41) H 04/17/22 21:43 Alkaline Phosphatase 123 U/L (40-130) 04/17/22 21:43 Troponin T Baseline 38 ng/L (0-15) H 04/17/22 21:43 NT-Pro-B Natriuret Pep 31700 pg/mL (0-125) H 04/17/22 21:43 Total Protein 7.4 g/dL (6.6-8.7) 04/17/22 21:43 Albumin 3.9 g/dL (3.5-5.2) 04/17/22 21:43 Globulin 3.5 g/dL (1.3-4.6) 04/17/22 21:43 Discharge Plan Discharge Patient Disposition: Admitted As Inpatient Admit Provider: Ngozi Moreno Clinical Impression: Acute exacerbation of CHF (congestive heart failure), Chest pain Condition: Stable Coding Level of Care Code ED Service Worker Helper for Chg Fwd Exam Comprehensive
[2022-04-17] MEDS: labetalol 5 mg/mL SDV 20mL 10 MG IVP (21:47)
[2022-04-17 21:49] LABS: Basophils # 0.1 10^3/uL (0.0-0.1); Basophils % 0.8 %; Eosinophils # 0.1 10^3/uL (0.0-0.8); Eosinophils % 0.8 %; Hematocrit 44.2 % (42.0-52.0); Lymphocytes # 2.8 10^3/uL (0.8-4.8); Lymphocytes % 28.9 %; Mean Corpuscular HGB Conc 31.7 g/dL (30.0-36.0); Mean Corpuscular Hemoglobin 28.4 pg (28.0-34.0); Mean Corpuscular Volume 89.7 fl (80-94); Mean Platelet Volume 9.8 fL (7.4-10.4); Monocytes # 0.7 10^3/uL (0.2-0.9); Monocytes % 7.4 %; Neutrophils # 6.01 10^3/uL (1.8-7.7); Neutrophils % 61.8 %; Nucleated Red Blood Cells % 0 %; Platelet Count 428 10^3/cmm (130-400); Red Blood Count 4.93 10^6/uL (4.1-5.3); Red Cell Distribution Width 16.2 % (12.1-15.1); White Blood Count 9.7 10^3/uL (4.0-10.0)
--- NOTE | 2022-04-17 21:49 | PM.CONSULT ---
Providers/Reason For Consult Consulting Physician/Specialty*: Reddy Lopez MD/ Interventional cardiology Reason for Consult*: Stemi alert/chest pain Requesting Physician: Dr cMgowan Primary Care Provider: ANGELINE Fishman History of Present Illness History of Present Illness [place] Camp is a 61 year old male with past medical history of nonischemic cardiomyopathy, noncompliance, EF of 20 to 25%, had refused ICD in the past who was brought by EMS with complaints of shortness of breath and chest discomfort. According to patient he was having significant chest substernal chest pain. Sharp in quality. On receiving nitro the pain has subsided. EKG shows a sinus rhythm with left bundle branch block. He has baseline left bundle branch block and EKG is unchanged from recent EKG few days back. He is hemodynamically stable. Review of Systems Const: Denies: fever(s), chills, body aches or change in appetite Eyes: Denies: blurry vision or eye discomfort ENMT: Denies: throat pain or dental pain Card: Reports: chest pain Resp: Reports: dyspnea GI: Denies: abdominal pain, nausea, vomiting or diarrhea : Denies: dysuria Musc: Denies: neck pain or back pain Skin/Breast: Denies: rash Neuro: Denies: headache(s) Psych: Denies: depression Jerel/Lymph: Denies: easy bruising All/Imm: Denies: urticaria Medications/Allergies Home Medications Medication Instructions Recorded Confirmed Last Taken Type nitroglycerin 0.4 mg sublingual 0.4 mg sublingual Q5M PRN Chest 09/03/21 04/14/22 Unknown Rx tablet Pain #10 tabs polyethylene glycol 3350 17 gram 17 g PO DAILY PRN Constipation 01/10/22 04/14/22 Unknown History oral powder packet (Miralax) albuterol sulfate 90 mcg/actuation 2 puff inhalation QID PRN 04/09/22 04/14/22 Unknown Rx aerosol inhaler (ProAir HFA) shortness of breath or wheezing #6.7 grams furosemide 20 mg tablet 20 mg PO DAILY #30 tabs 04/09/22 04/14/22 04/14/22 Rx levothyroxine 50 mcg tablet 50 mcg PO DAILY #30 tabs 04/09/22 04/14/22 04/13/22 Rx (Synthroid) mometasone-formoterol HFA 200 2 puff inhalation Q12H #13 grams 04/09/22 04/14/22 04/14/22 Rx mcg-5 mcg/actuation aerosol inhaler (Dulera) nystatin 100,000 unit/mL oral 5 ml PO .2 times day #200 mL 04/09/22 04/14/22 04/13/22 Rx suspension sacubitril 24 mg-valsartan 26 mg 1 tab PO BID #60 tabs 04/09/22 04/14/22 04/14/22 Rx tablet (Entresto) furosemide 40 mg tablet 40 mg PO BID #10 tabs 04/14/22 Unknown Rx levofloxacin 750 mg tablet 750 mg PO DAILY 10 days #10 tabs 04/14/22 Unknown Rx potassium chloride 20 mEq See Rx Instructions .Route .COMPLEX 04/14/22 04/14/22 04/14/22 History tablet,extended release Allergies Allergy/AdvReac Type Severity Reaction Status Date / Time ibuprofen Allergy Mild Rash Verified 04/09/22 11:04 naproxen Allergy Mild Rash Verified 04/09/22 11:04 yellow dye Allergy Mild Rash Verified 04/09/22 11:04 lisinopril AdvReac Mild Cough Verified 04/09/22 11:04 losartan AdvReac Mild ADR-Nausea Verified 04/09/22 11:04 PFSH Acute PFSH: Medical History Acute on chronic congestive heart failure Cardiomyopathy Congestive heart failure COPD (chronic obstructive pulmonary disease) Dyspnea on exertion Emphysema/COPD Epigastric pain Hypertension Hypokalemia Hypothyroidism Malignant hypertension Mesenteric angina Pneumonia Pulmonary embolism Tobacco use disorder Surgical History History of surgery of head Family History Other CAD (coronary artery disease) Hypertension Stroke Denies family history of Dementia Social History Smoking and tobacco status: current every day smoker Second hand smoke exposure: Yes Smoking risk assessment/counseling performed?: No Alcohol intake: never Desire information about alcohol rehabilitation?: No Counseling given: No Desire information about substance/drug rehabilitation?: No Counseling given: No Adopted: No Caregiver/support person: No Lives independently: Yes Household members: spouse Housing: House Marital status: Number of children: 4 service: No Current occupational status: disabled Vitals/I&O/Wt Last Vital Signs Temp 97.7 F 04/17/22 21:37 Pulse 117 H 04/17/22 21:37 Resp 16 04/17/22 21:37 BP 169/125 04/17/22 21:37 Pulse Ox 94 04/17/22 21:43 O2 Del Method 04/17/22 21:43 Weight last 48 hrs Weight 160 lb Physical Exam Narrative: GENERAL: Patient is alert, awake and oriented x3. [] NECK: No jugular vein distension. [] HEENT: No cyanosis. No icterus. No pallor. [] HEART: Regular S1 and S2. No murmur, rub or gallop. [] LUNGS: Mild bilateral crackles ABDOMEN: Soft, nontender and nondistended. Positive bowel sounds. No guarding, rebound or tenderness. [] CENTRAL NERVOUS SYSTEM: Grossly nonfocal. [] EXTREMITIES: Lower extremities with 1+ edema bilaterally Data 04/17/22 21:43 04/17/22 21:43 A&P Assessment and plan (1) Congestive heart failure: (2) Chest pain: (3) Left bundle branch block: Plan Patient has presented with chest pain and shortness of breath. Chest pain has resolved with administration of sublingual nitro. Left bundle branch block is old, EKG is unchanged from before. Symptoms and EKG not consistent with STEMI Trend troponins. If troponins trend up, keep NPO for possible cardiac catheterization in the AM. Treat as NSTEMI at this time. Aspirin and Plavix can be administered Patient appears volume overloaded. Based on labs, we will need to diuresis. Also needs blood pressure control Thank you for involving us with care of this patient. Please call with questions Consult Attestations Medical Necessity Statement: Care expected to cross 2 midnight Coding Level of Care Code Acute Code for Chg Fwd Diagnoses Congestive heart failure I50.9 Chest pain R07.9 Left bundle branch block I44.7
[2022-04-17 22:04] LABS: INR 1.32 (0.8-1.2)
[2022-04-17 22:08] LABS: Troponin(5th) Baseline 38 ng/L (0-15)
[2022-04-17 22:17] LABS: Alanine Aminotransferase 107 U/L (0-41); Albumin Level 3.9 g/dL (3.5-5.2); Alkaline Phosphatase 123 U/L (40-130); Anion Gap 19.6 (5-19); Aspartate Amino Transferase 76 U/L (0-40); Blood Urea Nitrogen 18 mg/dL (8-23); Calcium 9.2 mg/dL (8.5-10.5); Carbon Dioxide 23 mmol/L (22-29); Chloride 98 mmol/L (98-107); Globulin 3.5 g/dL (1.3-4.6); Glucose 101 mg/dL (65-115); NT Pro B Type Natriuretic Pept 13547 pg/mL (0-125); Osmolality Calculated 284 mOsm/kg (285-295); Potassium 4.6 mmol/L (3.5-5.1); Sodium 136 mmol/L (136-145); Total Protein 7.4 g/dL (6.6-8.7)
[2022-04-17] MEDS: FUROsemide 10 mg/mL SDV 4mL 40 MG IVP (22:33)
[2022-04-17 23:37] LABS: Troponin 5 2HR 33.61 ng/L (0-15)
--- NOTE | 2022-04-17 23:50 | ECG_ITS ---
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 Measurements Intervals [place] Rate: 89 P: 64 RI: 195 QRS: -51 QRSD: 179 T: 119 QT: 440 QTc: 537 Interpretive Statements SINUS RHYTHM LEFT ATRIAL ENLARGEMENT [-0.15mV P-WAVE IN V1/V2] LEFT AXIS DEVIATION [QRS AXIS < -30] LEFT BUNDLE BRANCH BLOCK [120+ ms QRS DURATION, 80+ ms Q/S IN V1/V2, 85+ ms R IN I/aVL/V5/V6] Compared to ECG 04/14/2022 16:48:48 Left bundle-branch block now present Intraventricular conduction delay no longer present Electronically Signed On 04-18-2022 7:01:48 INTERNET MARKETING STRATEGIST by Fanny Hyde M.D. [id number]
[2022-04-18] VITALS (19 sets, daily range): BP systolic 144–160; BP diastolic 87–105; PULSE 78–109; RESP 10–27; TEMP 36.3–36.4; O2SAT 95–99
[2022-04-18 00:16] LABS: Troponin 5 2HR Delta -4.39 ABS# (0-10)
--- NOTE | 2022-04-18 00:20 | PM.HP ---
Providers/Chief Complaint Admitting Physician: Ngozi Moreno MD Primary Care Provider: Raf Kirby, DIVISION ENGINEER-C Chief Complaint: CHEST PAIN STEMI ALERT History of Present Illness [place] Camp is a 61 year old male with known nonischemic cardiomyopathy last known EF ~20% ,refused ICD in the past, accelerated hypertension, multiple episodes of hypertensive urgency, p/w substernal chest pain. Initially a STEMI alert was called due to noted LBBB, he was evaluated by cardiology in the ER- eventually determined to be LBBB which is not new. His chest pain was relieved by nitro. He was in the ER recently on 04/14 with similar symptoms when a CTA chest was performed- negative for PE, incidentally showed right lower lobe infiltrate thought to be a consolidation for which he is currently on levofloxacin. Review of Systems General: Reports: 10 or more systems reviewed and unremarkable except in HPI and below Const: Denies: fever(s), chills or body aches Eyes: Denies: change in vision, blurry vision or photophobia ENMT: Reports: hoarseness; Denies: throat pain, enlarged tonsils, odynophagia or nasal congestion Card: Denies: chest pain, palpitations, irregular heart rhythm, edema, swelling of feet/ankles, lightheadedness, pre-syncope, dyspnea on exertion or orthopnea Resp: Denies: dyspnea, productive cough, non-productive cough, wheezing, stridor, pain on inspiration, change in phlegm color, hemoptysis or chest congestion GI: Denies: abdominal pain, nausea, vomiting, hematemesis, coffee ground emesis, dysphagia, heartburn, diarrhea, constipation, GI cramping, change in stool character, hematochezia or melena : Denies: flank pain, dysuria, urinary frequency, urinary urgency, urinary hesitancy or hematuria Musc: Denies: neck pain, back pain, extremity pain, joint swelling, joint warmth or deformity Neuro: Denies: headache(s), numbness in extremities, weakness in extremities, sensory changes, difficulty walking, frequent falls, dizziness, vertigo, behavioral changes, Slurred speech present or seizure-like activity Psych: Denies: anxiety, depression, suicidal ideation or homicidal ideation Endo: Denies: polyuria, polydipsia, tired all the time, cold intolerance or hot flashes Jerel/Lymph: Denies: easy bruising or easy bleeding Medications/Allergies Home Medications Medication Instructions Recorded Confirmed Last Taken Type nitroglycerin 0.4 mg sublingual 0.4 mg sublingual Q5M PRN Chest 09/03/21 04/17/22 04/17/22 Rx tablet Pain #10 tabs polyethylene glycol 3350 17 gram 17 g PO DAILY PRN Constipation 01/10/22 04/17/22 04/17/22 History oral powder packet (Miralax) albuterol sulfate 90 mcg/actuation 2 puff inhalation QID PRN 04/09/22 04/17/22 04/17/22 Rx aerosol inhaler (ProAir HFA) shortness of breath or wheezing #6.7 grams levothyroxine 50 mcg tablet 50 mcg PO DAILY #30 tabs 04/09/22 04/17/22 04/13/22 Rx (Synthroid) mometasone-formoterol HFA 200 2 puff inhalation Q12H #13 grams 04/09/22 04/17/22 04/17/22 Rx mcg-5 mcg/actuation aerosol inhaler (Dulera) nystatin 100,000 unit/mL oral 5 ml PO .2 times day #200 mL 04/09/22 04/17/22 04/17/22 Rx suspension sacubitril 24 mg-valsartan 26 mg 1 tab PO BID #60 tabs 04/09/22 04/17/22 04/16/22 Rx tablet (Entresto) furosemide 40 mg tablet 40 mg PO BID #10 tabs 04/14/22 04/17/22 04/17/22 Rx levofloxacin 750 mg tablet 750 mg PO DAILY 10 days #10 tabs 04/14/22 04/17/22 04/17/22 Rx potassium chloride 20 mEq See Rx Instructions .Route .COMPLEX 04/14/22 04/17/22 04/17/22 History tablet,extended release Allergies Allergy/AdvReac Type Severity Reaction Status Date / Time ibuprofen Allergy Mild Rash Verified 04/09/22 11:04 naproxen Allergy Mild Rash Verified 04/09/22 11:04 yellow dye Allergy Mild Rash Verified 04/09/22 11:04 lisinopril AdvReac Mild Cough Verified 04/09/22 11:04 losartan AdvReac Mild ADR-Nausea Verified 04/09/22 11:04 PFSH Acute PFSH: Medical History Acute on chronic congestive heart failure Cardiomyopathy Congestive heart failure COPD (chronic obstructive pulmonary disease) Dyspnea on exertion Emphysema/COPD Epigastric pain Hypertension Hypokalemia Hypothyroidism Malignant hypertension Mesenteric angina Pneumonia Pulmonary embolism Tobacco use disorder Surgical History History of surgery of head Family History Other CAD (coronary artery disease) Hypertension Stroke Denies family history of Dementia Social History Smoking and tobacco status: current every day smoker Second hand smoke exposure: Yes Smoking risk assessment/counseling performed?: No Alcohol intake: never Desire information about alcohol rehabilitation?: No Counseling given: No Desire information about substance/drug rehabilitation?: No Counseling given: No Adopted: No Caregiver/support person: No Lives independently: Yes Household members: spouse Housing: House Marital status: Number of children: 4 service: No Current occupational status: disabled Vitals/I&O/Wt Last Vital Signs Temp 97.7 F 04/17/22 21:37 Pulse 84 04/17/22 22:50 Resp 24 H 04/17/22 23:42 BP 147/107 04/17/22 23:42 Pulse Ox 97 04/17/22 23:42 O2 Del Method 04/17/22 23:42 04/17/22 04/17/22 04/18/22 14:59 22:59 06:59 Output Total 200 / 200 Balance -200 / -200 Weight last 48 hrs Weight 73.845 kg Weight 72.575 kg Physical Exam Narrative: General: No acute distress, AO x3 HEENT: PERRLA, pupils bilaterally equal and reactive, pallors not present Chest: Normal vesicular breath sounds, no added sounds, equal good air entry bilaterally CVS: S1-S2 regular, no murmurs, no tachycardia, no gallops, no rubs Abdomen: Soft, nontender, no organomegaly, bowel sounds present Neuro: No focal deficits, no facial deformity, AO x3, power 5/5 in all limbs Data 04/17/22 21:43 04/17/22 21:43 A&P Assessment and plan (1) Chest pain: Patient has presented with chest pain and shortness of breath.? Currently releived with s/l nitro EKG shows Left bundle branch block which is old, EKG is unchanged from before. baseline troponin 38, pending 2 and 6 hr troponins NPO for possible cardiac catheterization in the AM. Continue ASA 81mg po daily, start Lovenox 1mg/kg q12h Has been evaluated by cardiology in the ER He has received 40mg iv q24h, start diuresis with 40mg iv q12h (2) Acute exacerbation of CHF (congestive heart failure): Acute on chronic systolic CHF exacerbation last known EF ?Left ventricular ejection fraction is ?estimated at 20-25 %.? Severe global hypokinesis from 12/2021 (3) Left bundle branch block: Attestations Medical Necessity Statement*: > 2 midnight admission anticipated for management of CHF, iv diuresis, evalute for NSTEMI Coding Level of Care Code Acute Code for [facility] Diagnoses Chest pain R07.9 Acute exacerbation of CHF (congestive heart failure) I50.9 Left bundle branch block I44.7
[2022-04-18] MEDS: enoxaparin 80 mg/0.8 mL Syringe 70 MG SUBCUT ×2 (01:10→13:24)
[2022-04-18] MEDS: cefTRIAXone 1,000 MG in sodium chloride 0.9% (plus) 50 ML 100 MG IV (01:11)
[2022-04-18] MEDS: nitroglycerin 1 gm/inch oint Pkt 0.5 INCH TOPICAL ×4 (01:12→17:23)
[2022-04-18 01:50] LABS: SARS Covid-2 Antigen negative (Negative)
[2022-04-18] MEDS: ipratropium-albuterol 3 mL Neb INHALATION (02:08)
--- NOTE | 2022-04-18 03:36 | ECG_ITS ---
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 Measurements Intervals [place] Rate: 95 P: 74 ND: 178 QRS: -49 QRSD: 124 T: 136 QT: 391 QTc: 493 Interpretive Statements SINUS RHYTHM LEFT ATRIAL ENLARGEMENT [-0.15mV P-WAVE IN V1/V2] LEFT ANTERIOR FASCICULAR BLOCK [QRS AXIS <= -45, QR IN I, RS IN II] LEFT VENTRICULAR HYPERTROPHY AND ST-T CHANGE ST-T wave changes in lateral leads, consider lateral ischemia Compared to ECG 04/17/2022 23:50:24 Left anterior fascicular block now present Left ventricular hypertrophy now present ST (T wave) deviation now present Left-axis deviation no longer present Left bundle-branch block no longer present Electronically Signed On 04-18-2022 6:59:50 RESEARCH HYDRAULIC ENGINEER by Fanny Hyde M.D. [id number]
[2022-04-18] MEDS: levoFLOXacin 500 mg Tablet PO (05:38)
[2022-04-18] MEDS: albuterol 2.5 mg/3 mL Neb INHALATION ×3 (08:19→19:03)
[2022-04-18] MEDS: ipratropium 0.5 mg/2.5 mL Neb INHALATION ×3 (08:19→19:03)
[2022-04-18] MEDS: budesonide 0.5 mg/2 mL Neb INHALATION ×2 (08:19→19:03)
[2022-04-18] MEDS: aspirin 81 mg EC Tablet PO (08:37)
[2022-04-18] MEDS: pantoprazole DR 40 mg Tablet PO (08:37)
[2022-04-18] MEDS: levothyroxine 50 mcg Tablet PO (08:37)
[2022-04-18] MEDS: metoprolol tartrate 25 mg Tablet PO ×2 (08:40→18:34)
[2022-04-18] MEDS: FUROsemide 10 mg/mL SDV 4mL 40 MG IVP ×2 (08:40→18:34)
[2022-04-18 08:43] LABS: Procalcitonin 0.12 ng/mL (0-0.5)
[2022-04-18 10:44] LABS: Anion Gap 19.1 (5-19); Blood Urea Nitrogen 21 mg/dL (8-23); Calcium 9.1 mg/dL (8.5-10.5); Carbon Dioxide 20 mmol/L (22-29); Chloride 101 mmol/L (98-107); Glomerular Filtration Rate 51.4 mL/min (90-130); Glucose 87 mg/dL (65-115); Osmolality Calculated 284 mOsm/kg (285-295); Potassium 4.1 mmol/L (3.5-5.1); Sodium 136 mmol/L (136-145)
--- NOTE | 2022-04-18 10:45 | P.PN_ITS ---
Subjective Subjective: Patient is doing well. no chest pain. Creatinine was 1.6. Vitals/I&O/Wt Last Vital Signs Temp 97.6 F 04/18/22 07:38 Pulse 80 04/18/22 08:30 Resp 20 H 04/18/22 08:30 BP 147/87 04/18/22 09:56 Pulse Ox 97 04/18/22 08:30 O2 Del Method 04/18/22 08:30 04/17/22 04/18/22 04/18/22 22:59 06:59 14:59 Intake Total 50 / 50 Output Total 800 / 800 200 / 200 Balance -750 / -750 -200 / -200 Weight last 48 hrs Weight 162 lb 12.8 oz Weight 160 lb Physical Exam Narrative: GENERAL: Patient is alert, awake and oriented x3. [] NECK: No jugular vein distension. [] HEENT: No cyanosis. No icterus. No pallor. [] HEART: Regular S1 and S2. No murmur, rub or gallop. [] LUNGS: Clear lungs ABDOMEN: Soft, nontender and nondistended. Positive bowel sounds. No guarding, rebound or tenderness. [] CENTRAL NERVOUS SYSTEM: Grossly nonfocal. [] EXTREMITIES: Lower extremities with 1+ edema bilaterally Data 04/17/22 21:43 04/18/22 08:02 A&P Assessment and plan (1) Congestive heart failure: (2) Chest pain: (3) Left bundle branch block: Plan STEMI alert was cancelled last night. Creatinine is elevated. Can have a stress test tomorrow and if no significant area of ischemia, plan for medical therapy. Patient has diuresed and feels better since. No chest pain Blood pressure control. Thank you for involving us with care of this patient. Please call with questions Attestations Medical Necessity Statement*: Care expected to cross 2 midnights. Coding Level of Care Code Acute Code for [facility] Diagnoses Congestive heart failure I50.9 Chest pain R07.9 Left bundle branch block I44.7
--- NOTE | 2022-04-18 11:46 | P.PN_ITS ---
Subjective Subjective: Patient was seen this morning, no chest pain, no palpitations, he sitting up beside the bed, he is tells me that his shortness of breath has significantly improved with his Lasix Vitals/I&O/Wt Last Vital Signs Temp 97.6 F 04/18/22 07:38 Pulse 80 04/18/22 08:30 Resp 20 H 04/18/22 08:30 BP 147/87 04/18/22 09:56 Pulse Ox 97 04/18/22 08:30 O2 Del Method 04/18/22 08:30 04/17/22 04/18/22 04/18/22 22:59 06:59 14:59 Intake Total 50 / 50 Output Total 800 / 800 200 / 200 Balance -750 / -750 -200 / -200 Weight last 48 hrs Weight 73.845 kg Weight 72.575 kg Physical Exam Const: COMMON NORMALS: no acute distress and patient oriented x3 Resp: COMMON NORMALS: normal respiratory effort, No retractions, No use of accessory muscles and clear to auscultation bilaterally AUSCULTATION: clear to auscultation bilaterally Cardio: COMMON NORMALS: regular rate, regular rhythm, S1 normal heart sound present and S2 normal heart sound present RATE: regular rate RHYTHM: regular rhythm HEART SOUNDS: S1 normal heart sound present and S2 normal heart sound present GI: COMMON NORMALS: Normal to inspection, nondistended, normoactive bowel sounds present, Soft to palpation and non-tender PALPATION: Yes Soft to palpation Extremity: NARRATIVE EXTREMITY EXAM: 2+ pitting edema Neuro: COMMON NORMALS: patient oriented x3 Psych: COMMON NORMALS: mental status grossly normal Data 04/17/22 21:43 04/18/22 08:02 A&P Assessment and plan (1) Chest pain: Patient has presented with chest pain and shortness of breath.? Currently releived with s/l nitro EKG shows Left bundle branch block which is old, EKG is unchanged from before. baseline troponin 38, pending 2 and 6 hr troponins Continue ASA 81mg po daily, start Lovenox 1mg/kg q12h Has been evaluated by cardiology in the ER N.p.o. midnight, cardiac stress test tomorrow morning (2) Acute exacerbation of CHF (congestive heart failure): Acute on chronic systolic CHF exacerbation last known EF ?Left ventricular ejection fraction is ?estimated at 20-25 %.? Severe global hypokinesis from 12/2021 Continue Lasix 40 IV twice daily monitor creatinine monitor potassium, monitor magnesium, after diuresis (3) Left bundle branch block: (4) Pneumonia: See T angiogram of the chest showed right lower lobe pneumonia on CT 04/14/2022 Continue Rocephin and Levaquin Pro-Jerod, CRP, blood cultures (5) Hypothyroidism: (6) Hypertension: (7) Emphysema/COPD: Qualifiers: Emphysema type: unspecified Qualified Code(s): J43.9 - Emphysema, unspecified (8) Congestive heart failure: Plan Plan for today could do diuresis, monitor for chest pain continue antibiotic therapy after midnight, stress test tomorrow morning Attestations Medical Necessity Statement*: Patient requires hospitalization for acute on chronic systolic CHF exacerbation, chest pain Coding Level of Care Code Acute Code for [facility] Diagnoses Chest pain R07.9 Acute exacerbation of CHF (congestive heart failure) I50.9 Left bundle branch block I44.7 Pneumonia J18.9 Hypothyroidism E03.9 Hypertension I10 Emphysema/COPD J43.9 Emphysema type: unspecified Congestive heart failure I50.9
--- NOTE | 2022-04-18 11:49 | USCV_ITS ---
Parish Camp Age: 61 Gender: M : 1960 Exam Date: 04/18/2022 13:49 Ordering Phys: Preston Dc MD Technologist: Cirilo Mckay [place] [facility] [place]ication: CHF CARDIOMYOPATHY BP: 147 / 87 HR: 40 Rhythm: Sinus Technical Quality: Good MEASUREMENTS (Male / Female) Normal Values 2D ECHO LV Diastolic Diameter PLAX 6.2 cm 4.2 - 5.9 / 3.9 - 5.3 cm LV Systolic Diameter PLAX 6.0 cm IVS Diastolic Thickness 1.4 cm 0.6 - 1.0 / 0.6 - 0.9 cm IVS Systolic Thickness 1.4 cm LVPW Diastolic Thickness 1.1 cm 0.6 - 1.0 / 0.6 - 0.9 cm LVPW Systolic Thickness 1.2 cm LVOT Diameter 2.0 cm LV Ejection Fraction 2D Teich 9.6 % LV Ejection Fraction MOD 2C 18.8 % LV Ejection Fraction 2C AL 18.4 % LA Diameter 3.8 cm IVC Diameter 2.2 cm M-MODE Aortic Annulus Diameter 3.8 cm LA Ao Ratio MM 1.0 MV E Point Septal Separation 2.9 cm DOPPLER AV Peak Velocity 93.0 cm/s LVOT Peak Velocity 53.0 cm/s AV Area Cont Eq vti 1.7 cm squared AV Area Cont Eq pk 1.9 cm squared TR Peak Velocity 299.0 cm/s TR Peak Gradient 35.8 mmHg TV Peak E Velocity 74.0 cm/s Right Atrial Pressure 3.0 mmHg Pulmonary Artery Systolic Pressu 38.8 mmHg FINDINGS Left Ventricle Moderately increased left ventricular cavity size. Severely decreased left ventricular systolic function. Left ventricular ejection fraction is estimated at 15 %. Severe global left ventricular hypokinesis. Right Ventricle Normal right ventricular size and systolic function. Right Atrium Normal right atrial size. Left Atrium Mildly increased left atrial size. Mitral Valve Thickened mitral valve. No mitral valve stenosis. Moderate mitral valve regurgitation. Aortic Valve Mildly thickened trileaflet aortic valve. No aortic valve stenosis. No aortic valve regurgitation. Tricuspid Valve Structurally normal tricuspid valve. No tricuspid valve stenosis. Mild tricuspid valve regurgitation. Pulmonic Valve Pulmonic valve not well visualized. Pericardium No pericardial effusion. Aorta Normal size aortic root and proximal ascending aorta. IVC Dilated IVC with normal respiratory variation. CONCLUSIONS 1. Moderately increased left ventricular cavity size. Severely decreased left ventricular systolic function. Left ventricular ejection fraction is estimated at 15 %. Severe global left ventricular hypokinesis. 2. Moderate mitral valve regurgitation. 3. When compared to study dated 01/13/22, there has not been any significant change. Fanny Hyde MD (Electronically Signed) Final Date: 19 April 2022 06:15 S
[2022-04-18] MEDS: morphine 4 mg/mL SDV 1 mL 2 MG IVP (18:34)
--- NOTE | 2022-04-18 21:20 | PC.NURSE ---
Patient c/o no sleep for several days. Informed Dr Moreno and received telephone order for Xanax 0.25mg PO x1 dose now. RBVO
[2022-04-18] MEDS: ALPRAZolam 0.5 mg Tablet 0.25 MG PO (21:31)
[2022-04-19] VITALS (11 sets, daily range): BP systolic 140–162; BP diastolic 102–115; PULSE 79–92; RESP 16–20; TEMP 36.4–36.5; O2SAT 91–99
[2022-04-19] MEDS: enoxaparin 80 mg/0.8 mL Syringe 70 MG SUBCUT ×2 (00:27→13:33)
[2022-04-19] MEDS: albuterol 2.5 mg/3 mL Neb INHALATION (02:45)
[2022-04-19] MEDS: ipratropium 0.5 mg/2.5 mL Neb INHALATION (02:46)
[2022-04-19 03:39] LABS: Basophils # 0.1 10^3/uL (0.0-0.1); Basophils % 0.9 %; Eosinophils % 0.2 %; Hematocrit 42.3 % (42.0-52.0); Hemoglobin 13.7 g/dL (11.7-16.6); Lymphocytes # 3.4 10^3/uL (0.8-4.8); Lymphocytes % 31.3 %; Mean Corpuscular HGB Conc 32.4 g/dL (30.0-36.0); Mean Corpuscular Hemoglobin 28.3 pg (28.0-34.0); Mean Corpuscular Volume 87.4 fl (80-94); Mean Platelet Volume 10.7 fL (7.4-10.4); Monocytes # 1.2 10^3/uL (0.2-0.9); Monocytes % 11.5 %; Neutrophils % 55.8 %; Nucleated Red Blood Cells % 0 %; Platelet Count 348 10^3/cmm (130-400); Red Blood Count 4.84 10^6/uL (4.1-5.3); Red Cell Distribution Width 16.2 % (12.1-15.1); White Blood Count 10.7 10^3/uL (4.0-10.0)
[2022-04-19 03:59] LABS: Alanine Aminotransferase 206 U/L (0-41); Albumin Level 3.8 g/dL (3.5-5.2); Alkaline Phosphatase 141 U/L (40-130); Blood Urea Nitrogen 28 mg/dL (8-23); Carbon Dioxide 19 mmol/L (22-29); Chloride 98 mmol/L (98-107); Globulin 2.9 g/dL (1.3-4.6); Glucose 105 mg/dL (65-115); Osmolality Calculated 282 mOsm/kg (285-295); Sodium 133 mmol/L (136-145); Total Bilirubin 1.3 mg/dL (0.15-1.2); Total Protein 6.7 g/dL (6.6-8.7)
[2022-04-19 04:26] LABS: Anion Gap 21.1 (5-19); Aspartate Amino Transferase 202 U/L (0-40); Potassium 5.1 mmol/L (3.5-5.1)
[2022-04-19] MEDS: levoFLOXacin 500 mg Tablet PO (05:50)
--- NOTE | 2022-04-19 06:09 | ECG_ITS ---
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 Interpretive Statements NAME OF STUDY: LEXISCAN SESTAMIBI STRESS TEST INDICATION: Chest Pain PROCEDURE: At the baseline, the blood pressure was 150/109 mm Hg with a heart rate of 90 bpm. The electrocardiogram showed sinus rhythm, normal axis.LVH and ST-T wave changes. ST and T wave changes, consider lateral ischemia. ??? The Lexiscan was infused over a period of 20 seconds. A total of 0.4 milligrams of Lexiscan was infused. The stress phase was continued for a total of 5 minutes. Heart rate at the end of the stress phase was 100 bpm with a blood pressure of 183/123 mm Hg. The EKG at the peak infusion revealed no changes. Sestamibi was injected 20 seconds after the Lexiscan infusion. ??? Blood pressure at the end of the recovery phase was 152/115 mm Hg with a heart rate of 92 beats per minute. ??? CONCLUSION: 1. Non diagnostic EKG changes with LexiScan infusion due to baseline ST-T wave changes. 2. No LexiScan induced chest pain or cardiac arrhythmia. 3. Normal blood pressure and heart rate response. 4. Sestamibi/sestamibi perfusion scan pending; see separate report. Electronically Signed On 04-24-2022 14:39:11 DOUGHNUT ICER by Fanny Hyde M.D. [id number]
[2022-04-19] MEDS: regadenoson 0.4 Mg/5 ml Syringe IVP (07:22)
[2022-04-19] MEDS: ondansetron 2 mg/ML SDV 2 mL 4 MG IVP (07:28)
--- NOTE | 2022-04-19 07:32 | PM.PN ---
Subjective Subjective: Stress test has not showed significant ischemia. Still volume overloaded. Vitals/I&O/Wt Last Vital Signs Temp 97.6 F 04/18/22 07:38 Pulse 89 04/19/22 06:14 Resp 20 H 04/19/22 03:26 BP 150/105 04/19/22 03:26 Pulse Ox 91 04/19/22 03:26 O2 Del Method 04/19/22 03:26 04/18/22 04/19/22 04/19/22 22:59 06:59 14:59 Intake Total 620 / 980 480 / 1460 Output Total 380 / 1110 300 / 1410 Balance 240 / -130 180 / 50 Weight last 48 hrs Weight 162 lb 12.8 oz Weight 160 lb Physical Exam Narrative: GENERAL: Patient is alert, awake and oriented x3. [] NECK: No jugular vein distension. [] HEENT: No cyanosis. No icterus. No pallor. [] HEART: Regular S1 and S2. No murmur, rub or gallop. [] LUNGS: Clear lungs ABDOMEN: Soft, nontender and nondistended. Positive bowel sounds. No guarding, rebound or tenderness. [] CENTRAL NERVOUS SYSTEM: Grossly nonfocal. [] EXTREMITIES: Lower extremities with 1+ edema bilaterally Data 04/19/22 03:17 04/19/22 03:17 A&P Assessment and plan (1) Congestive heart failure: (2) Chest pain: (3) Left bundle branch block: Plan Stress test not showing significant ischemia. Medical therapy Can uptitrate neisha diuretics today as appears volume overloaded. Metolazone can be added Blood pressure control. Thank you for involving us with care of this patient. Please call with questions Attestations Medical Necessity Statement*: Care expected to cross 2 midnights. Coding Level of Care Code Acute Code for [facility] Fwd Diagnoses Congestive heart failure I50.9 Chest pain R07.9 Left bundle branch block I44.7
--- NOTE | 2022-04-19 07:47 | US_ITS ---
WS: [id number] RIGHT UPPER QUADRANT ULTRASOUND HISTORY: RIGHT upper quadrant pain. COMPARISON: None available. Liver: 18.1 cm in length. Normal size liver. No bile duct dilatation or mass. Portal Vein: Normal hepatopetal flow with monophasic waveform. Gallbladder: Gallbladder wall is moderately but diffusely thickened. This may be due to partial contr action. Wall measures 4.8 mm. No stones or sludge identified. CBD: 0.3 cm Pancreas: Normal size and echogenicity. Right kidney: 9.4 cm in length. Normal size and echogenicity. No hydronephrosis or mass. Aorta and IVC: Unremarkable abdominal aorta and IVC. No ascites. US/US abdomen limited [id number] IMPRESSION: 1. Diffuse moderate gallbladder wall thickening. No stones or sludge. May be d ue to hepatocellular disease or chronic cholecystitis. Recommend HIDA scan to e valuate gallbladder function. 2. No bile duct dilatation.
--- NOTE | 2022-04-19 08:10 | PC.NURSE ---
to cardiac stress test at 0700.
[2022-04-19] MEDS: metOLazone 5 MG Tablet PO (08:48)
[2022-04-19] MEDS: FUROsemide 10 mg/mL SDV 4mL 40 MG IVP ×2 (09:33→21:40)
[2022-04-19] MEDS: pantoprazole DR 40 mg Tablet PO (09:34)
[2022-04-19] MEDS: metoprolol tartrate 25 mg Tablet PO ×2 (09:34→20:11)
[2022-04-19] MEDS: levothyroxine 50 mcg Tablet PO (09:34)
[2022-04-19] MEDS: aspirin 81 mg EC Tablet PO (09:34)
--- NOTE | 2022-04-19 09:46 | PC.NURSE ---
return from cardiac stress test at 0830.tolerated procedure well
--- NOTE | 2022-04-19 09:54 | PC.CHAP ---
Pastoral Care Encounter/Spiritual Assessment Type of Contact [] Declined background investigator visit [] Patient/Family/Request visit [] Outpatient visit [] Follow-up visit [] Physician referral [] Code/Alert []x Routine visit [] Staff referral [] Actively dying [] Patient sleeping [] Family support [] [] Out of room [] Palliative care [] [] Receiving care in room [] Pre-surgical visit [] Trauma [] Long length of stay [] ICU visit [] Other: Relational/Emotional Strength [x] Patient feels connected with others/family/visitors/staff [] Distress [] Loneliness/isolation [] Abandonment Spirituality of Patient [x] Person of Chrissy [] Attends Zoroastrian of their Chrissy [x] Believes in Prayer [] Reads Bible or Temple materials [] There are Spiritual issues to be addressed Cell Installer Interventions []x Prayer [] Active listening [] Non-anxious presence [] Spiritual/emotional support [] Crisis/trauma care [] Spiritual counseling [] Bereavement support [] Provided bereavement packet [] Provided Bible/devotional materials [] Provided toy/stuffed animal, coloring book to patient or family member [] Provided Communion [] Anointing/[place] [] Salvation [x] Completed spiritual assessment [] Other: Impact on Illness or Injury [] Angry [] Fearful [] Anxious [] Often cries [] Exhaustion [] Unable to work [] Unable to attend protestant [] Unable to walk/stand [] Unable to read [] Unable to drive [] Unable to eat/drink [] Unable to sleep [] Unable to be with family [] Patient intubated [] Other: Summary Time spent with patient 10 min
--- NOTE | 2022-04-19 11:21 | NMCV_ITS ---
NM cassius perf SPECT r/s* [id number] [place] Age: 61 Gender: M : 1960 Exam Date: 04/19/2022 06:34 Ordering Phys: Preston Dc MD Technologist: RILEY Cates Exam Location: [facility] Indications: CHEST PAIN STRESS TEST Please see separate stress test report [facility] for full findings IMAGE PROTOCOL Rest/Stress 1 Lexiscan Day Radiopharmaceutical Dose (mCi) Administration Site Administered by Rest: Tc-99m 11.0 IV RILEY Davis Sestamibi Stress:Tc-99m 32.6 IV RILEY Davis Sestamibi Rest: 19-Apr-2022 60 Discovery 630 Stress: 19-Apr-2022 30 Discovery 630 0.4mg Lexiscan. Images obtained in supine and prone position. SPECT RESULTS Technical Quality: Excellent Raw Data Analysis: Normal Image Corrections: No attenuation or motion correction applied Summed Stress Score: 5 Summed Rest Score: 9 Summed Difference Score: 0 PERFUSION FINDINGS Medium sized perfusion abnormality of moderate severity of basal to apical inferior, basal to mid inferoseptal garner on rest and stress images. FUNCTIONAL RESULTS (calculated via Gated SPECT) Stress Image LV EF (%): 12 Stress EDV (mL):352 TID: 1.01 Stress ESV (mL):310 FUNCTIONAL FINDINGS: The left ventricle is dilated. Transient Ischemia Dilatation of 1. The left ventricular ejection fraction is severely reduced with a value of 12%. There is severe global hypokinesis. Markedly increased end diastolic and end systolic volumes. IMPRESSIONS 1. Medium sized perfusion abnormality of moderate severity of basal to apical inferior, basal to mid inferoseptal garner. 2. 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 3. The left ventricular ejection fraction is severely reduced with a value of 12%. 4. There is severe global hypokinesis. 5. No coronary ischemia based on this study. Fanny Hyde MD (Electronically Signed) Final Date: 19 April 2022 14:09 S
--- NOTE | 2022-04-19 17:37 | P.PN_ITS ---
Subjective Subjective: Patient was seen this morning he continues to have lower extremity edema, no chest pain, no palpitation, still has some shortness of breath with exertion Vitals/I&O/Wt Last Vital Signs Temp 97.6 F 04/19/22 10:59 Pulse 79 04/19/22 15:25 Resp 16 04/19/22 15:25 BP 156/109 04/19/22 15:25 Pulse Ox 99 04/19/22 15:25 O2 Del Method 04/19/22 08:00 04/19/22 04/19/22 04/19/22 06:59 14:59 22:59 Intake Total 480 / 1460 240 / 240 Output Total 300 / 1410 450 / 450 500 / 950 Balance 180 / 50 -210 / -210 -500 / -710 Weight last 48 hrs Weight 73.845 kg Weight 72.575 kg Physical Exam Const: COMMON NORMALS: no acute distress and patient oriented x3 Resp: COMMON NORMALS: normal respiratory effort, No retractions and No use of accessory muscles AUSCULTATION: crackles Cardio: COMMON NORMALS: regular rate, regular rhythm, S1 normal heart sound present and S2 normal heart sound present RATE: regular rate RHYTHM: regular rhythm HEART SOUNDS: S1 normal heart sound present and S2 normal heart sound present GI: COMMON NORMALS: Normal to inspection, nondistended, normoactive bowel sounds present and non-tender Extremity: NARRATIVE EXTREMITY EXAM: 2+ pitting edema bilateral lower extremity Neuro: COMMON NORMALS: patient oriented x3 Psych: COMMON NORMALS: mental status grossly normal Data 04/19/22 03:17 04/19/22 03:17 A&P Assessment and plan (1) Chest pain: Currently chest pain-free Currently releived with s/l nitro EKG shows Left bundle branch block which is old, EKG is unchanged from before. Continue ASA 81mg po daily, start Lovenox 1mg/kg q12h Cardiac stress test today (2) Acute exacerbation of CHF (congestive heart failure): Acute on chronic systolic CHF exacerbation last known EF ?Left ventricular ejection fraction is ?estimated at 20-25 %.? Severe global hypokinesis from 12/2021 Repeat echocardiogram pending Add metolazone for diuresis Continue Lasix 40 IV twice daily monitor creatinine monitor potassium, monitor magnesium, after diuresis (3) Left bundle branch block: (4) Pneumonia: See T angiogram of the chest showed right lower lobe pneumonia on CT 04/14/2022 Continue Rocephin and Levaquin Monitor blood cultures (5) Hypothyroidism: (6) Hypertension: (7) Emphysema/COPD: Qualifiers: Emphysema type: unspecified Qualified Code(s): J43.9 - Emphysema, unspecified (8) Congestive heart failure: Plan Plan for today follow stress testing, continue diuresis, add metolazone, fluid restrictions Attestations Medical Necessity Statement*: Patient continues to have bilateral lower extremity JESSIE shortness of breath needs increased diuresis add metolazone follow-up stress testing Coding Level of Care Code Acute Code for [facility] Fwd Diagnoses Chest pain R07.9 Acute exacerbation of CHF (congestive heart failure) I50.9 Left bundle branch block I44.7 Pneumonia J18.9 Hypothyroidism E03.9 Hypertension I10 Emphysema/COPD J43.9 Emphysema type: unspecified Congestive heart failure I50.9
[2022-04-20] VITALS (15 sets, daily range): BP systolic 141–167; BP diastolic 84–103; PULSE 59–82; RESP 16–30; TEMP 36.5–36.8; O2SAT 95–99
[2022-04-20] MEDS: enoxaparin 80 mg/0.8 mL Syringe 70 MG SUBCUT (01:10)
[2022-04-20] MEDS: cefTRIAXone 1,000 MG in sodium chloride 0.9% (plus) 50 ML 100 MG IV ×2 (01:10→23:46)
[2022-04-20] MEDS: albuterol 2.5 mg/3 mL Neb INHALATION ×2 (03:01→07:47)
[2022-04-20] MEDS: ipratropium 0.5 mg/2.5 mL Neb INHALATION ×2 (03:01→07:47)
[2022-04-20] MEDS: levoFLOXacin 500 mg Tablet PO (05:12)
[2022-04-20 05:20] LABS: Basophils # 0.1 10^3/uL (0.0-0.1); Basophils % 0.8 %; Eosinophils # 0.1 10^3/uL (0.0-0.8); Hematocrit 44.7 % (42.0-52.0); Hemoglobin 14.1 g/dL (11.7-16.6); Lymphocytes # 3.4 10^3/uL (0.8-4.8); Lymphocytes % 36.9 %; Mean Corpuscular HGB Conc 31.5 g/dL (30.0-36.0); Mean Corpuscular Hemoglobin 28.3 pg (28.0-34.0); Mean Corpuscular Volume 89.6 fl (80-94); Monocytes # 1.2 10^3/uL (0.2-0.9); Neutrophils # 4.36 10^3/uL (1.8-7.7); Neutrophils % 47.6 %; Nucleated Red Blood Cells % 0 %; Platelet Count 314 10^3/cmm (130-400); Red Blood Count 4.99 10^6/uL (4.1-5.3); Red Cell Distribution Width 16.6 % (12.1-15.1); White Blood Count 9.2 10^3/uL (4.0-10.0)
[2022-04-20 05:58] LABS: Anion Gap 16.6 (5-19); Blood Urea Nitrogen 36 mg/dL (8-23); Calcium 9.2 mg/dL (8.5-10.5); Carbon Dioxide 26 mmol/L (22-29); Chloride 97 mmol/L (98-107); Glomerular Filtration Rate 38.4 mL/min (90-130); Glucose 102 mg/dL (65-115); Magnesium 2.1 mg/dL (1.7-2.3); NT Pro B Type Natriuretic Pept 7936 pg/mL (0-125); Osmolality Calculated 291 mOsm/kg (285-295); Potassium 3.6 mmol/L (3.5-5.1); Sodium 136 mmol/L (136-145)
--- NOTE | 2022-04-20 07:46 | P.PN_ITS ---
Subjective Subjective: Patient has diuresed well. No chest pain. Breathing has improved. Vitals/I&O/Wt Last Vital Signs Temp 97.9 F 04/20/22 04:00 Pulse 74 04/20/22 07:41 Resp 18 04/20/22 07:41 BP 152/93 04/20/22 04:00 Pulse Ox 98 04/20/22 04:00 O2 Del Method 04/20/22 04:00 04/19/22 04/20/22 04/20/22 22:59 06:59 14:59 Intake Total 30 / 270 430 / 700 Output Total 1150 / 1600 2250 / 3850 Balance -1120 / -1330 -1820 / -3150 Data 04/20/22 04:20 04/20/22 04:20 A&P Assessment and plan (1) Congestive heart failure: (2) Chest pain: (3) Left bundle branch block: Plan Diuresing well. Continue diuresis. Creatinine has worsened slightly. Monitor renal function. Can uptitrate the diuretics today as appears volume overloaded. Continue metolazone Blood pressure control. Thank you for involving us with care of this patient. Please call with questions Attestations Medical Necessity Statement*: Care expected to cross 2 midnights. Coding Level of Care Code Acute Code for [facility] Diagnoses Congestive heart failure I50.9 Chest pain R07.9 Left bundle branch block I44.7
[2022-04-20] MEDS: budesonide 0.5 mg/2 mL Neb INHALATION (07:47)
[2022-04-20] MEDS: metoprolol tartrate 25 mg Tablet PO ×2 (08:55→20:05)
[2022-04-20] MEDS: pantoprazole DR 40 mg Tablet PO (08:55)
[2022-04-20] MEDS: levothyroxine 50 mcg Tablet PO (08:55)
[2022-04-20] MEDS: aspirin 81 mg EC Tablet PO (08:55)
--- NOTE | 2022-04-20 10:35 | PM.PN ---
Subjective Subjective: Patient was seen this morning, shortness of breath has improved, no chest pain, continues to have edema but improved compared to yesterday Vitals/I&O/Wt Last Vital Signs Temp 97.9 F 04/20/22 09:27 Pulse 59 L 04/20/22 09:27 Resp 30 H 04/20/22 09:27 BP 144/85 04/20/22 09:27 Pulse Ox 98 04/20/22 07:48 O2 Del Method 04/20/22 07:48 04/19/22 04/20/22 04/20/22 22:59 06:59 14:59 Intake Total 30 / 270 430 / 700 480 / 480 Output Total 1150 / 1600 2250 / 3850 650 / 650 Balance -1120 / -1330 -1820 / -3150 -170 / -170 Physical Exam Const: COMMON NORMALS: no acute distress and patient oriented x3 Resp: COMMON NORMALS: normal respiratory effort, No retractions, No use of accessory muscles and clear to auscultation bilaterally AUSCULTATION: clear to auscultation bilaterally Cardio: COMMON NORMALS: regular rate, regular rhythm, S1 normal heart sound present and S2 normal heart sound present RATE: regular rate RHYTHM: regular rhythm HEART SOUNDS: S1 normal heart sound present and S2 normal heart sound present GI: COMMON NORMALS: Normal to inspection, nondistended, normoactive bowel sounds present and non-tender Neuro: COMMON NORMALS: patient oriented x3 Psych: COMMON NORMALS: mental status grossly normal Skin: NARRATIVE SKIN EXAM: 1+ pitting edema bilateral lower extremity Data 04/20/22 04:20 04/20/22 04:20 A&P Assessment and plan (1) Chest pain: Currently chest pain-free Currently releived with s/l nitro EKG shows Left bundle branch block which is old, EKG is unchanged from before. Continue ASA 81mg po daily, has completed 48 hours of therapeutic Lovenox, switch to DVT prophylaxis Cardiac stress test ?1. Medium sized perfusion abnormality of moderate severity of basal to apical ?inferior, basal to mid inferoseptal garner. ?2. This is likely suggestive of old myocardial infarction in right coronary ?artery territory. ?3. The left ventricular ejection fraction is severely reduced with a value of ?12%. ?4. There is severe global hypokinesis. ?5. No coronary ischemia based on this study. Cardiac echocardiogram 1. Moderately increased left ventricular cavity size. Severely ?decreased left ventricular systolic function. Left ventricular ?ejection fraction is estimated at 15 %. Severe global left ?ventricular hypokinesis. ?2. Moderate mitral valve regurgitation. ?3. When compared to study dated 01/13/22, there has not been any ?significant change. Continue medical management (2) Acute exacerbation of CHF (congestive heart failure): Change Lasix to 40 mg IV push daily, with potassium replacement therapy, monitor magnesium, monitor creatinine, potential discharge tomorrow Patient has been noncompliant with LifeVest, declines LifeVest for now, understands morbidity and mortality (3) Left bundle branch block: (4) Pneumonia: See T angiogram of the chest showed right lower lobe pneumonia on CT 04/14/2022 Continue Rocephin and Levaquin Monitor blood cultures (5) Hypothyroidism: (6) Hypertension: (7) Emphysema/COPD: Qualifiers: Emphysema type: unspecified Qualified Code(s): J43.9 - Emphysema, unspecified (8) Congestive heart failure: Plan Plan for today monitor creatinine, monitor edema decrease Lasix potential discharge tomorrow Attestations Medical Necessity Statement*: Patient requires hospitalization for fluid overload, systolic and diastolic CHF exacerbation Coding Level of Care Code Acute Code for [facility] Diagnoses Chest pain R07.9 Acute exacerbation of CHF (congestive heart failure) I50.9 Left bundle branch block I44.7 Pneumonia J18.9 Hypothyroidism E03.9 Hypertension I10 Emphysema/COPD J43.9 Emphysema type: unspecified Congestive heart failure I50.9
[2022-04-20] MEDS: FUROsemide 10 mg/mL SDV 4mL 40 MG IVP ×2 (10:40→10:49)
--- NOTE | 2022-04-20 17:07 | PC.NURSE ---
Patient's blood pressure was taken twice and read 157/110 and then again at 167/103. Dr. Dc notified.
--- NOTE | 2022-04-20 18:35 | PC.NURSE ---
Family member emptied urinal before nurse could measure it.
[2022-04-21 03:41] VITALS: BP 137/75; PULSE 68; RESP 18; TEMP 36.6; O2SAT 97
[2022-04-21] MEDS: diphenhydrAMINE 25 mg Capsule PO (03:57)
[2022-04-21 04:39] VITALS: PULSE 71
[2022-04-21] MEDS: levoFLOXacin 500 mg Tablet PO (05:12)
[2022-04-21 05:31] LABS: Basophils # 0.1 10^3/uL (0.0-0.1); Basophils % 0.6 %; Eosinophils # 0.1 10^3/uL (0.0-0.8); Eosinophils % 1.1 %; Hematocrit 42.4 % (42.0-52.0); Hemoglobin 13.8 g/dL (11.7-16.6); Lymphocytes # 2.8 10^3/uL (0.8-4.8); Lymphocytes % 29.6 %; Mean Corpuscular HGB Conc 32.5 g/dL (30.0-36.0); Mean Corpuscular Hemoglobin 28.5 pg (28.0-34.0); Mean Corpuscular Volume 87.6 fl (80-94); Mean Platelet Volume 10.6 fL (7.4-10.4); Monocytes # 1.1 10^3/uL (0.2-0.9); Monocytes % 11.4 %; Neutrophils # 5.34 10^3/uL (1.8-7.7); Nucleated Red Blood Cells % 0 %; Platelet Count 338 10^3/cmm (130-400); Red Blood Count 4.84 10^6/uL (4.1-5.3); Red Cell Distribution Width 16.4 % (12.1-15.1); White Blood Count 9.4 10^3/uL (4.0-10.0)
[2022-04-21 05:59] LABS: Anion Gap 16.2 (5-19); Blood Urea Nitrogen 37 mg/dL (8-23); Carbon Dioxide 30 mmol/L (22-29); Chloride 94 mmol/L (98-107); Glucose 117 mg/dL (65-115); Magnesium 2.1 mg/dL (1.7-2.3); NT Pro B Type Natriuretic Pept 5443 pg/mL (0-125); Osmolality Calculated 294 mOsm/kg (285-295); Potassium 3.2 mmol/L (3.5-5.1); Sodium 137 mmol/L (136-145)
[2022-04-21] MEDS: potassium chloride ER 20 mEq Tablet 40 MEQ PO ×2 (06:12→08:26)
[2022-04-21 08:00] VITALS: BP 143/83; PULSE 77; RESP 19; TEMP 36.5
[2022-04-21] MEDS: aspirin 81 mg EC Tablet PO (08:24)
[2022-04-21] MEDS: levothyroxine 50 mcg Tablet PO (08:24)
[2022-04-21] MEDS: metoprolol tartrate 25 mg Tablet PO (08:24)
[2022-04-21] MEDS: pantoprazole DR 40 mg Tablet PO (08:24)
[2022-04-21] MEDS: metOLazone 5 MG Tablet 2.5 MG PO (08:27)
--- NOTE | 2022-04-21 08:43 | PM.PN ---
Subjective Subjective: Patient is stable. No chest pain Vitals/I&O/Wt Last Vital Signs Temp 97.8 F 04/21/22 03:41 Pulse 71 04/21/22 04:39 Resp 18 04/21/22 03:41 BP 137/75 04/21/22 03:41 Pulse Ox 97 04/21/22 03:41 O2 Del Method 04/21/22 03:41 04/20/22 04/21/22 04/21/22 22:59 06:59 14:59 Intake Total 300 / 1020 390 / 1410 Output Total 750 / 2600 1050 / 3650 Balance -450 / -1580 -660 / -2240 Physical Exam Narrative: GENERAL: Patient is alert, awake and oriented x3. [] NECK: No jugular vein distension. [] HEENT: No cyanosis. No icterus. No pallor. [] HEART: Regular S1 and S2. No murmur, rub or gallop. [] LUNGS: Clear lungs ABDOMEN: Soft, nontender and nondistended. Positive bowel sounds. No guarding, rebound or tenderness. [] CENTRAL NERVOUS SYSTEM: Grossly nonfocal. [] EXTREMITIES: Lower extremities with 1+ edema bilaterally Data 04/21/22 03:15 04/21/22 03:15 A&P Assessment and plan (1) Congestive heart failure: (2) Chest pain: (3) Left bundle branch block: Plan Voume Status is much improved. Patient can be discharged home from cardiology standpoint on furosemide 40 mg twice daily Blood pressure control. Thank you for involving us with care of this patient. Please call with questions Attestations Medical Necessity Statement*: Care expected to cross 2 midnights Coding Level of Care Code Acute Code for [facility] Fwd Diagnoses Congestive heart failure I50.9 Chest pain R07.9 Left bundle branch block I44.7
[2022-04-21 10:18] VITALS: PULSE 77; RESP 16; O2SAT 97
--- NOTE | 2022-04-21 10:49 | PM.DCS ---
Discharge Providers Date of Admission: 04/18/22 00:14 Date of Discharge: April 21, 2022 Attending Provider at Admission: Ngozi Moreno MD Attending Provider at Discharge: Preston Dc MD Primary Care Provider: ANGELINE Fishman Diagnoses at Discharge Discharge Diagnosis (1) Congestive heart failure: Status: Chronic (2) Chest pain: Status: Acute (3) Left bundle branch block: Status: Acute Reason for Visit Reason for Visit: CHEST PAIN STEMI ALERT Hospital Course Hospital Course [place] is a 61 year old male with known nonischemic cardiomyopathy last known EF ~20% ,refused ICD in the past,? accelerated hypertension, multiple episodes of hypertensive urgency, p/w substernal chest pain. Initially a STEMI alert was called due to noted LBBB, he was evaluated by cardiology in the ER- eventually determined to be LBBB which is not new. His chest pain was relieved by nitro. He was in the ER recently on 04/14 with similar symptoms when a CTA chest was performed- negative for PE, incidentally showed right lower lobe infiltrate thought to be a consolidation for which he is currently on levofloxacin. Patient was admitted to [facility] for acute on chronic systolic diastolic CHF exacerbation, echocardiogram showed an EF of 15%, received diuretic therapy, diuresed over 4 L, clinically improved, discharged on Lasix 40 twice daily with potassium replacement therapy with close follow-up with cardiology as outpatient, creatinine on discharge 1.6 Patient had concerns for pneumonia on hospitalization, received broad-spectrum antibiotic therapy, discharged on doxycycline For his chest pain Cardiac stress test ?1. Medium sized perfusion abnormality of moderate severity of basal to apical ?inferior, basal to mid inferoseptal garner. ?2. This is likely suggestive of old myocardial infarction in right coronary ?artery territory. ?3. The left ventricular ejection fraction is severely reduced with a value of ?12%. ?4. There is severe global hypokinesis. ?5. No coronary ischemia based on this study. Cardiac echocardiogram 1. Moderately increased left ventricular cavity size. Severely ?decreased left ventricular systolic function. Left ventricular ?ejection fraction is estimated at 15 %. Severe global left ?ventricular hypokinesis. ?2. Moderate mitral valve regurgitation. ?3. When compared to study dated 01/13/22, there has not been any ?significant change. -Cardiology was consulted, recommended medical management, advised if he were to have any recurrent chest pain go to the emergency room In terms of his systolic CHF, EF of 15%, patient declines LifeVest, understands morbidity and mortality, voiced understanding, all questions answered, declined for now, follow-up with cardiology Physical Exam Const: COMMON NORMALS: no acute distress and patient oriented x3 Neck/C-Spine: COMMON NORMALS: no JVD Resp: COMMON NORMALS: normal respiratory effort, No retractions, No use of accessory muscles and clear to auscultation bilaterally AUSCULTATION: clear to auscultation bilaterally Cardio: COMMON NORMALS: no JVD, regular rate, regular rhythm, S1 normal heart sound present and S2 normal heart sound present RATE: regular rate RHYTHM: regular rhythm HEART SOUNDS: S1 normal heart sound present and S2 normal heart sound present GI: COMMON NORMALS: Normal to inspection, nondistended, normoactive bowel sounds present and non-tender Extremity: COMMON NORMALS: no pedal edema Neuro: COMMON NORMALS: patient oriented x3 Psych: COMMON NORMALS: mental status grossly normal Discharge Data Studies Completed and Pending Completed Studies During Hospitalization Category Date Time Status CXRP [XR chest 1V portable [id number]] Stat Exams 04/17/22 21:40 Completed Sestamibi Stress Test Request Routine Exams 04/19/22 06:09 Draft NM cassius perf SPECT r/s* [id number] Routine Nuc Med 04/19/22 11:21 Completed CV. echo complete* [id number] Routine Ultrasound 04/18/22 11:49 Completed Pending at discharge Category Date Time Status Sestamibi Stress Test Request Routine Exams 04/18/22 11:21 Stop Req Basic Metabolic Panel AM LABS Lab 04/22/22 04:00 Ordered Complete Blood Count w/Auto AM LABS Lab 04/22/22 04:00 Ordered Magnesium AM LABS Lab 04/22/22 04:00 Ordered NT Pro B Type Natriuretic Pept QAM Lab 04/22/22 06:00 Ordered US abdomen limited [id number] Routine Ultrasound 04/19/22 07:47 Taken Radiology Impressions Chest X-Ray 04/17/22 21:40 IMPRESSION: 1. Focal opacity at the right lung base corresponding to the abnormality on chest CT 04/14/2022. Possible infection. 2. Subtle central and lower lung predominant ground-glass opacity suggest pulmonary edema. 3. Cardiac enlargement. Laboratory Results WBC 9.4 10^3/uL (4.0-10.0) 04/21/22 03:15 RBC 4.84 10^6/uL (4.1-5.3) 04/21/22 03:15 Hgb 13.8 g/dL (11.7-16.6) 04/21/22 03:15 Hct 42.4 % (42.0-52.0) 04/21/22 03:15 MCV 87.6 fl (80-94) 04/21/22 03:15 MCH 28.5 pg (28.0-34.0) 04/21/22 03:15 MCHC 32.5 g/dL (30.0-36.0) 04/21/22 03:15 RDW 16.4 % (12.1-15.1) H 04/21/22 03:15 Plt Count 338 10^3/cmm (130-400) 04/21/22 03:15 MPV 10.6 fL (7.4-10.4) H 04/21/22 03:15 Neut % (Auto) 57.0 % 04/21/22 03:15 Lymph % (Auto) 29.6 % 04/21/22 03:15 [place] % (Auto) 11.4 % 04/21/22 03:15 Eos % (Auto) 1.1 % 04/21/22 03:15 Baso % (Auto) 0.6 % 04/21/22 03:15 Neut # (Auto) 5.34 10^3/uL (1.8-7.7) 04/21/22 03:15 Lymph # (Auto) 2.8 10^3/uL (0.8-4.8) 04/21/22 03:15 [place] # (Auto) 1.1 10^3/uL (0.2-0.9) H 04/21/22 03:15 Eos # (Auto) 0.1 10^3/uL (0.0-0.8) 04/21/22 03:15 Baso # (Auto) 0.1 10^3/uL (0.0-0.1) 04/21/22 03:15 Nucleated RBC % (auto) 0 % 04/21/22 03:15 Nucleated RBCs # 0.0 /100WBC 04/21/22 03:15 PT 16.70 SECONDS (12.1-14.9) H 04/17/22 21:43 INR 1.32 (0.8-1.2) H 04/17/22 21:43 Sodium 137 mmol/L (136-145) 04/21/22 03:15 Potassium 3.2 mmol/L (3.5-5.1) L 04/21/22 03:15 Chloride 94 mmol/L (98-107) L 04/21/22 03:15 Carbon Dioxide 30 mmol/L (22-29) H 04/21/22 03:15 Anion Gap 16.2 (5-19) 04/21/22 03:15 BUN 37 mg/dL (8-23) H 04/21/22 03:15 Creatinine 1.6 mg/dL (0.7-1.2) H 04/21/22 03:15 GFR Calculation 44.0 mL/min (90-130) L 04/21/22 03:15 Glucose 117 mg/dL (65-115) H 04/21/22 03:15 Calculated Osmolality 294 mOsm/kg (285-295) 04/21/22 03:15 Calcium 9.0 mg/dL (8.5-10.5) 04/21/22 03:15 Magnesium 2.1 mg/dL (1.7-2.3) 04/21/22 03:15 Total Bilirubin 1.3 mg/dL (0.15-1.2) H 04/19/22 03:17 AST 202 U/L (0-40) H 04/19/22 03:17 ALT 206 U/L (0-41) H 04/19/22 03:17 Alkaline Phosphatase 141 U/L (40-130) H 04/19/22 03:17 Troponin T Baseline 38 ng/L (0-15) H 04/17/22 21:43 Troponin T 120 Minute 33.61 ng/L (0-15) H 04/17/22 23:13 Delta Troponin T -4.39 ABS# (0-10) L 04/17/22 23:13 Troponin T Hi Sens 6Hr 36.50 ng/L (0-15) H 04/18/22 03:33 Troponin T Hi Sens 6Hr Delta -1.50 ng/L (0-12) L 04/18/22 03:33 C-Reactive Protein 25.0 mg/L (0.0-4.9) H 04/18/22 08:02 NT-Pro-B Natriuret Pep 5443 pg/mL (0-125) H 04/21/22 03:15 Total Protein 6.7 g/dL (6.6-8.7) 04/19/22 03:17 Albumin 3.8 g/dL (3.5-5.2) 04/19/22 03:17 Globulin 2.9 g/dL (1.3-4.6) 04/19/22 03:17 Procalcitonin 0.12 ng/mL (0-0.5) 04/18/22 08:02 SARS-CoV-2 Ag (Rapid) negative (Negative) 04/18/22 01:05 Vitals Last Vital Signs Temp 97.7 F 04/21/22 08:00 Pulse 77 04/21/22 10:18 Resp 16 04/21/22 10:18 BP 143/83 04/21/22 08:00 Pulse Ox 97 04/21/22 10:18 O2 Del Method 04/21/22 10:18 Discharge Plan Discharge Patient Disposition: Home Condition: Stable Prescriptions: New metoprolol tartrate 25 mg Tablet 25 mg PO BID@0900,2100 30 Days Qty: 60 0RF doxycycline hyclate 100 mg tablet 100 mg PO BID 5 Days Qty: 10 0RF aspirin 81 mg Tablet,Delayed Release (Dr/Ec) 81 mg PO DAILY 30 Days Qty: 30 0RF Continued polyethylene glycol 3350 [Miralax] 17 gram powder in packet 17 g PO DAILY PRN (Reason: Constipation) albuterol sulfate [ProAir HFA] 90 mcg/actuation HFA aerosol inhaler 2 puff inhalation QID PRN (Reason: shortness of breath or wheezing) Qty: 6.7 5RF Entresto 24-26 mg tablet 1 tab PO BID Qty: 60 2RF levothyroxine [Synthroid] 50 mcg tablet 50 mcg PO DAILY Qty: 30 2RF nystatin 100,000 unit/mL suspension 5 ml PO .2 times day Qty: 200 0RF Dulera 200-5 mcg/actuation HFA aerosol inhaler 2 puff inhalation Q12H Qty: 13 2RF nitroglycerin 0.4 mg Tablet, Sublingual 0.4 mg sublingual Q5M PRN (Reason: Chest Pain) Qty: 10 0RF furosemide 40 mg tablet 40 mg PO BID 30 Days Qty: 60 0RF Changed potassium chloride 20 mEq tablet extended release 40 meq PO BID 30 Days Qty: 120 0RF Discontinued levofloxacin 750 mg tablet 750 mg PO DAILY 10 Days Qty: 10 0RF Discharge Orders: Discharge Order (Routine); Ordered 04/21/22 Ordered By: Preston Dc Referrals: Raf Kirby FNP-C [Primary Care Provider] - 1-3 days Reddy Lopez M.D [Physician] - 4-7 days Discharge Diet: Cardiac Discharge Activity: Resume usual activity Patient Instructions: Opioid Safety Activity Restrictions/Additional Instructions: - If you have recurrent chest pain go to the serum -Please limit fluid intake to 1000 mL a day -Please take Lasix and potassium as prescribed -If you have worsening lower extremity edema or shortness of breath go to emergency room -Follow-up with primary care provider next week -See cardiology in 1 week Discharge Attestations Time Spent in Discharge Care*: greater than 30 min Quality Metrics Clinical Quality Measures [ No reported AMI, CVA or VTE this stay] Coding Level of Care Code Acute Chg FW DC note Diagnoses Congestive heart failure I50.9 Chest pain R07.9 Left bundle branch block I44.7
--- NOTE | 2022-04-21 11:36 | PC.NURSE ---
Pt d/c'd home with family and belongings. Voiced understanding of d/c instructions.
== END 2022-04-21 11:12 | disposition home or self-care (01) | DRG 291 ==
LOC: ER 22:35 → MEDSURG 22:46 → CSU 23:22
PROVIDERS: Internal Medicine; Admitting Provider Student in an Organized Health Care Education/Training Program; Emergency Provider Emergency Medicine; PCP Nurse Practitioner; Visit Provider Family Medicine
DX: I11.0 Hypertensive heart disease with heart failure (principal); I50.23 Acute on chronic systolic (congestive) heart failure; J18.9 Pneumonia, unspecified organism; I44.7 Left bundle-branch block, unspecified; I42.8 Other cardiomyopathies; Z79.51 Long term (current) use of inhaled steroids; Z79.02 Long term (current) use of antithrombotics/antiplatelets; Z91.199 Patient's noncompliance with other medical treatment and regimen due to unspecified reason; J43.9 Emphysema, unspecified; E03.9 Hypothyroidism, unspecified; Z86.711 Personal history of pulmonary embolism; F17.200 Nicotine dependence, unspecified, uncomplicated
CPT/HCPCS: 36415; 71045; 76705; 78452; 80048; 80053; 83735; 83880; 84145; 84484; 85025; 85610; 86140; 87426; 93005; 93017; 93306; 94640; 96372; 96374; 96375; 99285; A9500; G0378; J0696; J1650; J1940; J2270; J2405; J2785; J3490; J7613; J7626; J7644

== ENCOUNTER → 2022-04-24 10:14 | Outpatient (BNVA) | payer MEDICAID, SELFPAY | PROVIDERS: PCP Nurse Practitioner; Visit Provider Nurse Practitioner | DX: I50.9 Heart failure, unspecified (principal); J43.9 Emphysema, unspecified; R74.8 Abnormal levels of other serum enzymes | CPT/HCPCS: 71046; 80053; 83880 ==

== ENCOUNTER → 2022-05-02 09:48 | Outpatient (BNVA) | payer MEDICAID, SELFPAY | PROVIDERS: PCP Nurse Practitioner; Visit Provider Nurse Practitioner | DX: I50.9 Heart failure, unspecified (principal); R73.9 Hyperglycemia, unspecified | CPT/HCPCS: 80048; 83036; 83880 ==

== ENCOUNTER → 2022-05-10 10:05 | Outpatient (BNVA) | payer MEDICAID, SELFPAY | PROVIDERS: PCP Nurse Practitioner; Visit Provider Nurse Practitioner | DX: I50.9 Heart failure, unspecified (principal); J30.2 Other seasonal allergic rhinitis | CPT/HCPCS: 80048 ==

== ENCOUNTER → 2022-06-12 10:38 | Outpatient (BNVA) | payer MEDICAID, SELFPAY | PROVIDERS: PCP Nurse Practitioner; Visit Provider Nurse Practitioner | DX: I10 Essential (primary) hypertension (principal); I50.9 Heart failure, unspecified; K59.01 Slow transit constipation | CPT/HCPCS: 74018; 80048; 83880 ==

== ENCOUNTER 2022-06-17 13:57 | Inpatient (IN) | payer MEDICAID, SELFPAY ==
[2022-06-17] VITALS (64 sets, daily range): BP systolic 120–161; BP diastolic 88–118; PULSE 92–125; RESP 13–47; TEMP 36.6–37.2; O2SAT 83–99; BMI 22.8; BMI 21.7
--- NOTE | 2022-06-17 14:01 | ECG_ITS ---
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 Measurements Intervals [place] Rate: 112 P: -22 MN: 142 QRS: -52 QRSD: 179 T: 106 QT: 417 QTc: 570 Interpretive Statements SINUS TACHYCARDIA LEFT ATRIAL ENLARGEMENT [-0.15mV P-WAVE IN V1/V2] LEFT AXIS DEVIATION [QRS AXIS < -30] LEFT BUNDLE BRANCH BLOCK [120+ ms QRS DURATION, 80+ ms Q/S IN V1/V2, 85+ ms R IN I/aVL/V5/V6] INTERPRETATION BASED ON A DEFAULT AGE OF 40 YEARS Compared to ECG 04/18/2022 03:36:10 Left-axis deviation now present Left anterior fascicular block no longer present Left ventricular hypertrophy no longer present ST (T wave) deviation no longer present Possible ischemia no longer present Electronically Signed On 06-17-2022 19:29:23 CDT by Reddy Lopez M.D. [id number]
--- NOTE | 2022-06-17 14:01 | XR_ITS ---
WS: [id number] Exam: XR chest 1V portable [id number] Date/Time of Exam: 06/17/2022 2:15 PM Reason For Exam: dyspnea/cough Comparison 04/24/2022. Mild diffuse interstitial infiltrates noted bilaterally. The heart is enlarged. No pleural effusions or pneumothorax. The mediastinum is normal in contour. Old left clavicle fracture. Monitoring leads s uperimpose the chest. XR/XR chest 1V portable [id number] IMPRESSION: 1. Mild diffuse interstitial infiltrates noted bilaterally. This could represen t interstitial pneumonia or pulmonary edema. 2. Mild cardiac enlargement.
[2022-06-17 14:35] LABS: Basophils # 0.1 10^3/uL (0.0-0.1); Basophils % 0.2 %; Hemoglobin 13.7 g/dL (11.7-16.6); Lymphocytes # 1.6 10^3/uL (0.8-4.8); Lymphocytes % 7.6 %; Mean Corpuscular HGB Conc 32.6 g/dL (30.0-36.0); Mean Corpuscular Hemoglobin 29.4 pg (28.0-34.0); Mean Corpuscular Volume 90.1 fl (80-94); Mean Platelet Volume 10.7 fL (7.4-10.4); Monocytes # 1.7 10^3/uL (0.2-0.9); Neutrophils # 17.69 10^3/uL (1.8-7.7); Neutrophils % 83.4 %; Nucleated Red Blood Cells % 0 %; Platelet Count 264 10^3/cmm (130-400); Red Blood Count 4.66 10^6/uL (4.1-5.3); Red Cell Distribution Width 16.5 % (12.1-15.1); White Blood Count 21.2 10^3/uL (4.0-10.0)
--- NOTE | 2022-06-17 14:45 | W.ED.SOB ---
HPI - SOB/Dyspnea General: Chief Complaint: Shortness of Breath/Dyspnea Stated Complaint: SOB/ FLUID IN ABDOMEN Time Seen by Provider: 06/17/22 14:01 Source: patient Mode of arrival: EMS History of Present Illness: HPI Narrative: 59-year-old male presents emergency room for shortness of breath abdominal cramping began last night around 8:00 persisted throughout the day patient has a history of nonalcoholic liver cirrhosis chronic kidney disease acute issue. He has had some abdominal discomfort cough shortness of breath he recently doubled up on his diuretics and has not had any significant increased output. Denies any chest pain at this time. MD elicited complaint: shortness of breath and cough Pertinent past history: COPD and congestive heart failure Onset (ago): hour(s) Timing: constant Severity: moderate Exacerbating factors: lying flat Relieving factors: oxygen, rest and upright position Known history of: COPD and congestive heart failure Associated symptoms: Reports chest congestion, cough, nausea and orthopnea; Deny abdominal pain, chest pain, diaphoresis, dizziness, extremity pain, fever(s), hemoptysis, lightheadedness, myalgias, palpitations, paresthesias, polydipsia, polyuria, rash, sense of impending doom, syncope or vomiting Treatment prior to arrival: oxygen Review of Systems Const: Denies: fever(s) or diaphoresis Card: Reports: orthopnea; Denies: chest pain, palpitations, lightheadedness or syncope Resp: Reports: chest congestion; Denies: hemoptysis GI: Reports: nausea; Denies: abdominal pain or vomiting Musc: Denies: extremity pain Neuro: Denies: dizziness Endo: Denies: polyuria or polydipsia [facility] ED PFSH: Medical History Acute on chronic congestive heart failure Cardiomyopathy Congestive heart failure COPD (chronic obstructive pulmonary disease) Dyspnea on exertion Emphysema/COPD Epigastric pain Hypertension Hypokalemia Hypothyroidism Malignant hypertension Mesenteric angina Pneumonia Pulmonary embolism Seasonal allergic rhinitis Tobacco use disorder Surgical History History of surgery of head Family History Other CAD (coronary artery disease) Hypertension Stroke Denies family history of Dementia Social History Smoking and tobacco status: current every day smoker Second hand smoke exposure: Yes Smoking risk assessment/counseling performed?: No Alcohol intake: never Desire information about alcohol rehabilitation?: No Counseling given: No Desire information about substance/drug rehabilitation?: No Counseling given: No Adopted: No Caregiver/support person: No Lives independently: Yes Household members: spouse Housing: House Marital status: Number of children: 4 service: No Current occupational status: disabled Physical Exam Const: COMMON NORMALS: no acute distress GENERAL APPEARANCE: cooperative and comfortable ORIENTATION/CONSCIOUSNESS: Yes awake, Yes oriented to person, Yes oriented to place and Yes oriented to time HENMT: COMMON NORMALS: normocephalic, atraumatic and hearing grossly normal bilaterally HEAD & SCALP: normocephalic and atraumatic Resp: COMMON NORMALS: normal respiratory effort, No retractions and No use of accessory muscles AUSCULTATION: rales Cardio: COMMON NORMALS: regular rhythm and No murmurs present (Cardio) RATE: tachycardic RHYTHM: regular rhythm GI: COMMON NORMALS: No hepatosplenomegaly present INSPECTION: Yes abdominal distension (mild) AUSCULTATION: Yes normoactive bowel sounds PALPATION: Yes Tenderness to palpation present (GI), No Guarding due to palpation present (GI) and Yes No hepatosplenomegaly present : COMMON NORMALS: Yes no CVA tenderness BLADDER/KIDNEY EXAM: Yes no CVA tenderness Back/Pelvis: COMMON NORMALS: no CVA tenderness Extremity: COMMON NORMALS: normal to inspection, capillary refill normal, no clubbing, cyanosis or edema, no calf tenderness and no pedal edema Neuro: SENSORIUM/ORIENTATION: Yes oriented to person, Yes oriented to place and Yes oriented to time Skin: COMMON NORMALS: no rashes or lesions noted GENERAL SKIN EXAM: no rashes or lesions noted Course Vital Signs: Vital signs: Vital Signs Temperature 98.7 F 06/18/22 04:00 Pulse Rate 107 H 06/18/22 04:45 Respiratory Rate 20 H 06/18/22 04:45 Blood Pressure 148/96 06/18/22 04:45 Pulse Oximetry 97 06/18/22 04:45 Oxygen Delivery Me thod 06/17/22 19:57 MDM - SOB/Dyspnea Medical Decision Making Patient has significant leukocytosis chest x-ray that shows infiltrate. Clinically he may be some mild fluid overload with congestive heart failure as well. Is also complaining of abdominal discomfort. Has had SBP in the past. Discussed with hospitalist will admit orders written. Medical Records I reviewed the patient's medical records. Lab Data I reviewed the patient's lab results. 06/17/22 14:16 06/17/22 14:16 Labs/Radiology: Radiology Impressions Chest X-Ray 06/17/22 14:01 IMPRESSION: 1. Mild diffuse interstitial infiltrates noted bilaterally. This could represent interstitial pneumonia or pulmonary edema. 2. Mild cardiac enlargement. Laboratory Results WBC 21.2 10^3/uL (4.0-10.0) H 06/17/22 14:16 RBC 4.66 10^6/uL (4.1-5.3) 06/17/22 14:16 Hgb 13.7 g/dL (11.7-16.6) 06/17/22 14:16 Hct 42.0 % (42.0-52.0) 06/17/22 14:16 MCV 90.1 fl (80-94) 06/17/22 14:16 MCH 29.4 pg (28.0-34.0) 06/17/22 14:16 MCHC 32.6 g/dL (30.0-36.0) 06/17/22 14:16 RDW 16.5 % (12.1-15.1) H 06/17/22 14:16 Plt Count 264 10^3/cmm (130-400) 06/17/22 14:16 MPV 10.7 fL (7.4-10.4) H 06/17/22 14:16 Neut % (Auto) 83.4 % 06/17/22 14:16 Lymph % (Auto) 7.6 % 06/17/22 14:16 [place] % (Auto) 8.0 % 06/17/22 14:16 Eos % (Auto) 0.0 % 06/17/22 14:16 Baso % (Auto) 0.2 % 06/17/22 14:16 Neut # (Auto) 17.69 10^3/uL (1.8-7.7) H 06/17/22 14:16 Lymph # (Auto) 1.6 10^3/uL (0.8-4.8) 06/17/22 14:16 [place] # (Auto) 1.7 10^3/uL (0.2-0.9) H 06/17/22 14:16 Eos # (Auto) 0.0 10^3/uL (0.0-0.8) 06/17/22 14:16 Baso # (Auto) 0.1 10^3/uL (0.0-0.1) 06/17/22 14:16 Nucleated RBC % (auto) 0 % 06/17/22 14:16 Nucleated RBCs # 0.0 /100WBC 06/17/22 14:16 PT 15.70 SECONDS (12.1-14.9) H 06/17/22 14:16 INR 1.21 (0.8-1.2) H 06/17/22 14:16 APTT 32.0 SECONDS (23.9-36.7) 06/17/22 14:16 Sodium 134 mmol/L (136-145) L 06/17/22 14:16 Potassium 4.3 mmol/L (3.5-5.1) 06/17/22 14:16 Chloride 96 mmol/L (98-107) L 06/17/22 14:16 Carbon Dioxide 21 mmol/L (22-29) L 06/17/22 14:16 Anion Gap 21.3 (5-19) H 06/17/22 14:16 BUN 21 mg/dL (8-23) 06/17/22 14:16 Creatinine 1.3 mg/dL (0.7-1.2) H 06/17/22 14:16 GFR Calculation 55.9 mL/min (90-130) L 06/17/22 14:16 Glucose 105 mg/dL (65-115) 06/17/22 14:16 Calculated Osmolality 281 mOsm/kg (285-295) L 06/17/22 14:16 Lactic Acid 2.6 mmol/L (0.5-2.2) H 06/17/22 15:30 Calcium 8.6 mg/dL (8.5-10.5) 06/17/22 14:16 Total Bilirubin 1.8 mg/dL (0.15-1.2) H 06/17/22 14:16 AST 18 U/L (0-40) 06/17/22 14:16 ALT 10 U/L (0-41) 06/17/22 14:16 Alkaline Phosphatase 79 U/L (40-130) 06/17/22 14:16 Ammonia 31 umol/L (16-60) 06/17/22 15:30 Total Protein 7.2 g/dL (6.6-8.7) 06/17/22 14:16 Albumin 3.7 g/dL (3.5-5.2) 06/17/22 14:16 Globulin 3.5 g/dL (1.3-4.6) 06/17/22 14:16 Urine Color Dark yellow (Yellow) 06/17/22 16:42 Urine Appearance Clear (CLEAR) 06/17/22 16:42 Urine pH 5 (5-7) 06/17/22 16:42 Ur Specific [place] 1.015 (1.005-1.030) 06/17/22 16:42 Urine Protein Neg (Negative) 06/17/22 16:42 Urine Glucose (UA) Norm (Normal) 06/17/22 16:42 Urine Ketones Negative (Negative) 06/17/22 16:42 Urine Blood Neg (Negative) 06/17/22 16:42 Urine Nitrate Negative (Negative) 06/17/22 16:42 Urine Bilirubin Neg (Negative) 06/17/22 16:42 Urine Urobilinogen Neg mg/dL (Negative) 06/17/22 16:42 Ur Leukocyte Esterase Negative (Negative) 06/17/22 16:42 Discharge Plan Discharge Patient Disposition: Admitted As Inpatient Admit Provider: Anoop Christian Clinical Impression: Pneumonia, Congestive heart failure, CKD (chronic kidney disease) stage 3, GFR 30-59 ml/min, Acute exacerbation of chronic obstructive airways disease, SBP (spontaneous bacterial peritonitis) Condition: Stable Coding Level of Care Code ED Shipping/Receiving Clerk for Vamsi Alcantara
[2022-06-17 14:51] LABS: Alanine Aminotransferase 10 U/L (0-41); Albumin Level 3.7 g/dL (3.5-5.2); Alkaline Phosphatase 79 U/L (40-130); Anion Gap 21.3 (5-19); Aspartate Amino Transferase 18 U/L (0-40); Blood Urea Nitrogen 21 mg/dL (8-23); Calcium 8.6 mg/dL (8.5-10.5); Carbon Dioxide 21 mmol/L (22-29); Chloride 96 mmol/L (98-107); Globulin 3.5 g/dL (1.3-4.6); Glomerular Filtration Rate 55.9 mL/min (90-130); Glucose 105 mg/dL (65-115); Osmolality Calculated 281 mOsm/kg (285-295); Potassium 4.3 mmol/L (3.5-5.1); Sodium 134 mmol/L (136-145); Total Bilirubin 1.8 mg/dL (0.15-1.2); Total Protein 7.2 g/dL (6.6-8.7)
[2022-06-17 14:56] LABS: INR 1.21 (0.8-1.2)
[2022-06-17 16:07] LABS: Ammonia 31 umol/L (16-60); Lactic Sepsis W/Reflex 2.6 mmol/L (0.5-2.2)
[2022-06-17] MEDS: levofloxacin-dextrose 5 % 750 MG/150 ML PREMIX 100 MG IV (16:32)
[2022-06-17 16:47] LABS: Add Urine Microscopic? NO; Charge for UA Resulting for Rev
[2022-06-17 16:51] LABS: Bilirubin Urine Neg (Negative); Blood Urine Neg (Negative); Glucose Urine UA Norm (Normal); Ketones Urine Negative (Negative); Leukocyte Esterase Urine Negative (Negative); Nitrate Urine Negative (Negative); Protein Urine Neg (Negative); Specific Gravity, Urine 1.015 (1.005-1.030); Urine Appearance Clear (CLEAR); Urine Color Dark Yellow (Yellow); Urobilinogen Urine Neg (Negative); pH Urine 5 (5-7)
--- NOTE | 2022-06-17 16:53 | PC.NURSE ---
PT PLACED ON CONTINUOUS NIBP, SPO2, AND CM
[2022-06-17] MEDS: azithromycin 500 MG in sodium chloride 0.9% 250 ML 250 MG IV (17:13)
--- NOTE | 2022-06-17 17:14 | P.HP_ITS ---
Providers/Chief Complaint Primary Care Provider: ANGELINE Fishman Chief Complaint: SOB/ FLUID IN ABDOMEN History of Present Illness 61 year old male with past medical history of hypertension,NICM, CAG done in? 2012: Which showed nonocclusive coronary artery disease, heart failure with reduced ejection fraction, Chronic smoker, COPD, recent nuclear stress test: Suggestive of myocardial scarring, came today with chief complaint of worsening shortness of breath, going on for the last 1 to 2 weeks, orthopnea PND, patient is also complaining of cough with productive sputum.Right lower quadrant abdominal pain with coughing.He is also complaining of diminished urine output in the last few days. Currently he is denying any chest pain, fever or chills, nausea vomiting. X-ray chest has shown: Bilateral interstitial infiltrates, suspicious for possible pneumonia, pulmonary edema Pertinent labs: WBC 21.2, H&H /42 PLT : 264 , serum sodium 134 serum potassium 4.3, BUN 21, SCR: 1.3, lactic acid 2.6, AST ALT alk phos normal, total bilirubin 1.8. Patient was given levofloxacin as well as azithromycin in the ER. Review of Systems General: Reports: 10 or more systems reviewed and unremarkable except in HPI and below Const: Denies: fever(s), chills, body aches, change in appetite or diaphoresis Card: Reports: edema, swelling of feet/ankles, dyspnea on exertion and orthopnea; Denies: leg pain with exertion Resp: Reports: dyspnea and productive cough; Denies: wheezing or pain on inspiration GI: Reports: abdominal pain; Denies: nausea, vomiting, diarrhea or constipation : Denies: flank pain or difficulty urinating Musc: Denies: back pain, extremity pain or extremity swelling Neuro: Denies: headache(s), difficulty walking or confusion Medications/Allergies Home Medications Medication Instructions Recorded Confirmed Last Taken Type nitroglycerin 0.4 mg sublingual 0.4 mg sublingual Q5M PRN Chest 09/03/21 06/17/22 04/17/22 Rx tablet Pain #10 tabs polyethylene glycol 3350 17 gram 17 g PO DAILY PRN Constipation 01/10/22 06/17/22 04/17/22 History oral powder packet (Miralax) albuterol sulfate 90 mcg/actuation 2 puff inhalation QID PRN 04/09/22 06/17/22 04/17/22 Rx aerosol inhaler (ProAir HFA) shortness of breath or wheezing #6.7 grams potassium chloride 20 mEq 20 meq PO BID 30 days #60 tabs 05/06/22 06/17/22 06/17/22 Rx tablet,extended release tamsulosin 0.4 mg capsule (Flomax) 0.4 mg PO DAILY #30 caps 06/03/22 06/17/22 06/17/22 Rx furosemide 40 mg tablet 40 mg PO BID 06/17/22 06/17/22 06/17/22 History magnesium hydroxide 400 mg/5 mL 15 ml PO DAILY PRN Constipation 06/17/22 06/17/22 Unknown History oral suspension (Milk of Magnesia) Allergies Allergy/AdvReac Type Severity Reaction Status Date / Time ibuprofen Allergy Mild Rash Verified 06/17/22 14:58 naproxen Allergy Mild Rash Verified 06/17/22 14:58 yellow dye Allergy Mild Rash Verified 06/17/22 14:58 lisinopril AdvReac Mild Cough Verified 06/17/22 14:58 losartan AdvReac Mild ADR-Nausea Verified 06/17/22 14:58 PFSH Acute PFSH: Medical History Acute on chronic congestive heart failure Cardiomyopathy Congestive heart failure COPD (chronic obstructive pulmonary disease) Dyspnea on exertion Emphysema/COPD Epigastric pain Hypertension Hypokalemia Hypothyroidism Malignant hypertension Mesenteric angina Pneumonia Pulmonary embolism Seasonal allergic rhinitis Tobacco use disorder Surgical History History of surgery of head Family History Other CAD (coronary artery disease) Hypertension Stroke Denies family history of Dementia Social History Smoking and tobacco status: current every day smoker Second hand smoke exposure: Yes Smoking risk assessment/counseling performed?: No Alcohol intake: never Desire information about alcohol rehabilitation?: No Counseling given: No Desire information about substance/drug rehabilitation?: No Counseling given: No Adopted: No Caregiver/support person: No Lives independently: Yes Household members: spouse Housing: House Marital status: Number of children: 4 service: No Current occupational status: disabled Vitals/I&O/Wt Last Vital Signs Temp 98.9 F 06/17/22 13:58 Pulse 119 H 06/17/22 16:28 Resp 14 06/17/22 16:28 BP 142/103 06/17/22 16:28 Pulse Ox 95 06/17/22 16:28 O2 Del Method 06/17/22 14:28 Weight last 48 hrs Weight 70.307 kg Physical Exam Const: COMMON NORMALS: patient oriented x3 HENMT: COMMON NORMALS: normocephalic and atraumatic Resp: COMMON NORMALS: clear to auscultation bilaterally AUSCULTATION: clear to auscultation bilaterally OTHER: Diminished air entry B/L Cardio: COMMON NORMALS: regular rate, regular rhythm, S1 normal heart sound present, S2 normal heart sound present, No gallops present (Cardio), No murmurs present (Cardio), No rub (Cardio) and Peripheral pulses 2+ throughout RATE: regular rate RHYTHM: regular rhythm HEART SOUNDS: S1 normal heart sound present and S2 normal heart sound present PERIPHERAL PULSES: Peripheral pulses 2+ throughout GI: COMMON NORMALS: Normal to inspection, nondistended, normoactive bowel sounds present, Soft to palpation, non-tender, No hepatosplenomegaly present and no masses AUSCULTATION: Yes normoactive bowel sounds PALPATION: Yes Soft t o palpation and Yes No hepatosplenomegaly present RECTAL EXAM: Yes deferred Extremity: NARRATIVE EXTREMITY EXAM: 3 + PITTING EDEMA IN B/L LE Neuro: COMMON NORMALS: patient oriented x3 Data 06/17/22 14:16 06/17/22 14:16 Micro: Microbiology 06/17/22 15:25 Blood Culture - Preliminary Blood SPECIMEN COLLECTED 06/17/22 15:30 Blood Culture - Preliminary Blood SPECIMEN COLLECTED A&P Assessment and plan (1) Left bundle branch block: (2) Hypothyroidism: (3) Hypertension: (4) Emphysema/COPD: Qualifiers: Emphysema type: unspecified Qualified Code(s): J43.9 - Emphysema, unspecified (5) Congestive heart failure: (6) Pneumonia: (7) CKD (chronic kidney disease) stage 3, GFR 30-59 ml/min: (8) Total bilirubin, elevated: Plan 61 year old male with past medical history of hypertension,NICM, CAG done in? 2013: Which showed nonocclusive coronary artery disease, heart failure with reduced ejection fraction, Chronic smoker, COPD, recent nuclear stress test: Suggestive of myocardial scarring, came today with chief complaint of worsening shortness of breath, going on for the last 1 to 2 weeks, orthopnea PND, patient is also complaining of cough with productive sputum.Right lower quadrant abdominal pain with coughing.He is also complaining of diminished urine output in the last few days. Assessment: Acute on chronic decompensated heart failure with reduced ejection fraction: Closely monitor for possibly developing cardiogenic shock. Recent 2D echo done in Mar 2022 has shown: Moderately increased LV cavity size, severely depressed LV systolic function ,LVEF:15, severe global LV hypokinesis, moderate MR. Patient is on Lasix 40 twice daily at home, for now we will start him on Bumex 2 mg IV twice daily Intake output charting Monitor daily weight Fluid restriction to 1.5 LS Monitor electrolytes Telemetry monitoring Bullock catheter placement for appropriate output charting Possible pneumonia: Follow sputum Gram stain and culture MRSA PCR Follow blood culture Urine Legionella antigen Bacterial antigen panel Lactic acid is 2.6 Follow repeat lactic acid Follow procalcitonin Empirically has been started on vancomycin and Zosyn History of COPD: Continue DuoNebs Supplemental oxygen as needed CKD stage III: Serum creatinine is 1.3 Baseline serum creatinine is around: 1.3-1.8 Monitor BMP Avoid nephrotoxic's Monitor and output charting Elevated total bilirubin: Monitor LFT for now Patient may have possible underlying cardiac cirrhosis Known left bundle branch block No acute intervention needed at this time monitor EKG as needed CODE STATUS: AND DVT prophylaxis on Lovenox Attestations Medical Necessity Statement*: Patient is to be in hospital management of decompensated heart failure. Anticipated length of stay greater then 2 m idnights Coding Level of Care Code 34385 Diagnoses Left bundle branch block I44.7 Hypothyroidism E03.9 Hypertension I10 Emphysema/COPD J43.9 Emphysema type: unspecified Congestive heart failure I50.9 Pneumonia J18.9 CKD (chronic kidney disease) stage 3, GFR 30-59 ml/min N18.30 Total bilirubin, elevated R17
[2022-06-17 17:25] LABS: Reflex Lactate Order REFLEX LACTIC ORDERD
[2022-06-17] MEDS: enoxaparin 40 mg/0.4 mL Syringe SUBCUT (18:15)
--- NOTE | 2022-06-17 18:44 | PC.NURSE ---
PT TELEMETRY PRESENTS VTACH. PT DENIES CHEST PAIN. SKIN WARM AND DRY. EKG GOTTEN TO CONFIRM. DR. ARIZA NOTIFIED.
[2022-06-17] MEDS: bumetanide 0.25 mg/mL SDV 10 mL 2 MG IVP (19:16)
[2022-06-17 19:34] LABS: Lactic Acid level (Lactate) 3.7 mmol/L (0.5-2.2)
--- NOTE | 2022-06-17 20:24 | ECG_ITS ---
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 Measurements Intervals [place] Rate: 117 P: 10 IA: 226 QRS: -51 QRSD: 178 T: 115 QT: 391 QTc: 546 Interpretive Statements SINUS TACHYCARDIA with a possible first-degree AV block Possible LEFT ATRIAL ENLARGEMENT [-0.15mV P-WAVE IN V1/V2] LEFT AXIS DEVIATION [QRS AXIS < -30] LEFT BUNDLE BRANCH BLOCK [120+ ms QRS DURATION, 80+ ms Q/S IN V1/V2, 85+ ms R IN I/aVL/V5/V6] Compared to ECG 06/17/2022 14:10:37 First degree AV block now present Electronically Signed On 06-19-2022 0:36:55 CDT by Bismark Aragon M.D. [id number]
[2022-06-17] MEDS: sodium chloride 0.9% 1,000 ML 100 ML IV (21:03)
[2022-06-17] MEDS: piperacillin-tazobactam 3.375 GM in sodium chloride 0.9% (plus) 50 ML IV (21:04)
[2022-06-17] MEDS: vancomycin 1,250 MG/250 ML PIGGYBACK 250 MG IV (21:05)
[2022-06-18] VITALS (150 sets, daily range): BP systolic 134–165; BP diastolic 90–115; PULSE 76–122; RESP 1–40; TEMP 36.6–37.1; O2SAT 88–100
[2022-06-18] MEDS: piperacillin-tazobactam 3.375 GM in sodium chloride 0.9% (plus) 50 ML IV ×3 (03:38→19:52)
[2022-06-18 05:00] LABS: Basophils # 0.1 10^3/uL (0.0-0.1); Basophils % 0.3 %; Hematocrit 39.5 % (42.0-52.0); Hemoglobin 12.8 g/dL (11.7-16.6); Lymphocytes # 1.7 10^3/uL (0.8-4.8); Lymphocytes % 8.6 %; Mean Corpuscular HGB Conc 32.4 g/dL (30.0-36.0); Mean Corpuscular Hemoglobin 29.3 pg (28.0-34.0); Mean Corpuscular Volume 90.4 fl (80-94); Mean Platelet Volume 10.3 fL (7.4-10.4); Monocytes # 1.4 10^3/uL (0.2-0.9); Monocytes % 7.4 %; Neutrophils # 15.96 10^3/uL (1.8-7.7); Neutrophils % 83.1 %; Nucleated Red Blood Cells % 0 %; Platelet Count 224 10^3/cmm (130-400); Red Blood Count 4.37 10^6/uL (4.1-5.3); Red Cell Distribution Width 16.4 % (12.1-15.1); White Blood Count 19.2 10^3/uL (4.0-10.0)
[2022-06-18 05:20] LABS: INR 1.41 (0.8-1.2)
[2022-06-18 05:21] LABS: Partial Thromboplastin Time 37.4 SECONDS (23.9-36.7)
[2022-06-18] MEDS: sodium chloride 0.9% 1,000 ML 100 ML IV (05:28)
[2022-06-18 05:29] LABS: Lactic Sepsis W/Reflex 1.5 mmol/L (0.5-2.2)
[2022-06-18 05:40] LABS: NT Pro B Type Natriuretic Pept 20120 pg/mL (0-125); Procalcitonin 0.61 ng/mL (0-0.5)
[2022-06-18 05:51] LABS: Alanine Aminotransferase 8 U/L (0-41); Albumin Level 3.1 g/dL (3.5-5.2); Alkaline Phosphatase 68 U/L (40-130); Anion Gap 19.1 (5-19); Aspartate Amino Transferase 19 U/L (0-40); Blood Urea Nitrogen 25 mg/dL (8-23); Calcium 8.5 mg/dL (8.5-10.5); Carbon Dioxide 19 mmol/L (22-29); Chloride 99 mmol/L (98-107); Globulin 3.2 g/dL (1.3-4.6); Glomerular Filtration Rate 47.4 mL/min (90-130); Glucose 104 mg/dL (65-115); Osmolality Calculated 281 mOsm/kg (285-295); Potassium 4.1 mmol/L (3.5-5.1); Sodium 133 mmol/L (136-145); Total Protein 6.3 g/dL (6.6-8.7)
[2022-06-18 05:52] LABS: Creatinine Clr Calc Pharmacy 54.5928
[2022-06-18] MEDS: ipratropium-albuterol 3 mL Neb INHALATION ×3 (08:13→15:22)
[2022-06-18] MEDS: bumetanide 0.25 mg/mL SDV 10 mL 2 MG IVP ×2 (09:05→18:08)
[2022-06-18] MEDS: tamsulosin 0.4 mg Capsule PO (09:12)
--- NOTE | 2022-06-18 10:09 | PC.CHAP ---
Pastoral Care Encounter/Spiritual Assessment Type of Contact [] Declined exhibit specialist visit [] Patient/Family/Request visit [] Outpatient visit [] Follow-up visit [] Physician referral [] Code/Alert [x] Routine visit [] Staff referral [] Actively dying [] Patient sleeping [] Family support [] [] Out of room [] Palliative care [] [] Receiving care in room [] Pre-surgical visit [] Trauma [] Long length of stay [] ICU visit [] Other: Relational/Emotional Strength [x] Patient feels connected with others/family/visitors/staff [] Distress [] Loneliness/isolation [] Abandonment Spirituality of Patient [x] Person of Chrissy [x] Attends [employer] of their Chrissy [x] Believes in Prayer [] Reads Bible or Yarsani materials [] There are Spiritual issues to 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 Vertical Interventions [x] Prayer [] Active listening [] Non-anxious presence [] Spiritual/emotional support [] Crisis/trauma care [] Spiritual counseling [] Bereavement support [] Provided bereavement packet [] Provided Bible/devotional materials [] Provided toy/stuffed animal, coloring book to patient or family member [] Provided Communion [] Anointing/[place] [] Salvation [x] Completed spiritual assessment [] Other: Impact on Illness or Injury [] Angry [] Fearful [] Anxious [] Often cries [] Exhaustion [] Unable to work [] Unable to attend religious [] Unable to walk/stand [] Unable to read [] Unable to drive [] Unable to eat/drink [] Unable to sleep [] Unable to be with family [] Patient intubated [] Other: Summary Time spent with patient 10 min
[2022-06-18] MEDS: vancomycin 1,250 MG/250 ML PIGGYBACK 250 MG IV (13:30)
[2022-06-18] MEDS: enoxaparin 40 mg/0.4 mL Syringe SUBCUT (18:08)
--- NOTE | 2022-06-18 19:08 | PM.PN ---
Subjective Subjective: Patient was seen and examined this morning shortness of breath is improved.Fairly decent urine output in response to Bumex Medications: Medication Review Details: Generic Name Dose Route Start Last Admin Trade Name Yi PRN Reason Stop Dose Admin Albuterol/Ipratrop ium 3 ml 06/17/22 20:00 06/18/22 15:22 Ipratropium-Albu terol 3 Ml Neb INHALATION 3 ml QID.RESPIRATORY S CH Administration Bumetanide 2 mg 06/17/22 18:00 06/18/22 18:08 Bumetanide 0.25 Mg/Ml Sdv 10 Ml IVP 2 mg BID YONATAN Administration Enoxaparin Sodium 40 mg 06/17/22 17:15 06/18/22 18:08 Enoxaparin 40 Mg /0.4 Ml Syringe SUBCUT 40 mg Q24H YONATAN Administration Piperacillin Sod/T azobactam 50 mls @ 12.5 mls /hr 06/17/22 19:49 06/18/22 17:49 Sod 3.375 gm/ So dium Chloride IV Infused Q8H YONATAN Infusion Protocol Vancomycin/PEG/NAD A/Lysine/Water 1,250 mg in 250 m ls @ 250 mls/hr 06/17/22 20:00 06/18/22 16:57 Vancocin IV Infused Q18H YONATAN Infusion Tamsulosin HCl 0.4 mg 06/18/22 09:00 06/18/22 09:12 Tamsulosin 0.4 M g Capsule PO 0.4 mg DAILY YONATAN Administration Vitals/I&O/Wt Last Vital Signs Temp 97.8 F 06/18/22 08:00 Pulse 112 H 06/18/22 17:15 Resp 30 H 06/18/22 17:15 BP 144/92 06/18/22 17:15 Pulse Ox 96 06/18/22 17:15 O2 Del Method 06/18/22 15:23 06/18/22 06/18/22 06/18/22 06:59 14:59 22:59 Intake Total 1091.667 / 1841.667 530 / 530 1300 / 1830 Output Total 450 / 750 1350 / 1350 Balance 641.667 / 1091.667 530 / 530 -50 / 480 Weight last 48 hrs Weight 72.575 kg Weight 72.575 kg Weight 70.307 kg Physical Exam Const: COMMON NORMALS: patient oriented x3 HENMT: COMMON NORMALS: normocephalic and atraumatic HEAD & SCALP: normocephalic and atraumatic Resp: COMMON NORMALS: clear to auscultation bilaterally AUSCULTATION: clear to auscultation bilaterally OTHER: Diminished air entry B/L Cardio: COMMON NORMALS: regular rate, regular rhythm, S1 normal heart sound present, S2 normal heart sound present, No gallops present (Cardio), No murmurs present (Cardio), No rub (Cardio) and Peripheral pulses 2+ throughout RATE: regular rate RHYTHM: regular rhythm HEART SOUNDS: S1 normal heart sound present and S2 normal heart sound present PERIPHERAL PULSES: Peripheral pulses 2+ throughout GI: COMMON NORMALS: Normal to inspection, nondistended, normoactive bowel sounds present, Soft to palpation, non-tender, No hepatosplenomegaly present and no masses AUSCULTATION: Yes normoactive bowel sounds PALPATION: Yes Soft to palpation and Yes No hepatosplenomegaly present RECTAL EXAM: Yes deferred Extremity: NARRATIVE EXTREMITY EXAM: 2 + PITTING EDEMA IN B/L LE Neuro: COMMON NORMALS: patient oriented x3 Urinary Catheter Management: Bullock: Cath Placed During This Visit: yes Reason for Continuing Indwelling Catheter: Accurate Measurement of Urinary Output in Critically Ill Patients Urinary Catheter Date of Insertion: 06/17/22 Urinary Catheter Time of Insertion: 18:38 Data 06/18/22 04:27 06/18/22 04:27 Micro: Microbiology 06/17/22 06:17 Gram Stain - Final Sputum - Expectorated Sputum 06/17/22 15:25 Blood Culture - Preliminary Blood NEGATIVE TO DATE 06/17/22 15:30 Blood Culture - Preliminary Blood NEGATIVE TO DATE 06/17/22 03:40 MRSA Culture - Final Nose 06/17/22 16:42 Legionella Urinary Antigen - Final Urine,Clean Catch Bacterial Antigens - Final A&P Assessment and plan (1) Left bundle branch block: (2) Hypothyroidism: (3) Hypertension: (4) Emphysema/COPD: Qualifiers: Emphysema type: unspecified Qualified Code(s): J43.9 - Emphysema, unspecified (5) Congestive heart failure: (6) Pneumonia: (7) CKD (chronic kidney disease) stage 3, GFR 30-59 ml/min: (8) Total bilirubin, elevated: Plan 61 year old male with past medical history of hypertension,NICM, CAG done in2012: Which showed nonocclusive coronary artery disease, heart failure with reduced ejection fraction, Chronic smoker, COPD, recent nuclear stress test: Suggestive of myocardial scarring, came today with chief complaint of worsening shortness of breath, going on for the last 1 to 2 weeks, orthopnea PND, patient is also complaining of cough with productive sputum.Right lower quadrant abdominal pain with coughing.He is also complaining of diminished urine output in the last few days. Assessment: Acute on chronic decompensated heart failure with reduced ejection fraction: Closely monitor for possibly developing cardiogenic shock. Recent 2D echo done in Mar 2022 has shown: Moderately increased LV cavity size, severely depressed LV systolic function ,LVEF:15, severe global LV hypokinesis, moderate MR. Patient is on Lasix 40 twice daily at home, for now we will start him on Bumex 2 mg IV twice daily Intake output charting Monitor daily weight Fluid restriction to 1.5 LS Monitor electrolytes Telemetry monitoring Bullock catheter placement for appropriate output charting Possible pneumonia: Follow sputum Gram stain and culture MRSA PCR Follow blood culture Urine Legionella antigen Bacterial antigen panel Lactic acid is 2.6 Follow repeat lactic acid Follow procalcitonin Empirically has been started on vancomycin and Zosyn History of COPD: Continue DuoNebs Supplemental oxygen as needed CKD stage III: Serum creatinine is 1.3 Baseline serum creatinine is around: 1.3-1.8 Monitor BMP Avoid nephrotoxic's Monitor and output charting Elevated total bilirubin: Monitor LFT for now Patient may have possible underlying cardiac cirrhosis Known left bundle branch block No acute intervention needed at this time monitor EKG as needed CODE STATUS: AND DVT prophylaxis on Lovenox Attestations Medical Necessity Statement*: Needs to be in hospital for management of decompensated heart failure. Coding Level of Care Code 62201 Diagnoses Left bundle branch block I44.7 Hypothyroidism E03.9 Hypertension I10 Emphysema/COPD J43.9 Emphysema type: unspecified Congestive heart failure I50.9 Pneumonia J18.9 CKD (chronic kidney disease) stage 3, GFR 30-59 ml/min N18.30 Total bilirubin, elevated R17
[2022-06-18] MEDS: zolpidem 5 mg Tablet 2.5 MG PO (21:16)
--- NOTE | 2022-06-18 21:18 | PC.NURSE ---
Patient requesting something to help with sleep. Dr Mccormick present on the floor at this time. Received verbal order for 2.5mg Ambien PO. RBVO
[2022-06-19] VITALS (15 sets, daily range): BP systolic 133–161; BP diastolic 73–116; PULSE 73–103; RESP 18–24; TEMP 36.6–37.4; O2SAT 94–98
--- NOTE | 2022-06-19 01:58 | PC.NURSE ---
Noted what appeared to be v-tach on telemetry. Patient denies any discomforts, pain or increased SOB. Obtained EKG. underground supervisor took copy to Dr Mcgowan. EKG same as on admission per Roslyn. Will continue to monitor.
[2022-06-19] MEDS: piperacillin-tazobactam 3.375 GM in sodium chloride 0.9% (plus) 50 ML IV ×3 (04:05→20:16)
[2022-06-19 04:46] LABS: Basophils # 0.1 10^3/uL (0.0-0.1); Basophils % 0.3 %; Eosinophils % 0.1 %; Hematocrit 40.1 % (42.0-52.0); Hemoglobin 12.8 g/dL (11.7-16.6); Lymphocytes # 1.2 10^3/uL (0.8-4.8); Lymphocytes % 7.3 %; Mean Corpuscular HGB Conc 31.9 g/dL (30.0-36.0); Mean Corpuscular Hemoglobin 28.3 pg (28.0-34.0); Mean Corpuscular Volume 88.7 fl (80-94); Mean Platelet Volume 10.4 fL (7.4-10.4); Monocytes # 1.3 10^3/uL (0.2-0.9); Monocytes % 7.8 %; Neutrophils # 14.25 10^3/uL (1.8-7.7); Neutrophils % 84.1 %; Nucleated Red Blood Cells % 0 %; Platelet Count 269 10^3/cmm (130-400); Red Blood Count 4.52 10^6/uL (4.1-5.3); Red Cell Distribution Width 16.5 % (12.1-15.1); White Blood Count 16.9 10^3/uL (4.0-10.0)
[2022-06-19 05:05] LABS: Alanine Aminotransferase 7 U/L (0-41); Albumin Level 3.1 g/dL (3.5-5.2); Alkaline Phosphatase 63 U/L (40-130); Aspartate Amino Transferase 15 U/L (0-40); Blood Urea Nitrogen 24 mg/dL (8-23); Calcium 8.2 mg/dL (8.5-10.5); Carbon Dioxide 21 mmol/L (22-29); Chloride 101 mmol/L (98-107); Globulin 3.3 g/dL (1.3-4.6); Glomerular Filtration Rate 51.4 mL/min (90-130); Glucose 126 mg/dL (65-115); Osmolality Calculated 288 mOsm/kg (285-295); Sodium 136 mmol/L (136-145); Total Bilirubin 1.5 mg/dL (0.15-1.2); Total Protein 6.4 g/dL (6.6-8.7)
[2022-06-19] MEDS: ipratropium-albuterol 3 mL Neb INHALATION ×4 (07:35→20:03)
[2022-06-19] MEDS: bumetanide 0.25 mg/mL SDV 10 mL 2 MG IVP ×2 (08:09→17:19)
[2022-06-19] MEDS: vancomycin 1,250 MG/250 ML PIGGYBACK 250 MG IV (08:09)
[2022-06-19] MEDS: tamsulosin 0.4 mg Capsule PO (08:10)
[2022-06-19] MEDS: lidocaine 1% 5 ML in potassium chloride premix 100 ML 26.25 ML IV (11:36)
--- NOTE | 2022-06-19 14:05 | PM.PN ---
Subjective Subjective: Patient was seen and examined this morning shortness of breath is improved.Lower extremity swelling is going down. Medications: Medication Review Details: Generic Name Dose Route Start Last Admin Trade Name Fabianq PRN Reason Stop Dose Admin Albuterol/Ipratrop ium 3 ml 06/17/22 20:00 06/19/22 11:20 Ipratropium-Albu terol 3 Ml Neb INHALATION 3 ml QID.RESPIRATORY S CH Administration Bumetanide 2 mg 06/17/22 18:00 06/19/22 08:09 Bumetanide 0.25 Mg/Ml Sdv 10 Ml IVP 2 mg BID YONATAN Administration Enoxaparin Sodium 40 mg 06/17/22 17:15 06/18/22 18:08 Enoxaparin 40 Mg /0.4 Ml Syringe SUBCUT 40 mg Q24H YONATAN Administration Piperacillin Sod/T azobactam 50 mls @ 12.5 mls /hr 06/17/22 19:49 06/19/22 11:35 Sod 3.375 gm/ So dium Chloride IV 12.5 mls/hr Q8H YONATAN Administration Protocol Lidocaine HCl 5 ml / Potassium 105 mls @ 26.25 m ls/hr 06/19/22 10:21 06/19/22 11:36 Chloride IV 06/19/22 14:20 26.25 mls/hr ONCE ONE Administration Tamsulosin HCl 0.4 mg 06/18/22 09:00 06/19/22 08:10 Tamsulosin 0.4 M g Capsule PO 0.4 mg DAILY YONATAN Administration Zolpidem Tartrate 2.5 mg 06/18/22 21:10 06/18/22 21:16 Zolpidem 5 Mg Ta blet PO 2.5 mg BEDTIME PRN Administration INSOMNIA Vitals/I&O/Wt Last Vital Signs Temp 98.6 F 06/19/22 07:34 Pulse 75 06/19/22 11:35 Resp 20 H 06/19/22 11:35 BP 139/85 06/19/22 11:35 Pulse Ox 95 06/19/22 11:35 O2 Del Method 06/19/22 11:35 06/18/22 06/19/22 06/19/22 22:59 06:59 14:59 Intake Total 1300 / 1830 290 / 2120 740 / 740 Output Total 2700 / 2700 1000 / 3700 1400 / 1400 Balance -1400 / -870 -710 / -1580 -660 / -660 Weight last 48 hrs Weight 74.661 kg Weight 72.575 kg Weight 72.575 kg Physical Exam Const: COMMON NORMALS: patient oriented x3 HENMT: COMMON NORMALS: normocephalic and atraumatic HEAD & SCALP: normocephalic and atraumatic Resp: COMMON NORMALS: clear to auscultation bilaterally AUSCULTATION: clear to auscultation bilaterally OTHER: Diminished air entry B/L Cardio: COMMON NORMALS: regular rate, regular rhythm, S1 normal heart sound present, S2 normal heart sound present, No gallops present (Cardio), No murmurs present (Cardio), No rub (Cardio) and Peripheral pulses 2+ throughout RATE: regular rate RHYTHM: regular rhythm HEART SOUNDS: S1 normal heart sound present and S2 normal heart sound present PERIPHERAL PULSES: Peripheral pulses 2+ throughout GI: COMMON NORMALS: Normal to inspection, nondistended, normoactive bowel sounds present, Soft to palpation, non-tender, No hepatosplenomegaly present and no masses AUSCULTATION: Yes normoactive bowel sounds PALPATION: Yes Soft to palpation and Yes No hepatosplenomegaly present RECTAL EXAM: Yes deferred Extremity: NARRATIVE EXTREMITY EXAM: 1 + PITTING EDEMA IN B/L LE Neuro: COMMON NORMALS: patient oriented x3 Urinary Catheter Management: Bullock: Cath Placed During This Visit: yes Reason for Continuing Indwelling Catheter: Accurate Measurement of Urinary Output in Critically Ill Patients Urinary Catheter Date of Insertion: 06/17/22 Urinary Catheter Time of Insertion: 18:38 Data 06/19/22 04:15 06/19/22 04:15 Micro: Microbiology 06/17/22 06:17 Gram Stain - Final Sputum - Expectorated Sputum Sputum Culture - Preliminary 06/17/22 15:25 Blood Culture - Preliminary Blood NEGATIVE TO DATE 06/17/22 15:30 Blood Culture - Preliminary Blood NEGATIVE TO DATE 06/17/22 03:40 MRSA Culture - Final Nose A&P Assessment and plan (1) Left bundle branch block: (2) Hypothyroidism: (3) Hypertension: (4) Emphysema/COPD: Qualifiers: Emphysema type: unspecified Qualified Code(s): J43.9 - Emphysema, unspecified (5) Congestive heart failure: (6) Pneumonia: (7) CKD (chronic kidney disease) stage 3, GFR 30-59 ml/min: (8) Total bilirubin, elevated: Plan 61 year old male with past medical history of hypertension,NICM, CAG done in2012: Which showed nonocclusive coronary artery disease, heart failure with reduced ejection fraction, Chronic smoker, COPD, recent nuclear stress test: Suggestive of myocardial scarring, came today with chief complaint of worsening shortness of breath, going on for the last 1 to 2 weeks, orthopnea PND, patient is also complaining of cough with productive sputum.Right lower quadrant abdominal pain with coughing.He is also complaining of diminished urine output in the last few days. Assessment: Acute on chronic decompensated heart failure with reduced ejection fraction: Closely monitor for possibly developing cardiogenic shock. Recent 2D echo done in Mar 2022 has shown: Moderately increased LV cavity size, severely depressed LV systolic function ,LVEF:15, severe global LV hypokinesis, moderate MR. Patient is on Lasix 40 twice daily at home, for now we will start him on Bumex 2 mg IV twice daily Intake output charting Monitor daily weight Fluid restriction to 1.5 LS Monitor electrolytes Telemetry monitoring Bullock catheter placement for appropriate output charting Possible pneumonia: Follow sputum Gram stain and culture: Moderate gram-positive cocci in pairs chains and clusters rare gram-negative rods. MRSA PCR:negative Follow blood culture:NTD Urine Legionella antigen: Negative Bacterial antigen panel: Negative Lactic acid is 2.6 Follow repeat lactic acid Procalcitonin:0.61 Empirically has been started on vancomycin and Zosyn. Vancomycin was discontinued today History of COPD: Continue DuoNebs Supplemental oxygen as needed CKD stage III: Serum creatinine is 1.3 Baseline serum creatinine is around: 1.3-1.8 Monitor BMP Avoid nephrotoxic's Monitor and output charting Elevated total bilirubin: Monitor LFT for now Patient may have possible underlying cardiac cirrhosis Known left bundle branch block No acute intervention needed at this time monitor EKG as needed CODE STATUS: AND DVT prophylaxis on Lovenox Attestations Medical Necessity Statement*: Needs to be in hospital management decompensated heart failure. Coding Level of Care Code 11788 Diagnoses Left bundle branch block I44.7 Hypothyroidism E03.9 Hypertension I10 Emphysema/COPD J43.9 Emphysema type: unspecified Congestive heart failure I50.9 Pneumonia J18.9 CKD (chronic kidney disease) stage 3, GFR 30-59 ml/min N18.30 Total bilirubin, elevated R17
[2022-06-19] MEDS: enoxaparin 40 mg/0.4 mL Syringe SUBCUT (17:19)
[2022-06-19] MEDS: lanolin oint 7 gm 1 APPLIC TOPICAL (18:52)
[2022-06-19] MEDS: metoprolol tartrate 25 mg Tablet PO (20:16)
[2022-06-20] VITALS (14 sets, daily range): BP systolic 121–168; BP diastolic 90–115; PULSE 63–111; RESP 16–30; TEMP 36.6–37; O2SAT 94–98
[2022-06-20] MEDS: piperacillin-tazobactam 3.375 GM in sodium chloride 0.9% (plus) 50 ML IV ×3 (03:14→20:35)
[2022-06-20 04:47] LABS: Basophils % 0.3 %; Eosinophils # 0.1 10^3/uL (0.0-0.8); Eosinophils % 0.6 %; Hematocrit 39.1 % (42.0-52.0); Hemoglobin 12.4 g/dL (11.7-16.6); Lymphocytes # 1.4 10^3/uL (0.8-4.8); Lymphocytes % 10.8 %; Mean Corpuscular HGB Conc 31.7 g/dL (30.0-36.0); Mean Corpuscular Hemoglobin 28.4 pg (28.0-34.0); Mean Corpuscular Volume 89.7 fl (80-94); Mean Platelet Volume 10.6 fL (7.4-10.4); Monocytes % 7.7 %; Neutrophils # 10.08 10^3/uL (1.8-7.7); Neutrophils % 80.3 %; Nucleated Red Blood Cells % 0 %; Platelet Count 213 10^3/cmm (130-400); Red Blood Count 4.36 10^6/uL (4.1-5.3); Red Cell Distribution Width 16.6 % (12.1-15.1); White Blood Count 12.6 10^3/uL (4.0-10.0)
[2022-06-20 05:05] LABS: Alanine Aminotransferase 13 U/L (0-41); Albumin Level 2.9 g/dL (3.5-5.2); Alkaline Phosphatase 73 U/L (40-130); Blood Urea Nitrogen 17 mg/dL (8-23); Carbon Dioxide 22 mmol/L (22-29); Chloride 96 mmol/L (98-107); Globulin 3.6 g/dL (1.3-4.6); Glomerular Filtration Rate 75.7 mL/min (90-130); Glucose 114 mg/dL (65-115); Osmolality Calculated 272 mOsm/kg (285-295); Sodium 130 mmol/L (136-145); Total Protein 6.5 g/dL (6.6-8.7)
[2022-06-20 05:11] LABS: Anion Gap 15.2 (5-19); Aspartate Amino Transferase 29 U/L (0-40); Potassium 3.2 mmol/L (3.5-5.1)
[2022-06-20] MEDS: ipratropium-albuterol 3 mL Neb INHALATION ×4 (07:25→21:10)
[2022-06-20] MEDS: potassium chloride ER 20 mEq Tablet 40 MEQ PO ×2 (08:16→12:17)
[2022-06-20] MEDS: metoprolol tartrate 25 mg Tablet PO ×2 (08:17→20:35)
[2022-06-20] MEDS: tamsulosin 0.4 mg Capsule PO (08:19)
[2022-06-20] MEDS: amlodipine 5 mg Tablet PO (09:01)
[2022-06-20] MEDS: bumetanide 0.25 mg/mL SDV 10 mL 2 MG IVP (09:58)
--- NOTE | 2022-06-20 11:59 | PM.PN ---
Subjective Subjective: Patient was seen and examined this morning shortness of breath is improved.Lower extremity swelling is going down. Medications: Medication Review Details: Generic Name Dose Route Start Last Admin Trade Name Freq PRN Reason Stop Dose Admin Albuterol/Ipratrop ium 3 ml 06/17/22 20:00 06/19/22 11:20 Ipratropium-Albu terol 3 Ml Neb INHALATION 3 ml QID.RESPIRATORY S CH Administration Bumetanide 2 mg 06/17/22 18:00 06/19/22 08:09 Bumetanide 0.25 Mg/Ml Sdv 10 Ml IVP 2 mg BID YONATAN Administration Enoxaparin Sodium 40 mg 06/17/22 17:15 06/18/22 18:08 Enoxaparin 40 Mg /0.4 Ml Syringe SUBCUT 40 mg Q24H YONATAN Administration Piperacillin Sod/T azobactam 50 mls @ 12.5 mls /hr 06/17/22 19:49 06/19/22 11:35 Sod 3.375 gm/ So dium Chloride IV 12.5 mls/hr Q8H YONATAN Administration Protocol Lidocaine HCl 5 ml / Potassium 105 mls @ 26.25 m ls/hr 06/19/22 10:21 06/19/22 11:36 Chloride IV 06/19/22 14:20 26.25 mls/hr ONCE ONE Administration Tamsulosin HCl 0.4 mg 06/18/22 09:00 06/19/22 08:10 Tamsulosin 0.4 M g Capsule PO 0.4 mg DAILY YONATAN Administration Zolpidem Tartrate 2.5 mg 06/18/22 21:10 06/18/22 21:16 Zolpidem 5 Mg Ta blet PO 2.5 mg BEDTIME PRN Administration INSOMNIA Vitals/I&O/Wt Last Vital Signs Temp 98.5 F 06/20/22 07:45 Pulse 84 06/20/22 11:43 Resp 17 06/20/22 11:43 BP 168/109 06/20/22 07:45 Pulse Ox 96 06/20/22 11:43 O2 Del Method 06/20/22 11:43 06/19/22 06/20/22 06/20/22 22:59 06:59 14:59 Intake Total 795.000 / 1535.000 290 / 1825.000 286 / 286 Output Total 1600 / 3000 450 / 3450 300 / 300 Balance -805.000 / -1465.000 -160 / -1625.000 -14 / -14 Weight last 48 hrs Weight 75.013 kg Weight 74.661 kg Physical Exam Const: COMMON NORMALS: patient oriented x3 HENMT: COMMON NORMALS: normocephalic and atraumatic HEAD & SCALP: normocephalic and atraumatic Resp: COMMON NORMALS: clear to auscultation bilaterally AUSCULTATION: clear to auscultation bilaterally OTHER: Diminished air entry B/L Cardio: COMMON NORMALS: regular rate, regular rhythm, S1 normal heart sound present, S2 normal heart sound present, No gallops present (Cardio), No murmurs present (Cardio), No rub (Cardio) and Peripheral pulses 2+ throughout RATE: regular rate RHYTHM: regular rhythm HEART SOUNDS: S1 normal heart sound present and S2 normal heart sound present PERIPHERAL PULSES: Peripheral pulses 2+ throughout GI: COMMON NORMALS: Normal to inspection, nondistended, normoactive bowel sounds present, Soft to palpation, non-tender, No hepatosplenomegaly present and no masses AUSCULTATION: Yes normoactive bowel sounds PALPATION: Yes Soft to palpation and Yes No hepatosplenomegaly present RECTAL EXAM: Yes deferred Extremity: NARRATIVE EXTREMITY EXAM: 1 + PITTING EDEMA IN B/L LE Neuro: COMMON NORMALS: patient oriented x3 Urinary Catheter Management: Bullock: Cath Placed During This Visit: yes Reason for Continuing Indwelling Catheter: Accurate Measurement of Urinary Output in Critically Ill Patients Urinary Catheter Date of Insertion: 06/17/22 Urinary Catheter Time of Insertion: 18:38 Data 06/20/22 04:11 06/20/22 04:11 Micro: Microbiology 06/17/22 06:17 Gram Stain - Final Sputum - Expectorated Sputum Sputum Culture - Preliminary A&P Assessment and plan (1) Left bundle branch block: (2) Hypothyroidism: (3) Hypertension: (4) Emphysema/COPD: Qualifiers: Emphysema type: unspecified Qualified Code(s): J43.9 - Emphysema, unspecified (5) Congestive heart failure: (6) Pneumonia: (7) CKD (chronic kidney disease) stage 3, GFR 30-59 ml/min: (8) Total bilirubin, elevated: (9) Hyponatremia: (10) Hypokalemia: Plan 61 year old male with past medical history of hypertension,NICM, CAG done in2012: Which showed nonocclusive coronary artery disease, heart failure with reduced ejection fraction, Chronic smoker, COPD, recent nuclear stress test: Suggestive of myocardial scarring, came today with chief complaint of worsening shortness of breath, going on for the last 1 to 2 weeks, orthopnea PND, patient is also complaining of cough with productive sputum.Right lower quadrant abdominal pain with coughing.He is also complaining of diminished urine output in the last few days. Assessment: Acute on chronic decompensated heart failure with reduced ejection fraction: Closely monitor for possibly developing cardiogenic shock. Recent 2D echo done in Mar 2022 has shown: Moderately increased LV cavity size, severely depressed LV systolic function ,LVEF:15, severe global LV hypokinesis, moderate MR. Patient is on Lasix 40 twice daily at home, for now we will start him on Bumex 2 mg IV twice daily Intake output charting Monitor daily weight Fluid restriction to 1.5 LS Monitor electrolytes Telemetry monitoring Bullock catheter placement for appropriate output charting Possible pneumonia: Follow sputum Gram stain and culture: Moderate gram-positive cocci in pairs chains and clusters rare gram-negative rods. MRSA PCR:negative Follow blood culture:NTD Urine Legionella antigen: Negative Bacterial antigen panel: Negative Lactic acid is 2.6 Follow repeat lactic acid Procalcitonin:0.61 Empirically has been started on vancomycin and Zosyn. Vancomycin was discontinued today History of COPD: Continue DuoNebs Supplemental oxygen as needed CKD stage III: Serum creatinine is 1.3 Baseline serum creatinine is around: 1.3-1.8 Monitor BMP Avoid nephrotoxic's Monitor and output charting Hyponatremia : Possibly 2/2 overdiuresis Monitor BMP For now. Execercise caution with diuresis. Hypokalemia : Monitor and replace serum K Elevated total bilirubin: Monitor LFT for now Patient may have possible underlying cardiac cirrhosis Known left bundle branch block No acute intervention needed at this time monitor EKG as needed CODE STATUS: AND DVT prophylaxis on Lovenox Attestations Medical Necessity Statement*: needs to be in hospital for the management of heart failure.Needs for diuresis. Coding Level of Care Code Acute Code for Chg Fwd Diagnoses Left bundle branch block I44.7 Hypothyroidism E03.9 Hypertension I10 Emphysema/COPD J43.9 Emphysema type: unspecified Congestive heart failure I50.9 Pneumonia J18.9 CKD (chronic kidney disease) stage 3, GFR 30-59 ml/min N18.30 Total bilirubin, elevated R17 Hyponatremia E87.1 Hypokalemia E87.6
--- NOTE | 2022-06-20 13:37 | PC.NURSE ---
pt ambulating down hallways tolerating activity well. hr remains in upper 100s when walking. denies any pain or increasing sob.
--- NOTE | 2022-06-20 14:44 | PC.NURSE ---
reinforcement needed on pt's fluid restriction to 1500cc as ordered. Educated pt on chf and fluid restriction. pt family brought a shake and a water bottle of 591 ml. notified the family and pt on fluid restriction per . reinforcement needed to pt and family.
[2022-06-20] MEDS: enoxaparin 40 mg/0.4 mL Syringe SUBCUT (17:45)
[2022-06-21] MEDS: piperacillin-tazobactam 3.375 GM in sodium chloride 0.9% (plus) 50 ML IV (03:06)
[2022-06-21 04:00] VITALS: BP 154/90; PULSE 101; RESP 24; O2SAT 97
[2022-06-21 04:23] LABS: Basophils % 0.3 %; Eosinophils % 0.3 %; Hematocrit 40.8 % (42.0-52.0); Hemoglobin 12.8 g/dL (11.7-16.6); Lymphocytes # 1.4 10^3/uL (0.8-4.8); Lymphocytes % 13.1 %; Mean Corpuscular HGB Conc 31.4 g/dL (30.0-36.0); Mean Corpuscular Hemoglobin 28.9 pg (28.0-34.0); Mean Corpuscular Volume 92.1 fl (80-94); Monocytes # 1.1 10^3/uL (0.2-0.9); Monocytes % 10.4 %; Neutrophils # 7.91 10^3/uL (1.8-7.7); Neutrophils % 75.3 %; Nucleated Red Blood Cells % 0 %; Platelet Count 220 10^3/cmm (130-400); Red Blood Count 4.43 10^6/uL (4.1-5.3); Red Cell Distribution Width 16.9 % (12.1-15.1); White Blood Count 10.5 10^3/uL (4.0-10.0)
[2022-06-21 04:37] LABS: Blood Urea Nitrogen 17 mg/dL (8-23); Calcium 8.7 mg/dL (8.5-10.5); Carbon Dioxide 19 mmol/L (22-29); Chloride 101 mmol/L (98-107); Glomerular Filtration Rate 75.7 mL/min (90-130); Glucose 104 mg/dL (65-115); Osmolality Calculated 280 mOsm/kg (285-295); Sodium 134 mmol/L (136-145)
[2022-06-21 06:00] VITALS: PULSE 102
[2022-06-21 08:00] VITALS: PULSE 110; PULSE 90; RESP 16; RESP 24; O2SAT 94; O2SAT 98
[2022-06-21] MEDS: ipratropium-albuterol 3 mL Neb INHALATION (08:30)
[2022-06-21] MEDS: tamsulosin 0.4 mg Capsule PO (09:10)
[2022-06-21] MEDS: bumetanide 1 mg Tablet 2 MG PO (09:10)
[2022-06-21] MEDS: potassium chloride ER 20 mEq Tablet 40 MEQ PO (09:11)
[2022-06-21] MEDS: amlodipine 5 mg Tablet PO (09:11)
[2022-06-21] MEDS: metoprolol tartrate 25 mg Tablet PO (09:15)
--- NOTE | 2022-06-21 10:14 | P.DS_ITS ---
Discharge Providers Date of Admission: 06/17/22 18:30 Date of Discharge: June 21, 2022 Attending Provider at Admission: Anoop Christian MD Attending Provider at Discharge: Anoop Christian MD Primary Care Provider: ANGELINE Fishman Diagnoses at Discharge Discharge Diagnosis (1) Left bundle branch block: Status: Inactive (2) Hypothyroidism: Status: Inactive (3) Hypertension: Status: Inactive (4) Emphysema/COPD: Status: Inactive Qualifiers: Emphysema type: unspecified Qualified Code(s): J43.9 - Emphysema, unspecified (5) Congestive heart failure: Status: Inactive (6) Pneumonia: Status: Inactive (7) CKD (chronic kidney disease) stage 3, GFR 30-59 ml/min: Status: Inactive (8) Total bilirubin, elevated: Status: Inactive (9) Hyponatremia: Status: Inactive (10) Hypokalemia: Status: Inactive Reason for Visit Reason for Visit: SOB/ FLUID IN ABDOMEN Hospital Course Hospital Course 61 year old male with past medical history of hypertension,NICM, CAG done in? 2012: Which showed nonocclusive coronary artery disease, heart failure with reduced ejection fraction, Chronic smoker, COPD, recent nuclear stress test: Suggestive of myocardial scarring, came today with chief complaint of worsening shortness of breath, going on for the last 1 to 2 weeks, orthopnea PND, patient is also complaining of cough with productive sputum.Right lower quadrant abdominal pain with coughing.He is also complaining of diminished urine output in the last few days.He was admitted for the management of Acute on chronic decompensated heart failure with reduced ejection fraction, possible pneumonia, patient was kept on aggressive IV diuresis with Bumex to which she responded well, was making good urine output, shortness of breath had improved, he was discharged on Bumex p.o. Lasix has been discontinued on discharge. Patient was also managed for possible pneumonia:Gram stain and culture: Moderate gram-positive cocci in pairs chains and clusters rare gram-negative rods.MRSA PCR:negative,blood culture:NTD Urine Legionella antigen: Negative Bacterial antigen panel: Negative Procalcitonin:0.61, he was empirically kept on broad- spectrum antibiotic and was discharged on p.o. levofloxacin. For history of COPD was continued on DuoNeb Supplemental oxygen as needed. Overall he responded well to above medical management, he was discharged in stable condition to home and will continue to follow PCP and cardiology as outpatient. Physical Exam Const: COMMON NORMALS: patient oriented x3 HENMT: COMMON NORMALS: normocephalic and atraumatic HEAD & SCALP: normocephalic and atraumatic Resp: COMMON NORMALS: clear to auscultation bilaterally AUSCULTATION: clear to auscultation bilaterally OTHER: Diminished air entry B/L Cardio: COMMON NORMALS: regular rate, regular rhythm, S1 normal heart sound present, S2 normal heart sound present, No gallops present (Cardio), No murmurs present (Cardio), No rub (Cardio) and Peripheral pulses 2+ throughout RATE: regular rate RHYTHM: regular rhythm HEART SOUNDS: S1 normal heart sound present and S2 normal heart sound present PERIPHERAL PULSES: Peripheral pulses 2+ throughout GI: COMMON NORMALS: Normal to inspection, nondistended, normoactive bowel sounds present, Soft to palpation, non-tender, No hepatosplenomegaly present and no masses AUSCULTATION: Yes normoactive bowel sounds PALPATION: Yes Soft to palpation and Yes No hepatosplenomegaly present RECTAL EXAM: Yes deferred Extremity: NARRATIVE EXTREMITY EXAM: 1 + PITTING EDEMA IN B/L LE Neuro: COMMON NORMALS: patient oriented x3 Urinary Catheter Management: Bullock: Cath Placed During This Visit: yes Reason for Continuing Indwelling Catheter: Acute Urinary Retention or Obstruction Urinary Catheter Date of Insertion: 06/17/22 Urinary Catheter Time of Insertion: 18:38 Discharge Data Studies Completed and Pending Completed Studies During Hospitalization Category Date Time Status XR chest 1V portable [id number] Stat Exams 06/17/22 14:01 Completed Pending at discharge Category Date Time Status BMP [Basic Metabolic Panel] AM LABS Lab 06/22/22 04:00 Ordered BMP [Basic Metabolic Panel] AM LABS Lab 06/23/22 04:00 Ordered Blood Culture Stat Lab 06/17/22 15:25 Results CBC Auto Diff [Complete Blood Count w/Auto] AM LABS Lab 06/22/22 04:00 Ordered CBC Auto Diff [Complete Blood Count w/Auto] AM LABS Lab 06/23/22 04:00 Ordered Radiology Impressions Chest X-Ray 06/17/22 14:01 IMPRESSION: 1. Mild diffuse interstitial infiltrates noted bilaterally. This could represent interstitial pneumonia or pulmonary edema. 2. Mild cardiac enlargement. Laboratory Results WBC 10.5 10^3/uL (4.0-10.0) H 06/21/22 03:46 RBC 4.43 10^6/uL (4.1-5.3) 06/21/22 03:46 Hgb 12.8 g/dL (11.7-16.6) 06/21/22 03:46 Hct 40.8 % (42.0-52.0) L 06/21/22 03:46 MCV 92.1 fl (80-94) 06/21/22 03:46 MCH 28.9 pg (28.0-34.0) 06/21/22 03:46 MCHC 31.4 g/dL (30.0-36.0) 06/21/22 03:46 RDW 16.9 % (12.1-15.1) H 06/21/22 03:46 Plt Count 220 10^3/cmm (130-400) 06/21/22 03:46 MPV 10.0 fL (7.4-10.4) 06/21/22 03:46 Neut % (Auto) 75.3 % 06/21/22 03:46 Lymph % (Auto) 13.1 % 06/21/22 03:46 [place] % (Auto) 10.4 % 06/21/22 03:46 Eos % (Auto) 0.3 % 06/21/22 03:46 Baso % (Auto) 0.3 % 06/21/22 03:46 Neut # (Auto) 7.91 10^3/uL (1.8-7.7) H 06/21/22 03:46 Lymph # (Auto) 1.4 10^3/uL (0.8-4.8) 06/21/22 03:46 [place] # (Auto) 1.1 10^3/uL (0.2-0.9) H 06/21/22 03:46 Eos # (Auto) 0.0 10^3/uL (0.0-0.8) 06/21/22 03:46 Baso # (Auto) 0.0 10^3/uL (0.0-0.1) 06/21/22 03:46 Nucleated RBC % (auto) 0 % 06/21/22 03:46 Nucleated RBCs # 0.0 /100WBC 06/21/22 03:46 PT 17.80 SECONDS (12.1-14.9) H 06/18/22 04:27 INR 1.41 (0.8-1.2) H 06/18/22 04:27 APTT 37.4 SECONDS (23.9-36.7) H 06/18/22 04:27 Sodium 134 mmol/L (136-145) L 06/21/22 03:46 Potassium 4.0 mmol/L (3.5-5.1) 06/21/22 03:46 Chloride 101 mmol/L (98-107) 06/21/22 03:46 Carbon Dioxide 19 mmol/L (22-29) L 06/21/22 03:46 Anion Gap 18.0 (5-19) 06/21/22 03:46 BUN 17 mg/dL (8-23) 06/21/22 03:46 Creatinine 1.0 mg/dL (0.7-1.2) 06/21/22 03:46 GFR Calculation 75.7 mL/min (90-130) L 06/21/22 03:46 Glucose 104 mg/dL (65-115) 06/21/22 03:46 Calculated Osmolality 280 mOsm/kg (285-295) L 06/21/22 03:46 Lactic Acid 1.5 mmol/L (0.5-2.2) 06/18/22 04:27 Lactic Acid (Sepsis) 3.7 mmol/L (0.5-2.2) H 06/17/22 19:10 Calcium 8.7 mg/dL (8.5-10.5) 06/21/22 03:46 Total Bilirubin 1.0 mg/dL (0.15-1.2) 06/20/22 04:11 AST 29 U/L (0-40) 06/20/22 04:11 ALT 13 U/L (0-41) 06/20/22 04:11 Alkaline Phosphatase 73 U/L (40-130) 06/20/22 04:11 Ammonia 31 umol/L (16-60) 06/17/22 15:30 NT-Pro-B Natriuret Pep 97253 pg/mL (0-125) H 06/18/22 04:27 Total Protein 6.5 g/dL (6.6-8.7) L 06/20/22 04:11 Albumin 2.9 g/dL (3.5-5.2) L 06/20/22 04:11 Globulin 3.6 g/dL (1.3-4.6) 06/20/22 04:11 Procalcitonin 0.61 ng/mL (0-0.5) H 06/18/22 04:27 Urine Color Dark yellow (Yellow) 06/17/22 16:42 Urine Appearance Clear (CLEAR) 06/17/22 16:42 Urine pH 5 (5-7) 06/17/22 16:42 Ur Specific [place] 1.015 (1.005-1.030) 06/17/22 16:42 Urine Protein Neg (Negative) 06/17/22 16:42 Urine Glucose (UA) Norm (Normal) 06/17/22 16:42 Urine Ketones Negative (Negative) 06/17/22 16:42 Urine Blood Neg (Negative) 06/17/22 16:42 Urine Nitrate Negative (Negative) 06/17/22 16:42 Urine Bilirubin Neg (Negative) 06/17/22 16:42 Urine Urobilinogen Neg mg/dL (Negative) 06/17/22 16:42 Ur Leukocyte Esterase Negative (Negative) 06/17/22 16:42 Vitals Last Vital Signs Temp 98.6 F 06/20/22 23:43 Pulse 90 06/21/22 08:00 Resp 16 06/21/22 08:00 BP 154/90 06/21/22 04:00 Pulse Ox 98 06/21/22 08:00 O2 Del Method 06/21/22 08:00 Discharge Plan Discharge Patient Disposition: Home Condition: Stable Prescriptions: New bumetanide 1 mg Tablet 2 mg PO DAILY 30 Days Qty: 30 2RF metoprolol succinate 50 mg tablet extended release 24 hr 50 mg PO DAILY 30 Days Qty: 30 1RF amlodipine 10 mg tablet 10 mg PO DAILY Qty: 30 1RF levofloxacin 750 mg tablet 750 mg PO DAILY 5 Days Qty: 5 0RF Continued polyethylene glycol 3350 [Miralax] 17 gram powder in packet 17 g PO DAILY PRN (Reason: Constipation) potassium chloride 20 mEq tablet extended release 20 meq PO BID 30 Days Qty: 60 0RF albuterol sulfate [ProAir HFA] 90 mcg/actuation HFA aerosol inhaler 2 puff inhalation QID PRN (Reason: shortness of breath or wheezing) Qty: 6.7 5RF tamsulosin [Flomax] 0.4 mg capsule 0.4 mg PO DAILY Qty: 30 1RF nitroglycerin 0.4 mg Tablet, Sublingual 0.4 mg sublingual Q5M PRN (Reason: Chest Pain) Qty: 10 0RF Milk of Magnesia 400 mg/5 mL Suspension 15 ml PO DAILY PRN (Reason: Constipation) Discontinued furosemide 40 mg tablet 40 mg PO BID Discharge Orders: Discharge Order (Routine); Ordered 06/21/22 Ordered By: Anoop Christian Referrals: Raf Kirby FNP-C [Primary Care Provider] - 07/02/22 10:15 am Discharge Diet: Cardiac Patient Instructions: Metoprolol (By mouth) (Lopressor, Toprol XL), Bumetanide (By mouth) (Bumex), Amlodipine (By mouth) (Hypertenipine-2.5, Norvasc, Norliqva), Levofloxacin (By mouth) (Levaquin, Levaquin Leva-dante), CHF Stoplight, COPD Stoplight, Opioid Safety Discharge Attestations Time Spent in Discharge Care*: greater than 30 min Quality Metrics Clinical Quality Measures [ No reported AMI, CVA or VTE this stay] Coding Level of Care Code Acute Code for Chg Fwd Diagnoses Left bundle branch block I44.7 Hypothyroidism E03.9 Hypertension I10 Emphysema/COPD J43.9 Emphysema type: unspecified Congestive heart failure I50.9 Pneumonia J18.9 CKD (chronic kidney disease) stage 3, GFR 30-59 ml/min N18.30 Total bilirubin, elevated R17 Hyponatremia E87.1 Hypokalemia E87.6
[2022-06-21 11:37] VITALS: BP 115/71; PULSE 89; RESP 27
--- NOTE | 2022-06-21 11:39 | PC.NURSE ---
Patient is unable to write or read. Discharge education provided but patient compliance is an issue. Patient was education on fluid restriction.
[2022-06-21 12:00] VITALS: PULSE 88; RESP 16; O2SAT 96
== END 2022-06-21 12:00 | disposition home or self-care (01) | DRG 291 ==
LOC: ER 17:31 → CSU 18:30
PROVIDERS: Admitting Provider Internal Medicine; Emergency Provider Family Medicine; PCP Nurse Practitioner; Visit Provider Internal Medicine
DX: I13.0 Hypertensive heart and chronic kidney disease with heart failure and stage 1 through stage 4 chronic kidney disease, or unspecified chronic kidney disease (principal); I50.23 Acute on chronic systolic (congestive) heart failure; J18.9 Pneumonia, unspecified organism; E87.1 Hypo-osmolality and hyponatremia; N18.30 Chronic kidney disease, stage 3 unspecified; F17.200 Nicotine dependence, unspecified, uncomplicated; J43.9 Emphysema, unspecified; Z79.51 Long term (current) use of inhaled steroids; E03.9 Hypothyroidism, unspecified; E87.6 Hypokalemia; I42.9 Cardiomyopathy, unspecified; Z86.718 Personal history of other venous thrombosis and embolism; I44.7 Left bundle-branch block, unspecified
CPT/HCPCS: 36415; 51702; 71045; 80048; 80053; 81003; 82140; 83605; 83880; 84145; 85025; 85610; 85730; 86403; 87040; 87070; 87205; 87449; 87641; 93005; 94640; 96365; 96367; 96372; 96375; 96376; 99285; J0456; J1650; J1956; J2543; J3370; J3480; J3490; J7030; J7050

== ENCOUNTER → 2022-07-10 09:23 | Outpatient (BNVA) | payer MEDICAID, SELFPAY | PROVIDERS: PCP Nurse Practitioner; Visit Provider Physician Assistant | DX: I50.9 Heart failure, unspecified (principal) | CPT/HCPCS: 80048 ==

== ENCOUNTER → 2022-07-16 11:20 | Outpatient (BNVA) | payer MEDICAID, SELFPAY | PROVIDERS: PCP Nurse Practitioner; Visit Provider Nurse Practitioner | DX: I50.9 Heart failure, unspecified (principal); N18.32 Chronic kidney disease, stage 3b; R05.9 Cough, unspecified; M79.10 Myalgia, unspecified site | CPT/HCPCS: 80048; 83880; 85025; 87426 ==

== ENCOUNTER → 2022-08-07 07:54 | Outpatient (BNVA) | payer MEDICAID, SELFPAY | PROVIDERS: PCP Nurse Practitioner; Visit Provider Nurse Practitioner | DX: E03.9 Hypothyroidism, unspecified (principal); I10 Essential (primary) hypertension | CPT/HCPCS: 80053; 84443 ==

== ENCOUNTER → 2022-11-08 10:47 | Outpatient (BNVA) | payer MEDICAID, SELFPAY | PROVIDERS: PCP Nurse Practitioner; Visit Provider Nurse Practitioner | DX: I50.9 Heart failure, unspecified (principal); E03.9 Hypothyroidism, unspecified; I10 Essential (primary) hypertension; R39.11 Hesitancy of micturition | CPT/HCPCS: 80048 ==

== ENCOUNTER → 2023-02-26 09:32 | Outpatient (BNVA) | payer MEDICAID, SELFPAY | PROVIDERS: PCP Nurse Practitioner; Visit Provider Physician Assistant | DX: I50.9 Heart failure, unspecified (principal) | CPT/HCPCS: 80048 ==

== ENCOUNTER → 2023-04-15 10:28 | Outpatient (BNVA) | payer MEDICAID, SELFPAY | PROVIDERS: PCP Nurse Practitioner; Visit Provider Nurse Practitioner | DX: E55.9 Vitamin D deficiency, unspecified (principal); E03.9 Hypothyroidism, unspecified; I10 Essential (primary) hypertension | CPT/HCPCS: 80053; 80061; 82306; 84443; 85025 ==

== ENCOUNTER → 2023-04-24 12:12 | Outpatient (BNVA) | payer MEDICAID, SELFPAY | PROVIDERS: PCP Nurse Practitioner; Visit Provider Nurse Practitioner | DX: I10 Essential (primary) hypertension (principal) | CPT/HCPCS: 81000 ==

== ENCOUNTER → 2023-07-21 09:35 | Outpatient (BNVA) | payer MEDICAID, SELFPAY | PROVIDERS: PCP Nurse Practitioner; Visit Provider Nurse Practitioner | DX: I10 Essential (primary) hypertension (principal); E55.9 Vitamin D deficiency, unspecified; E03.8 Other specified hypothyroidism | CPT/HCPCS: 80053; 82306; 84443 ==

== ENCOUNTER → 2023-10-06 13:39 | Outpatient (BNVA) | payer MEDICAID, SELFPAY | PROVIDERS: PCP Nurse Practitioner; Visit Provider Nurse Practitioner | DX: I10 Essential (primary) hypertension (principal) | CPT/HCPCS: 80053; 80061; 84443 ==

== ENCOUNTER → 2023-12-22 09:53 | Outpatient (BNVA) | payer MEDICAID, SELFPAY | PROVIDERS: PCP Nurse Practitioner; Visit Provider Nurse Practitioner | DX: I50.22 Chronic systolic (congestive) heart failure (principal); E03.8 Other specified hypothyroidism; I11.0 Hypertensive heart disease with heart failure | CPT/HCPCS: 80053; 81000; 84443; 85025 ==

== ENCOUNTER → 2024-05-20 12:02 | Outpatient (BNVA) | payer MEDICAID, SELFPAY | PROVIDERS: PCP Nurse Practitioner; Visit Provider Nurse Practitioner | DX: I50.22 Chronic systolic (congestive) heart failure (principal); E03.8 Other specified hypothyroidism | CPT/HCPCS: 80053; 80061; 84443; 85025 ==

== ENCOUNTER → 2024-11-24 10:11 | Outpatient (BNVA) | payer MEDICAID, SELFPAY | PROVIDERS: PCP Nurse Practitioner; Visit Provider Nurse Practitioner | DX: Z12.5 Encounter for screening for malignant neoplasm of prostate (principal); I10 Essential (primary) hypertension; E03.8 Other specified hypothyroidism; E55.9 Vitamin D deficiency, unspecified | CPT/HCPCS: 80053; 80061; 82306; 84443; G0103 ==